=== PATIENT | male | born 1965 | race Caucasian/White ===

== ENCOUNTER 2016-07-03 06:53 | Day surgery (SDC) | payer OTHER ==
[2016-06-28 09:31] VITALS: BMI 29.4
[~2016-07-03 06:53] MED LIST: LACTATED RINGERS 1,000 ML IV SCH; LIDOCAINE 1% 20 ML VIAL (10MG/ML) FOR IV START INTRADERMA PRN
[2016-07-03 07:09] VITALS: RESP 16; TEMP 97.6
[2016-07-03] MEDS ORDERED: fentaNYL (PF) 50 MCG/ML 2 ML AMP ONE (07:33)
[2016-07-03] MEDS ORDERED: MIDAZOLAM 2 MG/2 ML VIAL ONE (07:33)
[2016-07-03] MEDS ORDERED: PROPOFOL 10 MG/ML 20 ML VIAL IV ONE (07:33)
[2016-07-03] MEDS ORDERED: LIDOCAINE 1% INJ 10MG/ML (20 ML MDV) ONE (07:33)
[2016-07-03 08:24] VITALS: BP 123/79; PULSE 73
[2016-07-03 09:08] LABS: Aty Lym Flag Slight; CH 36.1; CHCM 35.8; HCT 41.5 % (39.0-53.0); HDW 2.72; HGB 14.2 gm/dL (13.0-17.5); MCH 34.7 pg (25.0-35.0); MCHC 34.3 g/dL (31.0-37.0); MCV 101.2 fL (80.0-100.0); Macrocytosis Slight; Mean Platelet Volume 7.7; RDW 13.3 % (11.5-15.5); WBC 3.4 k/uL (3.8-10.6); WBC (Perox) 3.32
[2016-07-03 10:20] LABS: Add Differential Manual Differential
[2016-07-03 10:23] LABS: Nucleated Red Blood Cells 0 /100 WBC (0-0); Total Cells Counted 100
[2016-07-03 10:25] LABS: Manual Review Performed
--- NOTE | 2016-07-03 16:21 | PCN ---
DATE OF PROCEDURE: 07/03/2016. PREOPERATIVE DIAGNOSIS: Acute leukemia. POSTOPERATIVE DIAGNOSIS: Acute leukemia. PROCEDURE: Bone marrow aspirate and biopsy. Site: Right iliac crest. ANESTHESIA: Local with IV systemic sedation. DETAILS: Utilizing sterile technique, the skin overlying the right iliac crest was prepared with Betadine and alcohol. After adequate sterile draping size 11, 4 inches Jamshidi needle was utilized to access the periosteum with ease. A total of the 14 mL of aspirate was obtained as well as 2 cm bone core biopsied. The patient tolerated the procedure very well. There were no immediate procedure-related complications. Total blood less than 1 mL. Results pending.
== END 2016-07-03 08:33 | disposition home or self-care (01) ==
LOC: OR 06:53
PROVIDERS: ATTEND Internal Medicine Hematology & Oncology
DX: C92.Z0 Other myeloid leukemia not having achieved remission (principal); D75.89 Other specified diseases of blood and blood-forming organs; E78.5 Hyperlipidemia, unspecified; Z79.899 Other long term (current) drug therapy
CPT/HCPCS: 85025; 38221; G0364; J2250; J2001; J3010; J2704

== ENCOUNTER 2016-10-25 11:40 | Day surgery (SDC) | payer OTHER ==
[2016-10-23 12:01] VITALS: BMI 29.2
[2016-10-25 11:52] VITALS: TEMP 98.4
[2016-10-25] MEDS ORDERED: LACTATED RINGERS 1,000 ML IV ONE (11:52)
[2016-10-25] MEDS ORDERED: PROPOFOL 10 MG/ML 20 ML VIAL IV ONE (12:23)
[2016-10-25] MEDS ORDERED: LIDOCAINE 2% INJ 20 MG/ML SQ ONE ×2 (12:23→12:25)
[2016-10-25 13:11] VITALS: BP 124/76; PULSE 81; RESP 16
[2016-10-25 14:15] LABS: Basophils % (A) 0 %; CH 36.3; CHCM 35.8; Eosinophils # (A) 0.1 k/uL (0-0.7); Eosinophils % (A) 5 %; HCT 38.2 % (39.0-53.0); HDW 2.67; HGB 13.6 gm/dL (13.0-17.5); Luc # (Auto) 0.04; Luc % (Auto) 3; Lymphocytes # (A) 0.6 k/uL (1.0-4.8); Lymphocytes % (A) 47 %; MCH 36.2 pg (25.0-35.0); MCHC 35.6 g/dL (31.0-37.0); MCV 101.5 fL (80.0-100.0); Macrocytosis Slight; Mean Platelet Volume 7.6; Monocytes # (A) 0.1 k/uL (0-1.0); Monocytes % (A) 5 %; Neutrophils # (A) 0.5 k/uL (1.3-7.7); Neutrophils % (A) 40 %; RBC 3.76 m/uL (4.30-5.90); RDW 14.4 % (11.5-15.5); WBC (Perox) 1.22
[2016-10-25 14:28] LABS: WBC 1.2 k/uL (3.8-10.6)
--- NOTE | 2016-10-25 18:52 | PCN ---
DATE OF PROCEDURE: 10/25/16 PREOPERATIVE DIAGNOSIS: AML. POSTOPERATIVE DIAGNOSIS: AML PROCEDURE: Bone marrow aspirate and biopsy. SITE: Right iliac crest. ANESTHESIA: Local with IV systemic sedation. DETAILS: Under sterile technique, the skin overlying the right iliac crest was prepared with Betadine and alcohol. After adequate sterile draping, local anesthesia systemic sedation, a size 11 4 inch Jamshidi needle was utilized and accessed the periosteum with ease. A total of 15 mL of aspirate and 4 cm bone core biopsies were obtained. The patient tolerated the procedure well. There were no immediate procedure complications. Total blood loss: Less than 1 mL. Results pending. MTDD
== END 2016-10-25 13:37 | disposition home or self-care (01) ==
LOC: OR 11:40
PROVIDERS: ATTEND Internal Medicine Hematology & Oncology
DX: C92.Z1 Other myeloid leukemia, in remission (principal); I10 Essential (primary) hypertension; Z79.899 Other long term (current) drug therapy; Z88.0 Allergy status to penicillin
CPT/HCPCS: 85025; 38221; J2001; J2704; G0364

== ENCOUNTER 2016-11-12 06:42 | Inpatient (IN) | payer OTHER ==
[~2016-11-12 06:42] MED LIST changes: +FLUDARABINE PHOSPHATE IV SCH; -LACTATED RINGERS 1,000 ML IV SCH; -LIDOCAINE 1% 20 ML VIAL (10MG/ML) FOR IV START INTRADERMA PRN; +SODIUM CHLORIDE 0.9% IV SCH
[2016-11-12] MEDS ORDERED: SALT AND SODA MOUTHWASH 1,000 ML PO PRN (08:00)
[2016-11-12 08:19] LABS: CH 36.7; CHCM 35.6; HDW 2.79; HGB 12.4 gm/dL (13.0-17.5); MCH 36.6 pg (25.0-35.0); MCHC 35.4 g/dL (31.0-37.0); MCV 103.5 fL (80.0-100.0); Macrocytosis Moderate; RBC 3.38 m/uL (4.30-5.90); RDW 15.8 % (11.5-15.5)
[2016-11-12 08:31] LABS: ALT 79 U/L (21-72); AST 41 U/L (17-59); Alkaline Phosphatase 68 U/L (38-126); Anion Gap 9 mmol/L; Blood Urea Nitrogen 19 mg/dL (9-20); Calcium 9.6 mg/dL (8.4-10.2); Carbon Dioxide 25 mmol/L (22-30); Chloride 105 mmol/L (98-107); Glucose 106 mg/dL (74-99); Non-African American GFR(MDRD) >60 (>60 ml/min/1.73 sqM); Potassium 4.8 mmol/L (3.5-5.1); Sodium 139 mmol/L (137-145); Total Bilirubin 0.6 mg/dL (0.2-1.3); Total Protein 7.1 g/dL (6.3-8.2); Uric Acid 4.9 mg/dL (3.5-8.5)
[2016-11-12] MEDS ORDERED: LIDOCAINE 2% INJ 20 MG/ML SQ ONE (08:36)
[2016-11-12 08:41] LABS: Add Differential Manual Differential
[2016-11-12 08:47] LABS: Manual Review Performed; Nucleated Red Blood Cells 0 /100 WBC (0-0); Total Cells Counted 100
[2016-11-12 09:23] VITALS: BMI 28.8
--- NOTE | 2016-11-12 09:41 | IR ---
EXAMINATION TYPE: IR cvc insert >=5 years DATE OF EXAM: 11/12/2016 COMPARISON: NONE CLINICAL HISTORY: AML Needs long-term intravenous access for chemotherapy. PROCEDURE: After informed consent, the skin overlying the right brachial vein was localized with ultrasound and noted to be compressible and patent. An ultrasound image was obtained and submitted on the patient's chart. The overlying skin was prepped and draped and Lidocaine was used for local anesthesia. A sk in cuong was made with a scalpel. Access was gained to the vein under ultrasound guidance with a 21 g auge needle and a 0.018 inch wire was advanced. Access site was dilated with Peel-Away sheath and ca theter tailored to the appropriate length and advanced such that the distal tip is at the cavoatrial junction. Spot image was obtained verifying placement. Catheter was fixed to the skin with suture a nd a sterile dressing was placed following hemostasis. Catheter was aspirated and flushed with salin e. Patient was discharged in stable condition without complication. Maximal barrier technique is uti lized. Ultrasound image is documented on the chart. Ultrasound used with sterile technique. Fluoro time and fluoroscopic images submitted to document procedure: 0.8 minutes fluoroscopy time, si ngle intraoperative C-arm image documents the procedure IMPRESSION: STATUS POST ULTRASOUND AND FLUOROSCOPIC GUIDED PICC LINE PLACEMENT, READY FOR USE. THIS PROCEDURE WAS PERFORMED BY THE UNDERSIGNED.
[2016-11-12] MEDS: ONDANSETRON 16 MG in SODIUM CHLORIDE 0.9% 50 ML IVPB SCH (10:16)
[2016-11-12] MEDS: DEXAMETHASONE SOD PHOSPHATE 10 MG/ML 1 ML VIAL IV SCH (10:16)
[2016-11-12] MEDS: SALT AND SODA MOUTHWASH 1,000 ML PO SCH ×3 (10:16→16:46)
[2016-11-12] MEDS: prednisoLONE ACETATE 1% OPHTH DROPS 1 ML BTL BOTH EYES SCH ×4 (10:16→21:10)
[2016-11-12] MEDS: ALLOPURINOL 300 MG TAB PO SCH (10:16)
[2016-11-12] MEDS: FAMOTIDINE 20 MG/2 ML VIAL IV SCH (10:16)
[2016-11-12] MEDS: SODIUM CHLORIDE 0.9% 1,000 ML IV SCH ×3 (10:17→22:39)
[2016-11-12] MEDS: SODIUM CHLORIDE 0.9% IV SCH ×2 (10:58→15:09)
[2016-11-12] MEDS: FLUDARABINE PHOSPHATE IV SCH (10:58)
[2016-11-12] MEDS: TOBRAMYCIN 0.3% OPHTH DROPS 5 ML BTL BOTH EYES SCH ×3 (12:56→21:10)
[2016-11-12] MEDS: IDARUBICIN HCL IV SCH (15:09)
[2016-11-12] MEDS: CYTARABINE IV SCH (15:09)
--- NOTE | 2016-11-12 23:31 | P.HPIM ---
History of Present Illness H&P Date: 11/12/16 Mr Shah is a 51 yr old WM, well known to our service. He was diagnosed with AML in 06/28. He underwent successful induction with the 7+3 regimen. As his cytogenetics were favorable, he had consolidation with HiDAC, completing 4/ 4 cycles on 03/05/16. He tolerated treatment reasonably, though he did have admissions for neutropenic fever. He was on observation till early 10/29, when he presented with fatigue, and was found to have low WBC. He had a repeat bone marrow on 10/25/16, revealing relapsed AML, with now new cytogeentic abnormalities ( del 7q, and Inv 16). He is being admitted fro re induction, with the LEO-FLAG regimen. He denies any complaints, other than fatigue. Review of Systems Constitutional: Reports fatigue Eyes: denies blurred vision, denies pain Ears: deny: decreased hearing, ear discharge, earache, tinnitus Ears, nose, mouth and throat: Denies headache, Denies sore throat Cardiovascular: Reports decreased exercise tolerance Respiratory: Denies cough Gastrointestinal: Denies abdominal pain, Denies diarrhea, Denies nausea, Denies vomiting Genitourinary: Reports as per HPI Musculoskeletal: Reports as per HPI Integumentary: Denies pruritus, Denies rash Neurological: Denies numbness, Denies weakness Psychiatric: Denies anxiety, Denies depression Endocrine: Denies fatigue, Denies weight change Hematologic/Lymphatic: Reports as per HPI Past Medical History Past Medical History: Cancer, Hypertension Additional Past Medical History / Comment(s): 09/2015 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 History of Any Multi-Drug Resistant Organisms: None Reported Past Surgical History: Tonsillectomy Additional Past Surgical History / Comment(s): bone marrow bx 3, PICC line insertion R arm & removed Past Anesthesia/Blood Transfusion Reactions: No Reported Reaction Additional Past Anesthesia/Blood Transfusion Reaction / Comment(s): Pt has received blood / platelets without reaction. Past Psychological History: No Psychological Hx Reported Additional Psychological History / Comment(s): Pt resides with his spouse. He is very independent. Smoking Status: Never smoker Past Alcohol Use History: Occasional Past Drug Use History: None Reported - Past Family History Mother Family Medical History: Cancer Additional Family Medical History / Comment(s): Mother of lymphoma at the age of 49 yrs. Father Family Medical History: No Reported History Additional Family Medical History / Comment(s): Father is 74 yrs old and healthy. Medications and Allergies Home Medications Medication Instructions Recorded Confirmed Type Losartan [Cozaar] 50 mg PO QAM 02/29/16 11/12/16 History Tobramycin 0.3% Ophth Soln [Tobrex 2 drop BOTH EYES Q4H 11/12/16 11/12/16 History 0.3% Ophth Soln] Allergies Allergy/AdvReac Type Severity Reaction Status Date / Time Penicillins Allergy Severe Rash/Hives Verified 11/12/16 10:20 Physical Exam Vitals: Vital Signs Temp Pulse Resp BP BP Pulse Ox 11/12/16 20:00 98.3 F 95 18 134/81 95 11/12/16 16:13 98.2 F 77 16 154/80 97 11/12/16 11:21 98.0 F 16 133/82 98 11/12/16 08:03 98.1 F 80 16 157/97 99 Intake and Output 11/12/16 11/12/16 11/13/16 14:59 22:59 06:59 Intake Total 675 400 Balance 675 400 Intake: Intake, IV Titration 675 Amount Fludarabine Phosphate 66 100 mg In Sodium Chloride 0.9 % 100 ml @ 200 mls/hr IV Q24H [facility] Rx#:[id number] Ondansetron 16 mg In 50 Sodium Chloride 0.9% 50 ml @ 100 mls/hr IVPB Q24H [facility] Rx#:[id number] Sodium Chloride 0.9% 1, 525 000 ml @ 150 mls/hr IV . Q6H40M [facility] Rx#:[id number] Oral 400 Other: Weight 96.615 kg Patient Weight 11/13/16 06:59 Weight 96.615 kg - Constitutional General appearance: no acute distress - EENT Eyes: EOMI, PERRLA ENT: hearing grossly normal, normal oropharynx - Neck Neck: no lymphadenopathy - Respiratory Respiratory: bilateral: CTA - Cardiovascular Rhythm: regular Heart sounds: normal: S1, S2 - Gastrointestinal General gastrointestinal: normal bowel sounds, soft - Integumentary Integumentary: normal - Neurologic Neurologic: CNII-XII intact - Musculoskeletal Musculoskeletal: strength equal bilaterally - Psychiatric Psychiatric: A&O x's 3, appropriate affect Results CBC & Chem 7: 11/12/16 08:03 11/12/16 08:03 Labs: Abnormal Lab Results - Last 24 Hours (Table) 11/12/16 11/12/16 Range/Units 08:03 08:03 WBC 1.0 L* (3.8-10.6) k/uL RBC 3.38 L (4.30-5.90) m/uL Hgb 12.4 L (13.0-17.5) gm/dL Hct 35.0 L (39.0-53.0) % MCV 103.5 H (80.0-100.0) fL MCH 36.6 H (25.0-35.0) pg RDW 15.8 H (11.5-15.5) % Plt Count 95 L (150-450) k/uL Neutrophils # (Manual) 0.4 L (1.3-7.7) k/uL Lymphocytes # (Manual) 0.5 L (1.0-4.8) k/uL Glucose 106 H (74-99) mg/dL ALT 79 H (21-72) U/L Thrombosis Risk Factor Assmnt - DVT/VTE Prophylaxis DVT/VTE Prophylaxis: Mechanical Prophylaxis ordered - Choose All That Apply Each Factor Represents 1 point: Age 41-60 years Other Risk Factors: Yes Each Risk Factor Represents 2 Points: Malignancy Thrombosis Risk Factor Assessment Total Risk Factor Score: 3 Thrombosis Risk Factor Assessment Level: Moderate Risk Assessment and Plan (1) Leukemia Narrative/Plan: The pt is presenting with AMl, in 1st relapse, after achieving remission initially , followed with consoloidation chemo. He is being admitted or high dose infusional chemotherapy, with LEO- FLAG to try to achieve second remission. The regimen has been discussed in detail. He will receive treatment with pre meds per protocol. He will followed closely with labs and clinical exams Status: Acute (2) Bicytopenia Narrative/Plan: Due to underlying AML. Monitor counts and transfuse PRBC or plt as needed. WBC will improve only after remission is achieved, and counts recover post chemo. Status: Acute Plan: Mechanical DVT prophylaxis due ti risk of marked drop in plt once chemo startes
[2016-11-13] MEDS: TOBRAMYCIN 0.3% OPHTH DROPS 5 ML BTL BOTH EYES SCH ×7 (00:33→23:52)
[2016-11-13] MEDS: SODIUM CHLORIDE 0.9% 1,000 ML IV SCH ×4 (04:45→20:57)
[2016-11-13 06:45] LABS: CH 36.9; CHCM 35.3; HCT 25.2 % (39.0-53.0); HDW 2.76; MCH 37.4 pg (25.0-35.0); MCHC 35.6 g/dL (31.0-37.0); MCV 104.8 fL (80.0-100.0); Macrocytosis Moderate; Mean Platelet Volume 7.9; WBC (Perox) 0.89
[2016-11-13 06:50] LABS: WBC 0.9 k/uL (3.8-10.6)
[2016-11-13 07:16] LABS: ALT 58 U/L (21-72); AST 19 U/L (17-59); Alkaline Phosphatase 47 U/L (38-126); Anion Gap 6 mmol/L; Blood Urea Nitrogen 13 mg/dL (9-20); Carbon Dioxide 19 mmol/L (22-30); Chloride 116 mmol/L (98-107); Glucose 84 mg/dL (74-99); Non-African American GFR(MDRD) >60 (>60 ml/min/1.73 sqM); Potassium 3.2 mmol/L (3.5-5.1); Sodium 141 mmol/L (137-145); Total Bilirubin 0.3 mg/dL (0.2-1.3); Total Protein 4.4 g/dL (6.3-8.2); Uric Acid 3.3 mg/dL (3.5-8.5)
[2016-11-13 07:30] LABS: Calcium 6.3 mg/dL (8.4-10.2)
[2016-11-13 07:39] LABS: Add Differential Manual Differential
[2016-11-13] MEDS: ALLOPURINOL 300 MG TAB PO SCH (07:58)
[2016-11-13] MEDS: LOSARTAN 50 MG TAB PO SCH (07:58)
[2016-11-13] MEDS: SALT AND SODA MOUTHWASH 1,000 ML PO SCH ×3 (07:58→17:31)
[2016-11-13] MEDS: prednisoLONE ACETATE 1% OPHTH DROPS 1 ML BTL BOTH EYES SCH ×4 (07:59→20:55)
[2016-11-13] MEDS ORDERED: POTASSIUM CHLORIDE 20 MEQ in WATER FOR INJECTION 1 100ML.BAG IVPB ONE (08:31)
[2016-11-13] MEDS ORDERED: Potassium Replacement Protocol 1 EACH MISC MISCELLANE PRN (08:31)
[2016-11-13] MEDS: DEXAMETHASONE SOD PHOSPHATE 10 MG/ML 1 ML VIAL IV SCH (09:28)
[2016-11-13] MEDS: FAMOTIDINE 20 MG/2 ML VIAL IV SCH (09:30)
[2016-11-13] MEDS: ONDANSETRON 16 MG in SODIUM CHLORIDE 0.9% 50 ML IVPB SCH (09:32)
--- NOTE | 2016-11-13 10:05 | P.PN ---
Subjective Principal diagnosis: AML, admit for high dose CIVI chemotherapy Pt seen today in follow up, he states feeling pretty good, denies fever, oral irritation, nausea, cough, SOB, abd discomfort, indigestion, dysuria, diarrhea, constipation, pain, rash, swelling or bleeding. Objective - Vital Signs Vital signs: Vital Signs Temp 98.1 F 11/13/16 08:00 Pulse 72 11/13/16 08:00 Resp 18 11/13/16 08:04 BP 139/81 11/13/16 08:00 Pulse Ox 97 11/13/16 08:00 Intake & Output 11/12/16 11/13/16 11/13/16 18:59 06:59 18:59 Intake Total 675 1600 Balance 675 1600 Weight 96.615 kg Intake: Intake, IV Titration 675 1200 Amount Fludarabine Phosphate 66 100 mg In Sodium Chloride 0.9 % 100 ml @ 200 mls/hr IV Q24H [facility] Rx#:[id number] Ondansetron 16 mg In 50 Sodium Chloride 0.9% 50 ml @ 100 mls/hr IVPB Q24H [facility] Rx#:[id number] Sodium Chloride 0.9% 1, 525 1200 000 ml @ 150 mls/hr IV . Q6H40M [facility] Rx#:[id number] Oral 400 Other: Voiding Method Toilet Toilet # Voids 2 2 - Constitutional General appearance: Present: average body habitus, cooperative, no acute distress - EENT Eyes: Present: anicteric sclerae, EOMI, PERRLA, normal appearance ENT: Present: normal oropharynx - Respiratory Respiratory: bilateral: CTA - Cardiovascular Rhythm: regular Heart sounds: normal: S1, S2 Abnormal Heart Sounds: Absent: systolic murmur, diastolic murmur, rub, S3 Gallop , S4 Gallop, click, other - Peripheral edema leg Peripheral Edema: bilateral: None - Gastrointestinal General gastrointestinal: Present: normal bowel sounds, soft - Integumentary Integumentary: Present: normal turgor - Neurologic Neurologic: Present: CNII-XII intact - Musculoskeletal Musculoskeletal: Present: strength equal bilaterally - Psychiatric Psychiatric: Present: A&O x's 3, appropriate affect, intact judgment & insight - Labs CBC & Chem 7: 11/13/16 06:16 11/13/16 06:16 Labs: Abnormal Lab Results - Last 24 Hours (Table) 11/13/16 11/13/16 Range/Units 06:16 06:16 WBC 0.9 L* (3.8-10.6) k/uL RBC 2.40 L (4.30-5.90) m/uL Hgb 9.0 L D (13.0-17.5) gm/dL Hct 25.2 L (39.0-53.0) % MCV 104.8 H (80.0-100.0) fL MCH 37.4 H (25.0-35.0) pg RDW 16.0 H (11.5-15.5) % Plt Count 69 L (150-450) k/uL Potassium 3.2 L (3.5-5.1) mmol/L Chloride 116 H (98-107) mmol/L Carbon Dioxide 19 L (22-30) mmol/L Creatinine 0.65 L (0.66-1.25) mg/dL Uric Acid 3.3 L (3.5-8.5) mg/dL Calcium 6.3 L* (8.4-10.2) mg/dL Total Protein 4.4 L (6.3-8.2) g/dL Albumin 2.5 L (3.5-5.0) g/dL Assessment and Plan (1) Leukemia, acute myeloid Narrative/Plan: Cont chemotherapy without adjustment. Supportive meds ordered. Status: Acute (2) Pancytopenia Narrative/Plan: Secondary to leukemia. No transfusions today. No growth factors to be administered until confirmed remission. SCDs will be used for DVT prophylaxis.Labs monitored daily. Status: Acute
[2016-11-13] MEDS: FLUDARABINE PHOSPHATE IV SCH (11:00)
[2016-11-13] MEDS: SODIUM CHLORIDE 0.9% IV SCH ×2 (11:00→16:21)
[2016-11-13] MEDS: IDARUBICIN HCL IV SCH (16:18)
[2016-11-13] MEDS: CYTARABINE IV SCH (16:21)
[2016-11-13] MEDS: ALPRAZolam 0.5 MG TAB PO PRN (20:55)
[2016-11-14] MEDS: TOBRAMYCIN 0.3% OPHTH DROPS 5 ML BTL BOTH EYES SCH ×6 (06:09→23:56)
[2016-11-14 06:20] LABS: CH 37.2; CHCM 35.4; HCT 25.7 % (39.0-53.0); HDW 2.72; HGB 8.8 gm/dL (13.0-17.5); MCH 35.9 pg (25.0-35.0); MCV 105.5 fL (80.0-100.0); Macrocytosis Moderate; Mean Platelet Volume 9.1; RBC 2.44 m/uL (4.30-5.90); RDW 15.8 % (11.5-15.5); WBC (Perox) 0.74
[2016-11-14 06:26] LABS: WBC 0.8 k/uL (3.8-10.6)
[2016-11-14 06:33] LABS: ALT 56 U/L (21-72); AST 23 U/L (17-59); Alkaline Phosphatase 46 U/L (38-126); Anion Gap 5 mmol/L; Blood Urea Nitrogen 11 mg/dL (9-20); Calcium 7.1 mg/dL (8.4-10.2); Carbon Dioxide 22 mmol/L (22-30); Chloride 115 mmol/L (98-107); Glucose 79 mg/dL (74-99); Non-African American GFR(MDRD) >60 (>60 ml/min/1.73 sqM); Potassium 3.5 mmol/L (3.5-5.1); Sodium 142 mmol/L (137-145); Total Bilirubin 0.8 mg/dL (0.2-1.3); Total Protein 4.8 g/dL (6.3-8.2); Uric Acid 3.2 mg/dL (3.5-8.5)
[2016-11-14 07:06] LABS: Add Differential Manual Differential
[2016-11-14 07:16] LABS: Manual Review Performed
[2016-11-14] MEDS: SALT AND SODA MOUTHWASH 1,000 ML PO SCH ×3 (08:53→16:19)
[2016-11-14] MEDS: ONDANSETRON 4 MG/2 ML VIAL IVP PRN (08:53)
[2016-11-14] MEDS: prednisoLONE ACETATE 1% OPHTH DROPS 1 ML BTL BOTH EYES SCH ×4 (08:53→20:30)
[2016-11-14] MEDS: ALLOPURINOL 300 MG TAB PO SCH (08:54)
[2016-11-14] MEDS: LOSARTAN 50 MG TAB PO SCH (08:54)
[2016-11-14] MEDS: ONDANSETRON 16 MG in SODIUM CHLORIDE 0.9% 50 ML IVPB SCH (11:21)
[2016-11-14] MEDS: DEXAMETHASONE SOD PHOSPHATE 10 MG/ML 1 ML VIAL IV SCH (12:07)
[2016-11-14] MEDS: FAMOTIDINE 20 MG/2 ML VIAL IV SCH (12:07)
[2016-11-14] MEDS: SODIUM CHLORIDE 0.9% IV SCH ×2 (12:15→15:53)
[2016-11-14] MEDS: FLUDARABINE PHOSPHATE IV SCH (12:15)
[2016-11-14] MEDS: SODIUM CHLORIDE 0.9% 1,000 ML IV SCH ×3 (15:15→20:31)
[2016-11-14] MEDS: IDARUBICIN HCL IV SCH (15:53)
[2016-11-14] MEDS: CYTARABINE IV SCH (15:53)
--- NOTE | 2016-11-14 18:38 | P.PN ---
Subjective Principal diagnosis: AML, admit for high dose CIVI chemotherapy Pt seen today in follow up. He has c/o "queezy" stomach and feeling tired. Denies fever, oral irritation, cough, SOB, abd discomfort, indigestion, dysuria , diarrhea, constipation, pain, rash, swelling or bleeding. He is ambulating in the room. He slept well last night. Objective - Vital Signs Vital signs: Vital Signs Temp 98.1 F 11/14/16 16:16 Pulse 66 11/14/16 16:16 Resp 20 11/14/16 16:16 BP 130/83 11/14/16 16:16 Pulse Ox 97 11/14/16 16:16 Intake & Output 11/13/16 11/14/16 11/14/16 18:59 06:59 18:59 Intake Total 360 1790 Balance 360 1790 Weight 100 kg Intake: Oral 360 1790 Other: Voiding Method Toilet Toilet # Voids 4 3 3 - Constitutional General appearance: Present: average body habitus, cooperative, no acute distress - EENT Eyes: Present: anicteric sclerae, PERRLA, normal appearance ENT: Present: normal oropharynx - Respiratory Respiratory: bilateral: CTA - Cardiovascular Details: RUE PICC site free from redness, swelling or pain Rhythm: regular Heart sounds: normal: S1, S2 - Peripheral edema leg Peripheral Edema: bilateral: None - Gastrointestinal General gastrointestinal: Present: normal bowel sounds, soft. Absent: absent bowel sounds, decreased bowel sounds, distended, hepatomegaly, hyperactive bowel sounds, organomegaly, rigid, scaphoid, splenomegaly, tenderness, umbilical hernia, ventral hernia - Integumentary Integumentary: Present: normal - Neurologic Neurologic: Present: CNII-XII intact - Musculoskeletal Musculoskeletal: Present: strength equal bilaterally - Psychiatric Psychiatric: Present: A&O x's 3, appropriate affect, intact judgment & insight - Labs CBC & Chem 7: 11/14/16 06:10 11/14/16 06:10 Labs: Abnormal Lab Results - Last 24 Hours (Table) 11/14/16 11/14/16 Range/Units 06:10 06:10 WBC 0.8 L* (3.8-10.6) k/uL RBC 2.44 L (4.30-5.90) m/uL Hgb 8.8 L (13.0-17.5) gm/dL Hct 25.7 L (39.0-53.0) % MCV 105.5 H (80.0-100.0) fL MCH 35.9 H (25.0-35.0) pg RDW 15.8 H (11.5-15.5) % Plt Count 57 L (150-450) k/uL Chloride 115 H (98-107) mmol/L Creatinine 0.59 L (0.66-1.25) mg/dL Uric Acid 3.2 L (3.5-8.5) mg/dL Calcium 7.1 L (8.4-10.2) mg/dL Total Protein 4.8 L (6.3-8.2) g/dL Albumin 2.8 L (3.5-5.0) g/dL Assessment and Plan (1) Leukemia, acute myeloid Narrative/Plan: Cont chemotherapy without adjustment. Supportive meds ordered. Status: Acute (2) Pancytopenia Narrative/Plan: Secondary to leukemia and chemotherapy. No transfusions planned for today. Pt will require irradiated blood products. No growth factors to be administered until confirmed remission. SCDs will be used for DVT prophylaxis. Labs continue to be monitored daily. Status: Acute
[2016-11-14 19:20] VITALS: RESP 16
[2016-11-14] MEDS: ALPRAZolam 0.5 MG TAB PO PRN (20:31)
[2016-11-15] MEDS: TOBRAMYCIN 0.3% OPHTH DROPS 5 ML BTL BOTH EYES SCH ×6 (04:44→23:34)
[2016-11-15] MEDS: SALT AND SODA MOUTHWASH 1,000 ML PO SCH ×3 (07:54→16:43)
[2016-11-15] MEDS: prednisoLONE ACETATE 1% OPHTH DROPS 1 ML BTL BOTH EYES SCH ×4 (07:55→20:54)
[2016-11-15] MEDS: ALLOPURINOL 300 MG TAB PO SCH (07:58)
[2016-11-15] MEDS: LOSARTAN 50 MG TAB PO SCH (07:58)
[2016-11-15] MEDS: ONDANSETRON 4 MG/2 ML VIAL IVP PRN (07:59)
[2016-11-15] MEDS: FAMOTIDINE 20 MG/2 ML VIAL IV SCH (10:47)
[2016-11-15] MEDS: DEXAMETHASONE SOD PHOSPHATE 10 MG/ML 1 ML VIAL IV SCH (10:47)
[2016-11-15] MEDS: ONDANSETRON 16 MG in SODIUM CHLORIDE 0.9% 50 ML IVPB SCH (10:47)
[2016-11-15] MEDS: SODIUM CHLORIDE 0.9% 1,000 ML IV SCH ×3 (10:47→23:17)
[2016-11-15 10:50] LABS: CH 37.1; CHCM 35.8; HCT 25.2 % (39.0-53.0); HDW 2.78; HGB 8.6 gm/dL (13.0-17.5); MCH 35.6 pg (25.0-35.0); MCHC 34.2 g/dL (31.0-37.0); Macrocytosis Moderate; Mean Platelet Volume 9.1; RBC 2.43 m/uL (4.30-5.90); RDW 15.2 % (11.5-15.5); WBC (Perox) 0.62
[2016-11-15 10:59] LABS: WBC 0.6 k/uL (3.8-10.6)
[2016-11-15 11:08] LABS: ALT 52 U/L (21-72); AST 22 U/L (17-59); Alkaline Phosphatase 45 U/L (38-126); Anion Gap 4 mmol/L; Blood Urea Nitrogen 14 mg/dL (9-20); Calcium 7.6 mg/dL (8.4-10.2); Carbon Dioxide 22 mmol/L (22-30); Chloride 114 mmol/L (98-107); Glucose 73 mg/dL (74-99); Non-African American GFR(MDRD) >60 (>60 ml/min/1.73 sqM); Sodium 140 mmol/L (137-145); Total Bilirubin 0.8 mg/dL (0.2-1.3); Total Protein 4.7 g/dL (6.3-8.2); Uric Acid 2.1 mg/dL (3.5-8.5)
[2016-11-15] MEDS: POTASSIUM CHLORIDE ER 20 MEQ TAB.ER PO SCH ×3 (11:45→14:35)
[2016-11-15 11:54] LABS: Add Differential Manual Differential
[2016-11-15 11:57] LABS: Manual Review Performed
[2016-11-15] MEDS: FLUDARABINE PHOSPHATE IV SCH (12:01)
[2016-11-15] MEDS: SODIUM CHLORIDE 0.9% IV SCH ×2 (12:01→16:41)
[2016-11-15] MEDS: CYTARABINE IV SCH (16:41)
--- NOTE | 2016-11-15 17:07 | P.PN ---
Subjective Principal diagnosis: AML, admit for high dose CIVI chemotherapy Pt seen today in follow up. He continues to have an upset stomach but antiemetics do help, he continues to have his taste buds and is eating and drinking pretty good. Denies fever, no documented fevers, no oral irritation, cough, SOB, indigestion, dysuria, diarrhea, constipation, pain, swelling or bleeding. Objective - Vital Signs Vital signs: Vital Signs Temp 98.3 F 11/15/16 16:00 Pulse 69 11/15/16 16:00 Resp 16 11/15/16 16:00 BP 134/84 11/15/16 16:00 Pulse Ox 96 11/15/16 16:00 Intake & Output 11/14/16 11/15/16 11/15/16 18:59 06:59 18:59 Intake Total 2600 Balance 2600 Intake: IV 2400 Sodium Chloride 0.9% 1, 2400 000 ml @ 150 mls/hr IV . Q6H40M [facility] Rx#:[id number] Oral 200 Other: Voiding Method Toilet # Voids 3 - Constitutional General appearance: Present: average body habitus, cooperative, no acute distress - EENT Eyes: Present: anicteric sclerae, EOMI, PERRLA, normal appearance ENT: Present: normal oropharynx - Respiratory Respiratory: bilateral: CTA - Cardiovascular Rhythm: regular Heart sounds: normal: S1, S2 - Peripheral edema leg Peripheral Edema: bilateral: None - Gastrointestinal General gastrointestinal: Present: normal bowel sounds, soft - Integumentary Integumentary: Present: normal - Neurologic Neurologic: Present: CNII-XII intact - Musculoskeletal Musculoskeletal: Present: strength equal bilaterally - Psychiatric Psychiatric: Present: A&O x's 3, appropriate affect, intact judgment & insight - Labs CBC & Chem 7: 11/15/16 10:35 11/15/16 15:25 Labs: Abnormal Lab Results - Last 24 Hours (Table) 11/15/16 11/15/16 Range/Units 10:35 10:35 WBC 0.6 L* (3.8-10.6) k/uL RBC 2.43 L (4.30-5.90) m/uL Hgb 8.6 L (13.0-17.5) gm/dL Hct 25.2 L (39.0-53.0) % MCV 104.0 H (80.0-100.0) fL MCH 35.6 H (25.0-35.0) pg Plt Count 55 L (150-450) k/uL Potassium 3.0 L* (3.5-5.1) mmol/L Chloride 114 H (98-107) mmol/L Creatinine 0.60 L (0.66-1.25) mg/dL Glucose 73 L (74-99) mg/dL Uric Acid 2.1 L (3.5-8.5) mg/dL Calcium 7.6 L (8.4-10.2) mg/dL Total Protein 4.7 L (6.3-8.2) g/dL Albumin 2.8 L (3.5-5.0) g/dL Assessment and Plan (1) Leukemia, acute myeloid Narrative/Plan: Cont chemotherapy without adjustment. No changes to meds or plan of care at this time Status: Acute (2) Pancytopenia Narrative/Plan: Stable, no transfusions or growth factors Status: Acute Plan: SCDs for DVT prophylaxis GI prophylaxis Labs daily
[2016-11-15] MEDS: ALPRAZolam 0.5 MG TAB PO PRN (20:54)
[2016-11-16] MEDS: TOBRAMYCIN 0.3% OPHTH DROPS 5 ML BTL BOTH EYES SCH ×5 (03:39→21:15)
[2016-11-16] MEDS: SODIUM CHLORIDE 0.9% 1,000 ML IV SCH ×4 (06:07→23:25)
[2016-11-16 06:20] LABS: CH 37.3; CHCM 36.6; HDW 2.84; HGB 9.7 gm/dL (13.0-17.5); MCH 36.7 pg (25.0-35.0); MCHC 35.9 g/dL (31.0-37.0); MCV 102.3 fL (80.0-100.0); Macrocytosis Slight; Mean Platelet Volume 7.7; RBC 2.64 m/uL (4.30-5.90); RDW 14.9 % (11.5-15.5); WBC (Perox) 0.51
[2016-11-16 06:21] LABS: WBC 0.5 k/uL (3.8-10.6)
[2016-11-16 06:30] LABS: ALT 68 U/L (21-72); AST 25 U/L (17-59); Alkaline Phosphatase 57 U/L (38-126); Anion Gap 8 mmol/L; Blood Urea Nitrogen 14 mg/dL (9-20); Calcium 9.9 mg/dL (8.4-10.2); Carbon Dioxide 24 mmol/L (22-30); Chloride 106 mmol/L (98-107); Glucose 94 mg/dL (74-99); Non-African American GFR(MDRD) >60 (>60 ml/min/1.73 sqM); Potassium 4.4 mmol/L (3.5-5.1); Sodium 138 mmol/L (137-145); Total Bilirubin 0.9 mg/dL (0.2-1.3); Uric Acid 2.8 mg/dL (3.5-8.5)
[2016-11-16 06:36] LABS: Add Differential Manual Differential; Manual Review Performed
[2016-11-16] MEDS: ALLOPURINOL 300 MG TAB PO SCH (07:57)
[2016-11-16] MEDS: SALT AND SODA MOUTHWASH 1,000 ML PO SCH ×3 (07:57→17:22)
[2016-11-16] MEDS: LOSARTAN 50 MG TAB PO SCH (07:57)
[2016-11-16] MEDS: prednisoLONE ACETATE 1% OPHTH DROPS 1 ML BTL BOTH EYES SCH ×4 (07:58→21:15)
[2016-11-16] MEDS: ONDANSETRON 16 MG in SODIUM CHLORIDE 0.9% 50 ML IVPB SCH (11:50)
[2016-11-16] MEDS: DEXAMETHASONE SOD PHOSPHATE 10 MG/ML 1 ML VIAL IV SCH (11:50)
[2016-11-16] MEDS: FAMOTIDINE 20 MG/2 ML VIAL IV SCH (11:50)
[2016-11-16] MEDS: FLUDARABINE PHOSPHATE IV SCH (12:48)
[2016-11-16] MEDS: SODIUM CHLORIDE 0.9% IV SCH ×2 (12:48→17:18)
--- NOTE | 2016-11-16 14:33 | P.PN ---
Subjective Principal diagnosis: AML, admit for high dose CIVI chemotherapy Pt seen today in follow up, he continues to do rather well, no fever, eye irritation, oral irritation, appetite fair, no dysphagia, odynophagia, mild nausea, no vomiting, SOB, cough, mild indigestion, no abd pain or bloating, diarrhea, constipation, dysuria, bleeding or swelling, he is ambulating in the room. Objective - Vital Signs Vital signs: Vital Signs Temp 98.1 F 11/16/16 13:05 Pulse 66 11/16/16 13:05 Resp 16 11/16/16 08:00 BP 147/82 11/16/16 13:05 Pulse Ox 98 11/16/16 13:05 Intake & Output 11/15/16 11/16/16 11/16/16 18:59 06:59 18:59 Intake Total 2800 Balance 2800 Intake: IV 2400 Sodium Chloride 0.9% 1, 2400 000 ml @ 150 mls/hr IV . Q6H40M [facility] Rx#:[id number] Oral 400 Other: Voiding Method Toilet Toilet # Voids 2 - Constitutional General appearance: Present: average body habitus, cooperative, no acute distress - EENT Eyes: Present: anicteric sclerae, EOMI ENT: Present: normal oropharynx - Respiratory Respiratory: bilateral: CTA - Cardiovascular Rhythm: regular Heart sounds: normal: S1, S2 Abnormal Heart Sounds: Absent: systolic murmur, diastolic murmur, rub, S3 Gallop , S4 Gallop, click, other - Peripheral edema leg Peripheral Edema: bilateral: None - Gastrointestinal General gastrointestinal: Present: normal bowel sounds, soft. Absent: absent bowel sounds, decreased bowel sounds, distended, hepatomegaly, hyperactive bowel sounds, organomegaly, rigid, scaphoid, splenomegaly, tenderness, umbilical hernia, ventral hernia - Integumentary Integumentary: Present: normal - Neurologic Neurologic: Present: CNII-XII intact - Musculoskeletal Musculoskeletal: Present: strength equal bilaterally - Psychiatric Psychiatric: Present: A&O x's 3, appropriate affect, intact judgment & insight - Labs CBC & Chem 7: 11/16/16 06:00 11/16/16 06:00 Labs: Abnormal Lab Results - Last 24 Hours (Table) 11/16/16 11/16/16 Range/Units 06:00 06:00 WBC 0.5 L* (3.8-10.6) k/uL RBC 2.64 L (4.30-5.90) m/uL Hgb 9.7 L (13.0-17.5) gm/dL Hct 27.0 L (39.0-53.0) % MCV 102.3 H (80.0-100.0) fL MCH 36.7 H (25.0-35.0) pg Plt Count 64 L (150-450) k/uL Uric Acid 2.8 L (3.5-8.5) mg/dL Total Protein 6.0 L (6.3-8.2) g/dL Assessment and Plan (1) Leukemia, acute myeloid Narrative/Plan: Cont chemotherapy with out adjustment to completion Status: Acute (2) Pancytopenia Narrative/Plan: Stable, no transfusions for anemia or thrombocytopenia. Plan is to initiate GCSF in the outpatient setting, pt is educated on the same. Status: Acute Plan: Cont SCDs and ambulation for DVT prophylaxis Erx for necessary prescriptions Discharge in AM after evaluation and labs
[2016-11-16] MEDS: CYTARABINE IV SCH (17:18)
[2016-11-16] MEDS: ALPRAZolam 0.5 MG TAB PO PRN (21:18)
[2016-11-17] MEDS: SODIUM CHLORIDE 0.9% 1,000 ML IV SCH ×2 (02:06→10:40)
[2016-11-17] MEDS: TOBRAMYCIN 0.3% OPHTH DROPS 5 ML BTL BOTH EYES SCH ×3 (02:07→08:17)
[2016-11-17 06:43] LABS: Basophils % (A) 0 %; CH 37.6; CHCM 37.3; Eosinophils % (A) 3 %; HCT 27.3 % (39.0-53.0); HDW 2.91; HGB 9.9 gm/dL (13.0-17.5); Hyperchromasia Slight; Luc # (Auto) 0; Luc % (Auto) 0; Lymphocytes # (A) 0.1 k/uL (1.0-4.8); Lymphocytes % (A) 14 %; MCH 36.5 pg (25.0-35.0); MCHC 36.2 g/dL (31.0-37.0); MCV 100.9 fL (80.0-100.0); Macrocytosis Slight; Mean Platelet Volume 7.1; Monocytes % (A) 12 %; Neutrophils # (A) 0.2 k/uL (1.3-7.7); Neutrophils % (A) 71 %; RBC 2.71 m/uL (4.30-5.90); RDW 14.5 % (11.5-15.5); WBC (Perox) 0.31
[2016-11-17 06:49] LABS: WBC 0.3 k/uL (3.8-10.6)
[2016-11-17 06:51] LABS: ALT 72 U/L (21-72); AST 29 U/L (17-59); Alkaline Phosphatase 58 U/L (38-126); Anion Gap 8 mmol/L; Blood Urea Nitrogen 16 mg/dL (9-20); Calcium 9.9 mg/dL (8.4-10.2); Carbon Dioxide 27 mmol/L (22-30); Chloride 103 mmol/L (98-107); Glucose 89 mg/dL (74-99); Non-African American GFR(MDRD) >60 (>60 ml/min/1.73 sqM); Potassium 4.4 mmol/L (3.5-5.1); Sodium 138 mmol/L (137-145); Total Bilirubin 1.1 mg/dL (0.2-1.3); Total Protein 6.2 g/dL (6.3-8.2); Uric Acid 2.8 mg/dL (3.5-8.5)
[2016-11-17 08:00] VITALS: BP 158/92; PULSE 58; TEMP 97.7
[2016-11-17] MEDS: ONDANSETRON 4 MG/2 ML VIAL IVP PRN (08:16)
[2016-11-17] MEDS: SALT AND SODA MOUTHWASH 1,000 ML PO SCH (08:17)
[2016-11-17] MEDS: ALLOPURINOL 300 MG TAB PO SCH (08:17)
[2016-11-17] MEDS: LOSARTAN 50 MG TAB PO SCH (08:17)
[2016-11-17] MEDS: prednisoLONE ACETATE 1% OPHTH DROPS 1 ML BTL BOTH EYES SCH (08:17)
--- NOTE | 2016-11-17 09:56 | P.DS ---
Providers Date of admission: 11/12/16 06:42 Expected date of discharge: 11/17/16 Attending physician: Richard Garsia Primary care physician: Mena Maloney - Discharge Diagnosis(es) (1) Leukemia Current Visit: Yes Status: Acute (2) Bicytopenia Current Visit: Yes Status: Acute Hospital Course: The patient was admitted to the hospital in first relapse of his acute myeloid leukemia. He was treated with high dose infusional chemotherapy consisting of fludarabine and cytarabine. He was closely monitored during his hospitalization, with labs as well as clinical exams. The patient tolerated treatment reasonably well without any significant competitions. Drops in blood counts were noted, as expected due to the chemotherapy. He did have baseline leukopenia and some cytopenia due to the leukemia. However he did not require supplementation. After completion of chemotherapy, it was therefore decided to discharge him home. Procedures: PICC line placement High dose infusional chemotherapy Patient Condition at Discharge: Fair Plan - Discharge Summary New Discharge Prescriptions: New Acyclovir [Zovirax] 200 mg PO BID #14 cap Fluconazole [Diflucan] 100 mg PO DAILY #14 tab Levofloxacin [Levaquin] 500 mg PO DAILY #14 tab No Action Losartan [Cozaar] 50 mg PO QAM Tobramycin 0.3% Ophth Soln [Tobrex 0.3% Ophth Soln] 2 drop BOTH EYES Q4H Discharge Medication List Losartan [Cozaar] 50 mg PO QAM 02/29/16 [History] Tobramycin 0.3% Ophth Soln [Tobrex 0.3% Ophth Soln] 2 drop BOTH EYES Q4H [History] Acyclovir [Zovirax] 200 mg PO BID #14 cap 11/17/16 [Rx] Fluconazole [Diflucan] 100 mg PO DAILY #14 tab 11/17/16 [Rx] Levofloxacin [Levaquin] 500 mg PO DAILY #14 tab 11/17/16 [Rx] Follow up Appointment(s)/Referral(s): Richard Garsia MD [STAFF PHYSICIAN] - 11/19/16 8:00 am (CBC ) Activity/Diet/Wound Care/Special Instructions: Activity as tolerated Diet as tolerated Take all medications as prescribed Start neupogen 24 hours after completion of chemotherapy Discharge Disposition: HOME SELF-CARE
== END 2016-11-17 11:04 | disposition home or self-care (01) | DRG 847 ==
LOC: 5ONC 06:42
PROVIDERS: ADMIT Internal Medicine Hematology & Oncology; ATTEND Internal Medicine Hematology & Oncology
PROC: 02HV33Z Insertion of Infusion Device into Superior Vena Cava, Percutaneous Approach (ICD-10-PCS; principal; 2016-11-12 07:30)
PROC: 3E04305 Introduction of Other Antineoplastic into Central Vein, Percutaneous Approach (ICD-10-PCS; 2016-11-12 07:30)
DX: Z51.11 Encounter for antineoplastic chemotherapy (principal); C92.Z2 Other myeloid leukemia, in relapse; D61.818 Other pancytopenia; I10 Essential (primary) hypertension; K30 Functional dyspepsia; T45.1X5A Adverse effect of antineoplastic and immunosuppressive drugs, initial encounter; R53.83 Other fatigue; Z79.899 Other long term (current) drug therapy; Z80.7 Family history of other malignant neoplasms of lymphoid, hematopoietic and related tissues; Z88.0 Allergy status to penicillin; Z92.21 Personal history of antineoplastic chemotherapy
CPT/HCPCS: 36569; 76937; 77001; 80053; 84132; 84550; 85025

== ENCOUNTER → 2016-11-21 | Outpatient (CLI) | payer OTHER ==
[2016-11-21 15:37] LABS: ALT 54 U/L (21-72); AST 22 U/L (17-59); Alkaline Phosphatase 80 U/L (38-126); Bilirubin, Delta 0.4 mg/dL (0.0-0.2); Blood Urea Nitrogen 26 mg/dL (9-20); Non-African American GFR(MDRD) >60 (>60 ml/min/1.73 sqM); Total Bilirubin 1.7 mg/dL (0.2-1.3); Total Protein 6.9 g/dL (6.3-8.2)
[2016-11-21 15:57] LABS: Hepatitis B Surface Ag Index 0.05
[2016-11-21 16:15] LABS: Hepatitis C Virus IgG Ab Negative (Negative); Hepatitis C Virus IgG Index 0.01
[2016-11-21 18:55] LABS: Treponemal Ab Non-Reactive (Non-Reactive)
--- NOTE | 2016-11-22 10:26 | ECHOF ---
Referral Reason:C95.00 acute leukemia Z01.818 pre transplant MEASUREMENTS -------- HEIGHT: 182.9 cm WEIGHT: 93.4 kg BP: IVSd: 1.3 cm (0.6 - 1.1) LVIDd: 4.3 cm (3.9 - 5.3) LVPWd: 1.5 cm (0.6 - 1.1) IVSs: 1.6 cm LVIDs: 2.2 cm LVPWs: 2.1 cm Ao Diam: 3.3 cm (2.0 - 3.7) AV Cusp: 2.6 cm (1.5 - 2.6) LA Diam: 3.0 cm (2.7 - 3.8) MV EXCURSION: 15.618 mm (> 18.000) MV EF SLOPE: 63 mm/s (70 - 150) EPSS: 0.9 cm MV E Raz: 0.49 m/s MV DecT: 192 ms MV A Raz: 0.97 m/s MV E/A Ratio: 0.51 RAP: 5.00 mmHg RVSP: 11.86 mmHg FINDINGS -------- Resting tachycardia (HR>100bpm). This was a technically good study. Left ventricular wall thickness is normal. Overall left ventricular systolic function is mild-moderately impaired with, an EF between 40 - 45 %. The right ventricle is normal in size and function. The left atrium is normal in size. The right atrium is normal in size. The aortic valve is trileaflet, and appears structurally normal. No aortic stenosis or regurgitation. The mitral valve leaflets are mildly thickened. There is trace mitral regurgitation. Trace tricuspid regurgitation present. The right ventricular systolic pressure, as measured by Doppler, is 11.86mmHg. Pulmonic valve appears structurally normal. The aortic root size is normal. Echo free space may represent effusion or a pericardial fat pad. CONCLUSIONS -------- 1. Resting tachycardia (HR>100bpm). 2. There is trace mitral regurgitation. 3. Trace tricuspid regurgitation present. 4. The right ventricular systolic pressure, as measured by Doppler, is 11.86mmHg. 5. Pulmonic valve appears structurally normal. 6. The aortic root size is normal. 7. Echo free space may represent effusion or a pericardial fat pad. 8. This was a technically good study. 9. Left ventricular wall thickness is normal. 10. Overall left ventricular systolic function is mild-moderately impaired with, an EF between 40 - 45 %. 11. The right ventricle is normal in size and function. 12. The left atrium is normal in size. 13. The right atrium is normal in size. 14. The aortic valve is trileaflet, and appears structurally normal. No aortic stenosis or regurgitation. 15. The mitral valve leaflets are mildly thickened. S[employer] RECOVERY OPERATOR: Anabella Marcus RDCS
== END | disposition home or self-care (01) ==
LOC: RADECHMAIN 12:56
PROVIDERS: ATTEND Internal Medicine Hematology & Oncology
DX: Z01.810 Encounter for preprocedural cardiovascular examination (principal); I05.9 Rheumatic mitral valve disease, unspecified; C95.00 Acute leukemia of unspecified cell type not having achieved remission; R00.0 Tachycardia, unspecified
CPT/HCPCS: 80076; 82565; 84520; 86644; 86645; 86704; 86780; 86790; 86803; 87340; 87390; 93306

== ENCOUNTER 2016-11-22 15:45 | Inpatient (IN) | payer OTHER ==
--- NOTE | 2016-11-22 16:23 | ED ---
General Adult HPI - General Chief complaint: Fever Stated complaint: fever/cancer pt-sent by Dr. Garsia Time Seen by Provider: 11/22/16 16:00 Source: patient, RN notes reviewed Mode of arrival: wheelchair Limitations: no limitations - History of Present Illness Initial comments: This is a 51-year-old male presents emergency Department complaining of having a fever today. Patient is a cancer patient he has AML. Patient got his last treatment last night at 9:30. Patient states today his fever one above 100.482 , 3:30. Patient states at that point he decided come the emergency department. Patient states she did not love take Motrin because his platelets in between 10 and 12,000. Patient denies any sore throat or ear pain. Patient denies any neck stiffness per patient denies headache patient denies numbness weakness. Patient denies any cough or difficulty breathing or shortness of breath per patient denies any chest pain or palpitations. Patient denies abdominal pain patient denies nausea vomiting or diarrhea. Patient denies any back pain. Patient denies any areas of erythema or areas that are typical of cellulitis. - Related Data Home Medications Medication Instructions Recorded Confirmed Losartan [Cozaar] 50 mg PO QAM 02/29/16 11/22/16 Acetaminophen [Tylenol] 650 mg PO Q4H PRN 11/22/16 11/22/16 Filgrastim Sndz [Neupogen] 480 mcg IJ HS 11/22/16 11/22/16 diphenhydrAMINE HCL [Benadryl] 25 mg PO DAILY PRN 11/22/16 11/22/16 Previous Rx's Medication Instructions Recorded Acyclovir [Zovirax] 200 mg PO BID #14 cap 11/17/16 Levofloxacin [Levaquin] 500 mg PO DAILY #14 tab 11/17/16 Allergies Allergy/AdvReac Type Severity Reaction Status Date / Time Penicillins Allergy Severe Rash/Hives Verified 11/22/16 16:31 fluconazole Allergy Rash/Hives Verified 11/22/16 16:31 Review of Systems ROS Statement: Those systems with pertinent positive or pertinent negative responses have been documented in the HPI. ROS Other: All systems not noted in ROS Statement are negative. 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 History of Any Multi-Drug Resistant Organisms: None Reported Past Surgical History: Tonsillectomy Additional Past Surgical History / Comment(s): bone marrow bx 3, PICC line insertion R arm & removed Past Anesthesia/Blood Transfusion Reactions: No Reported Reaction Additional Past Anesthesia/Blood Transfusion Reaction / Comment(s): Pt has received blood / platelets without reaction. Past Psychological History: No Psychological Hx Reported Smoking Status: Never smoker Past Alcohol Use History: Occasional Past Drug Use History: None Reported - Past Family History Mother Family Medical History: Cancer Additional Family Medical History / Comment(s): Mother of lymphoma at the age of 49 yrs. Father Family Medical History: No Reported History Additional Family Medical History / Comment(s): Father is 74 yrs old and healthy. General Exam - General Exam Comments Initial Comments: GENERAL: Patient is well-developed and well-nourished. Patient is nontoxic and well- hydrated and is in mild distress. ENT: Neck is soft and supple. No significant lymphadenopathy is noted. Oropharynx is clear. Moist mucous membranes. Neck has full range of motion without eliciting any pain. EYES: The sclera were anicteric and conjunctiva were pink and moist. Extraocular movements were intact and pupils were equal round and reactive to light. Eyelids were unremarkable. PULMONARY: Unlabored respirations. Good breath sounds bilaterally. No audible rales rhonchi or wheezing was noted. CARDIOVASCULAR: There is a regular rate and rhythm without any murmurs gallops or rubs. ABDOMEN: Soft and nontender with normal bowel sounds. No palpable organomegaly was noted. There is no palpable pulsatile mass. SKIN: Skin is clear with no lesions or rashes and otherwise unremarkable. NEUROLOGIC: Patient is alert and oriented x3. Cranial nerves II through XII are grossly intact. Motor and sensory are also intact. Normal speech, volume and content. Symmetrical smile. MUSCULOSKELETAL: Normal extremities with adequate strength and full range of motion. No lower extremity swelling or edema. No calf tenderness. LYMPHATICS: No significant lymphadenopathy is noted PSYCHIATRIC: Normal psychiatric evaluation. Limitations: no limitations Course Vital Signs 11/22/16 11/22/16 15:55 17:28 Temperature 102.0 F H 101.4 F H Pulse Rate 116 H 108 H Respiratory 18 20 Rate Blood Pressure 136/80 126/67 O2 Sat by Pulse 97 97 Oximetry Medical Decision Making - Medical Decision Making EKG shows a sinus tachycardia 103 bpm [place] interval is on a 48 QRS is 90 QT interval 336 QTC is 440 per patient's EKG shows no ST segment elevation or depression or T wave normalities are noted. Because the patient was neutropenic and febrile I started the patient on antibiotics immediately. I spoke with Dr. Garsia he wanted the patient on cefepime and vancomycin I started those as well and I continue those on the floor. Patient's plate was were also low so I ordered platelets. I spoke with Dr. Hinojosa doctors so agreed to admit the patient admitted the patient I consult consult to Dr. Garsia - Lab Data Result diagrams: 11/22/16 16:39 11/22/16 16:39 Lab Results 11/22/16 11/22/16 11/22/16 Range/Units 16:39 16:39 16:39 WBC 0.1 L* (3.8-10.6) k/uL RBC 2.06 L (4.30-5.90) m/uL Hgb 7.6 L D (13.0-17.5) gm/dL Hct 19.2 L* (39.0-53.0) % MCV 93.2 D (80.0-100.0) fL MCH 36.7 H (25.0-35.0) pg MCHC 39.3 H (31.0-37.0) g/dL RDW 13.3 (11.5-15.5) % Plt Count 5 L* D (150-450) k/uL Differential Comment Hyperchromasia Marked PT (9.0-12.0) sec INR (<1.2) APTT (22.0-30.0) sec Sodium 131 L (137-145) mmol/L Potassium 3.7 (3.5-5.1) mmol/L Chloride 100 (98-107) mmol/L Carbon Dioxide 21 L (22-30) mmol/L Anion Gap 10 mmol/L BUN 18 (9-20) mg/dL Creatinine 0.80 (0.66-1.25) mg/dL Est GFR (MDRD) Af Amer >60 (>60 ml/min/1.73 sqM) Est GFR (MDRD) Non-Af >60 (>60 ml/min/1.73 sqM) Glucose 111 H (74-99) mg/dL Plasma Lactic Acid Leno (0.7-2.0) mmol/L Calcium 8.4 (8.4-10.2) mg/dL Total Bilirubin 0.9 (0.2-1.3) mg/dL AST 16 L (17-59) U/L ALT 45 (21-72) U/L Alkaline Phosphatase 67 (38-126) U/L Total Creatine Kinase 162 (55-170) U/L CK-MB (CK-2) 1.4 (0.0-2.4) ng/mL CK-MB (CK-2) Rel Index 0.9 Troponin I <0.012 (0.000-0.034) ng/mL Total Protein 5.8 L (6.3-8.2) g/dL Albumin 3.3 L (3.5-5.0) g/dL Urine Color Urine Appearance (Clear) Urine pH (5.0-8.0) Ur Specific [place] (1.001-1.035) Urine Protein (Negative) Urine Glucose (UA) (Negative) Urine Ketones (Negative) Urine Blood (Negative) Urine Nitrite (Negative) Urine Bilirubin (Negative) Urine Urobilinogen (<2.0) mg/dL Ur Leukocyte Esterase (Negative) Urine RBC (0-5) /hpf Urine Mucus (None) /hpf 11/22/16 11/22/16 11/22/16 Range/Units 16:39 16:39 17:18 WBC (3.8-10.6) k/uL RBC (4.30-5.90) m/uL Hgb (13.0-17.5) gm/dL Hct (39.0-53.0) % MCV (80.0-100.0) fL MCH (25.0-35.0) pg MCHC (31.0-37.0) g/dL RDW (11.5-15.5) % Plt Count (150-450) k/uL Differential Comment Hyperchromasia PT 11.3 (9.0-12.0) sec INR 1.1 (<1.2) APTT 25.8 (22.0-30.0) sec Sodium (137-145) mmol/L Potassium (3.5-5.1) mmol/L Chloride (98-107) mmol/L Carbon Dioxide (22-30) mmol/L Anion Gap mmol/L BUN (9-20) mg/dL Creatinine (0.66-1.25) mg/dL Est GFR (MDRD) Af Amer (>60 ml/min/1.73 sqM) Est GFR (MDRD) Non-Af (>60 ml/min/1.73 sqM) Glucose (74-99) mg/dL Plasma Lactic Acid Leno 0.8 (0.7-2.0) mmol/L Calcium (8.4-10.2) mg/dL Total Bilirubin (0.2-1.3) mg/dL AST (17-59) U/L ALT (21-72) U/L Alkaline Phosphatase (38-126) U/L Total Creatine Kinase (55-170) U/L CK-MB (CK-2) (0.0-2.4) ng/mL CK-MB (CK-2) Rel Index Troponin I (0.000-0.034) ng/mL Total Protein (6.3-8.2) g/dL Albumin (3.5-5.0) g/dL Urine Color Yellow Urine Appearance Clear (Clear) Urine pH 6.0 (5.0-8.0) Ur Specific [place] 1.017 (1.001-1.035) Urine Protein Trace H (Negative) Urine Glucose (UA) Negative (Negative) Urine Ketones Negative (Negative) Urine Blood Small H (Negative) Urine Nitrite Negative (Negative) Urine Bilirubin Negative (Negative) Urine Urobilinogen <2.0 (<2.0) mg/dL Ur Leukocyte Esterase Negative (Negative) Urine RBC 1 (0-5) /hpf Urine Mucus Rare H (None) /hpf Critical Care Time Critical Care Time: Yes Total Critical Care Time: 35 Disposition Clinical Impression: Neutropenia, febrile, Anemia, Thrombocytopenia Disposition: ADMITTED IP TO THIS HOSP Referrals: Mena Maloney DO [Primary Care Provider] - 1-2 days Time of Disposition: 18:15
--- NOTE | 2016-11-22 16:44 | XR ---
EXAMINATION TYPE: XR chest 2V DATE OF EXAM: 11/22/2016 COMPARISON: Chest x-ray March 16, 2016. HISTORY: History of AML on chemotherapy with fever of 102 degrees TECHNIQUE: Frontal and lateral views of the chest are obtained. FINDINGS: There is right-sided PICC line with tip in SVC. There is no focal air space opacity, pleur al effusion, or pneumothorax seen. The cardiac silhouette size is within normal limits. Some multile danae spurring of the spine is present. IMPRESSION: No suspicious acute infiltrate is present.
[2016-11-22] MEDS: SODIUM CHLORIDE 0.9% 500 ML IV SCH ×3 (16:48→18:00)
[2016-11-22 16:56] LABS: CHCM 40.8; HDW 3.02; Hyperchromasia Marked; MCH 36.7 pg (25.0-35.0); Mean Platelet Volume 6.9; RBC 2.06 m/uL (4.30-5.90); RDW 13.3 % (11.5-15.5); WBC (Perox) 0.09
[2016-11-22 16:57] LABS: Blood Urea Nitrogen 18 mg/dL (9-20); Carbon Dioxide 21 mmol/L (22-30); Chloride 100 mmol/L (98-107); Non-African American GFR(MDRD) >60 (>60 ml/min/1.73 sqM); Total Protein 5.8 g/dL (6.3-8.2)
[2016-11-22 16:59] LABS: INR 1.1 (<1.2); Partial Thromboplastin Time 25.8 sec (22.0-30.0); Prothrombin Time 11.3 sec (9.0-12.0)
[2016-11-22 17:02] LABS: HCT 19.2 % (39.0-53.0); MCHC 39.3 g/dL (31.0-37.0); WBC 0.1 k/uL (3.8-10.6)
[2016-11-22 17:03] LABS: HGB 7.6 gm/dL (13.0-17.5); MCV 93.2 fL (80.0-100.0)
[2016-11-22 17:06] LABS: Creatine Kinase 162 U/L (55-170)
[2016-11-22 17:11] LABS: Anion Gap 10 mmol/L; Calcium 8.4 mg/dL (8.4-10.2); Glucose 111 mg/dL (74-99); Potassium 3.7 mmol/L (3.5-5.1); Sodium 131 mmol/L (137-145)
[2016-11-22 17:12] LABS: ALT 45 U/L (21-72); AST 16 U/L (17-59); Alkaline Phosphatase 67 U/L (38-126); Total Bilirubin 0.9 mg/dL (0.2-1.3)
[2016-11-22 17:20] LABS: Creatine Kinase MB 1.4 ng/mL (0.0-2.4); Troponin I <0.012 ng/mL (0.000-0.034)
[2016-11-22 17:32] LABS: Add Differential Manual Differential
[2016-11-22 17:48] LABS: Appearance,Urine Clear (Clear); Bilirubin,Urine Negative (Negative); Glucose,Urine (UA) Negative (Negative); Ketones,Urine Negative (Negative); Leukocyte Esterase,Urine Negative (Negative); Mucus,Urine Rare /hpf; Nitrite,Urine Negative (Negative); Particle Count 2791; Protein,Urine Trace (Negative); RBC,Urine 1 /hpf (0-5); Specific Gravity,Urine 1.017 (1.001-1.035); UA Billing (MACRO vs. MICRO) MICRO; Urobilinogen,Urine <2.0 mg/dL (<2.0)
[2016-11-22] MEDS ORDERED: CEFEPIME 2 GM in SODIUM CHLORIDE 0.9% 50 ML IVPB STA (17:59)
[2016-11-22] MEDS ORDERED: IV VANCOMYCIN PER PHARMACY 1 EACH MISC MISCELLANE PRN (17:59)
[2016-11-22] MEDS ORDERED: VANCOMYCIN 1,500 MG in SODIUM CHLORIDE 0.9% 250 ML IVPB STA (18:11)
[2016-11-22] MEDS ORDERED: SODIUM CHLORIDE 0.9% 1,000 ML IV ONE (18:15)
[2016-11-22] MEDS: FILGRASTIM-SNDZ 480 MCG/0.8 ML SYRINGE SQ SCH (22:25)
[2016-11-22] MEDS: ACETAMINOPHEN IV (For NPO) 1,000 MG in EMPTY BAG 1 BAG IVPB SCH (22:31)
[2016-11-22] MEDS: SALT AND SODA MOUTHWASH 1,000 ML PO SCH (22:32)
[2016-11-23] MEDS: CEFEPIME 2 GM in SODIUM CHLORIDE 0.9% 50 ML IVPB SCH ×3 (00:13→17:33)
[2016-11-23] MEDS ORDERED: VANCOMYCIN 1,500 MG in SODIUM CHLORIDE 0.9% 250 ML IVPB SCH (02:00)
[2016-11-23] MEDS: ACETAMINOPHEN IV (For NPO) 1,000 MG in EMPTY BAG 1 BAG IVPB SCH ×3 (03:57→17:34)
[2016-11-23] MEDS ORDERED: diphenhydrAMINE 50 MG/ML 1 ML VIAL ONE (05:22)
[2016-11-23] MEDS: DEXAMETHASONE 4 MG TAB PO SCH ×3 (06:06→18:30)
[2016-11-23] MEDS: SALT AND SODA MOUTHWASH 1,000 ML PO SCH ×3 (06:12→18:30)
[2016-11-23 06:19] LABS: CHCM 38.8; HDW 3.01; Hyperchromasia Moderate; MCH 37.6 pg (25.0-35.0); MCV 98.1 fL (80.0-100.0); RBC 1.72 m/uL (4.30-5.90); RDW 13.1 % (11.5-15.5)
[2016-11-23 06:22] LABS: HCT 16.8 % (39.0-53.0); HGB 6.4 gm/dL (13.0-17.5); MCHC 38.3 g/dL (31.0-37.0)
[2016-11-23 07:13] LABS: Anion Gap 7 mmol/L; Blood Urea Nitrogen 15 mg/dL (9-20); Calcium 7.8 mg/dL (8.4-10.2); Carbon Dioxide 23 mmol/L (22-30); Chloride 105 mmol/L (98-107); Glucose 109 mg/dL (74-99); Non-African American GFR(MDRD) >60 (>60 ml/min/1.73 sqM); Potassium 3.4 mmol/L (3.5-5.1); Sodium 135 mmol/L (137-145)
[2016-11-23] MEDS ORDERED: ONDANSETRON 4 MG/2 ML VIAL IVP PRN (08:21)
[2016-11-23] MEDS: diphenhydrAMINE 25 MG CAP PO SCH ×3 (08:36→20:09)
[2016-11-23] MEDS: HYDROCORTISONE 1% CREAM 454 GM JAR TOPICAL SCH ×4 (08:37→20:10)
--- NOTE | 2016-11-23 11:54 | P.HPIM ---
History of Present Illness Patient is a 51-year-old gentleman with history of amylase and recently received chemotherapy completed on Saturday came in with the complaints of fever. Patient denied any diarrhea denied any cough runny nose patient denied any dysuria. Urinalysis essentially within normal limits chest x-ray did not show any pneumonia patient was started on broad-spectrum antibiotics. Patient was started on vancomycin and cefepime and patient apparently had an ALLERGIC reaction to IV vancomycin which was discontinued. Patient denied any sore throat year pain, diarrhea. Next Patient is supposed to get bone marrow transplant and will be evaluated in [facility] later this month. Review of Systems REVIEW OF SYSTEMS: CONSTITUTIONAL: no malaise, no fatigue. HEENT: No recent visual problems or hearing problems. Denied any sore throat. CARDIOVASCULAR: No chest pain, orthopnea, PND, no palpitations, no syncope. PULMONARY: No shortness of breath, no cough, no hemoptysis. GASTROINTESTINAL: No diarrhea, no nausea, no vomiting, no abdominal pain. Normoactive bowel sounds. NEUROLOGICAL: No headaches, no weakness, no numbness. HEMATOLOGICAL: Denies any bleeding or petechiae. GENITOURINARY: Denies any burning micturition, frequency, or urgency. MUSCULOSKELETAL/RHEUMATOLOGICAL: Denies any joint pain, swelling, or any muscle pain. ENDOCRINE: Denies any polyuria or polydipsia. The rest of the 14-point review of systems is negative. 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 History of Any Multi-Drug Resistant Organisms: None Reported Past Surgical History: Tonsillectomy Additional Past Surgical History / Comment(s): bone marrow bx 3, PICC line insertion R arm & removed Past Anesthesia/Blood Transfusion Reactions: No Reported Reaction Additional Past Anesthesia/Blood Transfusion Reaction / Comment(s): Pt has received blood / platelets without reaction. Past Psychological History: No Psychological Hx Reported Additional Psychological History / Comment(s): Pt resides with his spouse. He is very independent. Smoking Status: Never smoker Past Alcohol Use History: Occasional Past Drug Use History: None Reported - Past Family History Mother Family Medical History: Cancer Additional Family Medical History / Comment(s): Mother of lymphoma at the age of 49 yrs. Father Family Medical History: No Reported History Additional Family Medical History / Comment(s): Father is 74 yrs old and healthy. Medications and Allergies Home Medications Medication Instructions Recorded Confirmed Type Losartan [Cozaar] 50 mg PO QAM 02/29/16 11/22/16 History Acetaminophen [Tylenol] 650 mg PO Q4H PRN 11/22/16 11/22/16 History Filgrastim Sndz [Neupogen] 480 mcg IJ HS 11/22/16 11/22/16 History diphenhydrAMINE HCL [Benadryl] 25 mg PO DAILY PRN 11/22/16 11/22/16 History Allergies Allergy/AdvReac Type Severity Reaction Status Date / Time Penicillins Allergy Severe Rash/Hives Verified 11/22/16 16:31 fluconazole Allergy Rash/Hives Verified 11/22/16 16:31 vancomycin Allergy Rash/Hives Verified 11/23/16 05:46 Physical Exam Vitals: Vital Signs Temp Pulse Pulse Resp BP BP Pulse Ox 11/23/16 07:00 98.7 F 81 16 114/70 96 11/23/16 03:42 99.0 F 81 16 125/65 99 11/23/16 02:37 98.9 F 83 16 120/71 100 11/23/16 02:07 98.8 F 81 16 125/63 98 11/23/16 02:05 98.4 F 79 16 109/70 99 11/23/16 01:57 98.2 F 81 16 121/65 98 11/23/16 00:20 100 F H 11/23/16 00:00 99 16 11/22/16 20:30 101.9 F H 99 16 122/72 97 11/22/16 20:04 101.8 F H 11/22/16 19:42 104 H 18 116/65 99 11/22/16 18:30 101.4 F H 108 H 20 126/67 98 11/22/16 17:28 101.4 F H 108 H 20 126/67 97 11/22/16 15:55 102.0 F H 116 H 18 136/80 97 Intake and Output 11/22/16 11/23/16 11/23/16 22:59 06:59 14:59 Intake Total 601 Balance 601 Intake: Intake, IV Titration 400 Amount ACETAMINOPHEN IV (For NPO 400 ) 1,000 mg In Empty Bag 1 bag @ 400 mls/hr IVPB Q6H [facility] Rx#:[id number] Blood Product 201 Platelet Irr Pheresis 3 201 Acda Unit [id number] Other: Voiding Method Toilet Toilet # Voids 3 Weight 93.44 kg PHYSICAL EXAMINATION: GENERAL: The patient is alert and oriented x3, not in any acute distress. Well developed, well nourished. HEENT: Pupils are round and equally reacting to light. EOMI. No scleral icterus. No conjunctival pallor. Normocephalic, atraumatic. No pharyngeal erythema. No thyromegaly. CARDIOVASCULAR: S1 and S2 present. No murmurs, rubs, or gallops. PULMONARY: Chest is clear to auscultation, no wheezing or crackles. ABDOMEN: Soft, nontender, nondistended, normoactive bowel sounds. No palpable organomegaly. MUSCULOSKELETAL: No joint swelling or deformity. EXTREMITIES: No cyanosis, clubbing, or pedal edema. NEUROLOGICAL: Gross neurological examination did not reveal any focal deficits. SKIN: No rashes. Results CBC & Chem 7: 11/23/16 06:00 11/23/16 06:00 Labs: Abnormal Lab Results - Last 24 Hours (Table) 11/22/16 11/22/16 11/22/16 Range/Units 16:34 16:39 16:39 WBC 0.1 L* (3.8-10.6) k/uL RBC 2.06 L (4.30-5.90) m/uL Hgb 7.6 L D (13.0-17.5) gm/dL Hct 19.2 L* (39.0-53.0) % MCH 36.7 H (25.0-35.0) pg MCHC 39.3 H (31.0-37.0) g/dL Plt Count 5 L* D (150-450) k/uL Sodium 131 L (137-145) mmol/L Potassium (3.5-5.1) mmol/L Carbon Dioxide 21 L (22-30) mmol/L Glucose 111 H (74-99) mg/dL Calcium (8.4-10.2) mg/dL AST 16 L (17-59) U/L Total Protein 5.8 L (6.3-8.2) g/dL Albumin 3.3 L (3.5-5.0) g/dL Urine Protein (Negative) Urine Blood (Negative) Urine Mucus (None) /hpf Crossmatch See Detail 11/22/16 11/23/16 11/23/16 Range/Units 17:18 06:00 06:00 WBC (3.8-10.6) k/uL RBC 1.72 L (4.30-5.90) m/uL Hgb 6.4 L* (13.0-17.5) gm/dL Hct 16.8 L* (39.0-53.0) % MCH 37.6 H (25.0-35.0) pg MCHC 38.3 H (31.0-37.0) g/dL Plt Count 23 L* D (150-450) k/uL Sodium 135 L (137-145) mmol/L Potassium 3.4 L (3.5-5.1) mmol/L Carbon Dioxide (22-30) mmol/L Glucose 109 H (74-99) mg/dL Calcium 7.8 L (8.4-10.2) mg/dL AST (17-59) U/L Total Protein (6.3-8.2) g/dL Albumin (3.5-5.0) g/dL Urine Protein Trace H (Negative) Urine Blood Small H (Negative) Urine Mucus Rare H (None) /hpf Crossmatch Microbiology - Last 24 Hours (Table) 11/22/16 17:18 Urine Culture - Preliminary Urine,Voided Thrombosis Risk Factor Assmnt - Choose All That Apply Any of the Below Risk Factors Present?: Yes Each Factor Represents 1 point: Age 41-60 years Other Risk Factors: No Thrombosis Risk Factor Assessment Total Risk Factor Score: 1 Thrombosis Risk Factor Assessment Level: Low Risk Assessment and Plan Plan: Febrile neutropenia ; patient was started on cefepime which will be continued. We'll continue to look for the source of infection so so far it is not obvious. Vancomycin was discontinued secondary to ALLERGIC reaction. There is no evidence of staphylococcal infection at this point of time. #2 pancytopenia: Secondary to chemotherapy patient is receiving platelets and irradiated PRBC today. #3 ALLERGIC reaction to vancomycin which was treated. 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 And patient is on acyclovir which will be continue. #5 hypertension hold off on losartan because of concerns of sepsis and hypotension.
[2016-11-23] MEDS: ONDANSETRON ODT 4 MG TAB PO PRN (12:19)
--- NOTE | 2016-11-23 14:48 | P.CONS ---
History of Present Illness - Reason for Consult Consult date: 11/23/16 neutropenic fever, AML s/p chemotherapy Requesting physician: Prasanth Stephens - Chief Complaint fever - History of Present Illness Mr. Shah is a very pleasant 51-year-old male patient of Dr. Garsia' kiki with unfortunate relapse of acute myeloid leukemia with in 6 months of initial induction treatment. Pt is post 2nd induction for first relapse of AML with LEO-FLAG regimen, he completed that last week. Patient was administering Neupogen injections to himself daily in the outpatient setting, coming to the office for his lab draws several times a week as directed. He had been doing well but unfortunately developed fever, T-max 102 Fahrenheit, he was directed immediately to the hospital. When seen today the patient is sitting up in bed, he denies any oral irritation, sore throat, ear pain, cough, shortness of breath , mild nausea, no vomiting, has poor appetite, no epigastric discomfort, he is noticing a lot a very loud bowel sounds, he had diarrhea 1 a couple of days ago , no recent diarrhea, no bowel movement in about 2 days, he denies any pain with urination, no hematuria, hematochezia or melena, no swelling in the legs. Patient does have a rash on the bilateral flanks as well as into the groin area , the rash also goes across his low back just superior to the glutes, he has a "pimple" on his left upper gluteal area. Patient has been using cortisone cream on the rash for the itching, denies any pustules, drainage or open areas. Patient denies any other acute physical complaints at this time Malignancy history: Patient was diagnosed with acute myeloid leukemia ( favorable cytogenetics) in June 2015, he presented with progressive fatigue as well as spontaneous bruising. He had induction chemotherapy with 7+3 regimen then consolidation chemotherapy with HiDAC, which he completed 4 cycles in February 2016. 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 Patient was admitted November 12 for second induction. Patient is going to be evaluated for stem cell transplantation. Review of Systems All systems: negative Constitutional: Reports as per HPI Past Medical History Past Medical History: Cancer, Hypertension Additional Past Medical History / Comment(s): 09/2015 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 History of Any Multi-Drug Resistant Organisms: None Reported Past Surgical History: Tonsillectomy Additional Past Surgical History / Comment(s): bone marrow bx 3, PICC line insertion R arm & removed Past Anesthesia/Blood Transfusion Reactions: No Reported Reaction Additional Past Anesthesia/Blood Transfusion Reaction / Comm: Pt has received blood / platelets without reaction. Past Psychological History: No Psychological Hx Reported Additional Psychological History / Comment(s): Pt resides with his spouse. He is very independent. Smoking Status: Never smoker Past Alcohol Use History: Occasional Past Drug Use History: None Reported - Past Family History Mother Family Medical History: Cancer Additional Family Medical History / Comment(s): Mother of lymphoma at the age of 49 yrs. Father Family Medical History: No Reported History Additional Family Medical History / Comment(s): Father is 74 yrs old and healthy. Medications and Allergies Home Medications Medication Instructions Recorded Confirmed Type Losartan [Cozaar] 50 mg PO QAM 02/29/16 11/22/16 History Acetaminophen [Tylenol] 650 mg PO Q4H PRN 11/22/16 11/22/16 History Filgrastim Sndz [Neupogen] 480 mcg IJ HS 11/22/16 11/22/16 History diphenhydrAMINE HCL [Benadryl] 25 mg PO DAILY PRN 11/22/16 11/22/16 History Allergies Allergy/AdvReac Type Severity Reaction Status Date / Time Penicillins Allergy Severe Rash/Hives Verified 11/22/16 16:31 fluconazole Allergy Rash/Hives Verified 11/22/16 16:31 vancomycin Allergy Rash/Hives Verified 11/23/16 05:46 Physical Exam Vitals: Vital Signs Temp Pulse Pulse Resp BP BP Pulse Ox 11/23/16 07:00 98.7 F 81 16 114/70 96 11/23/16 03:42 99.0 F 81 16 125/65 99 11/23/16 02:37 98.9 F 83 16 120/71 100 11/23/16 02:07 98.8 F 81 16 125/63 98 11/23/16 02:05 98.4 F 79 16 109/70 99 11/23/16 01:57 98.2 F 81 16 121/65 98 11/23/16 00:20 100 F H 11/23/16 00:00 99 16 11/22/16 20:30 101.9 F H 99 16 122/72 97 11/22/16 20:04 101.8 F H 11/22/16 19:42 104 H 18 116/65 99 11/22/16 18:30 101.4 F H 108 H 20 126/67 98 11/22/16 17:28 101.4 F H 108 H 20 126/67 97 11/22/16 15:55 102.0 F H 116 H 18 136/80 97 Intake and Output 11/22/16 11/23/16 11/23/16 22:59 06:59 14:59 Intake Total 601 Balance 601 Intake: Intake, IV Titration 400 Amount ACETAMINOPHEN IV (For NPO 400 ) 1,000 mg In Empty Bag 1 bag @ 400 mls/hr IVPB Q6H [facility] Rx#:[id number] Blood Product 201 Platelet Irr Pheresis 3 201 Acda Unit [id number] Other: Voiding Method Toilet Toilet # Voids 3 Weight 93.44 kg - Constitutional General appearance: average body habitus, cooperative, no acute distress - EENT pale mucus membranes, few petechiae on tongue Eyes: anicteric sclerae, EOMI, PERRLA ENT: no hard of hearing, hearing grossly normal, no NA/AT, normal oropharynx, no other, no pharyngeal erythema, no thrush, no tonsillar exudates, no tonsillar swelling - Neck Neck: no lymphadenopathy - Respiratory Respiratory: bilateral: CTA - Cardiovascular Rhythm: regular Heart sounds: normal: S1, S2 Abnormal Heart Sounds: no systolic murmur, no diastolic murmur, no rub, no S3 Gallop, no S4 Gallop, no click, no other leg Peripheral Edema: bilateral: None - Gastrointestinal General gastrointestinal: no absent bowel sounds, no decreased bowel sounds, no distended, no hepatomegaly, hyperactive bowel sounds, no normal bowel sounds, no organomegaly, no rigid, no scaphoid, soft, no splenomegaly, no tenderness, no umbilical hernia, no ventral hernia - Integumentary bilateral flank and groin areas as well as across low back red, confluent, macular rash, few papules, no pustules, right glute has bandage over an area that was viewed by nursing to be a small "pimple", the area is not unrealistically tender to touch, Integumentary: normal turgor, pale - Neurologic Neurologic: CNII-XII intact - Musculoskeletal Musculoskeletal: strength equal bilaterally - Psychiatric Psychiatric: A&O x's 3, appropriate affect, intact judgment & insight Results CBC & Chem 7: 11/23/16 06:00 11/23/16 06:00 Labs: Abnormal Lab Results - Last 24 Hours (Table) 11/22/16 11/22/16 11/22/16 Range/Units 16:34 16:39 16:39 WBC 0.1 L* (3.8-10.6) k/uL RBC 2.06 L (4.30-5.90) m/uL Hgb 7.6 L D (13.0-17.5) gm/dL Hct 19.2 L* (39.0-53.0) % MCH 36.7 H (25.0-35.0) pg MCHC 39.3 H (31.0-37.0) g/dL Plt Count 5 L* D (150-450) k/uL Sodium 131 L (137-145) mmol/L Potassium (3.5-5.1) mmol/L Carbon Dioxide 21 L (22-30) mmol/L Glucose 111 H (74-99) mg/dL Calcium (8.4-10.2) mg/dL AST 16 L (17-59) U/L Total Protein 5.8 L (6.3-8.2) g/dL Albumin 3.3 L (3.5-5.0) g/dL Urine Protein (Negative) Urine Blood (Negative) Urine Mucus (None) /hpf Crossmatch See Detail 11/22/16 11/23/16 11/23/16 Range/Units 17:18 06:00 06:00 WBC (3.8-10.6) k/uL RBC 1.72 L (4.30-5.90) m/uL Hgb 6.4 L* (13.0-17.5) gm/dL Hct 16.8 L* (39.0-53.0) % MCH 37.6 H (25.0-35.0) pg MCHC 38.3 H (31.0-37.0) g/dL Plt Count 23 L* D (150-450) k/uL Sodium 135 L (137-145) mmol/L Potassium 3.4 L (3.5-5.1) mmol/L Carbon Dioxide (22-30) mmol/L Glucose 109 H (74-99) mg/dL Calcium 7.8 L (8.4-10.2) mg/dL AST (17-59) U/L Total Protein (6.3-8.2) g/dL Albumin (3.5-5.0) g/dL Urine Protein Trace H (Negative) Urine Blood Small H (Negative) Urine Mucus Rare H (None) /hpf Crossmatch Microbiology - Last 24 Hours (Table) 11/22/16 17:18 Urine Culture - Preliminary Urine,Voided Chest x-ray: report reviewed Assessment and Plan (1) Neutropenic sepsis Narrative/Plan: Pancultures have been ordered, patient continues on G-CSF, empiric antibiotics ordered. Status: Acute (2) Neutropenia, febrile Narrative/Plan: Patient will continue on zarxio for neutropenia, vital signs monitored closely Status: Acute (3) Pancytopenia due to antineoplastic chemotherapy Narrative/Plan: Pt will be transfused very conservatively, he is a stem cell transplant candidate, irradiated blood products only. Hemoglobin greater than 7 is adequate less patient is symptomatic, platelets greater than 10,000 without bleeding is adequate, patient will continue on growth factor support for white blood cells. Status: Acute (4) Leukemia, acute myeloid Narrative/Plan: Pt is s/p induction chemotherapy for 1st relapse of AML. He is going to be evaluated for BMT in the near future. Status: Chronic Plan: Infectious disease consultation regarding rash we'll await their evaluation and recommendations
[2016-11-23] MEDS: MICAFUNGIN 100 MG in SODIUM CHLORIDE 0.9% 100 ML IVPB SCH (20:09)
[2016-11-23] MEDS: ACYCLOVIR 200 MG CAP PO SCH (20:10)
[2016-11-23] MEDS: FILGRASTIM-SNDZ 480 MCG/0.8 ML SYRINGE SQ SCH (20:23)
[2016-11-23] MEDS: ALPRAZolam 0.5 MG TAB PO PRN (20:25)
--- NOTE | 2016-11-23 22:47 | P.CONS ---
History of Present Illness - Reason for Consult Consult date: 11/23/16 - Chief Complaint fever - History of Present Illness Pleasant 51-year-old male who has a known history of acute myelogenous leukemia. Diagnosed last year. He was noticed to have favorable cytogenetics and was treated with induction chemotherapy. He is done well. However 6 months after completion of his induction chemotherapy has had a relapse. He is in now with the midst of his reinduction chemotherapy. He has now been evaluated at [facility] for autologous stem cell transplantation. The patient is developed a significant fever of greater than 102. Associated with chills and rigors. Constantly presented to hospitals been admitted for his febrile neutropenia. He has been utilizing G-CSF therapy at home. Despite this he has significant ongoing neutropenia and is developed a significant fever. He does not have significant localizing symptoms such as mucositis, pulmonary symptoms or urinary symptoms. Is also not have any significant gastrointestinal symptoms. However is having difficulties with a significant rash. This occurred in the past. Potentially in the past was related to his amoxicillin and fluconazole therapy that he was receiving. When he stopped in the past his rash resolved. However the rash also resolved with timing of some improvement of his neutropenia. He received a dose of vancomycin and the rash became somewhat more flared. Topical triamcinolone his allowed some improvement. An antibiotic therapy and fluids have resulted in improvement of his high-grade fever. Feeling somewhat better today. Appetite is modest. He is denying nausea or emesis or other new acute symptoms today. The patient is noted. No area of rash onto the right axillary area. Review of Systems HEENT:Denies headache or acute visual change. Denies sinus or mouth discomforts. Denies neck stiffness or pain. Denies significant oral cavity pain. Denies difficulty on swallowing. Lungs: Denies significant shortness of breath, cough, sputum production, or hemoptysis. Cardiovascular: Denies significant shortness of breath, chest pain, chest wall pain, orthopnea, dyspnea on exertion, syncope Gastrointestinal:Denies nausea, vomiting, diarrhea, constipation, hematemesis, melena, hematochezia. No no significant change of bowel habit noticed. Musculoskeletal: denies significant myalgias or arthralgias. No new joint swelling. Denies new back pain. Skin: As per the HPI Neuro: Denies headache or visual change. Denies any new onset weakness or difficulty with ambulation. Denies falls or seizures. Psychiatric:Denies anxiety or depression. Endocrine: Denies significant fatigue, denies significant weight loss or weight gain. 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 History of Any Multi-Drug Resistant Organisms: None Reported Past Surgical History: Tonsillectomy Additional Past Surgical History / Comment(s): bone marrow bx 3, PICC line insertion R arm & removed Past Anesthesia/Blood Transfusion Reactions: No Reported Reaction Additional Past Anesthesia/Blood Transfusion Reaction / Comm: Pt has received blood / platelets without reaction. Past Psychological History: No Psychological Hx Reported Additional Psychological History / Comment(s): Pt resides with his spouse. He is independent. Works in manufacturing. No experience. No international travel. 2 pet cats he does not take care of the boxes. No tobacco use. No significant alcohol use or recreational drug use Smoking Status: Never smoker Past Alcohol Use History: Occasional Past Drug Use History: None Reported - Past Family History Mother Family Medical History: Cancer Additional Family Medical History / Comment(s): Mother of lymphoma at the age of 49 yrs. Father Family Medical History: No Reported History Additional Family Medical History / Comment(s): Father is 74 yrs old and healthy. Medications and Allergies Home Medications and Allergies Comment(s): Current Medications Acyclovir (Zovirax) 200 mg PO BID [facility] Stop: 12/07/16 09:01 Last Admin: 11/23/16 20:10 Dose: 200 mg Alprazolam (Xanax) 0.5 mg PO TID PRN PRN Reason: Anxiety Last Admin: 11/23/16 20:25 Dose: 0.5 mg Dexamethasone (Hexadrol) 8 mg PO Q6H [facility] Stop: 11/24/16 00:01 Last Admin: 11/23/16 18:30 Dose: 8 mg Diphenhydramine HCl (Benadryl) 25 mg PO TID [facility] Last Admin: 11/23/16 20:09 Dose: 25 mg Filgrastim (Zarxio) 480 mcg SQ HS [facility] Last Admin: 11/23/16 20:23 Dose: 480 mcg Hydrocortisone (Hydrocortisone 1% Cream 454gm Jar) 1 applic TOPICAL QID [facility] Last Admin: 11/23/16 20:10 Dose: 1 applic Cefepime HCl 2 gm/ Sodium (Chloride) 50 mls @ 100 mls/hr IVPB Q8HR [facility] Last Admin: 11/23/16 17:33 Dose: 100 mls/hr Micafungin Sodium 100 mg/ (Sodium Chloride) 100 mls @ 100 mls/hr IVPB DAILY@ 1800 [facility] Last Admin: 11/23/16 20:09 Dose: 100 mls/hr Ondansetron HCl (Zofran Odt) 4 mg PO Q8HR PRN PRN Reason: Nausea And Vomiting Last Admin: 11/23/16 12:19 Dose: 4 mg Sodium Bicarbonate () 5 ml PO Q6HR [facility] Last Admin: 11/23/16 18:30 Dose: 5 ml Home Medications Medication Instructions Recorded Confirmed Type Losartan [Cozaar] 50 mg PO QAM 02/29/16 11/22/16 History Acetaminophen [Tylenol] 650 mg PO Q4H PRN 11/22/16 11/22/16 History Filgrastim Sndz [Neupogen] 480 mcg IJ HS 11/22/16 11/22/16 History diphenhydrAMINE HCL [Benadryl] 25 mg PO DAILY PRN 11/22/16 11/22/16 History Allergies Allergy/AdvReac Type Severity Reaction Status Date / Time Penicillins Allergy Severe Rash/Hives Verified 11/22/16 16:31 fluconazole Allergy Rash/Hives Verified 11/22/16 16:31 vancomycin Allergy Rash/Hives Verified 11/23/16 05:46 Physical Exam Vitals: Vital Signs Temp Pulse Pulse Resp BP BP Pulse Ox 11/23/16 17:20 97.9 F 83 18 134/76 96 11/23/16 15:26 98.9 F 80 18 134/73 98 11/23/16 14:56 98.2 F 83 18 114/74 100 11/23/16 14:46 98.5 F 83 16 137/81 100 11/23/16 07:00 98.7 F 81 16 114/70 96 11/23/16 03:42 99.0 F 81 16 125/65 99 11/23/16 02:37 98.9 F 83 16 120/71 100 11/23/16 02:07 98.8 F 81 16 125/63 98 11/23/16 02:05 98.4 F 79 16 109/70 99 11/23/16 01:57 98.2 F 81 16 121/65 98 11/23/16 00:20 100 F H 11/23/16 00:00 99 16 Intake and Output 11/23/16 11/23/16 11/23/16 06:59 14:59 22:59 Intake Total 601 0 310 Balance 601 0 310 Intake: Intake, IV Titration 400 Amount ACETAMINOPHEN IV (For NPO 400 ) 1,000 mg In Empty Bag 1 bag @ 400 mls/hr IVPB Q6H [facility] Rx#:[id number] Blood Product 201 0 310 Platelet Irr Pheresis 3 201 Acda Unit [id number] Rc Irr As1 Unit 0 310 [id number] Other: Voiding Method Toilet Toilet Toilet # Voids 3 2 51-year-old male of a muscular build who is in no acute distress. HEENT: Anicteric conjunctiva are pink and moist nasal mucosa grossly intact without significant lesions, there is no thrush. No evidence of mucositis Neck: The neck is supple without significant lymphadenopathy or thyromegaly. Lungs: Good bilateral air entry without significant crackles or wheezing. There is no significant bronchial sounds. There is no egophony or dullness. Heart: Regular rate and rhythm with an audible S1-S2, no S3 no S4. There is no significant murmur click or rub, PMI was nondisplaced. Abdomen: Positive bowel sounds soft and nontender without palpable masses or organomegaly. There was no guarding or rebound. Extremities: The upper extremities have excellent pulses they are symmetric, no significant petechiae or telangiectasia. No splinter hemorrhages were noted. The lower extremities are free from significant edema. The peripheral pulses were 2+ and symmetric. Neuro: Awake alert oriented to person place and time. There are no acute new gross focal sensory motor deficits. Skin: Evidence of a rash into the lower abdomen and groin area. It is from the left flank anteriorly to the right flank. Minimal rash over the posterior aspect of the lower back. There is minimal rash onto the upper thighs. Minimal rash on the arms. Face chest and back are spared. One small area of rash onto the right axillary area. The rash is not open or draining. It is minimally palpable. It is pruritic but not tender. Patient also had a small pustule on the left buttocks. At this time it is nearly healed there is no tenderness fluctuance or drainage at this site. Results CBC & Chem 7: 11/23/16 06:00 11/23/16 06:00 Labs: Abnormal Lab Results - Last 24 Hours (Table) 11/22/16 11/23/16 11/23/16 Range/Units 16:34 06:00 06:00 RBC 1.72 L (4.30-5.90) m/uL Hgb 6.4 L* (13.0-17.5) gm/dL Hct 16.8 L* (39.0-53.0) % MCH 37.6 H (25.0-35.0) pg MCHC 38.3 H (31.0-37.0) g/dL Plt Count 23 L* D (150-450) k/uL Sodium 135 L (137-145) mmol/L Potassium 3.4 L (3.5-5.1) mmol/L Glucose 109 H (74-99) mg/dL Calcium 7.8 L (8.4-10.2) mg/dL Crossmatch See Detail Microbiology - Last 24 Hours (Table) 11/22/16 16:39 Blood Culture - Preliminary Blood No Growth after 24 hours 11/22/16 17:18 Urine Culture - Preliminary Urine,Voided Laboratory Results WBC k/uL (3.8-10.6) 11/23/16 06:00 RBC 1.72 m/uL (4.30-5.90) L 11/23/16 06:00 Hgb 6.4 gm/dL (13.0-17.5) L* 11/23/16 06:00 Hct 16.8 % (39.0-53.0) L* 11/23/16 06:00 MCV 98.1 fL (80.0-100.0) 11/23/16 06:00 MCH 37.6 pg (25.0-35.0) H 11/23/16 06:00 MCHC 38.3 g/dL (31.0-37.0) H 11/23/16 06:00 RDW 13.1 % (11.5-15.5) 11/23/16 06:00 Plt Count 23 k/uL (150-450) L* D 11/23/16 06:00 Differential Comment 11/22/16 16:39 Hyperchromasia Moderate 11/23/16 06:00 PT 11.3 sec (9.0-12.0) 11/22/16 16:39 INR 1.1 (<1.2) 11/22/16 16:39 APTT 25.8 sec (22.0-30.0) 11/22/16 16:39 Sodium 135 mmol/L (137-145) L 11/23/16 06:00 Potassium 3.4 mmol/L (3.5-5.1) L 11/23/16 06:00 Chloride 105 mmol/L (98-107) 11/23/16 06:00 Carbon Dioxide 23 mmol/L (22-30) 11/23/16 06:00 Anion Gap 7 mmol/L 11/23/16 06:00 BUN 15 mg/dL (9-20) 11/23/16 06:00 Creatinine 0.77 mg/dL (0.66-1.25) 11/23/16 06:00 Est GFR (MDRD) Af Amer >60 (>60 ml/min/1.73 sqM) 11/23/16 06:00 Est GFR (MDRD) Non-Af >60 (>60 ml/min/1.73 sqM) 11/23/16 06:00 Glucose 109 mg/dL (74-99) H 11/23/16 06:00 Plasma Lactic Acid Leno 0.8 mmol/L (0.7-2.0) 11/22/16 16:39 Calcium 7.8 mg/dL (8.4-10.2) L 11/23/16 06:00 Total Bilirubin 0.9 mg/dL (0.2-1.3) 11/22/16 16:39 AST 16 U/L (17-59) L 11/22/16 16:39 ALT 45 U/L (21-72) 11/22/16 16:39 Alkaline Phosphatase 67 U/L (38-126) 11/22/16 16:39 Total Creatine Kinase 162 U/L (55-170) 11/22/16 16:39 CK-MB (CK-2) 1.4 ng/mL (0.0-2.4) 11/22/16 16:39 CK-MB (CK-2) Rel Index 0.9 11/22/16 16:39 Troponin I <0.012 ng/mL (0.000-0.034) 11/22/16 16:39 Total Protein 5.8 g/dL (6.3-8.2) L 11/22/16 16:39 Albumin 3.3 g/dL (3.5-5.0) L 11/22/16 16:39 Urine Color Yellow 11/22/16 17:18 Urine Appearance Clear (Clear) 11/22/16 17:18 Urine pH 6.0 (5.0-8.0) 11/22/16 17:18 Ur Specific [place] 1.017 (1.001-1.035) 11/22/16 17:18 Urine Protein Trace (Negative) H 11/22/16 17:18 Urine Glucose (UA) Negative (Negative) 11/22/16 17:18 Urine Ketones Negative (Negative) 11/22/16 17:18 Urine Blood Small (Negative) H 11/22/16 17:18 Urine Nitrite Negative (Negative) 11/22/16 17:18 Urine Bilirubin Negative (Negative) 11/22/16 17:18 Urine Urobilinogen <2.0 mg/dL (<2.0) 11/22/16 17:18 Ur Leukocyte Esterase Negative (Negative) 11/22/16 17:18 Urine RBC 1 /hpf (0-5) 11/22/16 17:18 Urine Mucus Rare /hpf (None) H 11/22/16 17:18 Blood Type O Positive 11/22/16 16:34 Blood Type Recheck No 11/22/16 16:34 Antibody Screen NEGATIVE 11/22/16 16:34 Crossmatch See Detail 11/22/16 16:34 Transfuse Platelets 11/23/16 11/22/16 16:34 Spec Expiration Date 11/25/2016 - 1818 11/22/16 16:34 Microbiology 11/22/16 16:39 Blood Blood Culture - Preliminary No Growth after 24 hours 11/22/16 17:18 Urine,Voided Urine Culture - Preliminary Chest x-ray: image reviewed (Negative for pneumonia) Assessment and Plan (1) Neutropenia, febrile Narrative/Plan: Pleasant 51-year-old male who has a history of acute myelogenous leukemia that has relapsed. He is receiving his LEO flag protocol. He is now having absolute neutropenia and has developed significant fever. Other than the rash she has not having significant other symptoms. He does not have mucositis, no evidence of pneumonia, urinary infection or gastroenteritis. The patient did developed a rash after amoxicillin and fluconazole. Which relates has occurred in the past. These are now held. Topical steroid cream is being utilized. With significant improvement. For antibiotic therapy cefepime continues. Vancomycin discontinued without evidence of infected port, or significant mucositis. For antifungal therapy will utilize micafungin 100 mg IV piggyback daily for now. This will continue a cultures are processing he remains febrile. It is not noted that he has significant herpetic viral infections. Status: Acute (2) Leukemia, acute myeloid Status: Chronic (3) Pancytopenia Status: Acute (4) Rash and nonspecific skin eruption Status: Acute
[2016-11-24] MEDS: CEFEPIME 2 GM in SODIUM CHLORIDE 0.9% 50 ML IVPB SCH ×4 (00:01→23:29)
[2016-11-24] MEDS: SALT AND SODA MOUTHWASH 1,000 ML PO SCH ×5 (00:02→20:41)
[2016-11-24] MEDS: DEXAMETHASONE 4 MG TAB PO SCH (00:02)
[2016-11-24 06:35] LABS: CH 37.1; CHCM 38.7; HDW 3.13; Hyperchromasia Moderate; Immature Gran Flag Marked; MCHC 36.6 g/dL (31.0-37.0); MCV 95.8 fL (80.0-100.0); Mean Platelet Volume 6.9; RDW 14.3 % (11.5-15.5); WBC (Perox) 0.05
[2016-11-24 06:39] LABS: HCT 18.2 % (39.0-53.0); HGB 6.7 gm/dL (13.0-17.5); WBC 0.1 k/uL (3.8-10.6)
[2016-11-24 06:54] LABS: ALT 34 U/L (21-72); AST 14 U/L (17-59); Alkaline Phosphatase 54 U/L (38-126); Anion Gap 9 mmol/L; Blood Urea Nitrogen 16 mg/dL (9-20); Carbon Dioxide 22 mmol/L (22-30); Chloride 110 mmol/L (98-107); Glucose 141 mg/dL (74-99); Non-African American GFR(MDRD) >60 (>60 ml/min/1.73 sqM); Potassium 3.7 mmol/L (3.5-5.1); Sodium 141 mmol/L (137-145); Total Bilirubin 0.8 mg/dL (0.2-1.3)
[2016-11-24 06:59] LABS: Add Differential Manual Differential
[2016-11-24 07:00] LABS: Manual Review Performed
[2016-11-24] MEDS: HYDROCORTISONE 1% CREAM 454 GM JAR TOPICAL SCH ×4 (08:16→20:38)
[2016-11-24] MEDS: ACYCLOVIR 200 MG CAP PO SCH ×2 (08:16→20:38)
[2016-11-24] MEDS: diphenhydrAMINE 25 MG CAP PO SCH ×3 (08:24→20:38)
--- NOTE | 2016-11-24 11:00 | P.PN ---
Subjective Patient was admitted for febrile neutropenia. Patient denied any fever today. Patient's rash from ALLERGIC reaction is improving. Patient was started on micafungin by infectious disease. Patient denied any fever, cough, dysuria, nausea, vomiting, abdominal pain, new focal weakness. Objective - Vital Signs Vital signs: Vital Signs Temp 97 F L 11/24/16 06:22 Pulse 77 11/24/16 06:22 Resp 16 11/24/16 06:22 BP 135/85 11/24/16 06:22 Pulse Ox 100 11/24/16 06:22 Intake & Output 11/23/16 11/24/16 11/24/16 18:59 06:59 18:59 Intake Total 310 100 Balance 310 100 Intake: IV 100 Micafungin 100 mg In 100 Sodium Chloride 0.9% 100 ml @ 100 mls/hr IVPB DAILY@1800 [facility] [place] Rx#: [id number] Blood Product 310 Rc Irr As1 Unit 310 [id number] Other: Voiding Method Toilet Toilet # Voids 2 2 - Exam PHYSICAL EXAMINATION: GENERAL: The patient is alert and oriented x3, not in any acute distress. Well developed, well nourished. HEENT: Pupils are round and equally reacting to light. EOMI. No scleral icterus. No conjunctival pallor. Normocephalic, atraumatic. No pharyngeal erythema. No thyromegaly. CARDIOVASCULAR: S1 and S2 present. No murmurs, rubs, or gallops. PULMONARY: Chest is clear to auscultation, no wheezing or crackles. ABDOMEN: Soft, nontender, nondistended, normoactive bowel sounds. No palpable organomegaly. MUSCULOSKELETAL: No joint swelling or deformity. EXTREMITIES: No cyanosis, clubbing, or pedal edema. NEUROLOGICAL: Gross neurological examination did not reveal any focal deficits. SKIN: No rashes. - Labs CBC & Chem 7: 11/24/16 06:16 11/24/16 06:16 Labs: Abnormal Lab Results - Last 24 Hours (Table) 11/22/16 11/24/16 11/24/16 Range/Units 16:34 06:16 06:16 WBC 0.1 L* (3.8-10.6) k/uL RBC 1.90 L (4.30-5.90) m/uL Hgb 6.7 L* (13.0-17.5) gm/dL Hct 18.2 L* (39.0-53.0) % Plt Count 19 L* (150-450) k/uL Chloride 110 H (98-107) mmol/L Creatinine 0.64 L (0.66-1.25) mg/dL Glucose 141 H (74-99) mg/dL Calcium 8.0 L (8.4-10.2) mg/dL AST 14 L (17-59) U/L Total Protein 5.0 L (6.3-8.2) g/dL Albumin 2.7 L (3.5-5.0) g/dL Crossmatch See Detail Microbiology - Last 24 Hours (Table) 11/22/16 17:18 Urine Culture - Final Urine,Voided 11/22/16 16:39 Blood Culture - Preliminary Blood No Growth after 24 hours Assessment and Plan Plan: Febrile neutropenia ; patient was started on cefepime and micafungin as per infectious disease which will be continued. Patient is feeling well bit better today and patient neutropenia improved little bit. #2 pancytopenia: Secondary to chemotherapy patient is receiving platelets and irradiated PRBC today. Patient can use to have low hemoglobin irradiated PRBC transfusion as per oncology and hematology. #3 ALLERGIC reaction to vancomycin which was treated. 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 And patient is on acyclovir which will be continue. #5 hypertension hold off on losartan because of concerns of sepsis and hypotension.
--- NOTE | 2016-11-24 15:56 | P.PN ---
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 He was noticed to have favorable cytogenetics and was treated with induction chemotherapy. He is done well. However 6 months after completion of his induction chemotherapy has had a relapse. He is in now with the midst of his reinduction chemotherapy. He has now been evaluated at [facility] for autologous stem cell transplantation. The patient is developed a significant fever of greater than 102. Associated with chills and rigors. Constantly presented to hospitals been admitted for his febrile neutropenia. He has been utilizing G-CSF therapy at home. Despite this he has significant ongoing neutropenia and is developed a significant fever. He does not have significant localizing symptoms such as mucositis, pulmonary symptoms or urinary symptoms. Is also not have any significant gastrointestinal symptoms. However is having difficulties with a significant rash. This occurred in the past. Potentially in the past was related to his amoxicillin and fluconazole therapy that he was receiving. When he stopped in the past his rash resolved. However the rash also resolved with timing of some improvement of his neutropenia. He received a dose of vancomycin and the rash became somewhat more flared. Topical triamcinolone his allowed some improvement. An antibiotic therapy and fluids have resulted in improvement of his high-grade fever. Feeling somewhat better today. Appetite is modest. He is denying nausea or emesis or other new acute symptoms today. The patient is noted. No area of rash onto the right axillary area. Patient is feeling better today. Somewhat disappointed that his counts have not started to recover as of yet. Does feel better. Rash is improved. Objective - Vital Signs Vital signs: Vital Signs Temp 97.9 F 11/24/16 14:11 Pulse 74 11/24/16 14:11 Resp 16 11/24/16 14:11 BP 125/89 11/24/16 14:11 Pulse Ox 99 11/24/16 14:11 Intake & Output 11/23/16 11/24/16 11/24/16 18:59 06:59 18:59 Intake Total 310 100 0 Balance 310 100 0 Intake: IV 100 Micafungin 100 mg In 100 Sodium Chloride 0.9% 100 ml @ 100 mls/hr IVPB DAILY@1800 [facility] Rx#: [id number] Blood Product 310 0 Rc Irr As1 Unit 310 [id number] Rc Irr As1 Unit 0 [id number] Other: Voiding Method Toilet Toilet # Voids 2 2 1 - Exam 51-year-old male of a muscular build who is in no acute distress. HEENT: Anicteric conjunctiva are pink and moist nasal mucosa grossly intact without significant lesions, there is no thrush. No evidence of mucositis Neck: The neck is supple without significant lymphadenopathy or thyromegaly. Lungs: Good bilateral air entry without significant crackles or wheezing. There is no significant bronchial sounds. There is no egophony or dullness. Heart: Regular rate and rhythm with an audible S1-S2, no S3 no S4. There is no significant murmur click or rub, PMI was nondisplaced. Abdomen: Positive bowel sounds soft and nontender without palpable masses or organomegaly. There was no guarding or rebound. Extremities: The upper extremities have excellent pulses they are symmetric, no significant petechiae or telangiectasia. No splinter hemorrhages were noted. The lower extremities are free from significant edema. The peripheral pulses were 2+ and symmetric. Neuro: Awake alert oriented to person place and time. There are no acute new gross focal sensory motor deficits. Skin: Evidence of a rash into the lower abdomen and groin area. It is from the left flank anteriorly to the right flank. Minimal rash over the posterior aspect of the lower back. There is minimal rash onto the upper thighs. Minimal rash on the arms. Face chest and back are spared. One small area of rash onto the right axillary area. The rash is not open or draining. It is minimally palpable. It is pruritic but not tender. Patient also had a small pustule on the left buttocks. At this time it is healed there is no tenderness fluctuance or drainage at this site. The rash is markedly improved today. - Labs CBC & Chem 7: 11/24/16 06:16 11/24/16 06:16 Labs: Abnormal Lab Results - Last 24 Hours (Table) 11/22/16 11/24/16 11/24/16 Range/Units 16:34 06:16 06:16 WBC 0.1 L* (3.8-10.6) k/uL RBC 1.90 L (4.30-5.90) m/uL Hgb 6.7 L* (13.0-17.5) gm/dL Hct 18.2 L* (39.0-53.0) % Plt Count 19 L* (150-450) k/uL Chloride 110 H (98-107) mmol/L Creatinine 0.64 L (0.66-1.25) mg/dL Glucose 141 H (74-99) mg/dL Calcium 8.0 L (8.4-10.2) mg/dL AST 14 L (17-59) U/L Total Protein 5.0 L (6.3-8.2) g/dL Albumin 2.7 L (3.5-5.0) g/dL Crossmatch See Detail Microbiology - Last 24 Hours (Table) 11/22/16 17:18 Urine Culture - Final Urine,Voided 11/22/16 16:39 Blood Culture - Preliminary Blood No Growth after 24 hours Laboratory Results WBC 0.1 k/uL (3.8-10.6) L* 11/24/16 06:16 RBC 1.90 m/uL (4.30-5.90) L 11/24/16 06:16 Hgb 6.7 gm/dL (13.0-17.5) L* 11/24/16 06:16 Hct 18.2 % (39.0-53.0) L* 11/24/16 06:16 MCV 95.8 fL (80.0-100.0) 11/24/16 06:16 MCH 35.0 pg (25.0-35.0) 11/24/16 06:16 MCHC 36.6 g/dL (31.0-37.0) 11/24/16 06:16 RDW 14.3 % (11.5-15.5) 11/24/16 06:16 Plt Count 19 k/uL (150-450) L* 11/24/16 06:16 Differential Comment 11/24/16 06:16 Manual Slide Review Performed 11/24/16 06:16 Hyperchromasia Moderate 11/24/16 06:16 PT 11.3 sec (9.0-12.0) 11/22/16 16:39 INR 1.1 (<1.2) 11/22/16 16:39 APTT 25.8 sec (22.0-30.0) 11/22/16 16:39 Sodium 141 mmol/L (137-145) 11/24/16 06:16 Potassium 3.7 mmol/L (3.5-5.1) 11/24/16 06:16 Chloride 110 mmol/L (98-107) H 11/24/16 06:16 Carbon Dioxide 22 mmol/L (22-30) 11/24/16 06:16 Anion Gap 9 mmol/L 11/24/16 06:16 BUN 16 mg/dL (9-20) 11/24/16 06:16 Creatinine 0.64 mg/dL (0.66-1.25) L 11/24/16 06:16 Est GFR (MDRD) Af Amer >60 (>60 ml/min/1.73 sqM) 11/24/16 06:16 Est GFR (MDRD) Non-Af >60 (>60 ml/min/1.73 sqM) 11/24/16 06:16 Glucose 141 mg/dL (74-99) H 11/24/16 06:16 Plasma Lactic Acid Leno 0.8 mmol/L (0.7-2.0) 11/22/16 16:39 Calcium 8.0 mg/dL (8.4-10.2) L 11/24/16 06:16 Total Bilirubin 0.8 mg/dL (0.2-1.3) 11/24/16 06:16 AST 14 U/L (17-59) L 11/24/16 06:16 ALT 34 U/L (21-72) 11/24/16 06:16 Alkaline Phosphatase 54 U/L (38-126) 11/24/16 06:16 Total Creatine Kinase 162 U/L (55-170) 11/22/16 16:39 CK-MB (CK-2) 1.4 ng/mL (0.0-2.4) 11/22/16 16:39 CK-MB (CK-2) Rel Index 0.9 11/22/16 16:39 Troponin I <0.012 ng/mL (0.000-0.034) 11/22/16 16:39 Total Protein 5.0 g/dL (6.3-8.2) L 11/24/16 06:16 Albumin 2.7 g/dL (3.5-5.0) L 11/24/16 06:16 Urine Color Yellow 11/22/16 17:18 Urine Appearance Clear (Clear) 11/22/16 17:18 Urine pH 6.0 (5.0-8.0) 11/22/16 17:18 Ur Specific Dubois 1.017 (1.001-1.035) 11/22/16 17:18 Urine Protein Trace (Negative) H 11/22/16 17:18 Urine Glucose (UA) Negative (Negative) 11/22/16 17:18 Urine Ketones Negative (Negative) 11/22/16 17:18 Urine Blood Small (Negative) H 11/22/16 17:18 Urine Nitrite Negative (Negative) 11/22/16 17:18 Urine Bilirubin Negative (Negative) 11/22/16 17:18 Urine Urobilinogen <2.0 mg/dL (<2.0) 11/22/16 17:18 Ur Leukocyte Esterase Negative (Negative) 11/22/16 17:18 Urine RBC 1 /hpf (0-5) 11/22/16 17:18 Urine Mucus Rare /hpf (None) H 11/22/16 17:18 Blood Type O Positive 11/22/16 16:34 Blood Type Recheck No 11/22/16 16:34 Antibody Screen NEGATIVE 11/22/16 16:34 Crossmatch See Detail 11/22/16 16:34 Transfuse Platelets 11/23/16 11/22/16 16:34 Spec Expiration Date 11/25/2016 - 3390 11/22/16 16:34 Microbiology 11/22/16 17:18 Urine,Voided Urine Culture - Final 11/22/16 16:39 Blood Blood Culture - Preliminary No Growth after 24 hours Assessment and Plan (1) Neutropenia, febrile Narrative/Plan: Pleasant 51-year-old male who has a history of acute myelogenous leukemia that has relapsed. He is receiving his LEO flag protocol. He is now having absolute neutropenia and has developed significant fever. Other than the rash she has not having significant other symptoms. He does not have mucositis, no evidence of pneumonia, urinary infection or gastroenteritis. The patient did developed a rash after amoxicillin and fluconazole. Which relates has occurred in the past. These are now held. Topical steroid cream is being utilized. With significant improvement. For antibiotic therapy cefepime continues. Vancomycin discontinued without evidence of infected port, or significant mucositis. For antifungal therapy will utilize micafungin 100 mg IV piggyback daily for now. This is given his profound and long-lasting immunosuppression and neutropenia This will continue as cultures are processing and remains profoundly neutropenic.. It is not noted that he has NO significant herpetic viral infections. And has not been on antiviral therapy. Status: Acute (2) Leukemia, acute myeloid Status: Chronic (3) Pancytopenia Status: Acute (4) Rash and nonspecific skin eruption Status: Acute
[2016-11-24] MEDS: MICAFUNGIN 100 MG in SODIUM CHLORIDE 0.9% 100 ML IVPB SCH (17:42)
[2016-11-24] MEDS: FILGRASTIM-SNDZ 480 MCG/0.8 ML SYRINGE SQ SCH (20:38)
[2016-11-24] MEDS: ALPRAZolam 0.5 MG TAB PO PRN (20:38)
[2016-11-25] MEDS: SALT AND SODA MOUTHWASH 1,000 ML PO SCH ×3 (04:58→17:01)
[2016-11-25 06:21] LABS: CH 36.2; CHCM 37.9; HDW 3.05; Hyperchromasia Slight; MCH 34.3 pg (25.0-35.0); MCHC 35.8 g/dL (31.0-37.0); MCV 95.6 fL (80.0-100.0); Mean Platelet Volume 8.4; RDW 14.8 % (11.5-15.5)
[2016-11-25 06:30] LABS: HGB 6.5 gm/dL (13.0-17.5); WBC 0.1 k/uL (3.8-10.6)
[2016-11-25 06:31] LABS: HCT 18.2 % (39.0-53.0)
[2016-11-25 06:40] LABS: Anion Gap 7 mmol/L; Blood Urea Nitrogen 21 mg/dL (9-20); Calcium 8.3 mg/dL (8.4-10.2); Carbon Dioxide 21 mmol/L (22-30); Chloride 113 mmol/L (98-107); Glucose 103 mg/dL (74-99); Non-African American GFR(MDRD) >60 (>60 ml/min/1.73 sqM); Potassium 3.7 mmol/L (3.5-5.1); Sodium 141 mmol/L (137-145)
[2016-11-25] MEDS: HYDROCORTISONE 1% CREAM 454 GM JAR TOPICAL SCH ×4 (08:43→21:59)
[2016-11-25] MEDS: diphenhydrAMINE 25 MG CAP PO SCH ×3 (08:43→21:59)
[2016-11-25] MEDS: ACYCLOVIR 200 MG CAP PO SCH ×2 (08:43→20:15)
[2016-11-25] MEDS: CEFEPIME 2 GM in SODIUM CHLORIDE 0.9% 50 ML IVPB SCH ×2 (08:43→17:00)
--- NOTE | 2016-11-25 10:24 | P.PN ---
Subjective Patient was admitted for febrile neutropenia. Patient denied any fever today. Patient's rash from ALLERGIC reaction is improving. Patient was started on micafungin by infectious disease. 11/25/16 Patient is afebrile for more than 36 hours. But his hemoglobin remains low because of which a hematology wanted to transfuse 2 more units of blood. Patient received total of 2 units of PRBC in spite of which is remarkable hemoglobin remains at 6.5 and his WBC count is 100. Patient is on broad- spectrum antibiotics including acyclovir, cefepime and micafungin Patient denied any fever, cough, dysuria, nausea, vomiting, abdominal pain, new focal weakness. Objective - Vital Signs Vital signs: Vital Signs Temp 97.7 F 11/25/16 07:00 Pulse 69 11/25/16 07:00 Resp 16 11/25/16 07:00 BP 106/60 11/25/16 07:00 Pulse Ox 99 11/25/16 07:00 Intake & Output 11/24/16 11/25/16 11/25/16 18:59 06:59 18:59 Intake Total 310 Balance 310 Intake: Blood Product 310 Rc Irr As1 Unit 310 [id number] Other: Voiding Method Toilet # Voids 1 1 - Exam PHYSICAL EXAMINATION: GENERAL: The patient is alert and oriented x3, not in any acute distress. Well developed, well nourished. HEENT: Pupils are round and equally reacting to light. EOMI. No scleral icterus. No conjunctival pallor. Normocephalic, atraumatic. No pharyngeal erythema. No thyromegaly. CARDIOVASCULAR: S1 and S2 present. No murmurs, rubs, or gallops. PULMONARY: Chest is clear to auscultation, no wheezing or crackles. ABDOMEN: Soft, nontender, nondistended, normoactive bowel sounds. No palpable organomegaly. MUSCULOSKELETAL: No joint swelling or deformity. EXTREMITIES: No cyanosis, clubbing, or pedal edema. NEUROLOGICAL: Gross neurological examination did not reveal any focal deficits. SKIN: No rashes. - Labs CBC & Chem 7: 11/25/16 06:00 11/25/16 06:00 Labs: Abnormal Lab Results - Last 24 Hours (Table) 11/22/16 11/25/16 11/25/16 Range/Units 16:34 06:00 06:00 WBC 0.1 L* (3.8-10.6) k/uL RBC 1.90 L (4.30-5.90) m/uL Hgb 6.5 L* (13.0-17.5) gm/dL Hct 18.2 L* (39.0-53.0) % Plt Count 11 L* (150-450) k/uL Chloride 113 H (98-107) mmol/L Carbon Dioxide 21 L (22-30) mmol/L BUN 21 H (9-20) mg/dL Glucose 103 H (74-99) mg/dL Calcium 8.3 L (8.4-10.2) mg/dL Crossmatch See Detail Microbiology - Last 24 Hours (Table) 11/22/16 16:39 Blood Culture - Preliminary Blood No Growth after 48 hours Assessment and Plan Plan: Febrile neutropenia ; patient was started on cefepime and micafungin as per infectious disease which will be continued. is afebrile but his hemoglobin remains low because of which hematology is recommending one more day of hospitalization. #2 pancytopenia: Secondary to chemotherapy patient is receiving platelets and irradiated PRBC 2 units today. Patient can use to have low hemoglobin irradiated PRBC transfusion as per oncology and hematology. Received total of 2 units in last couple days #3 ALLERGIC reaction to vancomycin which was treated. 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 And patient is on acyclovir which will be continue. #5 hypertension hold off on losartan because of concerns of sepsis and hypotension.
[2016-11-25] MEDS: ONDANSETRON ODT 4 MG TAB PO PRN ×2 (12:45→20:15)
[2016-11-25] MEDS ORDERED: ACETAMINOPHEN TAB 325 MG TAB PO PRN (15:59)
[2016-11-25] MEDS ORDERED: ACETAMINOPHEN IV (For NPO) 1,000 MG in EMPTY BAG 1 BAG IVPB ONE ×2 (16:27→22:33)
[2016-11-25] MEDS: MICAFUNGIN 100 MG in SODIUM CHLORIDE 0.9% 100 ML IVPB SCH (17:01)
--- NOTE | 2016-11-25 18:18 | PN ---
DATE OF SERVICE: 11/24/2016 CHIEF COMPLAINT: Tired. Mike seen today as a follow up. He feels better. He feels a little tired but no more fever or chills over the last 24 hours. No nausea or vomiting and no diarrhea. His rashes appear to be subsiding and no melena, hematochezia or hematuria. His current medication includes: 1. Acyclovir 200 mg b.i.d. 2. Xanax 0.5 mg t.i.d. as needed. 3. Cefepime 2 gm IV every eight hours. 4. Benadryl 25 mg p.o. t.i.d. as needed. 5. Zarxio 480 mcg subcu daily. 6. Hydrocortisone cream as needed. 7. Micafungin 100 mg IV piggyback daily. 8. Zofran 4 mg every eight hours as needed. PHYSICAL EXAMINATION: Alert and oriented x3. Does not appear to be in distress at this time. Well-developed, well-nourished. VITAL SIGNS: Temperature 97.9, afebrile; pulse is 68, regular; respirations 16 , blood pressure 125/83. HEENT: Normocephalic, atraumatic. No icterus. NECK: Supple. CHEST: Equal expansion bilaterally.. LUNGS: Clear to auscultation. HEART: Regular rate and rhythm. ABDOMEN: Soft. No organomegaly or masses or tenderness. Bowel sounds present. EXTREMITIES: Reveal no edema. SKIN: He has mild fading rash in his lower back. LABORATORY DATA: WBC 0.1, hemoglobin 6.8, hematocrit 18.2, platelets 19. Sodium 141, potassium 3.7, chloride 110, CO2 is 22, BUN 19, creatinine 0.64. IMPRESSION: 1. Neutropenic fever. The patient is clinically stable. His blood cultures so far negative and urine culture is negative as well. 2. Severe chemotherapy induced myelosuppression. 3. Relapsed acute myelogenous leukemia status post reinduction with FLAG-LEO regimen. RECOMMENDATION: 1. Continue granulocyte count stimulating factor. 2. Continue broad spectrum antibiotics and antifungal as ordered by infectious disease. 3. Supportive transfusion as needed. 4. Continue supportive care. 5. Once his pancytopenia recovers, the plan is to repeat bone marrow biopsy and if disease is in remission, then to proceed with allogenic stem cell transplant. [facility]
[2016-11-25] MEDS: FILGRASTIM-SNDZ 480 MCG/0.8 ML SYRINGE SQ SCH (20:15)
--- NOTE | 2016-11-25 22:29 | P.PN ---
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 He was noticed to have favorable cytogenetics and was treated with induction chemotherapy. He is done well. However 6 months after completion of his induction chemotherapy has had a relapse. He is in now with the midst of his reinduction chemotherapy. He has now been evaluated at [facility] for autologous stem cell transplantation. The patient is developed a significant fever of greater than 102. Associated with chills and rigors. Constantly presented to hospitals been admitted for his febrile neutropenia. He has been utilizing G-CSF therapy at home. Despite this he has significant ongoing neutropenia and is developed a significant fever. He does not have significant localizing symptoms such as mucositis, pulmonary symptoms or urinary symptoms. Is also not have any significant gastrointestinal symptoms. However is having difficulties with a significant rash. This occurred in the past. Potentially in the past was related to his amoxicillin and fluconazole therapy that he was receiving. When he stopped in the past his rash resolved. However the rash also resolved with timing of some improvement of his neutropenia. He received a dose of vancomycin and the rash became somewhat more flared. Topical triamcinolone his allowed some improvement. An antibiotic therapy and fluids have resulted in improvement of his high-grade fever. Feeling somewhat better today. Appetite is modest. He is denying nausea or emesis or other new acute symptoms today. The patient is noted. No area of rash onto the right axillary area. Patient is feeling better today. Somewhat disappointed that his counts have not started to recover as of yet. Not feeling as well today because he is now developed a bit of a fever again.. Rash is improved. Objective - Vital Signs Vital signs: Vital Signs Temp 100.6 F H 11/25/16 21:55 Pulse 82 11/25/16 21:55 Resp 20 11/25/16 21:55 BP 137/93 11/25/16 21:55 Pulse Ox 97 11/25/16 21:55 Intake & Output 11/25/16 11/25/16 11/26/16 06:59 18:59 06:59 Intake Total 193 Balance 193 Intake: Blood Product 193 Platelet Irr Pheresis 193 Acda1 Unit [id number] Rc Irr As1 Unit 0 [id number] Other: Voiding Method Toilet # Voids 1 2 - Exam 51-year-old male of a muscular build who is in no acute distress. HEENT: Anicteric conjunctiva are pink and moist nasal mucosa grossly intact without significant lesions, there is no thrush. No evidence of mucositis Neck: The neck is supple without significant lymphadenopathy or thyromegaly. Lungs: Good bilateral air entry without significant crackles or wheezing. There is no significant bronchial sounds. There is no egophony or dullness. Heart: Regular rate and rhythm with an audible S1-S2, no S3 no S4. There is no significant murmur click or rub, PMI was nondisplaced. Abdomen: Positive bowel sounds soft and nontender without palpable masses or organomegaly. There was no guarding or rebound. Extremities: The upper extremities have excellent pulses they are symmetric, no significant petechiae or telangiectasia. No splinter hemorrhages were noted. The lower extremities are free from significant edema. The peripheral pulses were 2+ and symmetric. Neuro: Awake alert oriented to person place and time. There are no acute new gross focal sensory motor deficits. Skin: Evidence of a rash into the lower abdomen and groin area. It is from the left flank anteriorly to the right flank. Minimal rash over the posterior aspect of the lower back. There is minimal rash onto the upper thighs. Minimal rash on the arms. Face chest and back are spared. One small area of rash onto the right axillary area. The rash is not open or draining. It is minimally palpable. It is pruritic but not tender. Patient also had a small pustule on the left buttocks. At this time it is healed there is no tenderness fluctuance or drainage at this site. The rash is improved today. - Labs CBC & Chem 7: 11/25/16 06:00 11/25/16 06:00 Labs: Abnormal Lab Results - Last 24 Hours (Table) 11/22/16 11/25/16 11/25/16 Range/Units 16:34 06:00 06:00 WBC 0.1 L* (3.8-10.6) k/uL RBC 1.90 L (4.30-5.90) m/uL Hgb 6.5 L* (13.0-17.5) gm/dL Hct 18.2 L* (39.0-53.0) % Plt Count 11 L* (150-450) k/uL Chloride 113 H (98-107) mmol/L Carbon Dioxide 21 L (22-30) mmol/L BUN 21 H (9-20) mg/dL Glucose 103 H (74-99) mg/dL Calcium 8.3 L (8.4-10.2) mg/dL Crossmatch See Detail Microbiology - Last 24 Hours (Table) 11/22/16 16:39 Blood Culture - Preliminary Blood No Growth after 72 hours Laboratory Results WBC 0.1 k/uL (3.8-10.6) L* 11/25/16 06:00 RBC 1.90 m/uL (4.30-5.90) L 11/25/16 06:00 Hgb 6.5 gm/dL (13.0-17.5) L* 11/25/16 06:00 Hct 18.2 % (39.0-53.0) L* 11/25/16 06:00 MCV 95.6 fL (80.0-100.0) 11/25/16 06:00 MCH 34.3 pg (25.0-35.0) 11/25/16 06:00 MCHC 35.8 g/dL (31.0-37.0) 11/25/16 06:00 RDW 14.8 % (11.5-15.5) 11/25/16 06:00 Plt Count 11 k/uL (150-450) L* 11/25/16 06:00 Differential Comment 11/24/16 06:16 Manual Slide Review Performed 11/24/16 06:16 Hyperchromasia Slight 11/25/16 06:00 PT 11.3 sec (9.0-12.0) 11/22/16 16:39 INR 1.1 (<1.2) 11/22/16 16:39 APTT 25.8 sec (22.0-30.0) 11/22/16 16:39 Sodium 141 mmol/L (137-145) 11/25/16 06:00 Potassium 3.7 mmol/L (3.5-5.1) 11/25/16 06:00 Chloride 113 mmol/L (98-107) H 11/25/16 06:00 Carbon Dioxide 21 mmol/L (22-30) L 11/25/16 06:00 Anion Gap 7 mmol/L 11/25/16 06:00 BUN 21 mg/dL (9-20) H 11/25/16 06:00 Creatinine 0.70 mg/dL (0.66-1.25) 11/25/16 06:00 Est GFR (MDRD) Af Amer >60 (>60 ml/min/1.73 sqM) 11/25/16 06:00 Est GFR (MDRD) Non-Af >60 (>60 ml/min/1.73 sqM) 11/25/16 06:00 Glucose 103 mg/dL (74-99) H 11/25/16 06:00 Plasma Lactic Acid [place] 0.8 mmol/L (0.7-2.0) 11/22/16 16:39 Calcium 8.3 mg/dL (8.4-10.2) L 11/25/16 06:00 Total Bilirubin 0.8 mg/dL (0.2-1.3) 11/24/16 06:16 AST 14 U/L (17-59) L 11/24/16 06:16 ALT 34 U/L (21-72) 11/24/16 06:16 Alkaline Phosphatase 54 U/L (38-126) 11/24/16 06:16 Total Creatine Kinase 162 U/L (55-170) 11/22/16 16:39 CK-MB (CK-2) 1.4 ng/mL (0.0-2.4) 11/22/16 16:39 CK-MB (CK-2) Rel Index 0.9 11/22/16 16:39 Troponin I <0.012 ng/mL (0.000-0.034) 11/22/16 16:39 Total Protein 5.0 g/dL (6.3-8.2) L 11/24/16 06:16 Albumin 2.7 g/dL (3.5-5.0) L 11/24/16 06:16 Urine Color Yellow 11/22/16 17:18 Urine Appearance Clear (Clear) 11/22/16 17:18 Urine pH 6.0 (5.0-8.0) 11/22/16 17:18 Ur Specific [place] 1.017 (1.001-1.035) 11/22/16 17:18 Urine Protein Trace (Negative) H 11/22/16 17:18 Urine Glucose (UA) Negative (Negative) 11/22/16 17:18 Urine Ketones Negative (Negative) 11/22/16 17:18 Urine Blood Small (Negative) H 11/22/16 17:18 Urine Nitrite Negative (Negative) 11/22/16 17:18 Urine Bilirubin Negative (Negative) 11/22/16 17:18 Urine Urobilinogen <2.0 mg/dL (<2.0) 11/22/16 17:18 Ur Leukocyte Esterase Negative (Negative) 11/22/16 17:18 Urine RBC 1 /hpf (0-5) 11/22/16 17:18 Urine Mucus Rare /hpf (None) H 11/22/16 17:18 Blood Type O Positive 11/22/16 16:34 Blood Type Recheck No 11/22/16 16:34 Antibody Screen NEGATIVE 11/22/16 16:34 Crossmatch See Detail 11/22/16 16:34 Transfuse Platelets 11/25/16 11/25/16 10:27 Spec Expiration Date 11/25/2016 1977 11/22/16 16:34 Microbiology 11/22/16 16:39 Blood Blood Culture - Preliminary No Growth after 72 hours 11/22/16 17:18 Urine,Voided Urine Culture - Final Assessment and Plan (1) Neutropenia, febrile Narrative/Plan: Pleasant 51-year-old male who has a history of acute myelogenous leukemia that has relapsed. He is receiving his LEO flag protocol. He is now having absolute neutropenia and has developed significant fever. Other than the rash she has not having significant other symptoms. He does not have mucositis, no evidence of pneumonia, urinary infection or gastroenteritis. The patient did developed a rash after amoxicillin and fluconazole. Which relates has occurred in the past. These are now held. Topical steroid cream is being utilized. With significant improvement. For antibiotic therapy cefepime continues. Vancomycin discontinued without evidence of infected port, or significant mucositis. For antifungal therapy will utilize micafungin 100 mg IV piggyback daily for now. This is given his profound and long-lasting immunosuppression and neutropenia This will continue as cultures are processing and remains profoundly neutropenic.. It is not noted that he has NO significant herpetic viral infections. And has not been on antiviral therapy. Has had some fever today. Continue antibiotic therapy pending recovery of his marrow. Status: Acute (2) Leukemia, acute myeloid Status: Chronic (3) Pancytopenia Status: Acute (4) Rash and nonspecific skin eruption Status: Acute
[2016-11-26] MEDS: CEFEPIME 2 GM in SODIUM CHLORIDE 0.9% 50 ML IVPB SCH ×3 (00:20→16:09)
[2016-11-26] MEDS: SALT AND SODA MOUTHWASH 1,000 ML PO SCH ×4 (01:42→19:20)
[2016-11-26 06:49] LABS: CH 35.9; CHCM 37.4; HCT 23.3 % (39.0-53.0); HDW 3.03; Hyperchromasia Slight; MCH 34.4 pg (25.0-35.0); MCHC 35.8 g/dL (31.0-37.0); MCV 96.1 fL (80.0-100.0); Mean Platelet Volume 8.5; RBC 2.42 m/uL (4.30-5.90); RDW 14.4 % (11.5-15.5)
[2016-11-26 06:54] LABS: WBC 0.1 k/uL (3.8-10.6)
[2016-11-26 06:56] LABS: HGB 8.3 gm/dL (13.0-17.5)
[2016-11-26 06:58] LABS: Anion Gap 7 mmol/L; Blood Urea Nitrogen 15 mg/dL (9-20); Calcium 7.7 mg/dL (8.4-10.2); Carbon Dioxide 20 mmol/L (22-30); Chloride 110 mmol/L (98-107); Glucose 97 mg/dL (74-99); Non-African American GFR(MDRD) >60 (>60 ml/min/1.73 sqM); Potassium 3.5 mmol/L (3.5-5.1); Sodium 137 mmol/L (137-145)
[2016-11-26] MEDS: ONDANSETRON ODT 4 MG TAB PO PRN ×2 (08:02→20:48)
[2016-11-26] MEDS: diphenhydrAMINE 25 MG CAP PO SCH ×3 (08:02→21:53)
[2016-11-26] MEDS: ACYCLOVIR 200 MG CAP PO SCH ×2 (08:03→20:48)
[2016-11-26] MEDS: HYDROCORTISONE 1% CREAM 454 GM JAR TOPICAL SCH ×4 (08:04→21:52)
--- NOTE | 2016-11-26 12:35 | P.PN ---
Subjective Principal diagnosis: febrile neutropenia Pt seen today in follow up, he is having nausea and all solids are "going right through", mild abd discomfort, fever yesterday, he is feeling frustrated. No oral irritation, cough, SOB, bleeding or pain to report. Objective - Vital Signs Vital signs: Vital Signs Temp 99.4 F 11/26/16 07:00 Pulse 79 11/26/16 07:00 Resp 18 11/26/16 07:00 BP 122/74 11/26/16 07:00 Pulse Ox 98 11/26/16 07:00 Intake & Output 11/25/16 11/26/16 11/26/16 18:59 06:59 18:59 Intake Total 1313 Balance 1313 Intake: Oral 500 Blood Product 813 Platelet Irr Pheresis 193 Acda1 Unit [id number] Rc Irr As1 Unit 310 [id number] Rc Irr As1 Unit 310 [id number] Other: Voiding Method Toilet # Voids 2 2 - Constitutional General appearance: Present: average body habitus, cooperative, no acute distress - EENT EENT Comment(s): pale mucus membranes Eyes: Present: anicteric sclerae, EOMI, normal appearance - Respiratory Respiratory: bilateral: CTA - Cardiovascular Rhythm: regular Heart sounds: normal: S1, S2 - Peripheral edema leg Peripheral Edema: bilateral: None - Gastrointestinal General gastrointestinal: Present: soft, tenderness (mild, lower quadrants) - Integumentary Integumentary: Present: normal turgor, pale - Neurologic Neurologic: Present: CNII-XII intact - Musculoskeletal Musculoskeletal: Present: strength equal bilaterally - Psychiatric Psychiatric: Present: A&O x's 3, appropriate affect, intact judgment & insight - Labs CBC & Chem 7: 11/26/16 06:25 11/26/16 06:25 Labs: Abnormal Lab Results - Last 24 Hours (Table) 11/22/16 11/26/16 11/26/16 Range/Units 16:34 00:31 06:25 WBC 0.1 L* (3.8-10.6) k/uL RBC 2.42 L (4.30-5.90) m/uL Hgb 8.3 L D (13.0-17.5) gm/dL Hct 23.3 L (39.0-53.0) % Plt Count 28 L* D (150-450) k/uL Chloride (98-107) mmol/L Carbon Dioxide (22-30) mmol/L Calcium (8.4-10.2) mg/dL Crossmatch See Detail See Detail 11/26/16 Range/Units 06:25 WBC (3.8-10.6) k/uL RBC (4.30-5.90) m/uL Hgb (13.0-17.5) gm/dL Hct (39.0-53.0) % Plt Count (150-450) k/uL Chloride 110 H (98-107) mmol/L Carbon Dioxide 20 L (22-30) mmol/L Calcium 7.7 L (8.4-10.2) mg/dL Crossmatch Microbiology - Last 24 Hours (Table) 11/22/16 16:39 Blood Culture - Preliminary Blood No Growth after 72 hours Assessment and Plan (1) Neutropenic sepsis Narrative/Plan: Pt to continue on GCSF, today is day 10. ID following and antifungal, antiviral and antibiotic ordered, cultures negative so far. Status: Acute (2) Neutropenia, febrile Status: Acute (3) Pancytopenia due to antineoplastic chemotherapy Narrative/Plan: Cont CBC monitoring, conservative transfusions, irradiated blood products Status: Acute (4) Leukemia, acute myeloid Narrative/Plan: Pt is sched for treatment follow up bone marrow in about 1 1/2 weeks to check for AML remission. Plan is for SCT in the future. Currently no changes to this plan at this time. Status: Chronic
[2016-11-26] MEDS: MICAFUNGIN 100 MG in SODIUM CHLORIDE 0.9% 100 ML IVPB SCH (19:20)
[2016-11-26] MEDS: FILGRASTIM-SNDZ 480 MCG/0.8 ML SYRINGE SQ SCH (20:48)
--- NOTE | 2016-11-26 20:58 | P.PN ---
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 He was noticed to have favorable cytogenetics and was treated with induction chemotherapy. He is done well. However 6 months after completion of his induction chemotherapy has had a relapse. He is in now with the midst of his reinduction chemotherapy. He has now been evaluated at [facility] for autologous stem cell transplantation. The patient is developed a significant fever of greater than 102. Associated with chills and rigors. Constantly presented to hospitals been admitted for his febrile neutropenia. He has been utilizing G-CSF therapy at home. Despite this he has significant ongoing neutropenia and is developed a significant fever. He does not have significant localizing symptoms such as mucositis, pulmonary symptoms or urinary symptoms. Is also not have any significant gastrointestinal symptoms. However is having difficulties with a significant rash. This occurred in the past. Potentially in the past was related to his amoxicillin and fluconazole therapy that he was receiving. When he stopped in the past his rash resolved. However the rash also resolved with timing of some improvement of his neutropenia. He received a dose of vancomycin and the rash became somewhat more flared. Topical triamcinolone his allowed some improvement. An antibiotic therapy and fluids have resulted in improvement of his high-grade fever. Feeling somewhat better today. Appetite is modest. He is denying nausea or emesis or other new acute symptoms today. The patient is noted. No area of rash onto the right axillary area. Patient is feeling better today. Somewhat disappointed that his counts have not started to recover as of yet. Yesterday wasn't feeling quite as well because he had a fever. This is now improving. Rash is improving. The patient Remains somewhat concerned that his white count has not recovered as of yet. Objective - Vital Signs Vital signs: Vital Signs Temp 99.2 F 11/26/16 15:00 Pulse 79 11/26/16 15:00 Resp 18 11/26/16 15:00 BP 127/72 11/26/16 15:00 Pulse Ox 100 11/26/16 15:00 Intake & Output 11/26/16 11/26/16 11/27/16 06:59 18:59 06:59 Intake Total 1313 50 Balance 1313 50 Intake: Intake, IV Titration 50 Amount Cefepime 2 gm In Sodium 50 Chloride 0.9% 50 ml @ 100 mls/hr IVPB Q8[facility] Rx# :[id number] Oral 500 Blood Product 813 Platelet Irr Pheresis 193 Acda1 Unit [id number] Rc Irr As1 Unit 310 [id number] Rc Irr As1 Unit 310 [id number] Other: Voiding Method Toilet # Voids 2 - Exam 51-year-old male of a muscular build who is in no acute distress. HEENT: Anicteric conjunctiva are pink and moist nasal mucosa grossly intact without significant lesions, there is no thrush. No evidence of mucositis Neck: The neck is supple without significant lymphadenopathy or thyromegaly. Lungs: Good bilateral air entry without significant crackles or wheezing. There is no significant bronchial sounds. There is no egophony or dullness. Heart: Regular rate and rhythm with an audible S1-S2, no S3 no S4. There is no significant murmur click or rub, PMI was nondisplaced. Abdomen: Positive bowel sounds soft and nontender without palpable masses or organomegaly. There was no guarding or rebound. Extremities: The upper extremities have excellent pulses they are symmetric, no significant petechiae or telangiectasia. No splinter hemorrhages were noted. The lower extremities are free from significant edema. The peripheral pulses were 2+ and symmetric. Neuro: Awake alert oriented to person place and time. There are no acute new gross focal sensory motor deficits. Skin: Evidence of a rash into the lower abdomen and groin area. It is from the left flank anteriorly to the right flank. Minimal rash over the posterior aspect of the lower back. There is minimal rash onto the upper thighs. Minimal rash on the arms. Face chest and back are spared. One small area of rash onto the right axillary area. The rash is not open or draining. It is minimally palpable. It is pruritic but not tender. Patient also had a small pustule on the left buttocks. At this time it is healed there is no tenderness fluctuance or drainage at this site. The rash is further improved today. - Labs CBC & Chem 7: 11/26/16 06:25 11/26/16 06:25 Labs: Abnormal Lab Results - Last 24 Hours (Table) 11/22/16 11/26/16 11/26/16 Range/Units 16:34 00:31 06:25 WBC 0.1 L* (3.8-10.6) k/uL RBC 2.42 L (4.30-5.90) m/uL Hgb 8.3 L D (13.0-17.5) gm/dL Hct 23.3 L (39.0-53.0) % Plt Count 28 L* D (150-450) k/uL Chloride (98-107) mmol/L Carbon Dioxide (22-30) mmol/L Calcium (8.4-10.2) mg/dL Crossmatch See Detail See Detail 11/26/16 Range/Units 06:25 WBC (3.8-10.6) k/uL RBC (4.30-5.90) m/uL Hgb (13.0-17.5) gm/dL Hct (39.0-53.0) % Plt Count (150-450) k/uL Chloride 110 H (98-107) mmol/L Carbon Dioxide 20 L (22-30) mmol/L Calcium 7.7 L (8.4-10.2) mg/dL Crossmatch Microbiology - Last 24 Hours (Table) 11/22/16 16:39 Blood Culture - Preliminary Blood No Growth after 96 hours Laboratory Results WBC 0.1 k/uL (3.8-10.6) L* 11/26/16 06:25 RBC 2.42 m/uL (4.30-5.90) L 11/26/16 06:25 Hgb 8.3 gm/dL (13.0-17.5) L D 11/26/16 06:25 Hct 23.3 % (39.0-53.0) L 11/26/16 06:25 MCV 96.1 fL (80.0-100.0) 11/26/16 06:25 MCH 34.4 pg (25.0-35.0) 11/26/16 06:25 MCHC 35.8 g/dL (31.0-37.0) 11/26/16 06:25 RDW 14.4 % (11.5-15.5) 11/26/16 06:25 Plt Count 28 k/uL (150-450) L* D 11/26/16 06:25 Differential Comment 11/24/16 06:16 Manual Slide Review Performed 11/24/16 06:16 Hyperchromasia Slight 11/26/16 06:25 PT 11.3 sec (9.0-12.0) 11/22/16 16:39 INR 1.1 (<1.2) 11/22/16 16:39 APTT 25.8 sec (22.0-30.0) 11/22/16 16:39 Sodium 137 mmol/L (137-145) 11/26/16 06:25 Potassium 3.5 mmol/L (3.5-5.1) 11/26/16 06:25 Chloride 110 mmol/L (98-107) H 11/26/16 06:25 Carbon Dioxide 20 mmol/L (22-30) L 11/26/16 06:25 Anion Gap 7 mmol/L 11/26/16 06:25 BUN 15 mg/dL (9-20) 11/26/16 06:25 Creatinine 0.67 mg/dL (0.66-1.25) 11/26/16 06:25 Est GFR (MDRD) Af Amer >60 (>60 ml/min/1.73 sqM) 11/26/16 06:25 Est GFR (MDRD) Non-Af >60 (>60 ml/min/1.73 sqM) 11/26/16 06:25 Glucose 97 mg/dL (74-99) 11/26/16 06:25 Plasma Lactic Acid [place] 0.8 mmol/L (0.7-2.0) 11/22/16 16:39 Calcium 7.7 mg/dL (8.4-10.2) L 11/26/16 06:25 Total Bilirubin 0.8 mg/dL (0.2-1.3) 11/24/16 06:16 AST 14 U/L (17-59) L 11/24/16 06:16 ALT 34 U/L (21-72) 11/24/16 06:16 Alkaline Phosphatase 54 U/L (38-126) 11/24/16 06:16 Total Creatine Kinase 162 U/L (55-170) 11/22/16 16:39 CK-MB (CK-2) 1.4 ng/mL (0.0-2.4) 11/22/16 16:39 CK-MB (CK-2) Rel Index 0.9 11/22/16 16:39 Troponin I <0.012 ng/mL (0.000-0.034) 11/22/16 16:39 Total Protein 5.0 g/dL (6.3-8.2) L 11/24/16 06:16 Albumin 2.7 g/dL (3.5-5.0) L 11/24/16 06:16 Urine Color Yellow 11/22/16 17:18 Urine Appearance Clear (Clear) 11/22/16 17:18 Urine pH 6.0 (5.0-8.0) 11/22/16 17:18 Ur Specific [place] 1.017 (1.001-1.035) 11/22/16 17:18 Urine Protein Trace (Negative) H 11/22/16 17:18 Urine Glucose (UA) Negative (Negative) 11/22/16 17:18 Urine Ketones Negative (Negative) 11/22/16 17:18 Urine Blood Small (Negative) H 11/22/16 17:18 Urine Nitrite Negative (Negative) 11/22/16 17:18 Urine Bilirubin Negative (Negative) 11/22/16 17:18 Urine Urobilinogen <2.0 mg/dL (<2.0) 11/22/16 17:18 Ur Leukocyte Esterase Negative (Negative) 11/22/16 17:18 Urine RBC 1 /hpf (0-5) 11/22/16 17:18 Urine Mucus Rare /hpf (None) H 11/22/16 17:18 Blood Type O Positive 11/26/16 00:31 Blood Type Recheck No 11/26/16 00:31 Antibody Screen NEGATIVE 11/26/16 00:31 Crossmatch See Detail 11/26/16 00:31 Transfuse Platelets 11/25/16 11/25/16 10:27 Spec Expiration Date 11/29/2016 - 1 11/26/16 00:31 Microbiology 11/22/16 16:39 Blood Blood Culture - Preliminary No Growth after 96 hours 11/22/16 17:18 Urine,Voided Urine Culture - Final Assessment and Plan (1) Neutropenia, febrile Narrative/Plan: Pleasant 51-year-old male who has a history of acute myelogenous leukemia that has relapsed. He is receiving his LEO flag protocol. He is now having absolute neutropenia and has developed significant fever. Other than the rash she has not having significant other symptoms. He does not have mucositis, no evidence of pneumonia, urinary infection or gastroenteritis. The patient did developed a rash after amoxicillin and fluconazole. Which relates has occurred in the past. These are now held. Topical steroid cream is being utilized. With significant improvement. For antibiotic therapy cefepime continues. Vancomycin discontinued without evidence of infected port, or significant mucositis. For antifungal therapy will utilize micafungin 100 mg IV piggyback daily for now. This is given his profound and long-lasting immunosuppression and neutropenia This will continue as cultures are processing and remains profoundly neutropenic.. It is not noted that he has NO significant herpetic viral infections. And has not been on antiviral therapy. Has had a fever yesterday better today.. Continue antibiotic therapy pending recovery of his marrow. Is somewhat anxious about his illness. Is worried about the stress displaces and his since she has to go to work and then drive to the hospital to see him. He is worried that his marrow is not recovering Status: Acute (2) Leukemia, acute myeloid Status: Chronic (3) Pancytopenia Status: Acute (4) Rash and nonspecific skin eruption Status: Acute
--- NOTE | 2016-11-26 23:58 | P.PN ---
Subjective Principal diagnosis: Febrile neutropenia Patient was admitted for febrile neutropenia. Patient denied any fever today. Patient's rash from ALLERGIC reaction is improving. Patient was started on micafungin by infectious disease. 11/25/16 Patient is afebrile for more than 36 hours. But his hemoglobin remains low because of which a hematology wanted to transfuse 2 more units of blood. Patient received total of 2 units of PRBC in spite of which is remarkable hemoglobin remains at 6.5 and his WBC count is 100. Patient is on broad- spectrum antibiotics including acyclovir, cefepime and micafungin. On 11/26/2016. Patient has been afebrile today. Hemoglobin level improved to 8.3. WBC count still at 0.1. Agent underwent platelet transfusion and PRBC on 11/25 Today patient currently complains of fever or chills. No chest pain or shortness breath. No acute overnight issues. Objective - Vital Signs Vital signs: Vital Signs Temp 99.2 F 11/26/16 15:00 Pulse 79 11/26/16 15:00 Resp 18 11/26/16 15:00 BP 127/72 11/26/16 15:00 Pulse Ox 100 11/26/16 15:00 Intake & Output 11/26/16 11/26/16 11/27/16 06:59 18:59 06:59 Intake Total 1313 50 Balance 1313 50 Intake: Intake, IV Titration 50 Amount Cefepime 2 gm In Sodium 50 Chloride 0.9% 50 ml @ 100 mls/hr IVPB Q8HR [facility] Rx# :[id number] Oral 500 Blood Product 813 Platelet Irr Pheresis 193 Acda1 Unit [id number] Rc Irr As1 Unit 310 [id number] Rc Irr As1 Unit 310 [id number] Other: Voiding Method Toilet # Voids 2 - Exam PHYSICAL EXAMINATION: Patient is lying in the bed comfortably, no acute distress , awake alert and oriented.. HEENT: Normocephalic. Neck is supple. Pupils reactive. Nostrils clear. Oral cavity is moist. Ears reveal no drainage. Neck reveals no JVD, carotid bruits, or thyromegaly. CHEST EXAMINATION: Trachea is central. Symmetrical expansion. Lung mckeon clear to auscultation and percussion. CARDIAC: Normal S1, S2 with no gallops. No murmurs ABDOMEN: Soft. Bowel sounds normal. No organomegaly. No abdominal bruits. Extremities reveal no edema. Neurologically awake, alert, oriented x3 with well-coordinated movements. - Labs CBC & Chem 7: 11/26/16 06:25 11/26/16 06:25 Labs: Abnormal Lab Results - Last 24 Hours (Table) 11/22/16 11/26/16 11/26/16 Range/Units 16:34 00:31 06:25 WBC 0.1 L* (3.8-10.6) k/uL RBC 2.42 L (4.30-5.90) m/uL Hgb 8.3 L D (13.0-17.5) gm/dL Hct 23.3 L (39.0-53.0) % Plt Count 28 L* D (150-450) k/uL Chloride (98-107) mmol/L Carbon Dioxide (22-30) mmol/L Calcium (8.4-10.2) mg/dL Crossmatch See Detail See Detail 11/26/16 Range/Units 06:25 WBC (3.8-10.6) k/uL RBC (4.30-5.90) m/uL Hgb (13.0-17.5) gm/dL Hct (39.0-53.0) % Plt Count (150-450) k/uL Chloride 110 H (98-107) mmol/L Carbon Dioxide 20 L (22-30) mmol/L Calcium 7.7 L (8.4-10.2) mg/dL Crossmatch Microbiology - Last 24 Hours (Table) 11/22/16 16:39 Blood Culture - Preliminary Blood No Growth after 96 hours Assessment and Plan Plan: #1 Febrile neutropenia ; patient was started on cefepime and micafungin as per infectious disease which will be continued. #2 pancytopenia: Secondary to chemotherapy patient is receiving platelets and irradiated PRBC 2 units 0n 11/25. Patient can use to have low hemoglobin irradiated PRBC transfusion as per oncology and hematology. Received total of 2 units in last couple days #3 ALLERGIC reaction to vancomycin which was discontinued. 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 And patient is on acyclovir which will be continue. #5 hypertension hold off on losartan because of concerns of sepsis and hypotension. Patient will be continued on current management and follow up CBC with differential tomorrow. Continue antibiotics as per ID. We'll follow closely. Time with Patient: Greater than 30
[2016-11-27] MEDS: CEFEPIME 2 GM in SODIUM CHLORIDE 0.9% 50 ML IVPB SCH ×4 (01:02→23:26)
[2016-11-27] MEDS: SALT AND SODA MOUTHWASH 1,000 ML PO SCH ×5 (01:04→23:26)
[2016-11-27 06:52] LABS: CH 35.1; CHCM 37.4; HCT 27.1 % (39.0-53.0); Hyperchromasia Slight; MCH 33.9 pg (25.0-35.0); MCHC 36.1 g/dL (31.0-37.0); MCV 93.9 fL (80.0-100.0); Mean Platelet Volume 6.5; RBC 2.89 m/uL (4.30-5.90); RDW 13.9 % (11.5-15.5); WBC (Perox) 0.08
[2016-11-27 06:59] LABS: WBC 0.1 k/uL (3.8-10.6)
[2016-11-27 07:05] LABS: HGB 9.8 gm/dL (13.0-17.5)
[2016-11-27 07:18] LABS: ALT 35 U/L (21-72); AST 9 U/L (17-59); Alkaline Phosphatase 63 U/L (38-126); Anion Gap 9 mmol/L; Blood Urea Nitrogen 14 mg/dL (9-20); Carbon Dioxide 18 mmol/L (22-30); Chloride 109 mmol/L (98-107); Glucose 114 mg/dL (74-99); Non-African American GFR(MDRD) >60 (>60 ml/min/1.73 sqM); Potassium 3.5 mmol/L (3.5-5.1); Sodium 136 mmol/L (137-145); Total Bilirubin 1.1 mg/dL (0.2-1.3); Total Protein 5.6 g/dL (6.3-8.2)
[2016-11-27] MEDS: ACYCLOVIR 200 MG CAP PO SCH ×2 (09:19→20:09)
[2016-11-27] MEDS: HYDROCORTISONE 1% CREAM 454 GM JAR TOPICAL SCH ×4 (09:25→21:29)
[2016-11-27] MEDS: diphenhydrAMINE 25 MG CAP PO SCH ×3 (09:26→21:29)
[2016-11-27 10:35] LABS: Add Differential Manual Differential
[2016-11-27 10:36] LABS: Manual Review Performed
[2016-11-27] MEDS: ONDANSETRON ODT 4 MG TAB PO PRN (13:23)
--- NOTE | 2016-11-27 16:11 | P.PN ---
Subjective Principal diagnosis: febrile neutropenia Pt seen today in follow up, his rash "flared" this AM, still puritic, no burning , no pustules, he is tolerating clear liquid diet, no abd pain or cramping, still having some diarrhea, denies bleeding. He is frustrated that he cannot do more to make things move faster, he is tired of being in the hospital. Objective - Vital Signs Vital signs: Vital Signs Temp 98.4 F 11/27/16 15:00 Pulse 89 11/27/16 15:00 Resp 18 11/27/16 15:00 BP 114/63 11/27/16 15:00 Pulse Ox 98 11/27/16 15:00 Intake & Output 11/26/16 11/27/16 11/27/16 18:59 06:59 18:59 Intake Total 50 1420 Balance 50 1420 Intake: Intake, IV Titration 50 50 Amount Cefepime 2 gm In Sodium 50 50 Chloride 0.9% 50 ml @ 100 mls/hr IVPB Q8HR [facility] Rx# :[id number] Oral 1370 Other: Voiding Method Toilet Toilet # Voids 4 2 # Bowel Movements 4 - Constitutional General appearance: Present: average body habitus, cooperative, no acute distress - EENT EENT Comment(s): pale mucus membranes, no ulcers or thrush Eyes: Present: anicteric sclerae - Respiratory Respiratory: bilateral: CTA - Cardiovascular Rhythm: regular Heart sounds: normal: S1, S2 - Peripheral edema leg Peripheral Edema: bilateral: None - Gastrointestinal General gastrointestinal: Present: normal bowel sounds, soft. Absent: absent bowel sounds, decreased bowel sounds, distended, hepatomegaly, hyperactive bowel sounds, organomegaly, rigid, scaphoid, splenomegaly, tenderness, umbilical hernia, ventral hernia - Integumentary Integumentary: Present: pale - Neurologic Neurologic: Present: CNII-XII intact - Musculoskeletal Musculoskeletal: Present: strength equal bilaterally - Psychiatric Psychiatric: Present: A&O x's 3, appropriate affect, intact judgment & insight - Labs CBC & Chem 7: 11/27/16 06:40 11/27/16 06:40 Labs: Abnormal Lab Results - Last 24 Hours (Table) 11/27/16 11/27/16 Range/Units 06:40 06:40 WBC 0.1 L* (3.8-10.6) k/uL RBC 2.89 L (4.30-5.90) m/uL Hgb 9.8 L D (13.0-17.5) gm/dL Hct 27.1 L (39.0-53.0) % Plt Count 27 L* (150-450) k/uL Sodium 136 L (137-145) mmol/L Chloride 109 H (98-107) mmol/L Carbon Dioxide 18 L (22-30) mmol/L Glucose 114 H (74-99) mg/dL Calcium 8.0 L (8.4-10.2) mg/dL AST 9 L (17-59) U/L Total Protein 5.6 L (6.3-8.2) g/dL Albumin 3.0 L (3.5-5.0) g/dL Microbiology - Last 24 Hours (Table) 11/22/16 16:39 Blood Culture - Preliminary Blood No Growth after 96 hours Assessment and Plan (1) Neutropenic sepsis Narrative/Plan: No WBC recover yet, ID following, no fevers >24 hours, blood and urine cultures negative. Cont GCSF, abd per ID and VS monitoring Status: Acute (2) Neutropenia, febrile Status: Acute (3) Pancytopenia due to antineoplastic chemotherapy Narrative/Plan: No PRBC or platelet transfusions needed today, cont GCSF. CBC daily Status: Acute (4) Leukemia, acute myeloid Narrative/Plan: Pt due for bone marrow next week, he was due to transplant team tomorrow, this will be rescheduled Status: Chronic
[2016-11-27] MEDS: MICAFUNGIN 100 MG in SODIUM CHLORIDE 0.9% 100 ML IVPB SCH (17:50)
[2016-11-27] MEDS: FILGRASTIM-SNDZ 480 MCG/0.8 ML SYRINGE SQ SCH (20:09)
[2016-11-27] MEDS ORDERED: ACETAMINOPHEN IV (For NPO) 1,000 MG in EMPTY BAG 1 BAG IVPB STA (21:28)
--- NOTE | 2016-11-28 00:04 | P.PN ---
Subjective Principal diagnosis: Febrile neutropenia Patient was admitted for febrile neutropenia. Patient denied any fever today. Patient's rash from ALLERGIC reaction is improving. Patient was started on micafungin by infectious disease. 11/25/16 Patient is afebrile for more than 36 hours. But his hemoglobin remains low because of which a hematology wanted to transfuse 2 more units of blood. Patient received total of 2 units of PRBC in spite of which is remarkable hemoglobin remains at 6.5 and his WBC count is 100. Patient is on broad- spectrum antibiotics including acyclovir, cefepime and micafungin. On 11/26/2016. Patient has been afebrile today. Hemoglobin level improved to 8.3. WBC count still at 0.1. Agent underwent platelet transfusion and PRBC on 11/25 Today patient currently complains of fever or chills. No chest pain or shortness breath. No acute overnight issues. 11/27/2016 Patient is afebrile. Hemoglobin improved to 9.8. Patient is still neutropenic. Platelet count is stable. Patient seems depressed. Otherwise no acute events noted. Objective - Vital Signs Vital signs: Vital Signs Temp 100.6 F H 11/27/16 21:05 Pulse 95 11/27/16 21:05 Resp 16 11/27/16 21:05 BP 111/70 11/27/16 21:05 Pulse Ox 98 11/27/16 21:05 Intake & Output 11/27/16 11/27/16 11/28/16 06:59 18:59 06:59 Intake Total 1420 200 Balance 1420 200 Intake: Intake, IV Titration 50 Amount Cefepime 2 gm In Sodium 50 Chloride 0.9% 50 ml @ 100 mls/hr IVPB Q8HR [facility] Rx# :[id number] Oral 1370 200 Other: Voiding Method Toilet Toilet # Voids 4 2 # Bowel Movements 4 - Exam PHYSICAL EXAMINATION: Patient is lying in the bed comfortably, no acute distress , awake alert and oriented.. HEENT: Normocephalic. Neck is supple. Pupils reactive. Nostrils clear. Oral cavity is moist. Ears reveal no drainage. Neck reveals no JVD, carotid bruits, or thyromegaly. CHEST EXAMINATION: Trachea is central. Symmetrical expansion. Lung mckeon clear to auscultation and percussion. CARDIAC: Normal S1, S2 with no gallops. No murmurs ABDOMEN: Soft. Bowel sounds normal. No organomegaly. No abdominal bruits. Extremities reveal no edema. Neurologically awake, alert, oriented x3 with well-coordinated movements. - Labs CBC & Chem 7: 11/27/16 06:40 11/27/16 06:40 Labs: Abnormal Lab Results - Last 24 Hours (Table) 11/27/16 11/27/16 Range/Units 06:40 06:40 WBC 0.1 L* (3.8-10.6) k/uL RBC 2.89 L (4.30-5.90) m/uL Hgb 9.8 L D (13.0-17.5) gm/dL Hct 27.1 L (39.0-53.0) % Plt Count 27 L* (150-450) k/uL Sodium 136 L (137-145) mmol/L Chloride 109 H (98-107) mmol/L Carbon Dioxide 18 L (22-30) mmol/L Glucose 114 H (74-99) mg/dL Calcium 8.0 L (8.4-10.2) mg/dL AST 9 L (17-59) U/L Total Protein 5.6 L (6.3-8.2) g/dL Albumin 3.0 L (3.5-5.0) g/dL Microbiology - Last 24 Hours (Table) 11/22/16 16:39 Blood Culture - Preliminary Blood No Growth after 120 hours Assessment and Plan Plan: #1 Febrile neutropenia ; patient was started on cefepime and micafungin as per infectious disease which will be continued. #2 pancytopenia: Secondary to chemotherapy patient is receiving platelets and irradiated PRBC 2 units 0n 11/25. Patient can use to have low hemoglobin irradiated PRBC transfusion as per oncology and hematology. Received total of 2 units in last couple days #3 ALLERGIC reaction to vancomycin which was discontinued. 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 And patient is on acyclovir which will be continue. #5 hypertension hold off on losartan because of concerns of sepsis and hypotension. Patient will be continued on current management and follow up CBC with differential tomorrow. Continue antibiotics as per ID. We'll follow closely.
[2016-11-28] MEDS: SALT AND SODA MOUTHWASH 1,000 ML PO SCH ×3 (05:46→17:50)
[2016-11-28 06:01] LABS: CH 35.7; CHCM 37.6; HCT 26.2 % (39.0-53.0); HDW 3.23; HGB 9.4 gm/dL (13.0-17.5); Hyperchromasia Slight; MCHC 35.8 g/dL (31.0-37.0); Mean Platelet Volume 7.3; RBC 2.76 m/uL (4.30-5.90); RDW 13.9 % (11.5-15.5)
[2016-11-28 06:03] LABS: WBC 0.1 k/uL (3.8-10.6)
[2016-11-28] MEDS: ONDANSETRON ODT 4 MG TAB PO PRN ×2 (06:53→20:55)
[2016-11-28] MEDS: CEFEPIME 2 GM in SODIUM CHLORIDE 0.9% 50 ML IVPB SCH ×2 (07:27→15:24)
[2016-11-28] MEDS: ACYCLOVIR 200 MG CAP PO SCH ×2 (07:27→20:55)
[2016-11-28] MEDS: diphenhydrAMINE 25 MG CAP PO SCH ×3 (07:27→20:58)
[2016-11-28] MEDS: HYDROCORTISONE 1% CREAM 454 GM JAR TOPICAL SCH ×4 (07:31→22:05)
[2016-11-28 09:51] VITALS: BMI 27.9
--- NOTE | 2016-11-28 18:10 | P.PN ---
Subjective Principal diagnosis: febrile neutropenia, secondary to chemotherapy for AML Pt seen in follow up, he continues to do ok, he had T max 100.4 F overnight, no oral irritation, he is tired of the clear liquid diet, his did bring him a protein shake and a yogurt and he had 1 BM that was not a liquid, mild abd discomfort, his rash is more consolidated but now in his mid back. He want to be able to do something to make things better but is frustrated. Objective - Vital Signs Vital signs: Vital Signs Temp 99.1 F 11/28/16 15:00 Pulse 93 11/28/16 15:00 Resp 16 11/28/16 16:25 BP 115/76 11/28/16 15:00 Pulse Ox 99 11/28/16 15:00 Intake & Output 11/27/16 11/28/16 11/28/16 18:59 06:59 18:59 Intake Total 740 50 Balance 740 50 Weight 93.44 kg Intake: Intake, IV Titration 100 50 Amount ACETAMINOPHEN IV (For NPO 100 ) 1,000 mg In Empty Bag 1 bag @ 400 mls/hr IVPB [facility] Rx#:[id number] Cefepime 2 gm In Sodium 50 Chloride 0.9% 50 ml @ 100 mls/hr IVPB Q8HR [facility] Rx# :[id number] Oral 640 Other: Voiding Method Toilet Toilet Toilet # Voids 2 2 # Bowel Movements 1 - Constitutional General appearance: Present: average body habitus, cooperative, no acute distress - EENT EENT Comment(s): pale mucus membranes Eyes: Present: anicteric sclerae - Respiratory Details: scattered crackles in bases - Cardiovascular Heart sounds: normal: S1, S2 Abnormal Heart Sounds: Absent: systolic murmur, diastolic murmur, rub, S3 Gallop , S4 Gallop, click, other - Peripheral edema leg Peripheral Edema: bilateral: None - Gastrointestinal Gastrointestinal Comment(s): mild lower quadrant tenderness General gastrointestinal: Present: soft - Integumentary Integumentary Comment(s): rash bilateral groin, low back and middle, more concentrated, not as diffuse as yesterday, red, puffy, warm - Musculoskeletal Musculoskeletal: Present: strength equal bilaterally - Psychiatric Psychiatric Comment(s): pt sitting in the dark, he verbalized frustration Psychiatric: Present: A&O x's 3, intact judgment & insight - Labs CBC & Chem 7: 11/28/16 05:50 11/27/16 06:40 Labs: Abnormal Lab Results - Last 24 Hours (Table) 11/28/16 Range/Units 05:50 WBC 0.1 L* (3.8-10.6) k/uL RBC 2.76 L (4.30-5.90) m/uL Hgb 9.4 L (13.0-17.5) gm/dL Hct 26.2 L (39.0-53.0) % Plt Count 20 L* (150-450) k/uL Microbiology - Last 24 Hours (Table) 11/22/16 16:39 Blood Culture - Preliminary Blood No Growth after 120 hours Assessment and Plan (1) Neutropenic sepsis Narrative/Plan: Pt had Tmax 100.4F, continues on abx, antifungal, antiviral, ID following, all cultures are negative, still awaiting stool specimen. Cont to monitor VS Status: Acute (2) Neutropenia, febrile Status: Acute (3) Pancytopenia due to antineoplastic chemotherapy Narrative/Plan: Hgb and plt seem to have stabilized, no blood products today. WBC/ANC unchanged , cont GCSF for now. Status: Acute (4) Leukemia, acute myeloid Narrative/Plan: Pt due for bone marrow next week, will continue with this plan. BMT meeting rescheduled. Status: Chronic
[2016-11-28] MEDS ORDERED: methylPREDNISolone SOD SUCCI 40 MG/ML 1 ML VIAL IV STA (19:04)
[2016-11-28] MEDS: MICAFUNGIN 100 MG in SODIUM CHLORIDE 0.9% 100 ML IVPB SCH (19:09)
[2016-11-28] MEDS: SODIUM CHLORIDE 0.9% 1,000 ML IV SCH (19:50)
[2016-11-28] MEDS: FILGRASTIM-SNDZ 480 MCG/0.8 ML SYRINGE SQ SCH (20:54)
[2016-11-29] MEDS: SALT AND SODA MOUTHWASH 1,000 ML PO SCH ×4 (00:18→17:43)
[2016-11-29] MEDS: MEROPENEM 1 GM in SODIUM CHLORIDE 0.9% 100 ML IVPB SCH ×3 (00:18→16:17)
--- NOTE | 2016-11-29 01:23 | P.PN ---
Subjective Principal diagnosis: Febrile neutropenia Patient was admitted for febrile neutropenia. Patient denied any fever today. Patient's rash from ALLERGIC reaction is improving. Patient was started on micafungin by infectious disease. 11/25/16 Patient is afebrile for more than 36 hours. But his hemoglobin remains low because of which a hematology wanted to transfuse 2 more units of blood. Patient received total of 2 units of PRBC in spite of which is remarkable hemoglobin remains at 6.5 and his WBC count is 100. Patient is on broad- spectrum antibiotics including acyclovir, cefepime and micafungin. On 11/26/2016. Patient has been afebrile today. Hemoglobin level improved to 8.3. WBC count still at 0.1. Agent underwent platelet transfusion and PRBC on 11/25 Today patient currently complains of fever or chills. No chest pain or shortness breath. No acute overnight issues. 11/27/2016 Patient is afebrile. Hemoglobin improved to 9.8. Patient is still neutropenic. Platelet count is stable. Patient seems depressed. Otherwise no acute events noted. 11/28/2016 Patient was febrile with T-max 100.4. Patient can use to be neutropenic with count of 0.1 and hemoglobin is stable at 9.4 and platelet count 20. Patient is awaiting for stool sample versus rule out C. diff infection. Patient is not very much tolerating oral liquids diet. Objective - Vital Signs Vital signs: Vital Signs Temp 99.1 F 11/28/16 15:00 Pulse 93 11/28/16 15:00 Resp 16 11/28/16 16:25 BP 115/76 11/28/16 15:00 Pulse Ox 99 11/28/16 15:00 Intake & Output 11/28/16 11/28/16 11/29/16 06:59 18:59 06:59 Intake Total 740 50 Balance 740 50 Weight 93.44 kg Intake: Intake, IV Titration 100 50 Amount ACETAMINOPHEN IV (For NPO 100 ) 1,000 mg In Empty Bag 1 bag @ 400 mls/hr IVPB [facility] Rx#:[id number] Cefepime 2 gm In Sodium 50 Chloride 0.9% 50 ml @ 100 mls/hr IVPB Q8HR [facility] Rx# :[id number] Oral 640 Other: Voiding Method Toilet Toilet # Voids 2 # Bowel Movements 1 - Exam PHYSICAL EXAMINATION: Patient is lying in the bed comfortably, no acute distress , awake alert and oriented.. HEENT: Normocephalic. Neck is supple. Pupils reactive. Nostrils clear. Oral cavity is moist. Ears reveal no drainage. Neck reveals no JVD, carotid bruits, or thyromegaly. CHEST EXAMINATION: Trachea is central. Symmetrical expansion. Lung mckeon clear to auscultation and percussion. CARDIAC: Normal S1, S2 with no gallops. No murmurs ABDOMEN: Soft. Bowel sounds normal. No organomegaly. No abdominal bruits. Extremities reveal no edema. Neurologically awake, alert, oriented x3 with well-coordinated movements. - Labs CBC & Chem 7: 11/28/16 05:50 11/27/16 06:40 Labs: Abnormal Lab Results - Last 24 Hours (Table) 11/28/16 Range/Units 05:50 WBC 0.1 L* (3.8-10.6) k/uL RBC 2.76 L (4.30-5.90) m/uL Hgb 9.4 L (13.0-17.5) gm/dL Hct 26.2 L (39.0-53.0) % Plt Count 20 L* (150-450) k/uL Microbiology - Last 24 Hours (Table) 11/22/16 16:39 Blood Culture - Final Blood No Growth after 144 hours Assessment and Plan Plan: #1 Febrile neutropenia ; patient was started on cefepime and micafungin as per infectious disease which will be continued. #2 pancytopenia: Secondary to chemotherapy patient is receiving platelets and irradiated PRBC 2 units 0n 11/25. Patient can use to have low hemoglobin irradiated PRBC transfusion as per oncology and hematology. Received total of 2 units in last couple days #3 ALLERGIC reaction to vancomycin which was discontinued. 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 And patient is on acyclovir which will be continue. #5 hypertension hold off on losartan because of concerns of sepsis and hypotension. Plan: Patient will be continued on current management and follow up CBC with differential tomorrow. Continue antibiotics on this as per ID. patient was febrile at 100.4. We'll repeat blood cultures if he can use to be febrile. Prognosis is guarded. We'll follow closely.
[2016-11-29 04:46] LABS: CH 35.5; CHCM 37.7; HDW 3.34; HGB 9.4 gm/dL (13.0-17.5); Hyperchromasia Slight; Immature Gran Flag Slight; MCH 34.1 pg (25.0-35.0); MCHC 36.1 g/dL (31.0-37.0); MCV 94.3 fL (80.0-100.0); RBC 2.76 m/uL (4.30-5.90); RDW 13.6 % (11.5-15.5)
[2016-11-29 04:50] LABS: WBC 0.1 k/uL (3.8-10.6)
[2016-11-29 05:14] LABS: Anion Gap 13 mmol/L; Blood Urea Nitrogen 19 mg/dL (9-20); Calcium 7.9 mg/dL (8.4-10.2); Carbon Dioxide 17 mmol/L (22-30); Chloride 109 mmol/L (98-107); Glucose 165 mg/dL (74-99); Non-African American GFR(MDRD) >60 (>60 ml/min/1.73 sqM); Potassium 3.8 mmol/L (3.5-5.1); Sodium 139 mmol/L (137-145)
[2016-11-29 05:47] LABS: Add Differential Manual Differential
[2016-11-29 05:48] LABS: Manual Review Performed
[2016-11-29] MEDS: diphenhydrAMINE 25 MG CAP PO SCH ×3 (09:01→21:40)
[2016-11-29] MEDS: HYDROCORTISONE 1% CREAM 454 GM JAR TOPICAL SCH ×4 (09:03→21:44)
[2016-11-29] MEDS: SODIUM CHLORIDE 0.9% 1,000 ML IV SCH (09:03)
[2016-11-29] MEDS: ACYCLOVIR 200 MG CAP PO SCH ×2 (09:05→21:40)
[2016-11-29] MEDS: ONDANSETRON ODT 4 MG TAB PO PRN (16:21)
[2016-11-29] MEDS: MICAFUNGIN 100 MG in SODIUM CHLORIDE 0.9% 100 ML IVPB SCH (17:25)
[2016-11-29] MEDS ORDERED: methylPREDNISolone SOD SUCCI 40 MG/ML 1 ML VIAL IV STA (19:56)
[2016-11-29] MEDS: PANTOPRAZOLE 40 MG/10 ML VIAL IVP SCH (21:40)
[2016-11-29] MEDS: FILGRASTIM-SNDZ 480 MCG/0.8 ML SYRINGE SQ SCH (22:25)
--- NOTE | 2016-11-29 22:52 | P.PN ---
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 He was noticed to have favorable cytogenetics and was treated with induction chemotherapy. He is done well. However 6 months after completion of his induction chemotherapy has had a relapse. He is in now with the midst of his reinduction chemotherapy. He has now been evaluated at [facility] for autologous stem cell transplantation. The patient is developed a significant fever of greater than 102. Associated with chills and rigors. Constantly presented to hospitals been admitted for his febrile neutropenia. He has been utilizing G-CSF therapy at home. Despite this he has significant ongoing neutropenia and is developed a significant fever. He does not have significant localizing symptoms such as mucositis, pulmonary symptoms or urinary symptoms. Is also not have any significant gastrointestinal symptoms. However is having difficulties with a significant rash. This occurred in the past. Potentially in the past was related to his amoxicillin and fluconazole therapy that he was receiving. When he stopped in the past his rash resolved. However the rash also resolved with timing of some improvement of his neutropenia. He received a dose of vancomycin and the rash became somewhat more flared. Topical triamcinolone his allowed some improvement. An antibiotic therapy and fluids have resulted in improvement of his high-grade fever. Feeling somewhat better today. Appetite is modest. He is denying nausea or emesis or other new acute symptoms today. The patient is noted. No area of rash onto the right axillary area. Patient is feeling better today. Somewhat disappointed that his counts have not started to recover as of yet. Yesterday wasn't feeling quite as well because he had a fever. This is now improving. The patient Remains somewhat concerned that his white count has not recovered as of yet. Had a difficult day yesterday. Developed a bit more irritation. His rash markedly worsen. Especially in the lower aspect of the abdomen onto his thighs. Quite pruritic. In even spread onto his back. Antibiotic therapy changed from Zosyn to Merrem. Echinocandin put on hold. Feeling considerably better today after these changes and a dose of steroid. He is much improved in mood today. Although still awaiting the recovery of his white blood cell count. He is encouraged that his hemoglobin is stable. Objective - Vital Signs Vital signs: Vital Signs Temp 98.1 F 11/29/16 14:31 Pulse 79 11/29/16 14:31 Resp 18 11/29/16 14:31 BP 129/73 11/29/16 14:31 Pulse Ox 94 L 11/29/16 14:31 Intake & Output 11/29/16 11/29/16 11/30/16 06:59 18:59 06:59 Intake Total 225 Balance 225 Intake: Intake, IV Titration 225 Amount Sodium Chloride 0.9% 1, 225 000 ml @ 75 mls/hr IV . [id number] [facility] Rx#:[id number] Other: Voiding Method Toilet # Voids 2 2 - Exam 51-year-old male of a muscular build who is in no acute distress. HEENT: Anicteric conjunctiva are pink and moist nasal mucosa grossly intact without significant lesions, there is no thrush. No evidence of mucositis Neck: The neck is supple without significant lymphadenopathy or thyromegaly. Lungs: Good bilateral air entry without significant crackles or wheezing. There is no significant bronchial sounds. There is no egophony or dullness. Heart: Regular rate and rhythm with an audible S1-S2, no S3 no S4. There is no significant murmur click or rub, PMI was nondisplaced. Abdomen: Positive bowel sounds soft and nontender without palpable masses or organomegaly. There was no guarding or rebound. Extremities: The upper extremities have excellent pulses they are symmetric, no significant petechiae or telangiectasia. No splinter hemorrhages were noted. The lower extremities are free from significant edema. The peripheral pulses were 2+ and symmetric. Neuro: Awake alert oriented to person place and time. There are no acute new gross focal sensory motor deficits. Skin: Evidence of a rash into the lower abdomen and groin area. It is from the left flank anteriorly to the right flank. Minimal rash over the posterior aspect of the lower back. There is minimal rash onto the upper thighs. Minimal rash on the arms. Face is spared. But is significant on the back upper legs and anterior groin area. The rash is not open or draining. It is minimally palpable. It is pruritic but not tender. - Labs CBC & Chem 7: 11/29/16 04:40 11/29/16 04:40 Labs: Abnormal Lab Results - Last 24 Hours (Table) 11/29/16 11/29/16 Range/Units 04:40 04:40 WBC 0.1 L* (3.8-10.6) k/uL RBC 2.76 L (4.30-5.90) m/uL Hgb 9.4 L (13.0-17.5) gm/dL Hct 26.0 L (39.0-53.0) % Plt Count 14 L* (150-450) k/uL Chloride 109 H (98-107) mmol/L Carbon Dioxide 17 L (22-30) mmol/L Glucose 165 H (74-99) mg/dL Calcium 7.9 L (8.4-10.2) mg/dL Laboratory Results WBC 0.1 k/uL (3.8-10.6) L* 11/29/16 04:40 RBC 2.76 m/uL (4.30-5.90) L 11/29/16 04:40 Hgb 9.4 gm/dL (13.0-17.5) L 11/29/16 04:40 Hct 26.0 % (39.0-53.0) L 11/29/16 04:40 MCV 94.3 fL (80.0-100.0) 11/29/16 04:40 MCH 34.1 pg (25.0-35.0) 11/29/16 04:40 MCHC 36.1 g/dL (31.0-37.0) 11/29/16 04:40 RDW 13.6 % (11.5-15.5) 11/29/16 04:40 Plt Count 14 k/uL (150-450) L* 11/29/16 04:40 Differential Comment 11/29/16 04:40 Manual Slide Review Performed 11/29/16 04:40 Hyperchromasia Slight 11/29/16 04:40 PT 11.3 sec (9.0-12.0) 11/22/16 16:39 INR 1.1 (<1.2) 11/22/16 16:39 APTT 25.8 sec (22.0-30.0) 11/22/16 16:39 Sodium 139 mmol/L (137-145) 11/29/16 04:40 Potassium 3.8 mmol/L (3.5-5.1) 11/29/16 04:40 Chloride 109 mmol/L (98-107) H 11/29/16 04:40 Carbon Dioxide 17 mmol/L (22-30) L 11/29/16 04:40 Anion Gap 13 mmol/L 11/29/16 04:40 BUN 19 mg/dL (9-20) 11/29/16 04:40 Creatinine 0.80 mg/dL (0.66-1.25) 11/29/16 04:40 Est GFR (MDRD) Af Amer >60 (>60 ml/min/1.73 sqM) 11/29/16 04:40 Est GFR (MDRD) Non-Af >60 (>60 ml/min/1.73 sqM) 11/29/16 04:40 Glucose 165 mg/dL (74-99) H 11/29/16 04:40 Plasma Lactic Acid [place] 0.8 mmol/L (0.7-2.0) 11/22/16 16:39 Calcium 7.9 mg/dL (8.4-10.2) L 11/29/16 04:40 Total Bilirubin 1.1 mg/dL (0.2-1.3) 11/27/16 06:40 AST 9 U/L (17-59) L 11/27/16 06:40 ALT 35 U/L (21-72) 11/27/16 06:40 Alkaline Phosphatase 63 U/L (38-126) 11/27/16 06:40 Total Creatine Kinase 162 U/L (55-170) 11/22/16 16:39 CK-MB (CK-2) 1.4 ng/mL (0.0-2.4) 11/22/16 16:39 CK-MB (CK-2) Rel Index 0.9 11/22/16 16:39 Troponin I <0.012 ng/mL (0.000-0.034) 11/22/16 16:39 Total Protein 5.6 g/dL (6.3-8.2) L 11/27/16 06:40 Albumin 3.0 g/dL (3.5-5.0) L 11/27/16 06:40 Urine Color Yellow 11/22/16 17:18 Urine Appearance Clear (Clear) 11/22/16 17:18 Urine pH 6.0 (5.0-8.0) 11/22/16 17:18 Ur Specific [place] 1.017 (1.001-1.035) 11/22/16 17:18 Urine Protein Trace (Negative) H 11/22/16 17:18 Urine Glucose (UA) Negative (Negative) 11/22/16 17:18 Urine Ketones Negative (Negative) 11/22/16 17:18 Urine Blood Small (Negative) H 11/22/16 17:18 Urine Nitrite Negative (Negative) 11/22/16 17:18 Urine Bilirubin Negative (Negative) 11/22/16 17:18 Urine Urobilinogen <2.0 mg/dL (<2.0) 11/22/16 17:18 Ur Leukocyte Esterase Negative (Negative) 11/22/16 17:18 Urine RBC 1 /hpf (0-5) 11/22/16 17:18 Urine Mucus Rare /hpf (None) H 11/22/16 17:18 C. difficile (EIA) Intrp Negative (Negative) 11/28/16 21:15 Blood Type O Positive 11/26/16 00:31 Blood Type Recheck No 11/26/16 00:31 Antibody Screen NEGATIVE 11/26/16 00:31 Crossmatch See Detail 11/26/16 00:31 Transfuse Platelets 11/25/16 11/25/16 10:27 Spec Expiration Date 11/29/2016 - 7353 11/26/16 00:31 Microbiology 11/22/16 16:39 Blood Blood Culture - Final No Growth after 144 hours 11/22/16 17:18 Urine,Voided Urine Culture - Final Assessment and Plan (1) Neutropenia, febrile Narrative/Plan: Pleasant 51-year-old male who has a history of acute myelogenous leukemia that has relapsed. He is receiving his LEO flag protocol. He is now having absolute neutropenia and has developed significant fever. Other than the rash she has not having significant other symptoms. He does not have mucositis, no evidence of pneumonia, urinary infection or gastroenteritis. The patient did developed a rash after amoxicillin and fluconazole. Which relates has occurred in the past. These are now held. Topical steroid cream is being utilized. With significant improvement. Vancomycin discontinued without evidence of infected port, or significant mucositis. At[place]and and is put on hold with concerns to contributing to his rash although is much more likely the cefepime. This was changed to meropenem. This will continue as cultures are processing and remains profoundly neutropenic.. The rash is improved. We'll give another dose of Solu-Medrol. For his diarrhea given. Also will give some cholestyramine which sometimes can bulk up the stool a bit too. C. diff toxin was negative. Status: Acute (2) Leukemia, acute myeloid Status: Chronic (3) Pancytopenia Status: Acute (4) Rash and nonspecific skin eruption Status: Acute
--- NOTE | 2016-11-30 01:21 | P.PN ---
Subjective The patient has been mostly afebrile with a T-max of 100.6 in the last 24 hours. He continues to have diarrhea, about 4-6 episodes per day. His skin rash persists, most prominent on the lower back and bilateral flanks. No chills , nausea and vomiting. He denies any abdominal pain. No history of any blood in the stool, or bleeding from the nose or mouth. Objective - Vital Signs Vital signs: Vital Signs Temp 98.1 F 11/29/16 14:31 Pulse 79 11/29/16 14:31 Resp 18 11/29/16 14:31 BP 129/73 11/29/16 14:31 Pulse Ox 94 L 11/29/16 14:31 Intake & Output 11/29/16 11/29/16 11/30/16 06:59 18:59 06:59 Intake Total 225 Balance 225 Intake: Intake, IV Titration 225 Amount Sodium Chloride 0.9% 1, 225 000 ml @ 75 mls/hr IV . [id number] [facility] Rx#:[id number] Other: Voiding Method Toilet # Voids 2 2 - Constitutional General appearance: Present: no acute distress - EENT Eyes: Present: EOMI, PERRLA ENT: Present: hearing grossly normal, normal oropharynx - Respiratory Respiratory: bilateral: CTA - Cardiovascular Rhythm: regular Heart sounds: normal: S1, S2 - Gastrointestinal General gastrointestinal: Present: normal bowel sounds, soft - Integumentary Integumentary: Present: normal - Neurologic Neurologic: Present: CNII-XII intact - Musculoskeletal Musculoskeletal: Present: generalized weakness, strength equal bilaterally - Psychiatric Psychiatric: Present: A&O x's 3, appropriate affect - Labs CBC & Chem 7: 11/29/16 04:40 11/29/16 04:40 Labs: Abnormal Lab Results - Last 24 Hours (Table) 11/29/16 11/29/16 Range/Units 04:40 04:40 WBC 0.1 L* (3.8-10.6) k/uL RBC 2.76 L (4.30-5.90) m/uL Hgb 9.4 L (13.0-17.5) gm/dL Hct 26.0 L (39.0-53.0) % Plt Count 14 L* (150-450) k/uL Chloride 109 H (98-107) mmol/L Carbon Dioxide 17 L (22-30) mmol/L Glucose 165 H (74-99) mg/dL Calcium 7.9 L (8.4-10.2) mg/dL Assessment and Plan (1) Neutropenic sepsis Narrative/Plan: Hemodynamics are stable, and the patient does not have signs of sepsis syndrome. She will pattern is much improved. Cultures remained negative. ID is following, and antibiotics have been adjusted due to his skin rash. He is currently on meropenem and vancomycin. The patient also continues on filgrastim. The patient states that he feels "lousy", and is getting somewhat frustrated that he is not feeling better. He was reassured, that in general white count recovery takes about 3 weeks. He still has about 3-4 days to go to get to that point. Given his history of multiple prior chemotherapies, it would not be surprising a white count recovery is somewhat delayed even beyond 21 days. However, with antibiotics he is doing much better with resolution of sepsis syndrome, and marked improvement in fever pattern. He was advised, that he is likely to start feeling much better subjectively, once WBC recovers. Status: Acute (2) Pancytopenia due to antineoplastic chemotherapy Narrative/Plan: Hemoglobin and platelets are slowly drifting down. However counts still in a safe range today and does not require transfusion. Continue to monitor. Status: Acute (3) Rash and nonspecific skin eruption Narrative/Plan: [place] to be most likely due to medication. Antibiotics have been adjusted, as noted above. He is continuing to use topical steroids with improvement. Status: Acute (4) Diarrhea due to drug Narrative/Plan: The patient's frequency of diarrhea is fairly stable. Stool studies have been sent and are negative so far. This is felt to be related to medication, as well as neutropenia. On exam, however, the patient has no evidence of typhlitis/colitis. Continue antidiarrheals, as well as liquid diet. Status: Acute
[2016-11-30] MEDS: SODIUM CHLORIDE 0.9% 1,000 ML IV SCH ×2 (03:31→22:38)
[2016-11-30] MEDS: SALT AND SODA MOUTHWASH 1,000 ML PO SCH ×5 (06:13→23:32)
[2016-11-30 06:25] LABS: CH 35.4; CHCM 37.7; HCT 20.2 % (39.0-53.0); Hyperchromasia Slight; MCHC 36.1 g/dL (31.0-37.0); Mean Platelet Volume 8.1; RBC 2.15 m/uL (4.30-5.90); RDW 13.5 % (11.5-15.5)
[2016-11-30 06:41] LABS: HGB 7.3 gm/dL (13.0-17.5); WBC 0.1 k/uL (3.8-10.6)
[2016-11-30 07:27] LABS: ALT 24 U/L (21-72); AST 8 U/L (17-59); Alkaline Phosphatase 52 U/L (38-126); Anion Gap 10 mmol/L; Blood Urea Nitrogen 19 mg/dL (9-20); Calcium 7.6 mg/dL (8.4-10.2); Carbon Dioxide 20 mmol/L (22-30); Chloride 111 mmol/L (98-107); Glucose 138 mg/dL (74-99); Non-African American GFR(MDRD) >60 (>60 ml/min/1.73 sqM); Potassium 3.9 mmol/L (3.5-5.1); Sodium 141 mmol/L (137-145); Total Bilirubin 0.6 mg/dL (0.2-1.3); Total Protein 4.8 g/dL (6.3-8.2)
[2016-11-30] MEDS: HYDROCORTISONE 1% CREAM 454 GM JAR TOPICAL SCH ×4 (09:13→21:09)
[2016-11-30] MEDS: PANTOPRAZOLE 40 MG/10 ML VIAL IVP SCH (09:15)
[2016-11-30] MEDS: ACYCLOVIR 200 MG CAP PO SCH ×2 (09:15→21:08)
[2016-11-30] MEDS: MEROPENEM 1 GM in SODIUM CHLORIDE 0.9% 100 ML IVPB SCH ×5 (09:15→23:32)
[2016-11-30] MEDS: diphenhydrAMINE 25 MG CAP PO SCH ×3 (09:20→21:07)
[2016-11-30] MEDS: ONDANSETRON ODT 4 MG TAB PO PRN (13:39)
[2016-11-30] MEDS: LOPERAMIDE 2 MG CAP PO PRN ×2 (15:27→21:51)
--- NOTE | 2016-11-30 17:35 | P.PN ---
Subjective The patient continues to have diarrhea, with bowel movements aggravated the by eating . He denied any fever, chills, nausea or vomiting, or significant abdominal pain. Rash is overall stable. No mouth sores noted. Objective - Vital Signs Vital signs: Vital Signs Temp 98 F 11/30/16 16:50 Pulse 77 11/30/16 16:50 Resp 18 11/30/16 16:50 BP 114/70 11/30/16 16:50 Pulse Ox 97 11/30/16 16:50 Intake & Output 11/29/16 11/30/16 11/30/16 18:59 06:59 18:59 Intake Total 1075 800 Balance 1075 800 Intake: IV 750 Micafungin 100 mg In 750 Sodium Chloride 0.9% 100 ml @ 100 mls/hr IVPB DAILY@1800 [facility] Rx#: [id number] Intake, IV Titration 325 800 Amount Meropenem 1 gm In Sodium 100 200 Chloride 0.9% 100 ml @ 200 mls/hr IVPB Q8HR [facility] Rx#:[id number] Sodium Chloride 0.9% 1, 225 600 000 ml @ 75 mls/hr IV . [id number] [facility] Rx#:[id number] Blood Product 0 Rc Irr As1 Unit 0 [id number] Other: Voiding Method Toilet Toilet Toilet # Voids 2 2 - Constitutional General appearance: Present: no acute distress - EENT Eyes: Present: EOMI, PERRLA ENT: Present: hearing grossly normal, normal oropharynx - Respiratory Respiratory: bilateral: CTA - Cardiovascular Rhythm: regular Heart sounds: normal: S1, S2 - Gastrointestinal General gastrointestinal: Present: normal bowel sounds, soft - Integumentary Integumentary: Present: rash - Neurologic Neurologic: Present: CNII-XII intact - Musculoskeletal Musculoskeletal: Present: strength equal bilaterally - Psychiatric Psychiatric: Present: A&O x's 3, appropriate affect - Labs CBC & Chem 7: 11/30/16 06:15 11/30/16 06:15 Labs: Abnormal Lab Results - Last 24 Hours (Table) 11/30/16 11/30/16 11/30/16 Range/Units 06:15 06:15 12:23 WBC 0.1 L* (3.8-10.6) k/uL RBC 2.15 L (4.30-5.90) m/uL Hgb 7.3 L D (13.0-17.5) gm/dL Hct 20.2 L (39.0-53.0) % Plt Count 9 L* (150-450) k/uL Chloride 111 H (98-107) mmol/L Carbon Dioxide 20 L (22-30) mmol/L Glucose 138 H (74-99) mg/dL Calcium 7.6 L (8.4-10.2) mg/dL AST 8 L (17-59) U/L Total Protein 4.8 L (6.3-8.2) g/dL Albumin 2.5 L (3.5-5.0) g/dL Crossmatch See Detail Assessment and Plan (1) Neutropenic sepsis Narrative/Plan: The patient has been afebrile over the last 48 hours plus. He is hemodynamically stable with no evidence of sepsis syndrome. Cultures remain negative. Due to his rash, which is felt to be medication related, antibiotics are being adjusted by ID. He is currently on meropenem and vancomycin. Status: Acute (2) Pancytopenia due to antineoplastic chemotherapy Narrative/Plan: The hemoglobin and platelets are slowly declined. Hemoglobin of 7.3 and platelets of 9 noted today. Supportive transfusions were ordered. Status: Acute (3) Rash and nonspecific skin eruption Narrative/Plan: This is controlled, and stable with topical steroids, and the adjustment in antibiotics Status: Acute (4) Diarrhea due to drug Narrative/Plan: C. diff testing was negative. Severe diarrhea appears to be moderate, and the patient appears well compensated. There is no evidence of any typhlitis on clinical exam. Continue liquid diet . I will increase the dose of Questran. Status: Acute
[2016-11-30] MEDS ORDERED: CHOLESTYRAMINE (WITH SUGAR) 4 GM PACKET PO SCH (18:12)
[2016-11-30] MEDS: CHOLESTYRAMINE (WITH SUGAR) 4 GM PACKET PO SCH (21:12)
[2016-11-30] MEDS: FILGRASTIM-SNDZ 480 MCG/0.8 ML SYRINGE SQ SCH (22:14)
--- NOTE | 2016-11-30 23:08 | P.PN ---
Subjective Principal diagnosis: Febrile neutropenia Patient was admitted for febrile neutropenia. Patient denied any fever today. Patient's rash from ALLERGIC reaction is improving. Patient was started on micafungin by infectious disease. 11/25/16 Patient is afebrile for more than 36 hours. But his hemoglobin remains low because of which a hematology wanted to transfuse 2 more units of blood. Patient received total of 2 units of PRBC in spite of which is remarkable hemoglobin remains at 6.5 and his WBC count is 100. Patient is on broad- spectrum antibiotics including acyclovir, cefepime and micafungin. On 11/26/2016. Patient has been afebrile today. Hemoglobin level improved to 8.3. WBC count still at 0.1. Agent underwent platelet transfusion and PRBC on 11/25 Today patient currently complains of fever or chills. No chest pain or shortness breath. No acute overnight issues. 11/27/2016 Patient is afebrile. Hemoglobin improved to 9.8. Patient is still neutropenic. Platelet count is stable. Patient seems depressed. Otherwise no acute events noted. 11/28/2016 Patient was febrile with T-max 100.4. Patient can use to be neutropenic with count of 0.1 and hemoglobin is stable at 9.4 and platelet count 20. Patient is awaiting for stool sample versus rule out C. diff infection. Patient is not very much tolerating oral liquids diet. 11/29/2016 Patient is afebrile today. Antibiotics have been changed to meropenem. Diarrhea improved no fever no chills. Patient is tolerating liquid diets. Hemoglobin 9.4 and platelet count dropped to 14 today. C. diff toxin negative. Objective - Vital Signs Vital signs: Vital Signs Temp 98.1 F 11/29/16 14:31 Pulse 79 11/29/16 14:31 Resp 18 11/29/16 14:31 BP 129/73 11/29/16 14:31 Pulse Ox 94 L 11/29/16 14:31 Intake & Output 11/29/16 11/29/16 11/30/16 06:59 18:59 06:59 Intake Total 225 Balance 225 Intake: Intake, IV Titration 225 Amount Sodium Chloride 0.9% 1, 225 000 ml @ 75 mls/hr IV . [id number] [facility] Rx#:[id number] Other: Voiding Method Toilet # Voids 2 2 - Exam PHYSICAL EXAMINATION: Patient is lying in the bed comfortably, no acute distress , awake alert and oriented.. HEENT: Normocephalic. Neck is supple. Pupils reactive. Nostrils clear. Oral cavity is moist. Ears reveal no drainage. Neck reveals no JVD, carotid bruits, or thyromegaly. CHEST EXAMINATION: Trachea is central. Symmetrical expansion. Lung mckeon clear to auscultation and percussion. CARDIAC: Normal S1, S2 with no gallops. No murmurs ABDOMEN: Soft. Bowel sounds normal. No organomegaly. No abdominal bruits. Extremities reveal no edema. Neurologically awake, alert, oriented x3 with well-coordinated movements. - Labs CBC & Chem 7: 11/30/16 06:15 11/30/16 06:15 Labs: Abnormal Lab Results - Last 24 Hours (Table) 11/29/16 11/29/16 Range/Units 04:40 04:40 WBC 0.1 L* (3.8-10.6) k/uL RBC 2.76 L (4.30-5.90) m/uL Hgb 9.4 L (13.0-17.5) gm/dL Hct 26.0 L (39.0-53.0) % Plt Count 14 L* (150-450) k/uL Chloride 109 H (98-107) mmol/L Carbon Dioxide 17 L (22-30) mmol/L Glucose 165 H (74-99) mg/dL Calcium 7.9 L (8.4-10.2) mg/dL Microbiology - Last 24 Hours (Table) 11/22/16 16:39 Blood Culture - Final Blood No Growth after 144 hours Assessment and Plan Plan: #1 Febrile neutropenia ; patient is still neutropenic. patient was started on cefepime and micafungin as per infectious disease. Changed to meropenem #2 pancytopenia: Secondary to chemotherapy patient is receiving platelets and irradiated PRBC 2 units 0n 11/25. Hemoglobin 9.4 today platelets 14 #3 ALLERGIC reaction to vancomycin which was discontinued. 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 And patient is on acyclovir which will be continue. #5 hypertension hold off on losartan because of concerns of sepsis and hypotension. #6 rash around the waist stable #7 diarrhea improved. C. diff toxin negative patient was started on Questron and Lomotil. Plan: Patient will be continued on current management and follow up CBC with differential tomorrow. Continue antibiotics on this as per ID. We'll repeat blood cultures if he becomes febrile. Prognosis is guarded. We'll follow closely.
--- NOTE | 2016-11-30 23:11 | P.PN ---
Subjective Principal diagnosis: Febrile neutropenia Patient was admitted for febrile neutropenia. Patient denied any fever today. Patient's rash from ALLERGIC reaction is improving. Patient was started on micafungin by infectious disease. 11/25/16 Patient is afebrile for more than 36 hours. But his hemoglobin remains low because of which a hematology wanted to transfuse 2 more units of blood. Patient received total of 2 units of PRBC in spite of which is remarkable hemoglobin remains at 6.5 and his WBC count is 100. Patient is on broad- spectrum antibiotics including acyclovir, cefepime and micafungin. On 11/26/2016. Patient has been afebrile today. Hemoglobin level improved to 8.3. WBC count still at 0.1. Agent underwent platelet transfusion and PRBC on 11/25 Today patient currently complains of fever or chills. No chest pain or shortness breath. No acute overnight issues. 11/27/2016 Patient is afebrile. Hemoglobin improved to 9.8. Patient is still neutropenic. Platelet count is stable. Patient seems depressed. Otherwise no acute events noted. 11/28/2016 Patient was febrile with T-max 100.4. Patient can use to be neutropenic with count of 0.1 and hemoglobin is stable at 9.4 and platelet count 20. Patient is awaiting for stool sample versus rule out C. diff infection. Patient is not very much tolerating oral liquids diet. 11/29/2016 Patient is afebrile today. Antibiotics have been changed to meropenem. Diarrhea improved no fever no chills. Patient is tolerating liquid diets. Hemoglobin 9.4 and platelet count dropped to 14 today. C. diff toxin negative. 11/30/2016 Patient is still having diarrhea today. Hemoglobin dropped and platelet count dropped as well today. Patient says that he is not feeling very well. Patient has been afebrile. Still nauseated. Otherwise no overnight issues. Objective - Vital Signs Vital signs: Vital Signs Temp 98.7 F 11/30/16 20:38 Pulse 81 11/30/16 20:38 Resp 16 11/30/16 20:38 BP 116/65 11/30/16 20:38 Pulse Ox 98 11/30/16 20:38 Intake & Output 11/30/16 11/30/16 12/01/16 06:59 18:59 06:59 Intake Total 1075 800 310 Balance 1075 800 310 Intake: IV 750 Micafungin 100 mg In 750 Sodium Chloride 0.9% 100 ml @ 100 mls/hr IVPB DAILY@1800 [facility] Rx#: [id number] Intake, IV Titration 325 800 Amount Meropenem 1 gm In Sodium 100 200 Chloride 0.9% 100 ml @ 200 mls/hr IVPB Q8HR [facility] Rx#:[id number] Sodium Chloride 0.9% 1, 225 600 000 ml @ 75 mls/hr IV . [id number] [facility] Rx#:[id number] Blood Product 0 310 Platelet Irr Pheresis 0 Acda1 Unit [id number] Rc Irr As1 Unit 0 310 [id number] Other: Voiding Method Toilet Toilet # Voids 2 - Exam PHYSICAL EXAMINATION: Patient is lying in the bed comfortably, no acute distress , awake alert and oriented.. HEENT: Normocephalic. Neck is supple. Pupils reactive. Nostrils clear. Oral cavity is moist. Ears reveal no drainage. Neck reveals no JVD, carotid bruits, or thyromegaly. CHEST EXAMINATION: Trachea is central. Symmetrical expansion. Lung mckeon clear to auscultation and percussion. CARDIAC: Normal S1, S2 with no gallops. No murmurs ABDOMEN: Soft. Bowel sounds normal. No organomegaly. No abdominal bruits. Extremities reveal no edema. Neurologically awake, alert, oriented x3 with well-coordinated movements. - Labs CBC & Chem 7: 11/30/16 06:15 11/30/16 06:15 Labs: Abnormal Lab Results - Last 24 Hours (Table) 11/30/16 11/30/16 11/30/16 Range/Units 06:15 06:15 12:23 WBC 0.1 L* (3.8-10.6) k/uL RBC 2.15 L (4.30-5.90) m/uL Hgb 7.3 L D (13.0-17.5) gm/dL Hct 20.2 L (39.0-53.0) % Plt Count 9 L* (150-450) k/uL Chloride 111 H (98-107) mmol/L Carbon Dioxide 20 L (22-30) mmol/L Glucose 138 H (74-99) mg/dL Calcium 7.6 L (8.4-10.2) mg/dL AST 8 L (17-59) U/L Total Protein 4.8 L (6.3-8.2) g/dL Albumin 2.5 L (3.5-5.0) g/dL Crossmatch See Detail Assessment and Plan Plan: #1 Febrile neutropenia ; patient is still neutropenic. patient was started on cefepime and micafungin as per infectious disease. Changed to meropenem #2 pancytopenia: Secondary to chemotherapy patient is receiving platelets and irradiated PRBC 2 units 0n 11/25. Hemoglobin 9.4-7.3 . platelets 14--7 #3 ALLERGIC reaction to vancomycin which was discontinued. 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 And patient is on acyclovir which will be continue. #5 hypertension hold off on losartan because of concerns of sepsis and hypotension. #6 rash around the waist stable #7 Patient still having diarrhea. C. diff toxin negative. patient was started on Questron and Lomotil when necessary . Plan: Patient will be continued on current management and follow up CBC with differential tomorrow. Continue antibiotics on this as per ID. We'll repeat blood cultures if he becomes febrile. Prognosis is guarded. We'll follow closely.
[2016-12-01] MEDS: SALT AND SODA MOUTHWASH 1,000 ML PO SCH ×3 (06:16→16:43)
[2016-12-01 07:00] LABS: CH 33.5; CHCM 37.3; HDW 3.42; HGB 7.2 gm/dL (13.0-17.5); Hyperchromasia Slight; MCH 33.5 pg (25.0-35.0); MCHC 37.4 g/dL (31.0-37.0); MCV 89.6 fL (80.0-100.0); Mean Platelet Volume 7.2; Poikilocytosis Slight; RBC 2.16 m/uL (4.30-5.90); RDW 14.6 % (11.5-15.5)
[2016-12-01 07:06] LABS: WBC 0.3 k/uL (3.8-10.6)
[2016-12-01 07:07] LABS: Anion Gap 6 mmol/L; Blood Urea Nitrogen 16 mg/dL (9-20); Calcium 6.9 mg/dL (8.4-10.2); Carbon Dioxide 21 mmol/L (22-30); Chloride 113 mmol/L (98-107); Glucose 83 mg/dL (74-99); Non-African American GFR(MDRD) >60 (>60 ml/min/1.73 sqM); Potassium 3.1 mmol/L (3.5-5.1); Sodium 140 mmol/L (137-145)
[2016-12-01 07:11] LABS: HCT 19.4 % (39.0-53.0)
[2016-12-01] MEDS: CHOLESTYRAMINE (WITH SUGAR) 4 GM PACKET PO SCH ×4 (07:39→20:25)
[2016-12-01] MEDS: diphenhydrAMINE 25 MG CAP PO SCH ×4 (07:47→21:52)
[2016-12-01] MEDS: MEROPENEM 1 GM in SODIUM CHLORIDE 0.9% 100 ML IVPB SCH ×2 (07:47→16:42)
[2016-12-01] MEDS: ONDANSETRON ODT 4 MG TAB PO PRN (07:47)
[2016-12-01] MEDS: LOPERAMIDE 2 MG CAP PO PRN ×2 (07:47→21:52)
[2016-12-01] MEDS: ACYCLOVIR 200 MG CAP PO SCH ×2 (07:48→20:22)
[2016-12-01] MEDS: PANTOPRAZOLE 40 MG/10 ML VIAL IVP SCH (07:49)
[2016-12-01] MEDS: HYDROCORTISONE 1% CREAM 454 GM JAR TOPICAL SCH ×4 (07:49→21:52)
[2016-12-01] MEDS: SODIUM CHLORIDE 0.9% 1,000 ML IV SCH ×2 (12:13→16:42)
[2016-12-01] MEDS: NEUPOGEN SQ SCH (20:22)
[2016-12-01] MEDS: ONDANSETRON 4 MG/2 ML VIAL IVP PRN (20:27)
[2016-12-02] MEDS: MEROPENEM 1 GM in SODIUM CHLORIDE 0.9% 100 ML IVPB SCH ×3 (00:47→16:45)
[2016-12-02] MEDS: SALT AND SODA MOUTHWASH 1,000 ML PO SCH ×4 (00:48→16:50)
--- NOTE | 2016-12-02 01:16 | P.PN ---
Subjective Principal diagnosis: Febrile neutropenia Patient was admitted for febrile neutropenia. Patient denied any fever today. Patient's rash from ALLERGIC reaction is improving. Patient was started on micafungin by infectious disease. 11/25/16 Patient is afebrile for more than 36 hours. But his hemoglobin remains low because of which a hematology wanted to transfuse 2 more units of blood. Patient received total of 2 units of PRBC in spite of which is remarkable hemoglobin remains at 6.5 and his WBC count is 100. Patient is on broad- spectrum antibiotics including acyclovir, cefepime and micafungin. On 11/26/2016. Patient has been afebrile today. Hemoglobin level improved to 8.3. WBC count still at 0.1. Agent underwent platelet transfusion and PRBC on 11/25 Today patient currently complains of fever or chills. No chest pain or shortness breath. No acute overnight issues. 11/27/2016 Patient is afebrile. Hemoglobin improved to 9.8. Patient is still neutropenic. Platelet count is stable. Patient seems depressed. Otherwise no acute events noted. 11/28/2016 Patient was febrile with T-max 100.4. Patient can use to be neutropenic with count of 0.1 and hemoglobin is stable at 9.4 and platelet count 20. Patient is awaiting for stool sample versus rule out C. diff infection. Patient is not very much tolerating oral liquids diet. 11/29/2016 Patient is afebrile today. Antibiotics have been changed to meropenem. Diarrhea improved no fever no chills. Patient is tolerating liquid diets. Hemoglobin 9.4 and platelet count dropped to 14 today. C. diff toxin negative. 11/30/2016 Patient is still having diarrhea today. Hemoglobin dropped and platelet count dropped as well today. Patient says that he is not feeling very well. Patient has been afebrile. Still nauseated. Otherwise no overnight issues. 12/01/2016 Patient is still having diarrhea but improved. Leukocytosis improved today and also lately it count. Hemoglobin 7.2 this has been stable. Patient is still feeling weak. Otherwise no fever no chills. No source of vomiting.. Objective - Vital Signs Vital signs: Vital Signs Temp 98.3 F 12/01/16 15:00 Pulse 77 12/01/16 15:00 Resp 16 12/01/16 15:00 BP 123/76 08/19/17 15:00 Pulse Ox 96 12/01/16 15:00 Intake & Output 12/01/16 12/01/16 12/02/16 06:59 18:59 06:59 Intake Total 1806 700 Balance 1806 700 Weight 93.44 kg Intake: Intake, IV Titration 600 700 Amount Meropenem 1 gm In Sodium 100 Chloride 0.9% 100 ml @ 200 mls/hr IVPB Q8HR [facility] Rx#:[id number] Sodium Chloride 0.9% 1, 600 600 000 ml @ 75 mls/hr IV . [id number] [facility] Rx#:[id number] Blood Product 1206 Platelet Irr Pheresis 293 Acda1 Unit [id number] Rc Irr As1 Unit 310 [id number] Other: Voiding Method Toilet Toilet # Voids 1 # Bowel Movements 1 - Exam PHYSICAL EXAMINATION: Patient is lying in the bed comfortably, no acute distress , awake alert and oriented.. HEENT: Normocephalic. Neck is supple. Pupils reactive. Nostrils clear. Oral cavity is moist. Ears reveal no drainage. Neck reveals no JVD, carotid bruits, or thyromegaly. CHEST EXAMINATION: Trachea is central. Symmetrical expansion. Lung mckeon clear to auscultation and percussion. CARDIAC: Normal S1, S2 with no gallops. No murmurs ABDOMEN: Soft. Bowel sounds normal. No organomegaly. No abdominal bruits. Extremities reveal no edema. Neurologically awake, alert, oriented x3 with well-coordinated movements. - Labs CBC & Chem 7: 12/01/16 06:21 12/01/16 06:21 Labs: Abnormal Lab Results - Last 24 Hours (Table) 12/01/16 12/01/16 Range/Units 06:21 06:21 WBC 0.3 L* (3.8-10.6) k/uL RBC 2.16 L (4.30-5.90) m/uL Hgb 7.2 L (13.0-17.5) gm/dL Hct 19.4 L* (39.0-53.0) % MCHC 37.4 H (31.0-37.0) g/dL Plt Count 28 L* D (150-450) k/uL Potassium 3.1 L (3.5-5.1) mmol/L Chloride 113 H (98-107) mmol/L Carbon Dioxide 21 L (22-30) mmol/L Calcium 6.9 L (8.4-10.2) mg/dL Assessment and Plan Plan: #1 Febrile neutropenia ; improving neutropenia today. patient was started on cefepime and micafungin as per infectious disease. Changed to meropenem #2 pancytopenia: Secondary to chemotherapy patient is receiving platelets and irradiated PRBC 2 units 0n 11/25. Hemoglobin 9.4-7.3--7.2 . platelets 14--7--28 #3 ALLERGIC reaction to vancomycin which was discontinued. 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 And patient is on acyclovir which will be continue. #5 hypertension hold off on losartan because of concerns of sepsis and hypotension. #6 rash around the waist stable #7 Patient still having diarrhea. C. diff toxin negative. patient was started on Questron and Lomotil when necessary . Plan: Patient will be continued on current management and follow up CBC with differential tomorrow. Continue antibiotics on this as per ID. We'll repeat blood cultures if he becomes febrile. Prognosis is guarded. We'll follow closely.
[2016-12-02] MEDS: SODIUM CHLORIDE 0.9% 1,000 ML IV SCH ×2 (05:30→20:12)
[2016-12-02 06:24] LABS: CH 34.5; CHCM 37.6; HCT 21.2 % (39.0-53.0); HDW 3.38; HGB 7.8 gm/dL (13.0-17.5); Hyperchromasia Slight; MCH 33.6 pg (25.0-35.0); MCHC 36.7 g/dL (31.0-37.0); MCV 91.5 fL (80.0-100.0); Mean Platelet Volume 7.7; RBC 2.31 m/uL (4.30-5.90); RDW 14.6 % (11.5-15.5)
[2016-12-02 06:25] LABS: WBC 0.7 k/uL (3.8-10.6)
[2016-12-02 06:30] LABS: Anion Gap 7 mmol/L; Blood Urea Nitrogen 12 mg/dL (9-20); Calcium 7.6 mg/dL (8.4-10.2); Carbon Dioxide 24 mmol/L (22-30); Chloride 107 mmol/L (98-107); Glucose 97 mg/dL (74-99); Non-African American GFR(MDRD) >60 (>60 ml/min/1.73 sqM); Potassium 3.1 mmol/L (3.5-5.1); Sodium 138 mmol/L (137-145)
[2016-12-02] MEDS: PANTOPRAZOLE 40 MG/10 ML VIAL IVP SCH (08:04)
[2016-12-02] MEDS: ACYCLOVIR 200 MG CAP PO SCH ×2 (08:04→20:10)
[2016-12-02] MEDS: HYDROCORTISONE 1% CREAM 454 GM JAR TOPICAL SCH ×4 (08:05→20:09)
[2016-12-02] MEDS: diphenhydrAMINE 25 MG CAP PO SCH ×3 (08:06→20:14)
[2016-12-02] MEDS: CHOLESTYRAMINE (WITH SUGAR) 4 GM PACKET PO SCH ×4 (08:15→20:09)
--- NOTE | 2016-12-02 12:17 | P.PN ---
Subjective The patient has persistent fatigue, which is stable. He continues to have loose bowel movements, which are also unchanged from before. No unusual bleeding or bruising noted. He has not had recurrence of fevers. Objective - Vital Signs Vital signs: Vital Signs Temp 98.4 F 12/02/16 07:00 Pulse 70 12/02/16 07:00 Resp 20 12/02/16 07:00 BP 117/70 12/02/16 07:00 Pulse Ox 97 12/02/16 07:00 Intake & Output 12/01/16 12/02/16 12/02/16 18:59 06:59 18:59 Intake Total 700 750 Balance 700 750 Intake: Intake, IV Titration 700 750 Amount Meropenem 1 gm In Sodium 100 Chloride 0.9% 100 ml @ 200 mls/hr IVPB Q8HR [facility] Rx#:[id number] Sodium Chloride 0.9% 1, 600 750 000 ml @ 75 mls/hr IV . [id number] [facility] Rx#:[id number] Other: Voiding Method Toilet Toilet Toilet # Voids 2 - Constitutional General appearance: Present: no acute distress - EENT Eyes: Present: EOMI, PERRLA ENT: Present: hearing grossly normal, normal oropharynx - Respiratory Respiratory: bilateral: CTA - Cardiovascular Rhythm: regular Heart sounds: normal: S1, S2 - Gastrointestinal General gastrointestinal: Present: normal bowel sounds, soft - Integumentary Integumentary: Present: normal - Neurologic Neurologic: Present: CNII-XII intact - Musculoskeletal Musculoskeletal: Present: strength equal bilaterally - Psychiatric Psychiatric: Present: A&O x's 3, appropriate affect - Labs CBC & Chem 7: 12/02/16 06:15 12/02/16 05:45 Labs: Abnormal Lab Results - Last 24 Hours (Table) 12/02/16 12/02/16 Range/Units 05:45 06:15 WBC 0.7 L* (3.8-10.6) k/uL RBC 2.31 L (4.30-5.90) m/uL Hgb 7.8 L (13.0-17.5) gm/dL Hct 21.2 L (39.0-53.0) % Plt Count 25 L* (150-450) k/uL Potassium 3.1 L (3.5-5.1) mmol/L Calcium 7.6 L (8.4-10.2) mg/dL Assessment and Plan (1) Neutropenic sepsis Narrative/Plan: He has had no recurrence of sepsis syndrome. He continues on broad-spectrum IV antibiotics with cultures negative. Fevers have not recurred now for greater than 48 hours. Today, an increase in WBC was noted from 100-300, which hopefully represents the beginning of recovery. Continue antibiotics. Continue to monitor WBC, on filgrastim. Status: Acute (2) Pancytopenia due to antineoplastic chemotherapy Narrative/Plan: Hemoglobin remains stable of 7 today. Platelets have responded to transfusion that was given yesterday, and are also in a safe range. Continue to monitor with transfusion support as needed Status: Acute (3) Rash and nonspecific skin eruption Status: Acute (4) Diarrhea due to drug Narrative/Plan: The patient, again, has no evidence of typhlitis or colitis on clinical exam. He is tolerating liquids, with no change in the pattern of diarrhea. Antidiarrheal medicines were adjusted. C. diff was negative. Continue current diet. Improvement in diarrhea as expected, once WBC recovers, and antibiotics can be taken off Status: Acute
--- NOTE | 2016-12-02 13:56 | P.PN ---
Subjective Principal diagnosis: Febrile neutropenia. Chemotherapy-induced pancytopenia The patient's diarrhea appears to be slightly better. He still has significant, stable fatigue. Skin rash appears to be more itchy today. No fever, chills, nausea or vomiting. Appetite is overall reduced, but stable Objective - Vital Signs Vital signs: Vital Signs Temp 98.4 F 12/02/16 07:00 Pulse 70 12/02/16 07:00 Resp 20 12/02/16 07:00 BP 117/70 12/02/16 07:00 Pulse Ox 97 12/02/16 07:00 Intake & Output 12/01/16 12/02/16 12/02/16 18:59 06:59 18:59 Intake Total 700 750 Balance 700 750 Intake: Intake, IV Titration 700 750 Amount Meropenem 1 gm In Sodium 100 Chloride 0.9% 100 ml @ 200 mls/hr IVPB Q8HR [facility] Rx#:[id number] Sodium Chloride 0.9% 1, 600 750 000 ml @ 75 mls/hr IV . [id number] [facility] Rx#:[id number] Other: Voiding Method Toilet Toilet Toilet # Voids 2 - Constitutional General appearance: Present: no acute distress - EENT Eyes: Present: EOMI, PERRLA ENT: Present: hearing grossly normal, normal oropharynx - Respiratory Respiratory: bilateral: CTA - Cardiovascular Rhythm: regular Heart sounds: normal: S1, S2 - Gastrointestinal General gastrointestinal: Present: normal bowel sounds, soft - Integumentary Integumentary: Present: normal - Neurologic Neurologic: Present: CNII-XII intact - Musculoskeletal Musculoskeletal: Present: strength equal bilaterally - Psychiatric Psychiatric: Present: A&O x's 3, appropriate affect - Labs CBC & Chem 7: 12/02/16 06:15 12/02/16 05:45 Labs: Abnormal Lab Results - Last 24 Hours (Table) 12/02/16 12/02/16 Range/Units 05:45 06:15 WBC 0.7 L* (3.8-10.6) k/uL RBC 2.31 L (4.30-5.90) m/uL Hgb 7.8 L (13.0-17.5) gm/dL Hct 21.2 L (39.0-53.0) % Plt Count 25 L* (150-450) k/uL Potassium 3.1 L (3.5-5.1) mmol/L Calcium 7.6 L (8.4-10.2) mg/dL Assessment and Plan (1) Neutropenic sepsis Narrative/Plan: Hemodynamics remain stable, with no evidence of recurrence of sepsis syndrome. The patient continues on filgrastim. WBC count is now starting to show evidence of early recovery and is up to 700 today. Continue antibiotics Status: Acute (2) Pancytopenia due to antineoplastic chemotherapy Narrative/Plan: Hemoglobin is stable of 7, and platelets are above 20,000. No need for transfusion today. Continue to monitor with transfusion as needed Status: Acute (3) Rash and nonspecific skin eruption Narrative/Plan: The skin rash is more itchy today, which could be due to improving immunogenicity from white cell recovery. Does of steroids will be given today Status: Acute (4) Diarrhea due to drug Status: Acute
[2016-12-02] MEDS ORDERED: methylPREDNISolone SOD SUCCI 40 MG/ML 1 ML VIAL IV STA (13:57)
[2016-12-02] MEDS: POTASSIUM CHLORIDE ER 20 MEQ TAB.ER PO SCH ×2 (14:35→16:44)
[2016-12-02] MEDS ORDERED: ALTEPLASE 2 MG VIAL (CATHFLO) IV STA (17:45)
[2016-12-02] MEDS: NEUPOGEN SQ SCH (20:11)
[2016-12-03] MEDS: MEROPENEM 1 GM in SODIUM CHLORIDE 0.9% 100 ML IVPB SCH ×3 (00:15→16:16)
[2016-12-03] MEDS: SALT AND SODA MOUTHWASH 1,000 ML PO SCH ×5 (00:15→23:47)
--- NOTE | 2016-12-03 01:33 | P.PN ---
Subjective Principal diagnosis: Febrile neutropenia Patient was admitted for febrile neutropenia. Patient denied any fever today. Patient's rash from ALLERGIC reaction is improving. Patient was started on micafungin by infectious disease. 11/25/16 Patient is afebrile for more than 36 hours. But his hemoglobin remains low because of which a hematology wanted to transfuse 2 more units of blood. Patient received total of 2 units of PRBC in spite of which is remarkable hemoglobin remains at 6.5 and his WBC count is 100. Patient is on broad- spectrum antibiotics including acyclovir, cefepime and micafungin. On 11/26/2016. Patient has been afebrile today. Hemoglobin level improved to 8.3. WBC count still at 0.1. Agent underwent platelet transfusion and PRBC on 11/25 Today patient currently complains of fever or chills. No chest pain or shortness breath. No acute overnight issues. 11/27/2016 Patient is afebrile. Hemoglobin improved to 9.8. Patient is still neutropenic. Platelet count is stable. Patient seems depressed. Otherwise no acute events noted. 11/28/2016 Patient was febrile with T-max 100.4. Patient can use to be neutropenic with count of 0.1 and hemoglobin is stable at 9.4 and platelet count 20. Patient is awaiting for stool sample versus rule out C. diff infection. Patient is not very much tolerating oral liquids diet. 11/29/2016 Patient is afebrile today. Antibiotics have been changed to meropenem. Diarrhea improved no fever no chills. Patient is tolerating liquid diets. Hemoglobin 9.4 and platelet count dropped to 14 today. C. diff toxin negative. 11/30/2016 Patient is still having diarrhea today. Hemoglobin dropped and platelet count dropped as well today. Patient says that he is not feeling very well. Patient has been afebrile. Still nauseated. Otherwise no overnight issues. 12/01/2016 Patient is still having diarrhea but improved. Leukocytosis improved today and also lately it count. Hemoglobin 7.2 this has been stable. Patient is still feeling weak. Otherwise no fever no chills. No source of vomiting.. 12/02/2016 Patient's diarrhea improved. Leukocytosis improved to 0.7 as well as platelet count 28. Hemoglobin is stable at 7.4 patient denied any fever or chills. Otherwise no acute overnight issues. Patient is tolerating liquid diet and is clinically improving. Objective - Vital Signs Vital signs: Vital Signs Temp 98.3 F 12/02/16 15:00 Pulse 78 12/02/16 15:00 Resp 18 12/02/16 16:00 BP 122/83 12/02/16 15:00 Pulse Ox 100 12/02/16 15:00 Intake & Output 12/02/16 12/02/16 12/03/16 06:59 18:59 06:59 Intake Total 750 Balance 750 Intake: Intake, IV Titration 750 Amount Sodium Chloride 0.9% 1, 750 000 ml @ 75 mls/hr IV . [id number] [facility] Rx#:[id number] Other: Voiding Method Toilet Toilet # Voids 2 2 - Exam PHYSICAL EXAMINATION: Patient is lying in the bed comfortably, no acute distress , awake alert and oriented.. HEENT: Normocephalic. Neck is supple. Pupils reactive. Nostrils clear. Oral cavity is moist. Ears reveal no drainage. Neck reveals no JVD, carotid bruits, or thyromegaly. CHEST EXAMINATION: Trachea is central. Symmetrical expansion. Lung mckeon clear to auscultation and percussion. CARDIAC: Normal S1, S2 with no gallops. No murmurs ABDOMEN: Soft. Bowel sounds normal. No organomegaly. No abdominal bruits. Extremities reveal no edema. Neurologically awake, alert, oriented x3 with well-coordinated movements. - Labs CBC & Chem 7: 12/02/16 06:15 12/02/16 05:45 Labs: Abnormal Lab Results - Last 24 Hours (Table) 12/02/16 12/02/16 Range/Units 05:45 06:15 WBC 0.7 L* (3.8-10.6) k/uL RBC 2.31 L (4.30-5.90) m/uL Hgb 7.8 L (13.0-17.5) gm/dL Hct 21.2 L (39.0-53.0) % Plt Count 25 L* (150-450) k/uL Potassium 3.1 L (3.5-5.1) mmol/L Calcium 7.6 L (8.4-10.2) mg/dL Assessment and Plan Plan: #1 Febrile neutropenia ; improving neutropenia today. patient was started on cefepime and micafungin as per infectious disease. Changed to meropenem #2 pancytopenia: Secondary to chemotherapy patient is receiving platelets and irradiated PRBC 2 units 0n 11/25. Hemoglobin 9.4-7.3--7.2 . platelets 14--7--28 #3 ALLERGIC reaction to vancomycin which was discontinued. 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 And patient is on acyclovir which will be continue. #5 hypertension hold off on losartan because of concerns of sepsis and hypotension. #6 rash around the waist stable #7 Patient still having diarrhea. C. diff toxin negative. patient was started on Questron and Lomotil when necessary . Plan: Patient will be continued on current management and follow up CBC with differential tomorrow. Continue antibiotics on this as per ID. We'll repeat blood cultures if he becomes febrile. Prognosis is guarded. We'll follow closely.
[2016-12-03 06:15] LABS: CH 34.1; CHCM 37.5; HCT 21.3 % (39.0-53.0); HDW 3.46; HGB 7.6 gm/dL (13.0-17.5); Hyperchromasia Slight; MCH 32.6 pg (25.0-35.0); MCHC 35.8 g/dL (31.0-37.0); MCV 90.9 fL (80.0-100.0); Mean Platelet Volume 7.8; Poikilocytosis Slight; RBC 2.34 m/uL (4.30-5.90); RDW 14.5 % (11.5-15.5); WBC 2.9 k/uL (3.8-10.6)
[2016-12-03] MEDS: SODIUM CHLORIDE 0.9% 1,000 ML IV SCH ×2 (08:40→09:27)
[2016-12-03] MEDS: PANTOPRAZOLE 40 MG/10 ML VIAL IVP SCH (09:22)
[2016-12-03] MEDS: HYDROCORTISONE 1% CREAM 454 GM JAR TOPICAL SCH ×4 (09:22→21:26)
[2016-12-03] MEDS: CHOLESTYRAMINE (WITH SUGAR) 4 GM PACKET PO SCH ×4 (09:22→21:25)
[2016-12-03] MEDS: ACYCLOVIR 200 MG CAP PO SCH ×2 (09:22→21:25)
[2016-12-03] MEDS: diphenhydrAMINE 25 MG CAP PO SCH ×3 (09:24→21:31)
--- NOTE | 2016-12-03 16:44 | P.PN ---
Subjective Principal diagnosis: febrile neutropenia, secondary to chemotherapy for AML Pt seen in follow up, No fever for >24 hours, he denies oral irritation, nausea , vomiting, he is having "fewer" bowel movements, denies bleeding or pain. The rash on on his abd/groin is getting worse. Objective - Vital Signs Vital signs: Vital Signs Temp 98.3 F 12/03/16 15:00 Pulse 70 12/03/16 16:00 Resp 18 12/03/16 16:00 BP 123/65 12/03/16 15:00 Pulse Ox 98 12/03/16 15:00 Intake & Output 12/02/16 12/03/16 12/03/16 18:59 06:59 18:59 Intake Total 1929 Balance 1929 Weight 93.44 kg Intake: Intake, IV Titration 750 Amount Sodium Chloride 0.9% 1, 750 000 ml @ 75 mls/hr IV . [id number] [facility] Rx#:[id number] Oral 1180 Other: Voiding Method Toilet Toilet Toilet # Voids 2 2 2 - Constitutional General appearance: Present: average body habitus, cooperative, no acute distress - EENT EENT Comment(s): pale mucus membranes, no thrush or ulcerations - Respiratory Respiratory: bilateral: CTA - Cardiovascular Rhythm: regular Heart sounds: normal: S1, S2 Abnormal Heart Sounds: Absent: systolic murmur, diastolic murmur, rub, S3 Gallop , S4 Gallop, click, other - Peripheral edema leg Peripheral Edema: bilateral: None - Gastrointestinal General gastrointestinal: Present: normal bowel sounds, soft. Absent: absent bowel sounds, decreased bowel sounds, distended, hepatomegaly, hyperactive bowel sounds, organomegaly, rigid, scaphoid, splenomegaly, tenderness, umbilical hernia, ventral hernia - Integumentary Integumentary: Present: pale - Neurologic Neurologic: Present: CNII-XII intact - Musculoskeletal Musculoskeletal: Present: strength equal bilaterally - Psychiatric Psychiatric: Present: A&O x's 3, appropriate affect, intact judgment & insight - Labs CBC & Chem 7: 12/03/16 05:30 12/02/16 05:45 Labs: Abnormal Lab Results - Last 24 Hours (Table) 12/03/16 Range/Units 05:30 WBC 2.9 L (3.8-10.6) k/uL RBC 2.34 L (4.30-5.90) m/uL Hgb 7.6 L (13.0-17.5) gm/dL Hct 21.3 L (39.0-53.0) % Plt Count 21 L* (150-450) k/uL Assessment and Plan (1) Neutropenic sepsis Narrative/Plan: Leukopenia improving, still no ANC count reported, labs in AM. No fevers >24 hours all cultures negative. Pt has been seen and evaluated by ID , await recommendations for abx for discharge. Status: Acute (2) Neutropenia, febrile Narrative/Plan: No fevers > 24 hours, cont to monitor VS, cont current abx Status: Acute (3) Pancytopenia due to antineoplastic chemotherapy Narrative/Plan: Stable Hgb and platelets, WBC finally recuperating Status: Acute (4) Leukemia, acute myeloid Narrative/Plan: Pt is due for bone marrow biopsy on to evaluate for remission of his AML. After those results are returned pt will movce forward with BMT testing and meeting. Status: Chronic Plan: Anticipate DC in the next 24-48 hours as long as CBC continues to be stable/ improve.
--- NOTE | 2016-12-03 21:12 | P.PN ---
<Shelia Morgan - Last Filed: 12/03/16 20:56> Progress Note - Text DATE OF SERVICE: 12/03/2016 PRESENTING COMPLAINT: Fever INTERVAL HISTORY: 51-year-old male with a history of AML with acute fever secondary to chemotherapy. Source is not currently obvious. Patient is due for a bone marrow transplant and evaluation [facility] later this month. 12/03/2016: Patient seen in follow-up, no acute events overnight. Patient is annoyed wants to go home Walk around given his current condition. Explained importance of him being here and this seemed to appease. Patient tolerates diet however is unhappy with choices, last BM 12/03/2016. Ambulatory within the room. REVIEW OF SYSTEMS: Done for constitutional ,cardiovascular, GI, pulmonary with relevant findings as above. CURRENT MEDICATIONS Acyclovir, Xanax, Questran, Benadryl, levofloxacin, Imodium, Protonix. PHYSICAL EXAM VITAL SIGNS: Temperature 98.3, pulse 70, respiratory rate 18, blood pressure 123/65, oxygen saturation 98% on room air. GENERAL APPEARANCE: Lying in bed, somewhat anxious. EYES: Pupils equal. Conjunctiva normal. NECK: JVD not raised. Mass not palpable. RESPIRATORY: Respiratory effort normal. Lungs clear to auscultation. CARDIOVASCULAR: First and second sounds normal. No edema. ABDOMEN: Soft. Liver and spleen not palpable. No tenderness. No mass palpable. PSYCHIATRY: Alert and oriented x3. Mood and affect somewhat anxious. INVESTIGATIONS: White blood cell count 2.9, hemoglobin 7.6. ASSESSMENT: -Acute febrile neutropenia secondary to chemotherapy for AML, improving -Pancytopenia due to antineoplastic chemotherapy, improving -Acute myeloid leukemia -Essential hypertension PLAN: Continue to follow labs, await ID recommendations for antibiotics, we'll plan on discharge in the next 24-48 hours as long as CBC continues to be stable or improved. INCIDENT COORDINATOR statement: Patient was seen and examined by nurse practitioner Shelia Morgan and all elements of the case discussed with attending Dr. Burroughs <Dennis Burroughs - Last Filed: 12/05/16 23:37> Progress Note - Text Attending note. Date of service-12/03/2016 This patient was seen and examined by me . Discussed the patient with my nurse practitioner Ms. Morgan. Feeling better. Fever is coming down. The bathroom. Had a bowel movement. Rash is improving On examination: Lungs-clear, cardiovascular-first seconds are normal, dermatological-mild rash greatly improved Investigations: White count 2.9 platelet 21 Assessment and plan: -Acute relapse of acute myeloid leukemia -Neutropenic sepsis with no obvious source of infection improving -Generalized drug rash, improving -Essential hypertension -Pancytopenia due to antineoplastic chemotherapy -Acute noninfectious diarrhea probably drug-induced Plan patient improving continue antibiotics per Dr. Paez care was discussed with the patient feeling better.
[2016-12-03] MEDS: NEUPOGEN SQ SCH (21:25)
--- NOTE | 2016-12-03 22:47 | P.PN ---
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 He was noticed to have favorable cytogenetics and was treated with induction chemotherapy. He is done well. However 6 months after completion of his induction chemotherapy has had a relapse. He is in now with the midst of his reinduction chemotherapy. He has now been evaluated at [facility] for autologous stem cell transplantation. The patient is developed a significant fever of greater than 102. Associated with chills and rigors. Constantly presented to hospitals been admitted for his febrile neutropenia. He has been utilizing G-CSF therapy at home. Despite this he has significant ongoing neutropenia and is developed a significant fever. He does not have significant localizing symptoms such as mucositis, pulmonary symptoms or urinary symptoms. Is also not have any significant gastrointestinal symptoms. However is having difficulties with a significant rash. This occurred in the past. Potentially in the past was related to his amoxicillin and fluconazole therapy that he was receiving. When he stopped in the past his rash resolved. However the rash also resolved with timing of some improvement of his neutropenia. He received a dose of vancomycin and the rash became somewhat more flared. Topical triamcinolone his allowed some improvement. An antibiotic therapy and fluids have resulted in improvement of his high-grade fever. Feeling somewhat better today. Appetite is modest. He is denying nausea or emesis or other new acute symptoms today. The patient is noted. No area of rash onto the right axillary area. Patient is feeling better today. Somewhat disappointed that his counts have not started to recover as of yet. Yesterday wasn't feeling quite as well because he had a fever. This is now improving. The patient Remains somewhat concerned that his white count has not recovered as of yet. Patient is much better mood today. White blood cell count has recovered to 2.9 today his rash is also much improved as his immune system is starting to recover. Appetite is well. Eating food from home with no difficulties. Looks forward to being discharged home soon. Objective - Vital Signs Vital signs: Vital Signs Temp 98.3 F 12/03/16 15:00 Pulse 70 12/03/16 16:00 Resp 18 12/03/16 16:00 BP 123/65 12/03/16 15:00 Pulse Ox 98 12/03/16 15:00 Intake & Output 12/03/16 12/03/16 12/04/16 06:59 18:59 06:59 Intake Total 1929 Balance 1930 Weight 93.44 kg Intake: Intake, IV Titration 750 Amount Sodium Chloride 0.9% 1, 750 000 ml @ 75 mls/hr IV . [id number] [facility] Rx#:[id number] Oral 1180 Other: Voiding Method Toilet Toilet # Voids 2 2 - Exam 51-year-old male of a muscular build who is in no acute distress. HEENT: Anicteric conjunctiva are pink and moist nasal mucosa grossly intact without significant lesions, there is no thrush. No evidence of mucositis Neck: The neck is supple without significant lymphadenopathy or thyromegaly. Lungs: Good bilateral air entry without significant crackles or wheezing. There is no significant bronchial sounds. There is no egophony or dullness. Heart: Regular rate and rhythm with an audible S1-S2, no S3 no S4. There is no significant murmur click or rub, PMI was nondisplaced. Abdomen: Positive bowel sounds soft and nontender without palpable masses or organomegaly. There was no guarding or rebound. Extremities: The upper extremities have excellent pulses they are symmetric, no significant petechiae or telangiectasia. No splinter hemorrhages were noted. The lower extremities are free from significant edema. The peripheral pulses were 2+ and symmetric. Neuro: Awake alert oriented to person place and time. There are no acute new gross focal sensory motor deficits. Skin: Extensive rash is now nearly resolved. Some trace of residual rash still visualized liver lower back. Otherwise seems to be mostly resolved. No open lesions are seen. - Labs CBC & Chem 7: 12/03/16 05:30 12/02/16 05:45 Labs: Abnormal Lab Results - Last 24 Hours (Table) 12/03/16 Range/Units 05:30 WBC 2.9 L (3.8-10.6) k/uL RBC 2.34 L (4.30-5.90) m/uL Hgb 7.6 L (13.0-17.5) gm/dL Hct 21.3 L (39.0-53.0) % Plt Count 21 L* (150-450) k/uL Laboratory Results WBC 2.9 k/uL (3.8-10.6) L 12/03/16 05:30 RBC 2.34 m/uL (4.30-5.90) L 12/03/16 05:30 Hgb 7.6 gm/dL (13.0-17.5) L 12/03/16 05:30 Hct 21.3 % (39.0-53.0) L 12/03/16 05:30 MCV 90.9 fL (80.0-100.0) 12/03/16 05:30 MCH 32.6 pg (25.0-35.0) 12/03/16 05:30 MCHC 35.8 g/dL (31.0-37.0) 12/03/16 05:30 RDW 14.5 % (11.5-15.5) 12/03/16 05:30 Plt Count 21 k/uL (150-450) L* 12/03/16 05:30 Differential Comment 11/29/16 04:40 Manual Slide Review Performed 11/29/16 04:40 Hyperchromasia Slight 12/03/16 05:30 Poikilocytosis Slight 12/03/16 05:30 PT 11.3 sec (9.0-12.0) 11/22/16 16:39 INR 1.1 (<1.2) 11/22/16 16:39 APTT 25.8 sec (22.0-30.0) 11/22/16 16:39 Sodium 138 mmol/L (137-145) 12/02/16 05:45 Potassium 3.1 mmol/L (3.5-5.1) L 12/02/16 05:45 Chloride 107 mmol/L (98-107) 12/02/16 05:45 Carbon Dioxide 24 mmol/L (22-30) 12/02/16 05:45 Anion Gap 7 mmol/L 12/02/16 05:45 BUN 12 mg/dL (9-20) 12/02/16 05:45 Creatinine 0.70 mg/dL (0.66-1.25) 12/02/16 05:45 Est GFR (MDRD) Af Amer >60 (>60 ml/min/1.73 sqM) 12/02/16 05:45 Est GFR (MDRD) Non-Af >60 (>60 ml/min/1.73 sqM) 12/02/16 05:45 Glucose 97 mg/dL (74-99) 12/02/16 05:45 Plasma Lactic Acid Leno 0.8 mmol/L (0.7-2.0) 11/22/16 16:39 Calcium 7.6 mg/dL (8.4-10.2) L 12/02/16 05:45 Total Bilirubin 0.6 mg/dL (0.2-1.3) 11/30/16 06:15 AST 8 U/L (17-59) L 11/30/16 06:15 ALT 24 U/L (21-72) 11/30/16 06:15 Alkaline Phosphatase 52 U/L (38-126) 11/30/16 06:15 Total Creatine Kinase 162 U/L (55-170) 11/22/16 16:39 CK-MB (CK-2) 1.4 ng/mL (0.0-2.4) 11/22/16 16:39 CK-MB (CK-2) Rel Index 0.9 11/22/16 16:39 Troponin I <0.012 ng/mL (0.000-0.034) 11/22/16 16:39 Total Protein 4.8 g/dL (6.3-8.2) L 11/30/16 06:15 Albumin 2.5 g/dL (3.5-5.0) L 11/30/16 06:15 Urine Color Yellow 11/22/16 17:18 Urine Appearance Clear (Clear) 11/22/16 17:18 Urine pH 6.0 (5.0-8.0) 11/22/16 17:18 Ur Specific [place] 1.017 (1.001-1.035) 11/22/16 17:18 Urine Protein Trace (Negative) H 11/22/16 17:18 Urine Glucose (UA) Negative (Negative) 11/22/16 17:18 Urine Ketones Negative (Negative) 11/22/16 17:18 Urine Blood Small (Negative) H 11/22/16 17:18 Urine Nitrite Negative (Negative) 11/22/16 17:18 Urine Bilirubin Negative (Negative) 11/22/16 17:18 Urine Urobilinogen <2.0 mg/dL (<2.0) 11/22/16 17:18 Ur Leukocyte Esterase Negative (Negative) 11/22/16 17:18 Urine RBC 1 /hpf (0-5) 11/22/16 17:18 Urine Mucus Rare /hpf (None) H 11/22/16 17:18 C. difficile (EIA) Intrp Negative (Negative) 11/28/16 21:15 Blood Type O Positive 11/30/16 12:23 Blood Type Recheck No 11/30/16 12:23 Antibody Screen NEGATIVE 11/30/16 12:23 Crossmatch See Detail 11/30/16 12:23 Transfuse Platelets 11/30/16 11/30/16 12:23 Spec Expiration Date 12/03/2016 - 232211/30/16 12:23 Microbiology 11/22/16 16:39 Blood Blood Culture - Final No Growth after 144 hours 11/22/16 17:18 Urine,Voided Urine Culture - Final Assessment and Plan (1) Neutropenia, febrile Narrative/Plan: Pleasant 51-year-old male who has a history of acute myelogenous leukemia that has relapsed. He is receiving his LEO flag protocol. He is now having absolute neutropenia and has developed significant fever. Other than the rash she has not having significant other symptoms. He does not have mucositis, no evidence of pneumonia, urinary infection or gastroenteritis. The patient did developed a rash after amoxicillin and fluconazole. Which relates has occurred in the past. These are now held. Topical steroid cream is being utilized. With significant improvement. Vancomycin discontinued without evidence of infected port, or significant mucositis. Micafungin and is put on hold with concerns to contributing to his rash although is much more likely the cefepime. This was changed to meropenem. White blood cell count is now recovering. 2.9 today. Given the lack of fever and marked improvement. We will transition to oral antibiotic therapy for a 7 day completion now that his neutropenia has resolved. If with blood cell count remains recovered in the morning likely will be discharged home at that time. Status: Acute (2) Leukemia, acute myeloid Status: Chronic (3) Pancytopenia Status: Acute (4) Rash and nonspecific skin eruption Status: Acute
[2016-12-04] MEDS: ONDANSETRON 4 MG/2 ML VIAL IVP PRN (05:08)
[2016-12-04] MEDS: SALT AND SODA MOUTHWASH 1,000 ML PO SCH (05:11)
[2016-12-04] MEDS ORDERED: LEVOFLOXACIN 500 MG TAB PO SCH (08:00)
[2016-12-04 08:36] LABS: CH 34.4; CHCM 37.5; HCT 21.7 % (39.0-53.0); HDW 3.45; HGB 7.8 gm/dL (13.0-17.5); Hyperchromasia Slight; Immature Gran Flag Moderate; MCHC 35.9 g/dL (31.0-37.0); MCV 91.8 fL (80.0-100.0); Mean Platelet Volume 8.8; Poikilocytosis Slight; RBC 2.36 m/uL (4.30-5.90); RDW 14.5 % (11.5-15.5); WBC (Perox) 7.25
[2016-12-04 08:43] VITALS: BP 123/73; PULSE 91; RESP 20; TEMP 99.1
[2016-12-04 08:46] LABS: Anion Gap 5 mmol/L; Blood Urea Nitrogen 13 mg/dL (9-20); Calcium 7.9 mg/dL (8.4-10.2); Carbon Dioxide 27 mmol/L (22-30); Chloride 106 mmol/L (98-107); Glucose 86 mg/dL (74-99); Non-African American GFR(MDRD) >60 (>60 ml/min/1.73 sqM); Potassium 3.5 mmol/L (3.5-5.1); Sodium 138 mmol/L (137-145)
[2016-12-04] MEDS: CHOLESTYRAMINE (WITH SUGAR) 4 GM PACKET PO SCH (09:20)
[2016-12-04] MEDS: ACYCLOVIR 200 MG CAP PO SCH (09:22)
[2016-12-04] MEDS: PANTOPRAZOLE 40 MG/10 ML VIAL IVP SCH (09:22)
[2016-12-04] MEDS: HYDROCORTISONE 1% CREAM 454 GM JAR TOPICAL SCH (09:23)
[2016-12-04] MEDS: diphenhydrAMINE 25 MG CAP PO SCH (09:23)
[2016-12-04 09:57] LABS: Add Differential Manual Differential
[2016-12-04 10:06] LABS: Band Neutrophils % 17 %; Metamyelocytes % 2 %; Myelocytes % 3 %; Nucleated Red Blood Cells 0 /100 WBC (0-0); Promyelocytes % 1 %; Total Cells Counted 200
[2016-12-04 10:07] LABS: Dohle Bodies Present; Toxic Granulation Present
--- NOTE | 2016-12-04 15:47 | P.PN ---
Subjective Principal diagnosis: febrile neutropenia, secondary to chemotherapy for AML Pt seen today in follow up, he states no nausea today, his stomach does not feel as upset, the rash started easing up last night and he had a normal BM today. Objective - Vital Signs Vital signs: Vital Signs Temp 99.1 F 12/04/16 07:00 Pulse 91 12/04/16 08:00 Resp 20 12/04/16 08:00 BP 123/73 12/04/16 07:00 Pulse Ox 97 12/04/16 07:00 Intake & Output 12/03/16 12/04/16 12/04/16 18:59 06:59 18:59 Intake Total 1180 Balance 1180 Weight 93.44 kg Intake: Oral 1180 Other: Voiding Method Toilet Toilet Toilet # Voids 2 2 - Constitutional General appearance: Present: average body habitus, cooperative, no acute distress - EENT Eyes: Present: anicteric sclerae ENT: Present: normal oropharynx - Respiratory Respiratory: bilateral: CTA - Cardiovascular Heart sounds: normal: S1, S2 Abnormal Heart Sounds: Absent: systolic murmur, diastolic murmur, rub, S3 Gallop , S4 Gallop, click, other - Peripheral edema leg Peripheral Edema: bilateral: None - Gastrointestinal General gastrointestinal: Present: normal bowel sounds, soft. Absent: absent bowel sounds, decreased bowel sounds, distended, hepatomegaly, hyperactive bowel sounds, organomegaly, rigid, scaphoid, splenomegaly, tenderness, umbilical hernia, ventral hernia - Integumentary Integumentary: Present: pale - Neurologic Neurologic: Present: CNII-XII intact - Musculoskeletal Musculoskeletal: Present: strength equal bilaterally - Psychiatric Psychiatric Comment(s): pt has been sitting in the dark, refused to ambulate for the staff and kept the shades drawn. He verbalized frustration with long admission. Psychiatric: Present: A&O x's 3, intact judgment & insight - Labs CBC & Chem 7: 12/04/16 08:25 12/04/16 08:25 Labs: Abnormal Lab Results - Last 24 Hours (Table) 12/04/16 12/04/16 Range/Units 08:25 08:25 RBC 2.36 L (4.30-5.90) m/uL Hgb 7.8 L (13.0-17.5) gm/dL Hct 21.7 L (39.0-53.0) % Plt Count 29 L* (150-450) k/uL Lymphocytes # (Manual) 0.14 L (1.0-4.8) k/uL Metamyelocytes # (Man) 0.14 H (0) k/uL Myelocytes # (Manual) 0.21 H (0) k/uL Promyelocytes # (Man) 0.07 H (0) k/uL Calcium 7.9 L (8.4-10.2) mg/dL Assessment and Plan (1) Neutropenic sepsis Status: Resolved (2) Neutropenia, febrile Status: Resolved (3) Pancytopenia due to antineoplastic chemotherapy Narrative/Plan: Stable Hgb and Platelets, WBC up to 7 with ANC 6,000. Status: Acute (4) Leukemia, acute myeloid Narrative/Plan: Pt is due for bone marrow , this will stay on schedule. He has preliminary testing to do for BMT team and he needs new appt for evaluation at [facility], office staff will manage that. Status: Chronic Plan: Pt is ok from Hem/Onc standpoint for DC. Pt does not need to continue GCSF at home, pt verbalized understanding. Abx felt not likely to be needed but look for IM/ID recommendations.
--- NOTE | 2016-12-05 23:41 | P.DS ---
Providers Date of admission: 11/22/16 18:19 Expected date of discharge: 12/04/16 Attending physician: Dennis Burroughs Consults: 11/22/16 18:15 Consult Physician Urgent Consulting Provider: Richard Garsia Consult Reason/Comments: Febrile neutropenia, anemia, thrombocytopenia Do you want consulting provider notified?: Already Contacted 11/23/16 15:03 Consult Physician Routine Consulting Provider: Víctor Paez Consult Reason/Comments: neutropenia, rash Do you want consulting provider notified?: Yes Primary care physician: Mena Maloney Hospital Course: Final diagnoses -Acute relapse of acute myeloid leukemia -Neutropenic sepsis with no obvious source of infection present on admission -Generalized drug rash, improving -Essential hypertension -Pancytopenia due to antineoplastic chemotherapy -Acute noninfectious diarrhea probably drug-induced Hospital course: This is a patient getting chemo for the relapse of AML. Presented with neutropenic sepsis. Infectious workup was negative. Empirically treated and about extension responded well. Patient did have a what was felt to be a drug rash improved could be vancomycin. Hemoglobin was 7.8 crit is 29 and white count 7 time discharge. Patient up and about feeling much better. Care was discussed with the patient and at the bedside questions were answered. Antibiotics per Dr. Paez Discharge planning more than 35 minutes On examination: Lungs-clear, cardiovascular first seconds are normal, psych AO 3, dermatological rash greatly resolved Consultation: Dr. Ruth from oncology Dr. Paez for infectious disease Plan - Discharge Summary New Discharge Prescriptions: New Loperamide [Imodium] 2 mg PO QID PRN cap PRN Reason: Diarrhea Continue Acyclovir [Zovirax] 200 mg PO BID #14 cap Acetaminophen [Tylenol] 650 mg PO Q4H PRN PRN Reason: Pain diphenhydrAMINE HCL [Benadryl] 25 mg PO DAILY PRN PRN Reason: Rash Levofloxacin [Levaquin] 500 mg PO DAILY #7 tab Discontinued Losartan [Cozaar] 50 mg PO QAM Filgrastim Sndz [Neupogen] 480 mcg IJ HS Discharge Medication List Acyclovir [Zovirax] 200 mg PO BID #14 cap 11/17/16 [Rx] Acetaminophen [Tylenol] 650 mg PO Q4H PRN 11/22/16 [History] diphenhydrAMINE HCL [Benadryl] 25 mg PO DAILY PRN 11/22/16 [History] Levofloxacin [Levaquin] 500 mg PO DAILY #7 tab 12/04/16 [Rx] Loperamide [Imodium] 2 mg PO QID PRN cap 12/04/16 [Rx] Follow up Appointment(s)/Referral(s): Mena Maloney DO [Primary Care Provider] - 12/11/16 9:00 am Kwaku Crouch MD [STAFF PHYSICIAN] - 12/06/16 7:00 am Ambulatory/Diagnostic Orders: Basic Metabolic Panel [LAB.AMB] Time Frame: 3 Days, Location: Determined By Patient Complete Blood Count w/diff [LAB.AMB] Time Frame: 3 Days, Location: Determined By Patient Patient Instructions/Handouts: Neutropenia (DC), Anemia (DC) Discharge Disposition: HOME SELF-CARE
== END 2016-12-04 10:55 | disposition home or self-care (01) | DRG 871 ==
LOC: EC 15:45 → 5ONC 18:19
PROVIDERS: ADMIT Hospitalist; ATTEND Hospitalist
PROC: 30243R1 Transfusion of Nonautologous Platelets into Central Vein, Percutaneous Approach (ICD-10-PCS; principal; 2016-11-23)
PROC: 30243N1 Transfusion of Nonautologous Red Blood Cells into Central Vein, Percutaneous Approach (ICD-10-PCS; 2016-11-23)
DX: A41.89 Other specified sepsis (principal); D61.810 Antineoplastic chemotherapy induced pancytopenia; K52.1 Toxic gastroenteritis and colitis; C92.Z0 Other myeloid leukemia not having achieved remission; I10 Essential (primary) hypertension; T36.8X5A Adverse effect of other systemic antibiotics, initial encounter; T45.1X5A Adverse effect of antineoplastic and immunosuppressive drugs, initial encounter; R50.81 Fever presenting with conditions classified elsewhere; L08.9 Local infection of the skin and subcutaneous tissue, unspecified; L27.0 Generalized skin eruption due to drugs and medicaments taken internally; R00.0 Tachycardia, unspecified; R53.1 Weakness; L29.9 Pruritus, unspecified; R11.0 Nausea; Z80.7 Family history of other malignant neoplasms of lymphoid, hematopoietic and related tissues; Z79.899 Other long term (current) drug therapy; Z88.1 Allergy status to other antibiotic agents; Z88.0 Allergy status to penicillin; Z88.8 Allergy status to other drugs, medicaments and biological substances; Z92.21 Personal history of antineoplastic chemotherapy; Z92.25 Personal history of immunosuppression therapy; Z71.3 Dietary counseling and surveillance
CPT/HCPCS: 36415; 71020; 80048; 80053; 81001; 82550; 82553; 83605; 84484; 85025; 85027; 85610; 85730; 86850; 86900; 86901; 86920; 87040; 87086; 87324; 93005; 96361; 96365; 96367; 99285

== ENCOUNTER 2016-12-06 06:27 | Day surgery (SDC) | payer OTHER ==
[2016-12-05 08:30] VITALS: BMI 26.2
[~2016-12-06 06:27] MED LIST changes: -FLUDARABINE PHOSPHATE IV SCH; +LACTATED RINGERS 1,000 ML IV SCH; +LIDOCAINE 1% 20 ML VIAL (10MG/ML) FOR IV START INTRADERMA PRN; -SODIUM CHLORIDE 0.9% IV SCH
[2016-12-06 06:52] VITALS: TEMP 98.9
[2016-12-06] MEDS ORDERED: fentaNYL (PF) 50 MCG/ML 2 ML AMP ONE (07:08)
[2016-12-06] MEDS ORDERED: PROPOFOL 10 MG/ML 20 ML VIAL IV ONE (07:08)
[2016-12-06 07:52] VITALS: BP 104/65; PULSE 64; RESP 16
[2016-12-06 08:11] LABS: CH 32.9; CHCM 37.4; HCT 21.2 % (39.0-53.0); HDW 3.68; HGB 7.9 gm/dL (13.0-17.5); Hyperchromasia Slight; Immature Gran Flag Marked; MCH 32.6 pg (25.0-35.0); MCHC 37.1 g/dL (31.0-37.0); Mean Platelet Volume 8.4; Poikilocytosis Slight; RBC 2.41 m/uL (4.30-5.90); RDW 14.6 % (11.5-15.5); WBC 3.9 k/uL (3.8-10.6); WBC (Perox) 4.09
[2016-12-06 10:13] LABS: Add Differential Manual Differential
[2016-12-06 10:19] LABS: Band Neutrophils % 13 %; Metamyelocytes % 4 %; Myelocytes % 6 %; Nucleated Red Blood Cells 0 /100 WBC (0-0); Promyelocytes % 1 %; Total Cells Counted 200
[2016-12-06 10:21] LABS: Polychromasia Present
[2016-12-06 15:59] LABS: Bone Marrow Cell Count Performed
--- NOTE | 2016-12-06 22:54 | PCN ---
DATE OF PROCEDURE: 12/06/2016 PREOPERATIVE DIAGNOSIS: Acute myelocytic leukemia. POSTOPERATIVE DIAGNOSIS: Acute myelocytic leukemia. ANESTHESIA: Local with IV systemic sedation. PROCEDURE: Bone marrow aspirate and biopsy. SITE: Right iliac crest. DETAIL: Using ( ) sterile technique, the skin overlying the right iliac crest was prepared with alcohol after adequate sterile draping. Local anesthesia and systemic sedation were started. An ( ) Jamshidi needle was utilized to access the periosteum with ease. A total of 16 mL of aspirate as well as 5 cm bone core biopsies were obtained. The patient tolerated the procedure very well. There was no immediate procedure-related complication. Total blood loss less than 1 mL. Results pending. MTDD
== END 2016-12-06 08:05 | disposition home or self-care (01) ==
LOC: OR 06:27
PROVIDERS: ATTEND Internal Medicine Hematology & Oncology
DX: C92.Z0 Other myeloid leukemia not having achieved remission (principal); R21 Rash and other nonspecific skin eruption; D61.810 Antineoplastic chemotherapy induced pancytopenia; I10 Essential (primary) hypertension; Z79.899 Other long term (current) drug therapy; Z79.2 Long term (current) use of antibiotics; Z88.1 Allergy status to other antibiotic agents; Z88.0 Allergy status to penicillin; Z88.8 Allergy status to other drugs, medicaments and biological substances
CPT/HCPCS: 85025; 38221; J3010; J2704; G0364

== ENCOUNTER → 2016-12-20 | Outpatient (CLI) | payer OTHER | LOC: CPPFTMAIN 13:02 | PROVIDERS: ATTEND Internal Medicine Hematology & Oncology | DX: Z01.818 Encounter for other preprocedural examination (principal); C92.Z0 Other myeloid leukemia not having achieved remission | CPT/HCPCS: 94060; 94726; 94729 ==

== ENCOUNTER 2016-12-30 19:21 | Inpatient (IN) | payer OTHER ==
[2016-12-30 21:02] LABS: Anisocytosis Slight; Basophils # (A) 0.1 k/uL (0-0.2); Basophils % (A) 1 %; CH 35.5; CHCM 34.4; Eosinophils # (A) 0.4 k/uL (0-0.7); Eosinophils % (A) 2 %; HCT 36.8 % (39.0-53.0); HDW 3.06; Luc # (Auto) 0.36; Luc % (Auto) 2; Lymphocytes # (A) 1.8 k/uL (1.0-4.8); Lymphocytes % (A) 9 %; MCH 36.2 pg (25.0-35.0); MCHC 34.9 g/dL (31.0-37.0); Macrocytosis Marked; Mean Platelet Volume 7.8; Monocytes # (A) 1.6 k/uL (0-1.0); Monocytes % (A) 9 %; Neutrophils # (A) 14.7 k/uL (1.3-7.7); Neutrophils % (A) 78 %; RBC 3.54 m/uL (4.30-5.90); RDW 19.4 % (11.5-15.5); WBC 18.9 k/uL (3.8-10.6); WBC (Perox) 19.11
--- NOTE | 2016-12-30 21:05 | US ---
EXAMINATION TYPE: US venous doppler duplex UE RT DATE OF EXAM: 12/30/2016 COMPARISON: NONE CLINICAL HISTORY: Pain. pt has PICC line in rt arm for leukemia treatment, last used 4 days ago. New onset of pain and swelling at PICC line entry point and just superior SIDE PERFORMED: right Some exam limitations due to bandaging and tape at PICC line site which could not be removed for exam . Right Arm: PICC line is seen within the rt subclavian and axillary vein with color flow around it. A t the level of the mid arm brachial vein there is no flow seen and the vessel is not compressible. T his location is tender for the patient. IMPRESSION: Grayscale, color doppler, spectral doppler imaging performed of the deep veins of the upper extremiti es. There is no flow around the PICC line. This is felt to be due to the PICC line filling the entir e lumen of the vein. No definite evidence of venous thrombosis is identified.
--- NOTE | 2016-12-30 21:06 | ED ---
General Adult HPI - General Chief complaint: Skin/Abscess/Foreign Body Stated complaint: poss picc line infection Time Seen by Provider: 12/30/16 20:02 Source: patient, family, RN notes reviewed Mode of arrival: ambulatory Limitations: no limitations - History of Present Illness Initial comments: This a 51-year-old male presents emergency Department with chief complaint of possible infection around his PICC line. Patient states she's noticed increased swelling and some discomfort and drainage from the site. Patient states he did have swelling yesterday but it went away. Patient states that he has not had the dressing changed in 6 days. Patient states she sees Dr. Garsia for his leukemia. Patient states he has and I'll and is currently on chemo. Patient states that he has been scheduled for bone marrow transplant. Patient denies fever, chills or any cold like symptoms. He states it he feels as his normal self and states that recently has become to have been better than usual. Patient states that the drainage appears to be puslike. - Related Data Home Medications Medication Instructions Recorded Confirmed Acetaminophen Tab [Tylenol Tab] 325 mg PO Q4H PRN 12/30/16 12/30/16 Losartan [Cozaar] 50 mg PO DAILY 12/30/16 12/30/16 diphenhydrAMINE HCL [Benadryl] 25 mg PO QID PRN 12/30/16 12/30/16 Allergies Allergy/AdvReac Type Severity Reaction Status Date / Time Penicillins Allergy Severe Rash/Hives Verified 12/30/16 20:18 fluconazole Allergy Rash/Hives Verified 12/30/16 20:18 Review of Systems ROS Statement: Those systems with pertinent positive or pertinent negative responses have been documented in the HPI. ROS Other: All systems not noted in ROS Statement are negative. 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 History of Any Multi-Drug Resistant Organisms: None Reported Past Surgical History: Tonsillectomy Additional Past Surgical History / Comment(s): bone marrow bx 3, PICC line insertion R arm & removed Past Anesthesia/Blood Transfusion Reactions: No Reported Reaction Additional Past Anesthesia/Blood Transfusion Reaction / Comment(s): Pt has received blood / platelets without reaction. Past Psychological History: No Psychological Hx Reported Smoking Status: Never smoker Past Alcohol Use History: Rare Past Drug Use History: None Reported - Past Family History Mother Family Medical History: Cancer Additional Family Medical History / Comment(s): Mother of lymphoma at the age of 49 yrs. Father Family Medical History: No Reported History Additional Family Medical History / Comment(s): Father is 74 yrs old and healthy. General Exam Limitations: no limitations General appearance: alert, in no apparent distress Head exam: Present: atraumatic, normocephalic, normal inspection Respiratory exam: Present: normal lung sounds bilaterally. Absent: respiratory distress, wheezes, rales, rhonchi, stridor Cardiovascular Exam: Present: regular rate, normal rhythm, normal heart sounds. Absent: systolic murmur, diastolic murmur, rubs, gallop, clicks Extremities exam: Present: other (Right upper arm bicep region there is a PICC line noted with purulent drainage and culture was obtained there is some surrounding swelling with no erythema area is minimally tender there is no tenderness or swelling noted to the right axilla region) Skin exam: Present: warm, dry, intact, normal color. Absent: rash Course Vital Signs 12/30/16 12/30/16 12/30/16 19:53 20:04 21:40 Temperature 99.5 F 98.8 F 98.6 F Pulse Rate 108 H 111 H 98 Respiratory 18 16 18 Rate Blood Pressure 143/96 156/109 141/86 O2 Sat by Pulse 97 95 95 Oximetry Medical Decision Making - Lab Data Result diagrams: 12/30/16 20:46 12/30/16 20:46 Lab Results 12/30/16 12/30/16 12/30/16 Range/Units 20:46 20:46 20:46 WBC 18.9 H (3.8-10.6) k/uL RBC 3.54 L (4.30-5.90) m/uL Hgb 12.8 L D (13.0-17.5) gm/dL Hct 36.8 L (39.0-53.0) % MCV 103.9 H D (80.0-100.0) fL MCH 36.2 H (25.0-35.0) pg MCHC 34.9 (31.0-37.0) g/dL RDW 19.4 H (11.5-15.5) % Plt Count 153 D (150-450) k/uL Neutrophils % 78 % Lymphocytes % 9 % Monocytes % 9 % Eosinophils % 2 % Basophils % 1 % Neutrophils # 14.7 H (1.3-7.7) k/uL Lymphocytes # 1.8 (1.0-4.8) k/uL Monocytes # 1.6 H (0-1.0) k/uL Eosinophils # 0.4 (0-0.7) k/uL Basophils # 0.1 (0-0.2) k/uL Manual Slide Review Performed Polychromasia Present Anisocytosis Slight Macrocytosis Marked Sodium 135 L (137-145) mmol/L Potassium 4.3 (3.5-5.1) mmol/L Chloride 102 (98-107) mmol/L Carbon Dioxide 23 (22-30) mmol/L Anion Gap 10 mmol/L BUN 23 H (9-20) mg/dL Creatinine 0.80 (0.66-1.25) mg/dL Est GFR (MDRD) Af Amer >60 (>60 ml/min/1.73 sqM) Est GFR (MDRD) Non-Af >60 (>60 ml/min/1.73 sqM) Glucose 102 H (74-99) mg/dL Plasma Lactic Acid Leno 1.0 (0.7-2.0) mmol/L Calcium 9.6 (8.4-10.2) mg/dL Total Bilirubin 0.6 (0.2-1.3) mg/dL AST 63 H (17-59) U/L ALT 171 H (21-72) U/L Alkaline Phosphatase 78 (38-126) U/L Total Protein 7.2 (6.3-8.2) g/dL Albumin 4.5 (3.5-5.0) g/dL Disposition Clinical Impression: PICC line infection, Leukocytosis Disposition: ADMITTED IP TO THIS HOSP Condition: Fair Referrals: Mena Maloney DO [Primary Care Provider] - 1-2 days
[2016-12-30 21:08] LABS: ALT 171 U/L (21-72); AST 63 U/L (17-59); Alkaline Phosphatase 78 U/L (38-126); Anion Gap 10 mmol/L; Blood Urea Nitrogen 23 mg/dL (9-20); Calcium 9.6 mg/dL (8.4-10.2); Carbon Dioxide 23 mmol/L (22-30); Chloride 102 mmol/L (98-107); Glucose 102 mg/dL (74-99); Non-African American GFR(MDRD) >60 (>60 ml/min/1.73 sqM); Potassium 4.3 mmol/L (3.5-5.1); Sodium 135 mmol/L (137-145); Total Bilirubin 0.6 mg/dL (0.2-1.3); Total Protein 7.2 g/dL (6.3-8.2)
[2016-12-30 21:11] LABS: HGB 12.8 gm/dL (13.0-17.5); MCV 103.9 fL (80.0-100.0)
[2016-12-30 21:44] LABS: Manual Review Performed; Polychromasia Present
[2016-12-30] MEDS ORDERED: CEFEPIME 2 GM in SODIUM CHLORIDE 0.9% 50 ML IVPB STA (22:16)
[2016-12-30] MEDS ORDERED: IV VANCOMYCIN PER PHARMACY 1 EACH MISC MISCELLANE PRN (22:18)
[2016-12-30] MEDS ORDERED: ACETAMINOPHEN TAB 325 MG TAB PO PRN (22:23)
[2016-12-31] MEDS ORDERED: VANCOMYCIN 1,500 MG in SODIUM CHLORIDE 0.9% 250 ML IVPB ONE ×2
[2016-12-31] MEDS: VANCOMYCIN 1,500 MG in SODIUM CHLORIDE 0.9% 250 ML IVPB SCH ×4 (00:13→23:52)
[2016-12-31 03:15] VITALS: BMI 27.5
[2016-12-31 07:38] VITALS: RESP 16
[2016-12-31] MEDS: LOSARTAN 50 MG TAB PO SCH (09:37)
[2016-12-31] MEDS: ENOXAPARIN 40 MG/0.4 ML SYRINGE SQ SCH (09:37)
--- NOTE | 2016-12-31 18:00 | P.HPIM ---
History of Present Illness H&P Date: 12/31/16 Chief Complaint: Redness of the PICC line site History of presenting complaint: This is a pleasant 51-year-old patient of Dr. Arriaga from oncology and Dr.'s Maloney the PCP. 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 He had initially presented with progressive fatigue as well as spontaneous bruising. She was earlier treated in February 2016. 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 Patient was in the hospital about 3 weeks ago with neutropenic sepsis nor episodes of infection and also will vancomycin induces rash. The rash should improve by discharge. Patient also had chemotherapy induced pancytopenia and noninfectious diarrhea. Patient didn't was discharged on 7 days of Levaquin. Patient does have a right upper extremity PICC line dual- lumen. Patient now presents with swelling and redness around the site and some local pain. Denies nausea vomiting or obvious fever. Swelling had gone down a bit came back again and went down a bit. He noticed this about 48 hours ago. Appetite is maintained. He also noticed a cream color discharge from the PICC line site GEN.: A bit tired EYES: None HEENT: None NECK: None RESPIRATORY: None CARDIOVASCULAR: None GASTROINTESTINAL: None GENITOURINARY: None MUSCULOSKELETAL: None LYMPHATICS: None HEMATOLOGICAL: None PSYCHIATRY: None NEUROLOGICAL: None Dermatological: As above Past medical history: Acute myeloid leukemia with relapse, hypertension, Past surgical history: Bone marrow biopsy 3, PICC line Social history: . No smoking. Alcohol rarely Family history: Mother of lymphoma at age of 49 Home medications: Reviewed in the electronic records ALLERGIES: Penicillin and fluconazole VITAL SIGNS: 99.5, 108, 18, 143/96, 97% room air GENERAL: [Average built, sitting up at the edge of the bed, comfortable]. EYES: [Pupils equal. Conjunctiva pale]l. HEENT: [External appearance of nose and ears normal, oral cavity grossly normal] . NECK: [JVD not raised; masses not palpable]. HEART: [First and second heart sounds are normal; no edema]. LUNGS:[ Respiratory rate normal; clear to auscultation]. ABDOMEN: [Soft, nontender, liver spleen not palpable, no masses palpable]. LYMPHATICS: [No lymph nodes palpable in the axilla and neck]. PSYCH: [Alert and oriented x3; mood and affect nisha]l. NEUROLOGICAL: [Cranial nerves grossly intact; no facial asymmetry, power and sensation grossly intact] Dermatological: PICC line in right upper extremity with some redness tenderness around the same Investigations: White count 18.9, hemoglobin 12.8, platelets 153, increased neutrophils, potassium 4.3, BUN 23, creatinine 0.80 Assessment: -Acute PICC line insertion site cellulitis, rule out localized abscess in an immunosuppressed patient from getting chemotherapy -Acute myeloid leukemia with relapse -Essential hypertension Plan: Patient was started on IV vancomycin and IV fluids. Home medications are resumed. Lovenox for DVT prophylaxis. Dr. breen from oncology and Dr. Paez from infectious disease was consulted. Care was discussed with the patient earlier today and discussed. PICC line site swab was sent for Gram stain and culture . 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 History of Any Multi-Drug Resistant Organisms: None Reported Past Surgical History: Tonsillectomy Additional Past Surgical History / Comment(s): bone marrow bx 3, PICC line insertion R arm & removed Past Anesthesia/Blood Transfusion Reactions: No Reported Reaction Additional Past Anesthesia/Blood Transfusion Reaction / Comment(s): Pt has received blood / platelets without reaction. Past Psychological History: No Psychological Hx Reported Additional Psychological History / Comment(s): Pt resides with his spouse. He is very independent. Smoking Status: Never smoker Past Alcohol Use History: Rare Past Drug Use History: None Reported - Past Family History Mother Family Medical History: Cancer Additional Family Medical History / Comment(s): Mother of lymphoma at the age of 49 yrs. Father Family Medical History: No Reported History Additional Family Medical History / Comment(s): Father is 74 yrs old and healthy. Medications and Allergies Home Medications Medication Instructions Recorded Confirmed Type Acetaminophen Tab [Tylenol Tab] 325 mg PO Q4H PRN 12/30/16 12/30/16 History Losartan [Cozaar] 50 mg PO DAILY 12/30/16 12/30/16 History diphenhydrAMINE HCL [Benadryl] 25 mg PO QID PRN 12/30/16 12/30/16 History Allergies Allergy/AdvReac Type Severity Reaction Status Date / Time Penicillins Allergy Severe Rash/Hives Verified 12/30/16 20:18 fluconazole Allergy Rash/Hives Verified 12/30/16 20:18 Results CBC & Chem 7: 12/30/16 20:46 12/30/16 20:46
--- NOTE | 2016-12-31 18:08 | P.CONS ---
History of Present Illness - Reason for Consult Consult date: 12/31/16 AML Requesting physician: [facility] - Chief Complaint PICC line drainage/infection - History of Present Illness Mr. Shah is a very pleasant pt well know to our service with recent recurrence of AML. Initial diagnosis was October 12, 2015, cytogenetics showed inv (16). He had induction with 7+3 regimen which put him in remission, he had 4 cycles of consolidation, completed 02/29/16, next bone marrow 07/03/16 was negative for disease. He was having routine labs in October which showed pancytopenia, bone marrow 10/25/16 recurrent AML with 14% blasts, inv(16) positive, FLT3 and IDH negative. He had reinduction with FLAG-LEO regimen on , bone marrow on 12/06 with confirmed 5-6% blast population, he is currently awaiting allogenic match for transplant. Pt noticed inflammation, swelling and pain at PICC insertion site x 1 day, by the evening Saturday there was pus like drainage so he came to hospital to be evaluated. Pt denies fevers, chills, he is eating and drinking well, put back on weight, he is active, riding his bike, denies any changes in bowel or bladder habits, he feels very well and denies any c/o on a 10 point ROS. Review of Systems All systems: negative (PICC insertion site draining pus like fluid, swelling and tenderness) Past Medical History Past Medical History: Cancer, Hypertension Additional Past Medical History / Comment(s): 09/2015 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 History of Any Multi-Drug Resistant Organisms: None Reported Past Surgical History: Tonsillectomy Additional Past Surgical History / Comment(s): bone marrow bx 3, PICC line insertion R arm & removed Past Anesthesia/Blood Transfusion Reactions: No Reported Reaction Additional Past Anesthesia/Blood Transfusion Reaction / Comm: Pt has received blood / platelets without reaction. Past Psychological History: No Psychological Hx Reported Additional Psychological History / Comment(s): Pt resides with his spouse. He is very independent. Smoking Status: Never smoker Past Alcohol Use History: Rare Past Drug Use History: None Reported - Past Family History Mother Family Medical History: Cancer Additional Family Medical History / Comment(s): Mother of lymphoma at the age of 49 yrs. Father Family Medical History: No Reported History Additional Family Medical History / Comment(s): Father is 74 yrs old and healthy. Medications and Allergies Home Medications Medication Instructions Recorded Confirmed Type Acetaminophen Tab [Tylenol Tab] 325 mg PO Q4H PRN 12/30/16 12/30/16 History Losartan [Cozaar] 50 mg PO DAILY 12/30/16 12/30/16 History diphenhydrAMINE HCL [Benadryl] 25 mg PO QID PRN 12/30/16 12/30/16 History Allergies Allergy/AdvReac Type Severity Reaction Status Date / Time Penicillins Allergy Severe Rash/Hives Verified 12/30/16 20:18 fluconazole Allergy Rash/Hives Verified 12/30/16 20:18 Physical Exam Vitals: Vital Signs Temp Pulse Pulse Resp BP BP Pulse Ox 12/31/16 15:02 80 16 12/31/16 15:00 98.3 F 85 16 146/87 97 12/31/16 08:00 80 16 12/31/16 07:00 98.1 F 80 16 140/85 96 12/31/16 04:34 98.0 F 12/31/16 00:00 18 12/30/16 23:05 86 18 127/85 97 12/30/16 22:38 98.6 F 100 18 132/82 94 L 12/30/16 21:40 98.6 F 98 18 141/86 95 12/30/16 20:04 98.8 F 111 H 16 156/109 95 12/30/16 19:53 99.5 F 108 H 18 143/96 97 Intake and Output 12/31/16 12/31/16 12/31/16 06:59 14:59 22:59 Intake Total 590 125 Balance 590 125 Intake: Intake, IV Titration 125 Amount Vancomycin 1,500 mg In 125 Sodium Chloride 0.9% 250 ml @ 125 mls/hr IVPB Q8HR [facility] Rx#:[id number] Oral 590 Other: Voiding Method Toilet Toilet Toilet # Voids 1 Weight 92.079 kg - Constitutional General appearance: average body habitus, cooperative, no acute distress - EENT Eyes: anicteric sclerae, EOMI, PERRLA, normal appearance ENT: hearing grossly normal, normal oropharynx - Neck Neck: no lymphadenopathy - Respiratory Respiratory: bilateral: CTA - Cardiovascular Rhythm: regular Heart sounds: normal: S1, S2 Abnormal Heart Sounds: no systolic murmur, no diastolic murmur, no rub, no S3 Gallop, no S4 Gallop, no click, no other leg Peripheral Edema: bilateral: None - Gastrointestinal General gastrointestinal: no absent bowel sounds, no decreased bowel sounds, no distended, no hepatomegaly, no hyperactive bowel sounds, normal bowel sounds, no organomegaly, no rigid, no scaphoid, soft, no splenomegaly, no tenderness, no umbilical hernia, no ventral hernia - Integumentary Integumentary: normal - Neurologic Neurologic: CNII-XII intact - Musculoskeletal Musculoskeletal: strength equal bilaterally - Psychiatric Psychiatric: A&O x's 3, appropriate affect, intact judgment & insight Results CBC & Chem 7: 12/30/16 20:46 12/30/16 20:46 Labs: Abnormal Lab Results - Last 24 Hours (Table) 12/30/16 12/30/16 Range/Units 20:46 20:46 WBC 18.9 H (3.8-10.6) k/uL RBC 3.54 L (4.30-5.90) m/uL Hgb 12.8 L D (13.0-17.5) gm/dL Hct 36.8 L (39.0-53.0) % MCV 103.9 H D (80.0-100.0) fL MCH 36.2 H (25.0-35.0) pg RDW 19.4 H (11.5-15.5) % Neutrophils # 14.7 H (1.3-7.7) k/uL Monocytes # 1.6 H (0-1.0) k/uL Sodium 135 L (137-145) mmol/L BUN 23 H (9-20) mg/dL Glucose 102 H (74-99) mg/dL AST 63 H (17-59) U/L ALT 171 H (21-72) U/L Microbiology - Last 24 Hours (Table) 12/30/16 20:15 Gram Stain - Preliminary Arm - Right Wound Culture - Preliminary Venous US: report reviewed Assessment and Plan (1) PICC line infection Narrative/Plan: Symptoms suggest infection, pt is afebrile, blood cultures ordered, pt is on empiric antibiotics. Have consulted Dr. Paez to evaluate. Status: Acute (2) Leukocytosis Narrative/Plan: Neutrophilia, likely due to pt receiving neupogen-he takes daily for 10 days after chemo. No suspicion for disease progression, also pt bone marrow biopsy last month did confirm remission. Status: Acute (3) Leukemia, acute myeloid Narrative/Plan: Pt is currently awaiting Allogenic stem cell transplant. He will be receive chemo until transplant is ready. He is due for another round of chemo in the next 1-2 weeks Status: Chronic Plan: Discussed case with Dr. Paez. PICC line not felt to be grossly infected, more likely related to physical factors-pt working out with [employer]-causing irritation around the catheter/insertion site. RUE PICC line will be discontinued with catheter tip sent for culture. IR consulted to place new PICC in E. Will defer to ID for any recommendations for abx post procedure if necessary.
--- NOTE | 2016-12-31 21:56 | P.CONS ---
History of Present Illness - Reason for Consult Consult date: 12/31/16 - Chief Complaint Swelling in right arm PICC line - History of Present Illness Pleasant 51-year-old male who has a known history of acute myelogenous leukemia. Diagnosed last year. He was noticed to have favorable cytogenetics and was treated with induction chemotherapy. He had done well. However, 6 months after completion of his induction chemotherapy has had a relapse. He is in now with the midst of his reinduction chemotherapy. He has now been evaluated at [facility] for autologous stem cell transplantation. He was hospitalized in November for 12 days after his chemotherapy. He developed significant febrile neutropenia. He eventually recovered and was sent home. On December 20 he had a snack cycle of chemotherapy. He has done well without development of fever or significant rashes like he had during his last stay. He has been supported with Neupogen. He now presents with some swelling and discomfort to his right arm PICC site. The patient relates that he fortunately is feeling considerably better than during his hospital stay. He's been able to improve his nutrition and regain some of his weight. He has been working out with his weight system at home. Relates he worked out for 3 days in a row. Had a days rest and then he notices significant swelling to the right arm that the PICC line. It was quite swollen at first it settled a bit and then he noticed some swelling that had become a bit more extensive. He contacted oncology and was brought in the hospital. With concerns of potential infection at that site the infectious diseases evaluation was requested. Review of Systems HEENT:Denies headache or acute visual change. Denies sinus or mouth discomforts. Denies neck stiffness or pain. Denies significant oral cavity pain. Denies difficulty on swallowing. Lungs: Denies significant shortness of breath, cough, sputum production, or hemoptysis. Cardiovascular: Denies significant shortness of breath, chest pain, chest wall pain, orthopnea, dyspnea on exertion, syncope Gastrointestinal:Denies nausea, vomiting, diarrhea, constipation, hematemesis, melena, hematochezia. No no significant change of bowel habit noticed. Musculoskeletal: denies significant myalgias or arthralgias. No new joint swelling. Denies new back pain. Skin: No further rashes are noted Neuro: Denies headache or visual change. Denies any new onset weakness or difficulty with ambulation. Denies falls or seizures. Psychiatric:Denies anxiety or depression. Endocrine: Denies significant fatigue, has recovered from his weight loss Past Medical History Past Medical History: Cancer, Hypertension Additional Past Medical History / Comment(s): 09/2015 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 History of Any Multi-Drug Resistant Organisms: None Reported Past Surgical History: Tonsillectomy Additional Past Surgical History / Comment(s): bone marrow bx 3, PICC line insertion R arm Past Anesthesia/Blood Transfusion Reactions: No Reported Reaction Additional Past Anesthesia/Blood Transfusion Reaction / Comm: Pt has received blood / platelets without reaction. Past Psychological History: No Psychological Hx Reported Additional Psychological History / Comment(s): Pt resides with his spouse. He is independent. Works in manufacturing. No experience. No international travel. 2 pet cats he does not take care of the boxes. No tobacco use. No significant alcohol use or recreational drug use Smoking Status: Never smoker Past Alcohol Use History: Rare Past Drug Use History: None Reported - Past Family History Mother Family Medical History: Cancer Additional Family Medical History / Comment(s): Mother of lymphoma at the age of 49 yrs. Father Family Medical History: No Reported History Additional Family Medical History / Comment(s): Father is 74 yrs old and healthy. Medications and Allergies Home Medications and Allergies Comment(s): Current Medications Acetaminophen (Tylenol Tab) 650 mg PO Q6HR PRN PRN Reason: Mild Pain or Fever > 100.5 Last Admin: 12/30/16 23:22 Dose: 650 mg Enoxaparin Sodium (Lovenox) 40 mg SQ DAILY [facility] Last Admin: 12/31/16 09:37 Dose: 40 mg Vancomycin HCl 1,500 mg/ (Sodium Chloride) 250 mls @ 125 mls/hr IVPB Q8HR [facility] Last Admin: 12/31/16 16:08 Dose: 125 mls/hr Losartan Potassium (Cozaar) 50 mg PO DAILY [facility] Last Admin: 12/31/16 09:37 Dose: 50 mg Miscellaneous Information (Vancomycin Trough Due) 0 each MISCELLANE DIRECTED ONE Stop: 01/01/17 07:01 Home Medications Medication Instructions Recorded Confirmed Type Acetaminophen Tab [Tylenol Tab] 325 mg PO Q4H PRN 12/30/16 12/30/16 History Losartan [Cozaar] 50 mg PO DAILY 12/30/16 12/30/16 History diphenhydrAMINE HCL [Benadryl] 25 mg PO QID PRN 12/30/16 12/30/16 History Allergies Allergy/AdvReac Type Severity Reaction Status Date / Time Penicillins Allergy Severe Rash/Hives Verified 12/30/16 20:18 fluconazole Allergy Rash/Hives Verified 12/30/16 20:18 Physical Exam Vitals: Vital Signs Temp Pulse Pulse Resp BP BP Pulse Ox 12/31/16 15:02 80 16 12/31/16 15:00 98.3 F 85 16 146/87 97 12/31/16 08:00 80 16 12/31/16 07:00 98.1 F 80 16 140/85 96 12/31/16 04:34 98.0 F 12/31/16 00:00 18 12/30/16 23:05 86 18 127/85 97 12/30/16 22:38 98.6 F 100 18 132/82 94 L Intake and Output 12/31/16 12/31/16 12/31/16 06:59 14:59 22:59 Intake Total 590 125 Balance 590 125 Intake: Intake, IV Titration 125 Amount Vancomycin 1,500 mg In 125 Sodium Chloride 0.9% 250 ml @ 125 mls/hr IVPB Q8HR [facility] Rx#:[id number] Oral 590 Other: Voiding Method Toilet Toilet Toilet # Voids 1 Weight 92.079 kg Pleasant 51-year-old male the muscular build appears to be in no acute distress HEENT: Anicteric conjunctiva are pink and moist nasal mucosa grossly intact without significant lesions, there is no thrush. Neck: The neck is supple without significant lymphadenopathy or thyromegaly. Lungs: Good bilateral air entry without significant crackles or wheezing. There is no significant bronchial sounds. There is no egophony or dullness. Heart: Regular rate and rhythm with an audible S1-S2, no S3 no S4. There is no significant murmur click or rub, PMI was nondisplaced. Abdomen: Positive bowel sounds soft and nontender without palpable masses or organomegaly. There was no guarding or rebound. Extremities: The left arm and the lower extremities without significant lesions. No edema is noted. Right upper extremity is evidence of the PICC line. PICC line site is evidence of some swelling that is evident into the upper arm area. It is minimally tender. There is no erythema. There is no tracking or ascending erythema. No lymphadenopathy is noted. Nursing staff is not related to any difficulties with flushing the PICC. Neuro: Awake alert oriented to person place and time. There are no acute new gross focal sensory motor deficits. Skin no evidence of any rashes or residual lesions from the recent chemotherapy Results CBC & Chem 7: 12/30/16 20:46 12/30/16 20:46 Labs: Abnormal Lab Results - Last 24 Hours (Table) 12/30/16 Range/Units 20:46 WBC 18.9 H (3.8-10.6) k/uL RBC 3.54 L (4.30-5.90) m/uL Hgb 12.8 L D (13.0-17.5) gm/dL Hct 36.8 L (39.0-53.0) % MCV 103.9 H D (80.0-100.0) fL MCH 36.2 H (25.0-35.0) pg RDW 19.4 H (11.5-15.5) % Neutrophils # 14.7 H (1.3-7.7) k/uL Monocytes # 1.6 H (0-1.0) k/uL Microbiology - Last 24 Hours (Table) 12/30/16 20:15 Gram Stain - Preliminary Arm - Right Wound Culture - Preliminary Laboratory Results WBC 18.9 k/uL (3.8-10.6) H 12/30/16 20:46 RBC 3.54 m/uL (4.30-5.90) L 12/30/16 20:46 Hgb 12.8 gm/dL (13.0-17.5) L D 12/30/16 20:46 Hct 36.8 % (39.0-53.0) L 12/30/16 20:46 MCV 103.9 fL (80.0-100.0) H D 12/30/16 20:46 MCH 36.2 pg (25.0-35.0) H 12/30/16 20:46 MCHC 34.9 g/dL (31.0-37.0) 12/30/16 20:46 RDW 19.4 % (11.5-15.5) H 12/30/16 20:46 Plt Count 153 k/uL (150-450) D 12/30/16 20:46 Neutrophils % 78 % 12/30/16 20:46 Lymphocytes % 9 % 12/30/16 20:46 Monocytes % 9 % 12/30/16 20:46 Eosinophils % 2 % 12/30/16 20:46 Basophils % 1 % 12/30/16 20:46 Neutrophils # 14.7 k/uL (1.3-7.7) H 12/30/16 20:46 Lymphocytes # 1.8 k/uL (1.0-4.8) 12/30/16 20:46 Monocytes # 1.6 k/uL (0-1.0) H 12/30/16 20:46 Eosinophils # 0.4 k/uL (0-0.7) 12/30/16 20:46 Basophils # 0.1 k/uL (0-0.2) 12/30/16 20:46 Manual Slide Review Performed 12/30/16 20:46 Polychromasia Present 12/30/16 20:46 Anisocytosis Slight 12/30/16 20:46 Macrocytosis Marked 12/30/16 20:46 Sodium 135 mmol/L (137-145) L 12/30/16 20:46 Potassium 4.3 mmol/L (3.5-5.1) 12/30/16 20:46 Chloride 102 mmol/L (98-107) 12/30/16 20:46 Carbon Dioxide 23 mmol/L (22-30) 12/30/16 20:46 Anion Gap 10 mmol/L 12/30/16 20:46 BUN 23 mg/dL (9-20) H 12/30/16 20:46 Creatinine 0.80 mg/dL (0.66-1.25) 12/30/16 20:46 Est GFR (MDRD) Af Amer >60 (>60 ml/min/1.73 sqM) 12/30/16 20:46 Est GFR (MDRD) Non-Af >60 (>60 ml/min/1.73 sqM) 12/30/16 20:46 Glucose 102 mg/dL (74-99) H 12/30/16 20:46 Plasma Lactic Acid Leno 1.0 mmol/L (0.7-2.0) 12/30/16 20:46 Calcium 9.6 mg/dL (8.4-10.2) 12/30/16 20:46 Total Bilirubin 0.6 mg/dL (0.2-1.3) 12/30/16 20:46 AST 63 U/L (17-59) H 12/30/16 20:46 ALT 171 U/L (21-72) H 12/30/16 20:46 Alkaline Phosphatase 78 U/L (38-126) 12/30/16 20:46 Total Protein 7.2 g/dL (6.3-8.2) 12/30/16 20:46 Albumin 4.5 g/dL (3.5-5.0) 12/30/16 20:46 Microbiology 12/30/16 20:15 Arm - Right Gram Stain - Preliminary 12/30/16 20:15 Arm - Right Wound Culture - Preliminary Assessment and Plan (1) Leukemia Status: Acute (2) Bleeding from PICC line Status: Acute (3) Leukocytosis Narrative/Plan: Pleasant 51-year-old male who has a known history of leukemia who was the middle of his reinduction chemotherapy. He has done well. His recent bout of febrile neutropenia and skin eruptions is completely resolved. He isn't in any further significant fevers or rashes at this time. He however did develop some difficulty with his right arm PICC line. He developed some significant swelling it was not very tender. Local ultrasound failed to show significant clot or fluid collection. Exam reveals evidence of some localized tenderness and swelling but no significant fluid infiltration. No axillary tenderness with no lymphadenopathy. The patient was quite active with his PICC line. Has been in place for some time. It is times prudent to have the PICC line removed. He does not appear to be infected. As long as there are no further changes a new PICC line may be placed tomorrow and he may be discharged home after that. He is due for his next cycle of chemotherapy I believe next week and we'll have to make arrangements with the oncologist regarding this. 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 Status: Acute
[2017-01-01] MEDS ORDERED: VANCOMYCIN TROUGH DUE 1 EACH MISC MISCELLANE ONE (07:00)
[2017-01-01 07:41] VITALS: BP 132/81; PULSE 70; TEMP 98.1
[2017-01-01 08:45] LABS: Anion Gap 10 mmol/L; Blood Urea Nitrogen 12 mg/dL (9-20); Carbon Dioxide 26 mmol/L (22-30); Chloride 101 mmol/L (98-107); Glucose 112 mg/dL (74-99); Non-African American GFR(MDRD) >60 (>60 ml/min/1.73 sqM); Potassium 4.6 mmol/L (3.5-5.1); Sodium 137 mmol/L (137-145)
[2017-01-01] MEDS: ENOXAPARIN 40 MG/0.4 ML SYRINGE SQ SCH ×2 (08:45→09:08)
[2017-01-01] MEDS: LOSARTAN 50 MG TAB PO SCH (08:45)
[2017-01-01] MEDS: VANCOMYCIN 1,500 MG in SODIUM CHLORIDE 0.9% 250 ML IVPB SCH (08:45)
--- NOTE | 2017-01-01 12:02 | IR ---
PICC LINE PLACEMENT: HISTORY: Infection requiring long-term antibiotic therapy PROCEDURE: Ultrasound and fluoroscopic guidance of PICC line placement. COMPLICATIONS: None ANESTHESIA: 1. 1% Lidocaine locally. FINDINGS/TECHNIQUE: The procedure was explained to the patient. The risks, complications, benefits and alternatives were discussed and any questions were answered. Informed consent was obtained. The patient was placed supine on the fluoroscopic table and prepped and draped in the usual sterile fas ion. Utilizing a 21 gauge needle and sonographic and fluoroscopic guidance, access in the vein was achieved and there is placement of a 0.018 guidewire. The vein is patent. A 4-F sheath was placed o erika the guidewire. The guidewire and dilator were removed and a 4-F. PICC line was placed through th e sheath with the tip at the level of the SVC. The sheath was removed, the catheter was flushed and sutured into position. The patient was stable throughout the procedure and remained stable upon disc harge from the Department of Radiology. The vein puncture was patent under ultrasound. A parrish scale image was obtained to document patency of the vein punctured. All elements of the maximal barrier technique were utilized. FLUOROSCOPY TIME: 0.2 minute. One image submitted. IMPRESSION: Successful PICC line placement under ultrasound and fluoroscopic guidance.
--- NOTE | 2017-01-01 16:50 | P.PN ---
Subjective Principal diagnosis: LUE PICC drainage Pt seen today in follow up. He denies fevers, appetite is good, no nausea, SOB , cough, abd pain, cramping, diarrhea, he is ambulating independently. His LUE PICC insertion site is less swollen but still tight and tender, mild redness not warm. Objective - Vital Signs Vital signs: Vital Signs Temp 98.1 F 01/01/17 09:14 Pulse 70 01/01/17 09:14 Resp 16 01/01/17 09:14 BP 132/81 01/01/17 09:14 Pulse Ox 96 01/01/17 09:14 Intake & Output 12/31/16 01/01/17 01/01/17 18:59 06:59 18:59 Intake Total 125 1050 Balance 125 1050 Intake: Intake, IV Titration 125 250 Amount Vancomycin 1,500 mg In 125 250 Sodium Chloride 0.9% 250 ml @ 125 mls/hr IVPB Q8HR [facility] Rx#:[id number] Oral 800 Other: Voiding Method Toilet Toilet Toilet # Voids 3 - Constitutional General appearance: Present: average body habitus, cooperative, no acute distress - Respiratory Respiratory: bilateral: CTA - Cardiovascular Heart sounds: normal: S1, S2 - Peripheral edema leg Peripheral Edema: bilateral: None - Gastrointestinal General gastrointestinal: Present: normal bowel sounds - Integumentary Integumentary: Present: normal - Neurologic Neurologic: Present: CNII-XII intact - Musculoskeletal Musculoskeletal: Present: strength equal bilaterally - Psychiatric Psychiatric: Present: A&O x's 3, appropriate affect, intact judgment & insight - Labs CBC & Chem 7: 12/30/16 20:46 01/01/17 07:50 Labs: Abnormal Lab Results - Last 24 Hours (Table) 01/01/17 Range/Units 07:50 Glucose 112 H (74-99) mg/dL Microbiology - Last 24 Hours (Table) 01/01/17 11:30 Catheter Tip Culture - Preliminary Picc Line 12/30/16 20:46 Blood Culture - Preliminary Blood No Growth after 24 hours Assessment and Plan (1) PICC line infection Narrative/Plan: Case discussed with Dr. Paez felt to be mechanical irritation of the line vs infection. Recommendation was for replacement as pt is going to continue to be on treatment up until his transplant is ready. RUE PICC ordered to be removed with culture of tip, IR consulted for LUE PICC placement. Status: Acute (2) Leukocytosis Narrative/Plan: As expected from neupogen, all neutrophils, recent bone marrow showed reduction of blasts to 4%. Not felt to be related to disease Status: Acute (3) Leukemia, acute myeloid Narrative/Plan: Pt will be admitted next week for chemotherapy, he will receive treatment until HLA donor match found and harvested for transplant. Status: Chronic Plan: Discussed case with Dr. Paez, no oral abx recommended for discharge. Discussed case with IM, pt ok with Hem/Onc for pt to be discharged after PICC placed
--- NOTE | 2017-01-01 18:49 | P.DS ---
<Shelia Morgan - Last Filed: 01/01/17 18:39> Providers Date of admission: 12/30/16 22:24 Expected date of discharge: 01/01/17 Attending physician: Dennis Burroughs Consults: 12/30/16 22:44 Consult Physician Stat Consulting Provider: Richard Garsia Consult Reason/Comments: AML Do you want consulting provider notified?: Yes 12/31/16 09:07 Consult Physician Routine Consulting Provider: Víctor Paez Consult Reason/Comments: PICC or skin infection? Treatment plan Do you want consulting provider notified?: Yes Primary care physician: Mena Maloney [facility] Course: FINAL DIAGNOSES: -Acute PICC line insertion site cellulitis, rule out localized abscess in an immunosuppressed patient from getting chemotherapy -Acute myeloid leukemia with relapse -Essential hypertension HOSPTIAL COURSE: 51-year-old male with a diagnosis of acute myeloid leukemia currently in the induction treatment phase. Patient has a right upper extremity PICC line double -lumen and presented to the emergency department with swelling and redness around the site and some local pain. No fever vomiting nausea. Swelling and gone down a bit came back again and went down a bit. This was over the previous 48 hours. Also noticed a creamy colored discharge from the PICC line insertion site. Patient was admitted for the same. Oncology and infectious disease was consulted. Infectious disease felt this to be more of a local irritation rather than a line infection however recommended replacement of the line since patient will require IV access until his transplant is ready. No oral antibiotics were recommended for discharge. Oncology expected a reduction of his neutrophils and reduction of blasts to 4% it is felt that this is not related to disease. Patient will return to the hospital next week receive his treatment per oncology. Patient's ambulatory in the room and hallway, tolerating his diet, last BM prior to admission. Infectious disease, oncology have cleared the patient for discharge after placement of the new PICC line. Patient's overall condition is stable and is appropriate for discharge. PHYSICAL EXAM: CARDIOVASCULAR: First and second sounds noted no edema RESPIRATORY: Respiratory effort normal lung sounds clear to auscultation bilaterally. INTEGUMENT: Right medial bicep warm tender to palpation, dressing intact PICC line removed. Patient was seen and examined by nurse practitioner Shelia Morgan in all elements of the case discussed with attending Dr. Burroughs DISPOSITION: Discharge home to the care of his . Patient Condition at Discharge: Stable Plan - Discharge Summary New Discharge Prescriptions: Continue diphenhydrAMINE HCL [Benadryl] 25 mg PO QID PRN PRN Reason: Allergy Symptoms Losartan [Cozaar] 50 mg PO DAILY Acetaminophen Tab [Tylenol] 325 mg PO Q4H PRN PRN Reason: Fever And/ Or Pain Discharge Medication List Acetaminophen Tab [Tylenol] 325 mg PO Q4H PRN 12/30/16 [History] Losartan [Cozaar] 50 mg PO DAILY 12/30/16 [History] diphenhydrAMINE HCL [Benadryl] 25 mg PO QID PRN 12/30/16 [History] Follow up Appointment(s)/Referral(s): Mena Maloney DO [Primary Care Provider] - 01/08/17 3:00 pm Patient Instructions/Handouts: Peripherally Inserted Central Catheters and Midline Catheters (DC) Activity/Diet/Wound Care/Special Instructions: Diet as tolerated Activity as tolerated Discharge Disposition: HOME SELF-CARE <Dennis Burroughs - Last Filed: 01/01/17 21:13> Hospital Course: Attending note. Date of service-01/01/2017 This patient was seen and examined by me . Discussed the patient with my nurse practitioner Ms. Morgan. PICC line was removed from the right up-to-date and left arm was placed. On examination: No tenderness of the PICC line site. Investigations: Cultures negative to lump. Lungs have is clear, cardiovascular first seconds are normal Assessment and plan: Inflammation of the PICC line site. Nausea to resolve. Discussed and Dr. Paez. He doesn't feel the Need for antibiotic. Patient be discharged without any further antibiotics. He is afebrile feeling rather good
== END 2017-01-01 12:35 | disposition home or self-care (01) | DRG 315 ==
LOC: EC 19:21 → 5ONC 22:24
PROVIDERS: ADMIT Hospitalist; ATTEND Hospitalist
PROC: 02HV33Z Insertion of Infusion Device into Superior Vena Cava, Percutaneous Approach (ICD-10-PCS; principal; 2017-01-01 11:20)
PROC: 05PYX3Z Removal of Infusion Device from Upper Vein, External Approach (ICD-10-PCS; 2017-01-01 11:20)
DX: T82.7XXA Infection and inflammatory reaction due to other cardiac and vascular devices, implants and grafts, initial encounter (principal); L03.113 Cellulitis of right upper limb; C92.02 Acute myeloblastic leukemia, in relapse; T82.838A Hemorrhage due to vascular prosthetic devices, implants and grafts, initial encounter; I10 Essential (primary) hypertension; Y83.8 Other surgical procedures as the cause of abnormal reaction of the patient, or of later complication, without mention of misadventure at the time of the procedure; Y84.8 Other medical procedures as the cause of abnormal reaction of the patient, or of later complication, without mention of misadventure at the time of the procedure; Z79.2 Long term (current) use of antibiotics; Z79.899 Other long term (current) drug therapy; Z80.7 Family history of other malignant neoplasms of lymphoid, hematopoietic and related tissues; Z88.3 Allergy status to other anti-infective agents; Z88.0 Allergy status to penicillin
CPT/HCPCS: 36415; 36569; 76937; 77001; 80048; 80053; 80202; 83605; 85025; 87040; 87070; 87205; 99284

== ENCOUNTER 2017-01-07 08:06 | Inpatient (IN) | payer OTHER ==
[~2017-01-07 08:06] MED LIST changes: -LACTATED RINGERS 1,000 ML IV SCH; -LIDOCAINE 1% 20 ML VIAL (10MG/ML) FOR IV START INTRADERMA PRN; +ONDANSETRON 4 MG/2 ML VIAL IVP PRN; +SALT AND SODA MOUTHWASH 1,000 ML PO PRN
[2017-01-07] MEDS ORDERED: ALPRAZolam 0.5 MG TAB PO PRN (09:05)
[2017-01-07] MEDS ORDERED: LOPERAMIDE 2 MG CAP PO PRN (09:16)
[2017-01-07] MEDS ORDERED: MAGNESIUM HYDROXIDE 2,400 MG/10 ML CUP PO PRN (09:16)
[2017-01-07] MEDS ORDERED: DOCUSATE 100 MG CAP PO PRN (09:16)
[2017-01-07 09:51] LABS: Anisocytosis Slight; Basophils # (A) 0.1 k/uL (0-0.2); Basophils % (A) 1 %; CH 36.5; CHCM 34.3; Eosinophils # (A) 0.7 k/uL (0-0.7); Eosinophils % (A) 9 %; HCT 36.9 % (39.0-53.0); HDW 2.85; HGB 12.1 gm/dL (13.0-17.5); Luc # (Auto) 0.15; Luc % (Auto) 2; Lymphocytes % (A) 14 %; MCH 35.1 pg (25.0-35.0); MCHC 32.8 g/dL (31.0-37.0); MCV 106.9 fL (80.0-100.0); Macrocytosis Marked; Mean Platelet Volume 7.8; Monocytes # (A) 0.8 k/uL (0-1.0); Monocytes % (A) 11 %; Neutrophils # (A) 4.4 k/uL (1.3-7.7); Neutrophils % (A) 63 %; RBC 3.45 m/uL (4.30-5.90); RDW 18.1 % (11.5-15.5); WBC (Perox) 7.36
[2017-01-07 09:58] LABS: ALT 121 U/L (21-72); AST 57 U/L (17-59); Alkaline Phosphatase 73 U/L (38-126); Anion Gap 11 mmol/L; Blood Urea Nitrogen 16 mg/dL (9-20); Calcium 9.9 mg/dL (8.4-10.2); Carbon Dioxide 23 mmol/L (22-30); Chloride 104 mmol/L (98-107); Glucose 104 mg/dL (74-99); Non-African American GFR(MDRD) >60 (>60 ml/min/1.73 sqM); Potassium 4.5 mmol/L (3.5-5.1); Sodium 138 mmol/L (137-145); Total Bilirubin 0.5 mg/dL (0.2-1.3); Total Protein 6.8 g/dL (6.3-8.2)
[2017-01-07] MEDS: SODIUM CHLORIDE 0.9% 1,000 ML IV SCH ×3 (10:49→23:38)
[2017-01-07] MEDS: prednisoLONE ACETATE 1% OPHTH DROPS 5 ML BTL BOTH EYES SCH ×4 (10:59→21:57)
[2017-01-07 11:36] LABS: Manual Review Performed; RBC Morphology Normal
[2017-01-07] MEDS: CYTARABINE IV SCH ×2 (11:39→21:52)
[2017-01-07] MEDS: SODIUM CHLORIDE 0.9% IV SCH ×2 (11:39→21:52)
[2017-01-07] MEDS: SALT AND SODA MOUTHWASH 1,000 ML PO SCH ×2 (13:25→16:39)
[2017-01-07] MEDS ORDERED: ONDANSETRON 16 MG in SODIUM CHLORIDE 0.9% 50 ML IVPB SCH (15:00)
[2017-01-07] MEDS ORDERED: DEXAMETHASONE SOD PHOSPHATE 10 MG/ML 1 ML VIAL IV SCH (15:00)
[2017-01-07] MEDS ORDERED: FAMOTIDINE 20 MG/2 ML VIAL IV SCH (15:00)
--- NOTE | 2017-01-07 16:36 | P.HPIM ---
History of Present Illness H&P Date: 01/07/17 Chief Complaint: AML, admit for CIVI chemotherapy Mr. Shah is a very pleasant pt well know to our service, he unfortunately had recurrence of AML in October. Initial diagnosis was 10/12/15, cytogenetics showed inv(16), pt had initial induction with 7+3 regimen which put him in remission, then 4 cycles of consolidation completed 02/29/16. Treatment follow up bone marrow 07/03/16 was negative for disease. On routine lab draw in October pancytopenia was noted, bone marrow was done on 10/25/16 which unfortunately confirmed recurrent AML, specimen was 14% blasts, inv(16) positive , FLT3 and IDH negative. He had re-induction with FLAG-LEO regimen on 11/12/16, bone marrow on 12/06 confirmed 5-6% blast population, he is being admitted for 2nd consolidation while he awaits allogenic match for transplant. Pt admitted today with c/o of blisters under the dressing for his PICC, he admits to being active and sweating a lot, no s/s of infection, no pain or swelling, PICC was flushed with no issues. Pt deneis fever, oral irritation, appetite is good, no nausea, SOB, cough, palpitations, abd pain, indigestion, changes in bowel or bladder habits, swelling, pain or rash. Review of Systems 14 point ROS as stated in HPI, otherwise negative Past Medical History Past Medical History: Cancer, Hypertension Additional Past Medical History / Comment(s): 09/2015 Diagnosed with acute myeloid leukemia-has completed 5 rounds of chemotherapy in 2015 and was in remission, then relaps with chemo 10/2016 and here for another chemo session, picc line cellulitis, neutropenic sepsis unknown source, pancytopenia. History of Any Multi-Drug Resistant Organisms: None Reported Past Surgical History: Tonsillectomy Additional Past Surgical History / Comment(s): bone marrow bx 5, PICC line insertion R arm-discontinued and new picc in LFA. Past Anesthesia/Blood Transfusion Reactions: No Reported Reaction Additional Past Anesthesia/Blood Transfusion Reaction / Comment(s): Pt has received blood / platelets without reaction. Smoking Status: Never smoker - Past Family History Mother Family Medical History: Cancer Additional Family Medical History / Comment(s): Mother of lymphoma at the age of 49 yrs. Father Family Medical History: No Reported History Additional Family Medical History / Comment(s): Father is 74 yrs old and healthy. Medications and Allergies Home Medications Medication Instructions Recorded Confirmed Type Acetaminophen Tab [Tylenol] 325 mg PO Q4H PRN 12/30/16 01/07/17 History Losartan [Cozaar] 50 mg PO DAILY 12/30/16 01/07/17 History diphenhydrAMINE HCL [Benadryl] 25 mg PO QID PRN 12/30/16 01/07/17 History Allergies Allergy/AdvReac Type Severity Reaction Status Date / Time Penicillins Allergy Severe Rash/Hives Verified 01/07/17 09:52 amoxicillin Allergy Unknown Verified 01/07/17 09:52 fluconazole Allergy Rash/Hives Verified 01/07/17 09:52 micafungin [From Mycamine] Allergy Unknown Verified 01/07/17 09:52 Physical Exam Vitals: Vital Signs Temp Pulse Resp BP Pulse Ox 01/07/17 15:00 98.1 F 76 16 140/76 95 01/07/17 11:35 97.6 F 80 16 135/70 97 01/07/17 08:31 98.0 F 83 16 149/82 96 Intake and Output 01/07/17 01/07/17 01/07/17 06:59 14:59 22:59 Other: Weight 96 kg Patient Weight 01/08/17 06:59 Weight 96 kg - Constitutional General appearance: average body habitus, cooperative, no acute distress - EENT Eyes: anicteric sclerae, EOMI, PERRLA, normal appearance ENT: hearing grossly normal, normal oropharynx - Neck Neck: no lymphadenopathy - Respiratory Respiratory: bilateral: CTA - Cardiovascular Rhythm: regular Heart sounds: normal: S1, S2 Abnormal Heart Sounds: no systolic murmur, no diastolic murmur, no rub, no S3 Gallop, no S4 Gallop, no click, no other leg Peripheral Edema: bilateral: None - Gastrointestinal General gastrointestinal: no absent bowel sounds, no decreased bowel sounds, no distended, no hepatomegaly, no hyperactive bowel sounds, normal bowel sounds, no organomegaly, no rigid, no scaphoid, soft, no splenomegaly, no tenderness, no umbilical hernia, no ventral hernia - Integumentary LUE PICC dressing too tight causing blisters under the bandage, no other swelling, redness noted, no s/s infection at insertion site Integumentary: normal - Neurologic Neurologic: CNII-XII intact - Musculoskeletal Musculoskeletal: strength equal bilaterally - Psychiatric Psychiatric: A&O x's 3, appropriate affect, intact judgment & insight Results CBC & Chem 7: 01/07/17 09:29 01/07/17 09:29 Labs: Abnormal Lab Results - Last 24 Hours (Table) 01/07/17 01/07/17 Range/Units 09: 09:29 RBC 3.45 L (4.30-5.90) m/uL Hgb 12.1 L (13.0-17.5) gm/dL Hct 36.9 L (39.0-53.0) % MCV 106.9 H (80.0-100.0) fL MCH 35.1 H (25.0-35.0) pg RDW 18.1 H (11.5-15.5) % Plt Count 130 L (150-450) k/uL Glucose 104 H (74-99) mg/dL ALT 121 H (21-72) U/L Thrombosis Risk Factor Assmnt - DVT/VTE Prophylaxis DVT/VTE Prophylaxis: Pharmacologic Prophylaxis ordered - Choose All That Apply Any of the Below Risk Factors Present?: Yes Each Factor Represents 1 point: Age 41-60 years, Obesity (BMI >25) Other Risk Factors: Yes Each Risk Factor Represents 2 Points: Malignancy Other congenital or acquired thrombophilia - If yes, enter type in comment: No Thrombosis Risk Factor Assessment Total Risk Factor Score: 4 Thrombosis Risk Factor Assessment Level: Moderate Risk Assessment and Plan (1) 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 Chemo orders reviewed, labs daily, supportive meds. Status: Acute Plan: IM consulted for medical management GI/DVT prophylaxis
--- NOTE | 2017-01-07 18:22 | CONS ---
CONSULTATION DATE OF CONSULTATION: 01/07/17. REASON FOR CONSULTATION: Medical management requested by Dr. Garsia. CONSULTATION: This is a very pleasant, 51-year-old patient, who is admitted for chemotherapy. The patient follows with Dr. Garsia from Oncology and Dr. Maloney as PCP. The patient being treated for acute myeloid leukemia. Getting induction treatment. The patient was just in the hospital for PICC line that had to be changed from right upper extremity to the left side. It was felt by ID there was no underlying infection. Chemotherapy started today. REVIEW OF SYSTEMS: CONSTITUTIONAL: None. HEENT: None. RESPIRATORY: None. CARDIOVASCULAR: None. GASTROINTESTINAL: None. GENITOURINARY: None. MUSCULOSKELETAL: None. DERMATOLOGICAL: None HEMATOLOGIC: None. LYMPHATIC: None. PSYCHIATRY: None. NEUROLOGICAL. None. PAST MEDICAL HISTORY: Acute myeloid leukemia with relapse, hypertension. PAST SURGICAL HISTORY: Bone marrow biopsy. PICC line. SOCIAL HISTORY: , no smoking. Alcohol rarely. FAMILY HISTORY: Mother of lymphoma at age of 49. HOME MEDICATIONS: 1. Benadryl 25 mg q.i.d. p.r.n. 2. Cozaar 50 mg p.o. daily. 3. Tylenol 325 p.o. q.4 p.r.n. ALLERGIES: PENICILLIN, AMOXICILLIN, DIFLUCAN, MICAFUNGIN. PHYSICAL EXAMINATION: On examination temperature 97.6, pulse 86, respiratory rate 16, blood pressure 130/70, pulse ox 97% on room air. GENERAL APPEARANCE: Sitting up, comfortable. EYES: Pupils equal. Conjunctivae normal. HEENT: Oral cavity normal. NECK: JVD not raised. Mass not palpable. RESPIRATORY: Effort normal. Lungs are clear. CARDIOVASCULAR: First and second sounds. No edema. ABDOMEN: Soft, nontender. Liver and spleen not palpable. LYMPHATIC: No lymph node palpable in the neck or axillae. PSYCHIATRY: Alert and oriented x3. Mood and affect normal. EXTREMITIES: PICC line in the left arm. INVESTIGATION: White count 7, hemoglobin 12.1, platelets 130, potassium 4.5. ASSESSMENT: 1. Acute myeloid leukemia with relapse currently undergoing chemotherapy. 2. Essential hypertension. 3. Microcytic anemia, cause unknown. 4. Mild thrombocytopenia. PLAN: Continue with chemotherapy, keep a close eye on all cell lines. Follow up labs. Follow with Dr. Garsia. Patient's medications include IV Decadron and cytarabine. MMDEE / KIMN: [id number] /
[2017-01-08] MEDS: SODIUM CHLORIDE 0.9% 1,000 ML IV SCH ×4 (06:37→23:11)
[2017-01-08 06:47] LABS: Anisocytosis Slight; Basophils % (A) 0 %; CH 36.4; CHCM 34.1; Eosinophils % (A) 1 %; HCT 33.2 % (39.0-53.0); HDW 2.78; HGB 10.9 gm/dL (13.0-17.5); Luc # (Auto) 0.06; Luc % (Auto) 1; Lymphocytes # (A) 0.6 k/uL (1.0-4.8); Lymphocytes % (A) 7 %; MCH 35.2 pg (25.0-35.0); MCHC 32.8 g/dL (31.0-37.0); MCV 107.3 fL (80.0-100.0); Macrocytosis Marked; Monocytes # (A) 0.7 k/uL (0-1.0); Monocytes % (A) 7 %; Neutrophils # (A) 7.9 k/uL (1.3-7.7); Neutrophils % (A) 85 %; RBC 3.09 m/uL (4.30-5.90); RDW 18.2 % (11.5-15.5); WBC 9.3 k/uL (3.8-10.6); WBC (Perox) 9.84
[2017-01-08 07:00] LABS: ALT 100 U/L (21-72); AST 36 U/L (17-59); Alkaline Phosphatase 64 U/L (38-126); Anion Gap 7 mmol/L; Blood Urea Nitrogen 17 mg/dL (9-20); Calcium 8.9 mg/dL (8.4-10.2); Carbon Dioxide 23 mmol/L (22-30); Chloride 106 mmol/L (98-107); Glucose 105 mg/dL (74-99); Non-African American GFR(MDRD) >60 (>60 ml/min/1.73 sqM); Potassium 4.1 mmol/L (3.5-5.1); Sodium 136 mmol/L (137-145); Total Bilirubin 0.4 mg/dL (0.2-1.3); Total Protein 5.7 g/dL (6.3-8.2); Uric Acid 6.1 mg/dL (3.5-8.5)
[2017-01-08] MEDS: ENOXAPARIN 40 MG/0.4 ML SYRINGE SQ SCH (08:56)
[2017-01-08] MEDS: SALT AND SODA MOUTHWASH 1,000 ML PO SCH ×3 (08:56→18:15)
[2017-01-08] MEDS: prednisoLONE ACETATE 1% OPHTH DROPS 5 ML BTL BOTH EYES SCH ×4 (08:56→21:02)
[2017-01-08 10:13] LABS: Manual Review Performed
[2017-01-08] MEDS ORDERED: HYDROCORTISONE 1% CREAM 30 GM TUBE TOPICAL PRN (10:38)
--- NOTE | 2017-01-08 15:23 | P.PN ---
Progress Note - Text DATE OF SERVICE: 01/08/2017 PRESENTING COMPLAINT: Chemotherapy HISTORY OF PRESENT ILLNESS: This is a 51-year-old male admitted for chemotherapy, follows with Dr. Garsia of oncology has acute myeloid leukemia, getting induction treatment. INTERVAL HISTORY: 01/08/2017: Patient lying in bed appears comfortable. Receiving his chemotherapy treatment as ordered by oncology. Tolerating his diet eating 50-75% of each meal, ambulatory in the room. Last BM prior to admission. PICC line in the left upper arm did notice some blistering up underneath the dressing and around the external site, secondary to sweating due to physical activity prior to admission. hydrocortisone cream provided. REVIEW OF SYSTEMS: Done for constitutional ,cardiovascular, GI, pulmonary with relevant findings as above. CURRENT MEDICATIONS Xanax, cytarabine 4000 mg IV piggyback, dexamethasone, Lovenox, Pepcid, hydrocortisone cream, Imodium, Pred forte 1%, PHYSICAL EXAM VITAL SIGNS: Temperature 98.0, pulse 67, respiratory rate 18, blood pressure 130/60, oxygen saturation 97% on room air. GENERAL APPEARANCE: Lying in bed, not in distress. EYES: Pupils equal. Conjunctiva normal. NECK: JVD not raised. Mass not palpable. RESPIRATORY: Respiratory effort normal. Lungs clear to auscultation. CARDIOVASCULAR: First and second sounds normal. No edema. ABDOMEN: Soft. Liver and spleen not palpable. No tenderness. No mass palpable. PSYCHIATRY: Alert and oriented x3. Mood and affect normal. INTEGUMENT: Left upper arm PICC line with occlusive dressing redness and irritation noted to the surrounding skin very tiny blisters noted as well. INVESTIGATIONS: White blood cell count 9.3, hemoglobin 10.9, sodium 136, ALTs 100, ASSESSMENT: -Acute myeloid leukemia with relapse currently undergoing chemotherapy. -Essential hypertension. -Microcytic anemia cause unknown. -Mild thrombocytopenia, improving -Contact dermatitis secondary to occlusive dressing and perspiration, improving. PLAN: Continue current medication and treatment plan with the addition of hydrocortisone cream for the contact dermatitis. Plan of care discussed with the patient the bedside he is in agreement. We'll continue to follow closely. CLINICAL TECH statement: Patient was seen and examined by nurse practitioner Shelia Morgan and all elements of the case discussed with attending Dr. Burroughs
--- NOTE | 2017-01-08 15:24 | P.PN ---
Subjective Principal diagnosis: AML, CIVI chemotherapy Pt seen today in follow up. He is ok today, denies fever, oral irritation, nausea, indigestion, abd bloating, changes in bowel or bladder habits, he is ambulating, no cough, SOB, swelling, rash or pain. Appetite is ok, did not sleep well last night. PICC line site is better, blisters resolving spontaneously. Objective - Vital Signs Vital signs: Vital Signs Temp 98.0 F 01/08/17 07:00 Pulse 67 01/08/17 07:00 Resp 18 01/08/17 07:00 BP 130/80 01/08/17 07:00 Pulse Ox 97 01/08/17 07:00 Intake & Output 01/07/17 01/08/17 01/08/17 18:59 06:59 18:59 Intake Total 2029 2299 Balance 2029 2299 Weight 96 kg Intake: IV 2300 Cytarabine/Pf 4,000 mg 500 Cytarabine 500 mg In Sodium Chloride 0.9% 500 ml @ 188.333 mls/hr IV Q12H [facility] Rx#:[id number] Sodium Chloride 0.9% 1, 1800 000 ml @ 150 mls/hr IV . Q6H40M [facility] Rx#:[id number] Intake, IV Titration 1550 Amount Cytarabine/Pf 4,000 mg 500 Cytarabine 500 mg In Sodium Chloride 0.9% 500 ml @ 188.333 mls/hr IV Q12H [facility] Rx#:[id number] Ondansetron 16 mg In 50 Sodium Chloride 0.9% 50 ml @ 100 mls/hr IVPB Q48H [facility] Rx#:[id number] Sodium Chloride 0.9% 1, 1000 000 ml @ 150 mls/hr IV . Q6H40M [facility] Rx#:[id number] Oral 480 Other: Voiding Method Toilet # Voids 2 - Constitutional General appearance: Present: average body habitus, cooperative, no acute distress - EENT Eyes: Present: anicteric sclerae, EOMI, PERRLA ENT: Present: normal oropharynx - Neck Neck: Present: normal ROM. Absent: lymphadenopathy - Respiratory Respiratory: bilateral: CTA - Cardiovascular Rhythm: regular Heart sounds: normal: S1, S2 - Peripheral edema leg Peripheral Edema: bilateral: None - Gastrointestinal General gastrointestinal: Present: normal bowel sounds, soft. Absent: absent bowel sounds, decreased bowel sounds, distended, hepatomegaly, hyperactive bowel sounds, organomegaly, rigid, scaphoid, splenomegaly, tenderness, umbilical hernia, ventral hernia - Integumentary Integumentary: Present: normal - Neurologic Neurologic: Present: CNII-XII intact - Musculoskeletal Musculoskeletal: Present: strength equal bilaterally - Psychiatric Psychiatric: Present: A&O x's 3, appropriate affect, intact judgment & insight - Labs CBC & Chem 7: 01/08/17 06:25 01/08/17 06:25 Labs: Abnormal Lab Results - Last 24 Hours (Table) 01/08/17 01/08/17 Range/Units 06:25 06:25 RBC 3.09 L (4.30-5.90) m/uL Hgb 10.9 L (13.0-17.5) gm/dL Hct 33.2 L (39.0-53.0) % MCV 107.3 H (80.0-100.0) fL MCH 35.2 H (25.0-35.0) pg RDW 18.2 H (11.5-15.5) % Plt Count 107 L (150-450) k/uL Neutrophils # 7.9 H (1.3-7.7) k/uL Lymphocytes # 0.6 L (1.0-4.8) k/uL Sodium 136 L (137-145) mmol/L Glucose 105 H (74-99) mg/dL ALT 100 H (21-72) U/L Total Protein 5.7 L (6.3-8.2) g/dL Assessment and Plan (1) 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 Spoke with senior corporate accountant, pt tissue specimen is in process of being matched now. Chemo orders reviewed, labs daily, supportive meds continue as needed. Status: Acute Plan: IM consulted for medical management GI/DVT prophylaxis Pt encouraged to ambulate
--- NOTE | 2017-01-09 02:36 | PN ---
PROGRESS NOTE DATE OF SERVICE: January 08, 2017 ATTENDING NOTE: This patient seen and examined by me. I discussed with my nurse practitioner, Ms. Morgan. The patient getting chemotherapy for his AML Comfortable. EXAM: LUNGS: Clear. CARDIOVASCULAR: First and second sounds normal. Afebrile. White count 9.3, hemoglobin 10.9, platelets 107. ASSESSMENT: Patient getting chemotherapy for acute myelocytic anemia. Other medical conditions stable. Continue. MMODL / IJN: [id number] /
[2017-01-09] MEDS: SODIUM CHLORIDE 0.9% 1,000 ML IV SCH ×3 (03:38→19:40)
[2017-01-09 06:23] LABS: Anisocytosis Slight; Basophils % (A) 0 %; CH 35.9; CHCM 33.2; Eosinophils # (A) 0.3 k/uL (0-0.7); Eosinophils % (A) 9 %; HCT 31.5 % (39.0-53.0); HDW 2.78; HGB 10.5 gm/dL (13.0-17.5); Luc # (Auto) 0.05; Luc % (Auto) 2; Lymphocytes # (A) 0.4 k/uL (1.0-4.8); Lymphocytes % (A) 13 %; MCH 36.1 pg (25.0-35.0); MCHC 33.4 g/dL (31.0-37.0); MCV 108.2 fL (80.0-100.0); Macrocytosis Marked; Monocytes # (A) 0.3 k/uL (0-1.0); Monocytes % (A) 10 %; Neutrophils # (A) 1.9 k/uL (1.3-7.7); Neutrophils % (A) 67 %; RBC 2.91 m/uL (4.30-5.90); RDW 17.5 % (11.5-15.5); WBC 2.8 k/uL (3.8-10.6); WBC (Perox) 3.13
[2017-01-09 06:34] LABS: ALT 118 U/L (21-72); AST 56 U/L (17-59); Alkaline Phosphatase 53 U/L (38-126); Anion Gap 8 mmol/L; Blood Urea Nitrogen 14 mg/dL (9-20); Calcium 8.9 mg/dL (8.4-10.2); Carbon Dioxide 24 mmol/L (22-30); Chloride 108 mmol/L (98-107); Glucose 88 mg/dL (74-99); Non-African American GFR(MDRD) >60 (>60 ml/min/1.73 sqM); Potassium 4.2 mmol/L (3.5-5.1); Sodium 140 mmol/L (137-145); Total Bilirubin 0.6 mg/dL (0.2-1.3); Total Protein 5.7 g/dL (6.3-8.2); Uric Acid 5.4 mg/dL (3.5-8.5)
[2017-01-09 06:37] LABS: Manual Review Performed
[2017-01-09] MEDS: DEXAMETHASONE SOD PHOSPHATE 10 MG/ML 1 ML VIAL IV SCH (07:59)
[2017-01-09] MEDS: ONDANSETRON 16 MG in SODIUM CHLORIDE 0.9% 50 ML IVPB SCH (08:00)
[2017-01-09] MEDS: prednisoLONE ACETATE 1% OPHTH DROPS 5 ML BTL BOTH EYES SCH ×4 (08:00→22:52)
[2017-01-09] MEDS: FAMOTIDINE 20 MG/2 ML VIAL IV SCH (08:00)
[2017-01-09] MEDS: SALT AND SODA MOUTHWASH 1,000 ML PO SCH ×3 (08:00→17:32)
[2017-01-09] MEDS: ENOXAPARIN 40 MG/0.4 ML SYRINGE SQ SCH ×2 (08:12→08:13)
[2017-01-09] MEDS: SODIUM CHLORIDE 0.9% IV SCH ×2 (08:53→21:39)
[2017-01-09] MEDS: CYTARABINE IV SCH ×2 (08:53→21:39)
--- NOTE | 2017-01-09 15:39 | P.PN ---
Progress Note - Text DATE OF SERVICE: 01/09/2017 PRESENTING COMPLAINT: Chemotherapy HISTORY OF PRESENT ILLNESS: This is a 51-year-old male admitted for chemotherapy, follows with Dr. Garsia of oncology has acute myeloid leukemia, getting induction treatment. INTERVAL HISTORY: 01/09/2017: Patient lying in bed appears comfortable. Receiving his chemotherapy treatment as ordered by oncology. No nausea no diarrhea and no vomiting. Tolerating his diet eating just about 50% of each meal. Ambulatory in the room. Last BM 01/09. Left upper arm PICC line appears better particularly the skin around the dressing and under the dressing. 01/08/2017: Patient lying in bed appears comfortable. Receiving his chemotherapy treatment as ordered by oncology. Tolerating his diet eating 50-75% of each meal, ambulatory in the room. Last BM prior to admission. PICC line in the left upper arm did notice some blistering up underneath the dressing and around the external site, secondary to sweating due to physical activity prior to admission. hydrocortisone cream provided. REVIEW OF SYSTEMS: Done for constitutional ,cardiovascular, GI, pulmonary with relevant findings as above. CURRENT MEDICATIONS Xanax, cytarabine 4000 mg IV piggyback, dexamethasone, Lovenox, Pepcid, hydrocortisone cream, Imodium, Pred forte 1%, PHYSICAL EXAM VITAL SIGNS: Temp temperature 98.0, respirations 67, respirations 18, blood pressure 140/84, oxygen saturation 99% on room air. GENERAL APPEARANCE: Lying in bed, not in distress. EYES: Pupils equal. Conjunctiva normal. NECK: JVD not raised. Mass not palpable. RESPIRATORY: Respiratory effort normal. Lungs clear to auscultation. CARDIOVASCULAR: First and second sounds normal. No edema. ABDOMEN: Soft. Liver and spleen not palpable. No tenderness. No mass palpable. PSYCHIATRY: Alert and oriented x3. Mood and affect normal. INTEGUMENT: Left upper arm PICC line with occlusive dressing redness and irritation noted to the surrounding skin very tiny blisters noted as well although these are improving. INVESTIGATIONS: Labs: White blood cell count 2.8, hemoglobin 10.5, platelet count 97, ALTs 118 ASSESSMENT: -Acute myeloid leukemia with relapse currently undergoing chemotherapy. -Essential hypertension. -Microcytic anemia cause unknown. -Mild thrombocytopenia, improving -Contact dermatitis secondary to occlusive dressing and perspiration, improving. PLAN: Continue current medication and treatment plan with the addition of hydrocortisone cream for the contact dermatitis. Plan of care discussed with the patient the bedside he is in agreement. We'll continue to follow closely. AIRLINE MANAGERIAL SUPERVISOR statement: Patient was seen and examined by nurse practitioner Shelia Morgan and all elements of the case discussed with attending Dr. Burroughs
--- NOTE | 2017-01-09 19:45 | PN ---
PROGRESS NOTE DATE OF SERVICE: 01/09/2017 ATTENDING NOTE: This patient seen and examined by me. I discussed with my nurse practitioner, Ms. Morgan. The patient is here getting chemotherapy for acute myeloid leukemia. No nausea, no vomiting, no diarrhea. Tolerating a diet. No skin rash. No fever. EXAM: Afebrile, blood pressure 140/84, lungs are clear. CARDIOVASCULAR: First and second sounds normal. INVESTIGATIONS: White count 2.8, hemoglobin 10.5, platelets 97. ASSESSMENT: 1. The patient is getting chemotherapy for acute myeloid leukemia. 2. Pancytopenia from chemotherapy. Care was discussed. The patient doing better. Follow. MMODL / IJN: [id number] /
--- NOTE | 2017-01-09 23:49 | P.PN ---
Subjective The patient is on day 3 of high-dose cytarabine. He denies any new complaints Objective - Vital Signs Vital signs: Vital Signs Temp 98.3 F 01/09/17 22:33 Pulse 92 01/09/17 22:33 Resp 16 01/09/17 22:33 BP 112/75 01/09/17 22:33 Pulse Ox 95 01/09/17 22:33 Intake & Output 01/09/17 01/09/17 01/10/17 06:59 18:59 06:59 Intake Total 1790 590 Balance 1790 590 Weight 95.5 kg Intake: IV 1200 Sodium Chloride 0.9% 1, 1200 000 ml @ 150 mls/hr IV . Q6H40M [facility] Rx#:[id number] Oral 590 590 Other: Voiding Method Toilet # Voids 2 2 2 - Constitutional General appearance: Present: no acute distress - EENT Eyes: Present: EOMI, PERRLA ENT: Present: hearing grossly normal, normal oropharynx - Respiratory Respiratory: bilateral: CTA - Cardiovascular Rhythm: regular Heart sounds: normal: S1, S2 - Gastrointestinal General gastrointestinal: Present: normal bowel sounds, soft - Integumentary Integumentary: Present: normal - Neurologic Neurologic: Present: CNII-XII intact - Musculoskeletal Musculoskeletal: Present: strength equal bilaterally - Psychiatric Psychiatric: Present: A&O x's 3, appropriate affect - Labs CBC & Chem 7: 01/09/17 06:00 01/09/17 06:00 Labs: Abnormal Lab Results - Last 24 Hours (Table) 01/09/17 01/09/17 Range/Units 06:00 06:00 WBC 2.8 L (3.8-10.6) k/uL RBC 2.91 L (4.30-5.90) m/uL Hgb 10.5 L (13.0-17.5) gm/dL Hct 31.5 L (39.0-53.0) % MCV 108.2 H (80.0-100.0) fL MCH 36.1 H (25.0-35.0) pg RDW 17.5 H (11.5-15.5) % Plt Count 97 L (150-450) k/uL Lymphocytes # 0.4 L (1.0-4.8) k/uL Chloride 108 H (98-107) mmol/L ALT 118 H (21-72) U/L Total Protein 5.7 L (6.3-8.2) g/dL Albumin 3.3 L (3.5-5.0) g/dL Assessment and Plan (1) 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 He is currently on day 3. He is tolerating treatment well without any untoward side effects. Clinical exam and laboratory satisfactory. Continue treatment per protocol, with monitoring with clinical exams, and labs Status: Acute (2) Pancytopenia Narrative/Plan: This is due to chemotherapy. Drop in counts is occurring somewhat earlier than previous cycles, which is not unexpected. Counts are in a safe range. Continue to monitor and supplement as needed. Patient will start Neupogen on discharge Status: Acute
[2017-01-10] MEDS: SODIUM CHLORIDE 0.9% 1,000 ML IV SCH ×4 (03:00→23:04)
[2017-01-10 06:37] LABS: Anisocytosis Slight; Basophils % (A) 0 %; CH 35.9; CHCM 33.8; Eosinophils # (A) 0.1 k/uL (0-0.7); Eosinophils % (A) 2 %; HCT 28.9 % (39.0-53.0); HDW 2.83; HGB 9.7 gm/dL (13.0-17.5); Luc # (Auto) 0.02; Luc % (Auto) 0; Lymphocytes # (A) 0.2 k/uL (1.0-4.8); Lymphocytes % (A) 4 %; MCH 35.6 pg (25.0-35.0); MCHC 33.5 g/dL (31.0-37.0); MCV 106.3 fL (80.0-100.0); Mean Platelet Volume 7.3; Monocytes # (A) 0.3 k/uL (0-1.0); Monocytes % (A) 4 %; Neutrophils # (A) 5.1 k/uL (1.3-7.7); Neutrophils % (A) 89 %; RBC 2.72 m/uL (4.30-5.90); RDW 16.9 % (11.5-15.5); WBC 5.7 k/uL (3.8-10.6); WBC (Perox) 6.14
[2017-01-10 06:39] LABS: Macrocytosis Marked
[2017-01-10 06:46] LABS: ALT 106 U/L (21-72); AST 47 U/L (17-59); Alkaline Phosphatase 51 U/L (38-126); Anion Gap 8 mmol/L; Blood Urea Nitrogen 14 mg/dL (9-20); Carbon Dioxide 24 mmol/L (22-30); Chloride 107 mmol/L (98-107); Glucose 99 mg/dL (74-99); Non-African American GFR(MDRD) >60 (>60 ml/min/1.73 sqM); Potassium 3.9 mmol/L (3.5-5.1); Sodium 139 mmol/L (137-145); Total Bilirubin 0.9 mg/dL (0.2-1.3); Total Protein 5.4 g/dL (6.3-8.2); Uric Acid 4.8 mg/dL (3.5-8.5)
[2017-01-10] MEDS: ENOXAPARIN 40 MG/0.4 ML SYRINGE SQ SCH (09:27)
[2017-01-10] MEDS: SALT AND SODA MOUTHWASH 1,000 ML PO SCH ×3 (09:27→16:51)
[2017-01-10] MEDS: prednisoLONE ACETATE 1% OPHTH DROPS 5 ML BTL BOTH EYES SCH ×4 (09:27→22:06)
--- NOTE | 2017-01-10 15:49 | PN ---
PROGRESS NOTE DATE OF SERVICE: 01/10/2017 I am covering for Dr. Burroughs. This 51-year-old gentleman who was admitted for AML chemotherapy is being closely monitored. No chest pain. No palpitations. No fever. White count is 5.7 today. EXAM: On exam, alert and oriented x3. Pulse 62, blood pressure 130/82, respiration 18, temperature 97.7, pulse ox 97% on room air. HEENT: Conjunctivae normal. NECK: No jugular venous distention. CARDIOVASCULAR: S1, S2 muffled. RESPIRATORY: Breath sounds diminished at the bases. No rhonchi, no crackles. ABDOMEN: Soft, nontender. LEGS: No edema, no swelling. NERVOUS SYSTEM: No focal deficits. LABS: WBC 5.7, hemoglobin 9.7. ASSESSMENT: 1. Acute myeloid leukemia relapsed, on chemotherapy. 2. Essential hypertension. 3. Microcytic anemia. 4. Mild thrombocytopenia. 5. Contact dermatitis. RECOMMENDATIONS AND DISCUSSION: I recommend to continue current medications and continue symptomatic treatment. Repeat labs tomorrow. Continue the chemotherapy per Hematology/Oncology. Guarded prognosis because of multiple complex medical issues. Further recommendations to follow. MMODL / IJN: [id number] /
--- NOTE | 2017-01-10 16:44 | P.PN ---
Subjective Principal diagnosis: AML, CIVI chemotherapy Pt seen today in follow up. Patient denies fevers, chills, oral irritation, patient does have indigestion and mild nausea this a.m., he feels this is due to the entire medium pizza he ate last night, he does not feel like vomiting, has not vomited, no cough, dysuria, hematuria, no BM today but feels that he will later, no swelling in the extremities, rashes or pain. Patient is fully ambulatory without assistance. Objective - Vital Signs Vital signs: Vital Signs Temp 98 F 01/10/17 15:00 Pulse 63 01/10/17 15:00 Resp 20 01/10/17 15:00 BP 168/92 01/10/17 15:00 Pulse Ox 98 01/10/17 15:00 Intake & Output 01/09/17 01/10/17 01/10/17 18:59 06:59 18:59 Intake Total 2290 Balance 2290 Weight 95.5 kg Intake: IV 1200 Sodium Chloride 0.9% 1, 1200 000 ml @ 150 mls/hr IV . Q6H40M [facility] Rx#:[id number] Intake, IV Titration 500 Amount Cytarabine/Pf 4,000 mg 500 Cytarabine 500 mg In Sodium Chloride 0.9% 500 ml @ 188.333 mls/hr IV Q12H [facility] Rx#:[id number] Oral 590 Other: Voiding Method Toilet Toilet # Voids 2 3 2 - Constitutional General appearance: Present: average body habitus, cooperative, no acute distress - EENT Eyes: Present: anicteric sclerae, EOMI, normal appearance ENT: Present: normal oropharynx - Respiratory Respiratory: bilateral: CTA - Cardiovascular Rhythm: regular Heart sounds: normal: S1, S2 Abnormal Heart Sounds: Absent: systolic murmur, diastolic murmur, rub, S3 Gallop , S4 Gallop, click, other - Peripheral edema leg Peripheral Edema: bilateral: None - Gastrointestinal General gastrointestinal: Present: normal bowel sounds, soft - Integumentary Integumentary: Present: normal - Neurologic Neurologic: Present: CNII-XII intact - Musculoskeletal Musculoskeletal: Present: strength equal bilaterally - Psychiatric Psychiatric: Present: A&O x's 3, appropriate affect, intact judgment & insight - Labs CBC & Chem 7: 01/10/17 06:12 01/10/17 06:12 Labs: Abnormal Lab Results - Last 24 Hours (Table) 01/10/17 01/10/17 Range/Units 06:12 06:12 RBC 2.72 L (4.30-5.90) m/uL Hgb 9.7 L (13.0-17.5) gm/dL Hct 28.9 L (39.0-53.0) % MCV 106.3 H (80.0-100.0) fL MCH 35.6 H (25.0-35.0) pg RDW 16.9 H (11.5-15.5) % Plt Count 94 L (150-450) k/uL Lymphocytes # 0.2 L (1.0-4.8) k/uL ALT 106 H (21-72) U/L Total Protein 5.4 L (6.3-8.2) g/dL Albumin 3.2 L (3.5-5.0) g/dL Assessment and Plan (1) 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 Chemo orders reviewed, labs daily, supportive meds continue as needed. Status: Acute Plan: IM consulted for medical management GI/DVT prophylaxis
[2017-01-11] MEDS: SODIUM CHLORIDE 0.9% 1,000 ML IV SCH ×2 (05:10→18:06)
[2017-01-11 06:11] LABS: Anisocytosis Slight; Basophils % (A) 1 %; CH 36.9; Eosinophils # (A) 0.3 k/uL (0-0.7); Eosinophils % (A) 7 %; HCT 28.5 % (39.0-53.0); HDW 2.79; HGB 9.9 gm/dL (13.0-17.5); Luc # (Auto) 0.03; Luc % (Auto) 1; Lymphocytes # (A) 0.1 k/uL (1.0-4.8); Lymphocytes % (A) 3 %; MCH 36.8 pg (25.0-35.0); MCHC 34.9 g/dL (31.0-37.0); MCV 105.7 fL (80.0-100.0); Macrocytosis Moderate; Mean Platelet Volume 8.1; Monocytes # (A) 0.1 k/uL (0-1.0); Monocytes % (A) 3 %; Neutrophils % (A) 86 %; RDW 16.9 % (11.5-15.5); WBC 4.6 k/uL (3.8-10.6); WBC (Perox) 4.57
[2017-01-11 06:16] LABS: ALT 165 U/L (21-72); AST 89 U/L (17-59); Alkaline Phosphatase 54 U/L (38-126); Anion Gap 7 mmol/L; Blood Urea Nitrogen 12 mg/dL (9-20); Calcium 8.8 mg/dL (8.4-10.2); Carbon Dioxide 25 mmol/L (22-30); Chloride 107 mmol/L (98-107); Glucose 89 mg/dL (74-99); Non-African American GFR(MDRD) >60 (>60 ml/min/1.73 sqM); Potassium 3.9 mmol/L (3.5-5.1); Sodium 139 mmol/L (137-145); Total Bilirubin 0.5 mg/dL (0.2-1.3); Total Protein 5.4 g/dL (6.3-8.2)
[2017-01-11] MEDS: DEXAMETHASONE SOD PHOSPHATE 10 MG/ML 1 ML VIAL IV SCH (08:54)
[2017-01-11] MEDS: ENOXAPARIN 40 MG/0.4 ML SYRINGE SQ SCH (08:55)
[2017-01-11] MEDS: ONDANSETRON 16 MG in SODIUM CHLORIDE 0.9% 50 ML IVPB SCH (08:55)
[2017-01-11] MEDS: prednisoLONE ACETATE 1% OPHTH DROPS 5 ML BTL BOTH EYES SCH ×4 (08:55→21:48)
[2017-01-11] MEDS: FAMOTIDINE 20 MG/2 ML VIAL IV SCH (08:55)
[2017-01-11] MEDS: SALT AND SODA MOUTHWASH 1,000 ML PO SCH ×3 (08:55→18:05)
[2017-01-11] MEDS: CYTARABINE IV SCH ×2 (09:49→21:43)
[2017-01-11] MEDS: SODIUM CHLORIDE 0.9% IV SCH ×2 (09:49→21:43)
--- NOTE | 2017-01-11 14:52 | P.PN ---
Subjective Principal diagnosis: AML, CIVI chemotherapy Patient seen today in follow-up. Patient denies any acute physical complaints, denies fevers, oral irritation, vomiting, mild indigestion, no cough, dyspnea on exertion, dysuria, stool was soft this a.m., denies pain, swelling or rash, patient is fully ambulatory independently. Objective - Vital Signs Vital signs: Vital Signs Temp 98.4 F 01/11/17 07:00 Pulse 65 01/11/17 07:00 Resp 16 01/11/17 07:00 BP 154/80 01/11/17 07:00 Pulse Ox 97 01/11/17 07:00 Intake & Output 01/10/17 01/11/17 01/11/17 18:59 06:59 18:59 Intake Total 2870 Balance 2870 Weight 95.5 kg Intake: IV 1800 Sodium Chloride 0.9% 1, 1800 000 ml @ 150 mls/hr IV . Q6H40M [facility] Rx#:[id number] Oral 1070 Other: Voiding Method Toilet Toilet Toilet # Voids 2 2 - Constitutional General appearance: Present: average body habitus, cooperative, no acute distress - EENT Eyes: Present: anicteric sclerae, PERRLA ENT: Present: normal oropharynx - Respiratory Respiratory: bilateral: CTA - Cardiovascular Rhythm: regular Heart sounds: normal: S1, S2 Abnormal Heart Sounds: Absent: systolic murmur, diastolic murmur, rub, S3 Gallop , S4 Gallop, click, other - Peripheral edema leg Peripheral Edema: bilateral: None - Gastrointestinal General gastrointestinal: Present: normal bowel sounds, soft - Integumentary Integumentary: Present: normal - Neurologic Neurologic: Present: CNII-XII intact - Musculoskeletal Musculoskeletal: Present: strength equal bilaterally - Psychiatric Psychiatric: Present: A&O x's 3, appropriate affect, intact judgment & insight - Labs CBC & Chem 7: 01/11/17 05:15 01/11/17 05:15 Labs: Abnormal Lab Results - Last 24 Hours (Table) 01/11/17 01/11/17 Range/Units 05:15 05:15 RBC 2.70 L (4.30-5.90) m/uL Hgb 9.9 L (13.0-17.5) gm/dL Hct 28.5 L (39.0-53.0) % MCV 105.7 H (80.0-100.0) fL MCH 36.8 H (25.0-35.0) pg RDW 16.9 H (11.5-15.5) % Plt Count 94 L (150-450) k/uL Lymphocytes # 0.1 L (1.0-4.8) k/uL AST 89 H (17-59) U/L ALT 165 H (21-72) U/L Total Protein 5.4 L (6.3-8.2) g/dL Albumin 3.2 L (3.5-5.0) g/dL Assessment and Plan (1) 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 Chemo orders reviewed, labs daily, supportive meds continue as needed. Status: Acute Plan: Patient will be completing treatment later on today. He has tolerated treatment well. Plans are for discharge in the a.m. after labs and exam
--- NOTE | 2017-01-11 17:23 | PN ---
PROGRESS NOTE DATE OF SERVICE: 01/11/2017 I am covering for Dr. Manjeet COLLINS HISTORY: This 51-year-old gentleman was admitted with AML, is receiving chemotherapy. No chest pain. No palpitations. No fever. LFTs are slightly elevated. EXAM: On exam, alert, oriented x4. Pulse 70, blood pressure 158/93, respirations 16, temperature 98.2, pulse ox 98% room air. HEENT: Conjunctivae normal. NECK: No jugular venous distention. CARDIOVASCULAR: S1, S2 RESPIRATORY: Breath sounds diminished in the bases. No rhonchi, no crackles. ABDOMEN: Soft, nontender. LEGS: No edema. NERVOUS SYSTEM: No focal deficits. LABS: WBC 4.2, hemoglobin 9.9, MCV 105.7. ASSESSMENT: 1. Acute myeloid leukemia relapsed on chemotherapy. 2. History hypertension. 3. Microcytic anemia. 4. Thrombocytopenia. 5. Contact dermatitis history. 6. Increased LFTs, AST, ALT. RECOMMENDATIONS AND DISCUSSION: I recommend to continue the current medications and symptomatic treatment, otherwise at this time I recommend to monitor the LFTs closely. White count is still normal. Chemotherapy per Hematology-Oncology. Outpatient follow up with the primary physician. Further recommendations to follow. MMODL / IJN: [id number] /
[2017-01-11] MEDS ORDERED: diphenhydrAMINE 25 MG CAP PO STA (17:41)
[2017-01-12 04:31] VITALS: TEMP 97.9
[2017-01-12] MEDS: SODIUM CHLORIDE 0.9% 1,000 ML IV SCH ×2 (05:16→06:16)
[2017-01-12 06:20] LABS: Anisocytosis Slight; Basophils % (A) 0 %; CH 36.8; CHCM 35.4; Eosinophils # (A) 0.2 k/uL (0-0.7); Eosinophils % (A) 4 %; HCT 21.3 % (39.0-53.0); HDW 2.93; Luc # (Auto) 0; Luc % (Auto) 0; Lymphocytes # (A) 0.1 k/uL (1.0-4.8); Lymphocytes % (A) 3 %; MCH 36.2 pg (25.0-35.0); MCHC 34.9 g/dL (31.0-37.0); Macrocytosis Moderate; Mean Platelet Volume 7.1; Monocytes # (A) 0.1 k/uL (0-1.0); Monocytes % (A) 2 %; Neutrophils # (A) 3.8 k/uL (1.3-7.7); Neutrophils % (A) 90 %; RBC 2.05 m/uL (4.30-5.90); RDW 16.2 % (11.5-15.5); WBC 4.3 k/uL (3.8-10.6); WBC (Perox) 4.43
[2017-01-12 06:24] LABS: ALT 97 U/L (21-72); AST 33 U/L (17-59); Alkaline Phosphatase 41 U/L (38-126); Anion Gap 5 mmol/L; Blood Urea Nitrogen 9 mg/dL (9-20); Carbon Dioxide 18 mmol/L (22-30); Chloride 118 mmol/L (98-107); Glucose 77 mg/dL (74-99); Non-African American GFR(MDRD) >60 (>60 ml/min/1.73 sqM); Sodium 141 mmol/L (137-145); Total Bilirubin 0.7 mg/dL (0.2-1.3); Total Protein 4.2 g/dL (6.3-8.2); Uric Acid 3.5 mg/dL (3.5-8.5)
[2017-01-12 06:30] LABS: Calcium 6.6 mg/dL (8.4-10.2)
[2017-01-12 06:34] LABS: Potassium 2.7 mmol/L (3.5-5.1)
[2017-01-12 06:40] LABS: HGB 7.4 gm/dL (13.0-17.5)
[2017-01-12 08:50] VITALS: BP 171/99; PULSE 70; RESP 18
[2017-01-12 09:20] LABS: Basophils % (A) 0 %; CH 36.2; CHCM 34.7; Eosinophils # (A) 0.3 k/uL (0-0.7); Eosinophils % (A) 4 %; HCT 32.4 % (39.0-53.0); Luc # (Auto) 0.01; Luc % (Auto) 0; Lymphocytes # (A) 0.1 k/uL (1.0-4.8); Lymphocytes % (A) 2 %; MCH 35.9 pg (25.0-35.0); MCHC 34.4 g/dL (31.0-37.0); MCV 104.5 fL (80.0-100.0); Macrocytosis Moderate; Mean Platelet Volume 6.7; Monocytes # (A) 0.1 k/uL (0-1.0); Monocytes % (A) 2 %; Neutrophils # (A) 5.8 k/uL (1.3-7.7); Neutrophils % (A) 92 %; RDW 15.9 % (11.5-15.5); WBC 6.3 k/uL (3.8-10.6); WBC (Perox) 6.67
[2017-01-12] MEDS: SALT AND SODA MOUTHWASH 1,000 ML PO SCH (09:20)
[2017-01-12] MEDS: prednisoLONE ACETATE 1% OPHTH DROPS 5 ML BTL BOTH EYES SCH (09:20)
[2017-01-12] MEDS: ENOXAPARIN 40 MG/0.4 ML SYRINGE SQ SCH (09:20)
[2017-01-12 09:33] LABS: Anion Gap 11 mmol/L; Blood Urea Nitrogen 14 mg/dL (9-20); Carbon Dioxide 24 mmol/L (22-30); Chloride 105 mmol/L (98-107); Glucose 103 mg/dL (74-99); Non-African American GFR(MDRD) >60 (>60 ml/min/1.73 sqM); Potassium 3.8 mmol/L (3.5-5.1); Sodium 140 mmol/L (137-145)
[2017-01-12 09:34] LABS: HGB 11.1 gm/dL (13.0-17.5)
[2017-01-12 09:57] LABS: Manual Review Performed
--- NOTE | 2017-01-12 09:59 | P.DS ---
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 Pt did well with treatment, maintained appetite and energy levels, he remained active, no fevers, mild indigestion, no oral irritation, vomiting, changes in bladder habits, 1 diarrhea episode, no bleeding, swelling or pain. He did get rash on the flanks after shower, this is mild today, mildly puritic, benadryl helps. No other c/o, questions or concerns. He will administer neupogen at home starting tomorrow night, he has f/u in office in 2 days. He feels ready to go home. He received a call from BMT team and he has matches so , he will proceed to transplant in the next 3-4 weeks! Pertinent Studies: none Procedures: none Patient Condition at Discharge: Stable Plan - Discharge Summary New Discharge Prescriptions: New Filgrastim Sndz [Neupogen] 480 mcg IJ DAILY #10 ml Levofloxacin [Levaquin] 500 mg PO DAILY #14 tab No Action diphenhydrAMINE HCL [Benadryl] 25 mg PO QID PRN PRN Reason: Allergy Symptoms Losartan [Cozaar] 50 mg PO DAILY Acetaminophen Tab [Tylenol] 325 mg PO Q4H PRN PRN Reason: Fever And/ Or Pain Discharge Medication List Acetaminophen Tab [Tylenol] 325 mg PO Q4H PRN 12/30/16 [History] Losartan [Cozaar] 50 mg PO DAILY 12/30/16 [History] diphenhydrAMINE HCL [Benadryl] 25 mg PO QID PRN 12/30/16 [History] Filgrastim Sndz [Neupogen] 480 mcg IJ DAILY #10 ml 01/11/17 [Rx] Levofloxacin [Levaquin] 500 mg PO DAILY #14 tab 09/29/17 [Rx] Follow up Appointment(s)/Referral(s): Richard Garsia MD [STAFF PHYSICIAN] - 01/14/17 8:00 am Activity/Diet/Wound Care/Special Instructions: Activity as tolerated Diet as tolerated Oral care [place] fluids Discharge Disposition: HOME SELF-CARE Pending Studies Pending Results: none
== END 2017-01-12 10:15 | disposition home or self-care (01) | DRG 837 ==
LOC: 5ONC 08:06
PROVIDERS: ADMIT Internal Medicine Hematology & Oncology; ATTEND Internal Medicine Hematology & Oncology
DX: Z51.11 Encounter for antineoplastic chemotherapy (principal); D61.810 Antineoplastic chemotherapy induced pancytopenia; C92.02 Acute myeloblastic leukemia, in relapse; Z76.82 Awaiting organ transplant status; D50.9 Iron deficiency anemia, unspecified; I10 Essential (primary) hypertension; L25.9 Unspecified contact dermatitis, unspecified cause; T45.1X5A Adverse effect of antineoplastic and immunosuppressive drugs, initial encounter; Z79.899 Other long term (current) drug therapy; Z88.0 Allergy status to penicillin; Z88.8 Allergy status to other drugs, medicaments and biological substances; Z80.7 Family history of other malignant neoplasms of lymphoid, hematopoietic and related tissues
CPT/HCPCS: 80048; 80053; 84550; 85025

== ENCOUNTER 2017-01-17 20:46 | Observation (INO) | payer OTHER ==
--- NOTE | 2017-01-17 21:17 | ED ---
Recheck HPI - General Chief Complaint: Recheck/Abnormal Lab/Rx Stated Complaint: Pic Line Bleed/Low Platelets Time Seen by Provider: 01/17/17 21:06 Source: patient, RN notes reviewed, old records reviewed Mode of arrival: ambulatory Limitations: no limitations - History of Present Illness Initial Comments: His is a 51-year-old patient of Dr. Arriaga from oncology chief complaint of bleeding from his PICC line from his left upper arm.. Patient has a history of AML. Patient reports that he had his platelets checked yesterday and it was 30, 000. Patient reports that today he looked down his PICC line dressing and noticed it started bleeding. He reports that whenever his platelets coloanal started on take spontaneous bleed. He reports he's had no fever or chills. Denies any trauma to the arm that caused the bleeding. Denies any nausea, vomiting, chest pain, shortness of breath. reports his last set of chemo was on Saturday. - Related Data Home Medications Medication Instructions Recorded Confirmed methylPREDNISolone Dose Pack See Taper PO DIRECTED 01/17/17 01/17/17 [Medrol Dose Pack] Previous Rx's Medication Instructions Recorded Filgrastim Sndz [Neupogen] 480 mcg IJ DAILY #10 ml 01/11/17 Allergies Allergy/AdvReac Type Severity Reaction Status Date / Time Penicillins Allergy Severe Rash/Hives Verified 01/17/17 21:11 amoxicillin Allergy Unknown Verified 01/17/17 21:11 fluconazole Allergy Rash/Hives Verified 01/17/17 21:11 micafungin [From Mycamine] Allergy Unknown Verified 01/17/17 21:11 Review of Systems ROS Statement: Those systems with pertinent positive or pertinent negative responses have been documented in the HPI. ROS Other: All systems not noted in ROS Statement are negative. Past Medical History Past Medical History: Cancer, Hypertension Additional Past Medical History / Comment(s): 09/2015 Diagnosed with acute myeloid leukemia-has completed 5 rounds of chemotherapy in 2015 and was in remission, then relaps with chemo 10/2016 and here for another chemo session, picc line cellulitis, neutropenic sepsis unknown source, pancytopenia. History of Any Multi-Drug Resistant Organisms: None Reported Past Surgical History: Tonsillectomy Additional Past Surgical History / Comment(s): bone marrow bx 5, PICC line insertion R arm-discontinued and new picc in LFA. Past Anesthesia/Blood Transfusion Reactions: No Reported Reaction Additional Past Anesthesia/Blood Transfusion Reaction / Comment(s): Pt has received blood / platelets without reaction. Past Psychological History: No Psychological Hx Reported Smoking Status: Never smoker Past Alcohol Use History: None Reported Past Drug Use History: None Reported - Past Family History Mother Family Medical History: Cancer Additional Family Medical History / Comment(s): Mother of lymphoma at the age of 49 yrs. Father Family Medical History: No Reported History Additional Family Medical History / Comment(s): Father is 74 yrs old and healthy. General Exam - General Exam Comments Initial Comments: This is a 51-year-old male. No acute distress. Limitations: no limitations General appearance: alert, in no apparent distress Head exam: Present: atraumatic, normocephalic, normal inspection Eye exam: Present: normal appearance, PERRL, EOMI. Absent: scleral icterus, conjunctival injection, periorbital swelling ENT exam: Present: normal exam, mucous membranes moist Neck exam: Present: normal inspection. Absent: tenderness, meningismus, lymphadenopathy Respiratory exam: Present: normal lung sounds bilaterally. Absent: respiratory distress, wheezes, rales, rhonchi, stridor Cardiovascular Exam: Present: regular rate, normal rhythm, normal heart sounds. Absent: systolic murmur, diastolic murmur, rubs, gallop, clicks GI/Abdominal exam: Present: soft, normal bowel sounds. Absent: distended, tenderness, guarding, rebound, rigid Extremities exam: Present: normal inspection, full ROM, normal capillary refill , other (Patient has a PICC line in the left upper arm. There is some bleeding around the gauze underneath it.). Absent: tenderness, pedal edema, joint swelling, calf tenderness Back exam: Present: normal inspection Neurological exam: Present: alert, oriented X3, CN II-XII intact Psychiatric exam: Present: normal affect, normal mood Skin exam: Present: warm, dry, intact, normal color. Absent: rash Course Vital Signs 01/17/17 01/17/17 20:51 22:35 Temperature 99 F 97.9 F Pulse Rate 92 70 Respiratory 16 18 Rate Blood Pressure 151/77 138/77 O2 Sat by Pulse 100 100 Oximetry Medical Decision Making - Medical Decision Making This is a 51 -year-old male with history of AML chief complaint of bleeding from his PICC line. Patient has no other symptoms besides the bleeding. Denies any fever or chills. He reports that Was functionally he used earlier today. Patient is currently being managed by Dr. Garsia. Patient warts whenever he has been significant bleeding his platelets dropped to 74. Yesterday his platelets were 30,000. Today they are 11. Patient reports that he has to have irradiated platelets. At this time I did contact the blood bank and they will be sending him over. It will take a few hours for patient to be able to receive the platelets. We discussed this with Dr. Garsia. Patient will be admitted to observation in order to receive his platelet infusion. - Lab Data Result diagrams: 01/17/17 21:10 01/17/17 21:10 Lab Results 01/17/17 01/17/17 01/17/17 Range/Units 21:10 21:10 22:43 WBC 0.7 L* (3.8-10.6) k/uL RBC 2.52 L (4.30-5.90) m/uL Hgb 9.2 L D (13.0-17.5) gm/dL Hct 25.8 L (39.0-53.0) % MCV 102.2 H (80.0-100.0) fL MCH 36.5 H (25.0-35.0) pg MCHC 35.7 (31.0-37.0) g/dL RDW 14.6 (11.5-15.5) % Plt Count 11 L* D (150-450) k/uL Differential Comment Manual Slide Review Performed Macrocytosis Slight Spherocytes Present Sodium 137 (137-145) mmol/L Potassium 3.8 (3.5-5.1) mmol/L Chloride 105 (98-107) mmol/L Carbon Dioxide 22 (22-30) mmol/L Anion Gap 10 mmol/L BUN 24 H (9-20) mg/dL Creatinine 0.70 (0.66-1.25) mg/dL Est GFR (MDRD) Af Amer >60 (>60 ml/min/1.73 sqM) Est GFR (MDRD) Non-Af >60 (>60 ml/min/1.73 sqM) Glucose 114 H (74-99) mg/dL Calcium 9.0 (8.4-10.2) mg/dL Blood Type O Positive Blood Type Recheck No Antibody Screen NEGATIVE Transfuse Platelets 01/17/17 Spec Expiration Date 01/20/2017 - 3706 Disposition Clinical Impression: Leukemia, Pancytopenia, Bleeding from PICC line Disposition: ADMITTED IP TO THIS HOSP Condition: Good Referrals: Mena Maloney DO [Primary Care Provider] - 1-2 days Time of Disposition: 23:24
[2017-01-17 21:38] LABS: CH 37.1; CHCM 36.3; HCT 25.8 % (39.0-53.0); HDW 3.06; MCH 36.5 pg (25.0-35.0); MCHC 35.7 g/dL (31.0-37.0); MCV 102.2 fL (80.0-100.0); Macrocytosis Slight; Mean Platelet Volume 6.2; RBC 2.52 m/uL (4.30-5.90); RDW 14.6 % (11.5-15.5); WBC (Perox) 0.77
[2017-01-17 21:46] LABS: Anion Gap 10 mmol/L; Blood Urea Nitrogen 24 mg/dL (9-20); Carbon Dioxide 22 mmol/L (22-30); Chloride 105 mmol/L (98-107); Glucose 114 mg/dL (74-99); Non-African American GFR(MDRD) >60 (>60 ml/min/1.73 sqM); Potassium 3.8 mmol/L (3.5-5.1); Sodium 137 mmol/L (137-145)
[2017-01-17 21:48] LABS: WBC 0.7 k/uL (3.8-10.6)
[2017-01-17 21:49] LABS: HGB 9.2 gm/dL (13.0-17.5)
[2017-01-17 21:52] LABS: Add Differential Manual Differential; Manual Review Performed
[2017-01-17 21:53] LABS: Spherocytes Present
[2017-01-17] MEDS ORDERED: SODIUM CHLORIDE 0.9% 1,000 ML IV ONE (22:20)
[2017-01-17] MEDS ORDERED: ACETAMINOPHEN TAB 325 MG TAB PO PRN (23:25)
[2017-01-17] MEDS ORDERED: NALOXONE 0.4 MG/ML 1 ML VIAL IV PRN (23:25)
[2017-01-17] MEDS ORDERED: MORPHINE SULFATE 4 MG/ML SYRINGE IV PRN (23:25)
[2017-01-17] MEDS ORDERED: ONDANSETRON 4 MG/2 ML VIAL IVP PRN (23:25)
[2017-01-17] MEDS ORDERED: IBUPROFEN 400 MG TAB PO PRN (23:25)
[2017-01-18 00:16] VITALS: RESP 16
[2017-01-18 01:10] VITALS: BMI 27.5
[2017-01-18] MEDS: SODIUM CHLORIDE 0.9% 1,000 ML IV SCH ×2 (04:03→10:44)
[2017-01-18 05:40] VITALS: BP 134/70; PULSE 70; TEMP 97
[2017-01-18 08:07] LABS: CH 36.7; CHCM 34.7; HCT 22.7 % (39.0-53.0); HDW 3.14; HGB 7.9 gm/dL (13.0-17.5); MCHC 34.9 g/dL (31.0-37.0); MCV 105.8 fL (80.0-100.0); Macrocytosis Moderate; Mean Platelet Volume 7.4; RBC 2.14 m/uL (4.30-5.90); RDW 14.2 % (11.5-15.5); WBC (Perox) 0.32
[2017-01-18 08:13] LABS: WBC 0.3 k/uL (3.8-10.6)
[2017-01-18 08:36] LABS: Add Differential Manual Differential
[2017-01-18] MEDS ORDERED: FILGRASTIM-SNDZ 480 MCG/0.8 ML SYRINGE SQ SCH (09:00)
--- NOTE | 2017-01-18 18:02 | P.HPIM ---
History of Present Illness H&P Date: 01/18/17 (observation note) Chief Complaint: Bleeding from PICC line insertion site Mr. Shah is a very pleasant, well known patient of ours, currently receiving treatment for AML, awaiting bone marrow transplant. Patient just had cycle of treatment just over week ago, he has been doing his CBC follow-ups as appropriate. Last evening patient was at home when he noticed blood oozing from his PICC line insertion site. Patient came to the emergency room, his platelets were found to be 11,000, he was transfused with platelets, his platelets are 23,000 today, the bleeding has significantly slowed down. Patient 's white count is 0.3 he is administering growth factors at home, hemoglobin is stable at 7.9. Patient denies any complaints, no fevers, chills, he is tolerating oral intake well, no nausea or vomiting, shortness of breath or cough , abdominal pain, changes in bowel or bladder habits, no other bleeding to report, denies weakness, swelling or pain. Patient is anxious to be discharged to home. Review of Systems 14 point review of systems is negative Past Medical History Past Medical History: Cancer, Hypertension Additional Past Medical History / Comment(s): 09/2015 Diagnosed with acute myeloid leukemia-has completed 5 rounds of chemotherapy in 2015 and was in remission, then relaps with chemo 10/2016 and here for another chemo session, picc line cellulitis R arm, neutropenic sepsis unknown source, pancytopenia. History of Any Multi-Drug Resistant Organisms: None Reported Past Surgical History: Tonsillectomy Additional Past Surgical History / Comment(s): bone marrow bx 5, PICC line insertion R arm-discontinued and new picc in LFA. Past Anesthesia/Blood Transfusion Reactions: No Reported Reaction Additional Past Anesthesia/Blood Transfusion Reaction / Comment(s): Pt has received blood / platelets without reaction. Past Psychological History: No Psychological Hx Reported Additional Psychological History / Comment(s): Pt resides with his spouse. He is independent. Works in manufacturing. No experience. No international travel. 2 pet cats he does not take care of the boxes. No tobacco use. No significant alcohol use or recreational drug use Smoking Status: Never smoker Past Alcohol Use History: None Reported Past Drug Use History: None Reported - Past Family History Mother Family Medical History: Cancer Additional Family Medical History / Comment(s): Mother of lymphoma at the age of 49 yrs. Father Family Medical History: No Reported History Additional Family Medical History / Comment(s): Father is 75yrs old and healthy. Medications and Allergies Home Medications Medication Instructions Recorded Confirmed Type Filgrastim Sndz [Neupogen] 480 mcg IJ DAILY #10 ml 01/11/17 01/17/17 Rx methylPREDNISolone Dose Pack See Taper PO DIRECTED 01/17/17 01/17/17 History [Medrol Dose Pack] Allergies Allergy/AdvReac Type Severity Reaction Status Date / Time Penicillins Allergy Severe Rash/Hives Verified 01/17/17 21:11 amoxicillin Allergy Unknown Verified 01/17/17 21:11 fluconazole Allergy Rash/Hives Verified 01/17/17 21:11 micafungin [From Mycamine] Allergy Unknown Verified 01/17/17 21:11 Physical Exam Vitals: Vital Signs Temp Pulse Pulse Resp BP BP Pulse Ox 01/18/17 05:39 97.0 F L 70 16 134/70 99 01/18/17 02:20 97.1 F L 62 16 116/72 100 01/18/17 01:19 97.4 F L 67 16 126/79 99 01/18/17 00:49 97.8 F 70 16 120/72 01/18/17 00:39 98.2 F 78 16 152/89 100 01/18/17 00:30 98.2 F 78 16 152/89 100 01/18/17 00:15 98.5 F 78 16 124/70 99 01/17/17 23:49 98.2 F 78 16 152/89 01/17/17 22:35 97.9 F 70 18 138/77 100 01/17/17 20:51 99 F 92 16 151/77 100 Intake and Output 01/18/17 01/18/17 01/18/17 06:59 14:59 22:59 Intake Total 1126 Balance 1126 Intake: Intake, IV Titration 600 Amount Sodium Chloride 0.9% 1, 600 000 ml @ 100 mls/hr IV . Q10H [facility] Rx#:[id number] Oral 240 Blood Product 286 Platelet Irr Pheresis 2 286 Acda Unit [id number] Other: # Voids 1 Weight 92.3 kg - Constitutional General appearance: average body habitus, cooperative, no acute distress - EENT No wet purpura noted in the oral cavity Eyes: anicteric sclerae, EOMI ENT: normal oropharynx - Neck Neck: no lymphadenopathy - Respiratory Respiratory: bilateral: CTA - Cardiovascular Rhythm: regular Heart sounds: normal: S1, S2 leg Peripheral Edema: bilateral: None - Gastrointestinal General gastrointestinal: no absent bowel sounds, no decreased bowel sounds, no distended, no hepatomegaly, no hyperactive bowel sounds, normal bowel sounds, no organomegaly, no rigid, no scaphoid, soft, no splenomegaly, no tenderness, no umbilical hernia, no ventral hernia - Integumentary No petechiae or bruising noted - Neurologic Neurologic: CNII-XII intact - Musculoskeletal Musculoskeletal: strength equal bilaterally - Psychiatric Psychiatric: A&O x's 3, appropriate affect, intact judgment & insight Results CBC & Chem 7: 01/18/17 07:48 01/17/17 21:10 Labs: Abnormal Lab Results - Last 24 Hours (Table) 01/17/17 01/17/17 01/18/17 Range/Units 21:10 21:10 07:48 WBC 0.7 L* 0.3 L* (3.8-10.6) k/uL RBC 2.52 L 2.14 L (4.30-5.90) m/uL Hgb 9.2 L D 7.9 L (13.0-17.5) gm/dL Hct 25.8 L 22.7 L (39.0-53.0) % MCV 102.2 H 105.8 H (80.0-100.0) fL MCH 36.5 H 37.0 H (25.0-35.0) pg Plt Count 11 L* D 23 L* D (150-450) k/uL BUN 24 H (9-20) mg/dL Glucose 114 H (74-99) mg/dL Thrombosis Risk Factor Assmnt - DVT/VTE Prophylaxis DVT/VTE Prophylaxis: Contraindicated - See note (thrombocytopenia) - Choose All That Apply Each Factor Represents 1 point: Age 41-60 years, Obesity (BMI >25) Each Risk Factor Represents 2 Points: Central venous access Other congenital or acquired thrombophilia - If yes, enter type in comment: No Thrombosis Risk Factor Assessment Total Risk Factor Score: 4 Thrombosis Risk Factor Assessment Level: Moderate Risk Assessment and Plan (1) Hemorrhage Narrative/Plan: Hemorrhage secondary to thrombocytopenia from antineoplastic therapy. Patient has been transfused with platelets, no other bleeding to report, PICC line insertion site dressing is noted to have scant amount of blood on it. Patient' s hemoglobin is stable considering he is just one week out from treatment, do not suspect any other areas of hemorrhage. Status: Acute (2) Pancytopenia due to antineoplastic chemotherapy Narrative/Plan: Expected lab counts for patient's condition, patient is currently administering daily growth factors for white blood cells, hemoglobin is stable at 7.9, platelet count is 23,000 after transfusion with no other evidence of bleeding at this time, PICC line insertion site stable. No other interventions Status: Acute Plan: Patient admitted as observation, received platelets with improvement in platelet count as well as symptoms of PICC line bleeding. Patient will be discharged to home No aspirin, NSAIDs, ibuprofen, Motrin or Aleve. Patient is on bleeding precautions Patient will continue growth factors daily. Patient is on neutropenic precautions Lab encounter at Dr. Garsia's office Saturday at 8 AM, patient is aware of appointment date and time.
== END 2017-01-18 14:25 | disposition home or self-care (01) ==
LOC: EC 20:46 → 6SEL 23:12
PROVIDERS: ADMIT Internal Medicine Hematology & Oncology; ATTEND Internal Medicine Hematology & Oncology
DX: D61.810 Antineoplastic chemotherapy induced pancytopenia (principal); T45.1X5A Adverse effect of antineoplastic and immunosuppressive drugs, initial encounter; C92.00 Acute myeloblastic leukemia, not having achieved remission; I10 Essential (primary) hypertension; T82.838A Hemorrhage due to vascular prosthetic devices, implants and grafts, initial encounter; Y83.8 Other surgical procedures as the cause of abnormal reaction of the patient, or of later complication, without mention of misadventure at the time of the procedure; Z88.3 Allergy status to other anti-infective agents; Z88.0 Allergy status to penicillin; Z80.7 Family history of other malignant neoplasms of lymphoid, hematopoietic and related tissues
CPT/HCPCS: 36430; 96360; 96361; 99284; 36415; 86900; 86901; 80048; 85025 ×2; 86850; G0378 ×2; P9037

== ENCOUNTER 2017-01-27 10:13 | Emergency (ER) | payer OTHER ==
[2017-01-27 10:21] VITALS: RESP 16
[2017-01-27] MEDS ORDERED: SODIUM CHLORIDE 0.9% 1,000 ML IV STA (10:32)
--- NOTE | 2017-01-27 10:38 | ED ---
General Adult HPI - General Chief complaint: Weakness Stated complaint: poss low hemo Time Seen by Provider: 01/27/17 10:26 Source: patient, family, RN notes reviewed Mode of arrival: wheelchair Limitations: no limitations - History of Present Illness Initial comments: Patient is a pleasant 51-year-old male presenting to the emergency department with fatigue and weakness. Onset of symptoms was a past few days. Patient did have hemoglobin checked 3 days ago at 7.3. Patient has a recent history of AML. Patient has received several Neupogen injections. Patient is pending bone marrow transplant. No isolated area of weakness. No fever. No upper respiratory symptoms. - Related Data Home Medications Medication Instructions Recorded Confirmed Acetaminophen Tab [Tylenol Tab] 650 mg PO QID PRN 01/27/17 01/27/17 Filgrastim Sndz [Neupogen] 480 mcg SQ HS 01/27/17 01/27/17 Losartan [Cozaar] 50 mg PO DAILY 01/27/17 01/27/17 diphenhydrAMINE HCL [Benadryl] 25 mg PO DAILY PRN 01/27/17 01/27/17 Allergies Allergy/AdvReac Type Severity Reaction Status Date / Time Penicillins Allergy Severe Rash/Hives Verified 01/27/17 10:43 amoxicillin Allergy Rash/Hives Verified 01/27/17 10:43 fluconazole Allergy Rash/Hives Verified 01/27/17 10:43 micafungin [From Mycamine] Allergy Unknown Verified 01/27/17 10:43 Review of Systems ROS Statement: Those systems with pertinent positive or pertinent negative responses have been documented in the HPI. ROS Other: All systems not noted in ROS Statement are negative. Constitutional: Denies: fever Eyes: Denies: eye pain ENT: Denies: ear pain Respiratory: Denies: cough, dyspnea Cardiovascular: Denies: chest pain Endocrine: Reports: fatigue Gastrointestinal: Denies: abdominal pain Genitourinary: Denies: dysuria Musculoskeletal: Denies: back pain Skin: Denies: rash Neurological: Reports: weakness (Generalized) Past Medical History Past Medical History: Cancer, Hypertension Additional Past Medical History / Comment(s): 09/2015 Diagnosed with acute myeloid leukemia-has completed 5 rounds of chemotherapy in 2015 and was in remission, then relaps with chemo 10/2016 and here for another chemo session, picc line cellulitis R arm, neutropenic sepsis unknown source, pancytopenia. History of Any Multi-Drug Resistant Organisms: None Reported Past Surgical History: Tonsillectomy Additional Past Surgical History / Comment(s): bone marrow bx 5, PICC line insertion R arm-discontinued and new picc in LFA. Past Anesthesia/Blood Transfusion Reactions: No Reported Reaction Additional Past Anesthesia/Blood Transfusion Reaction / Comment(s): Pt has received blood / platelets without reaction. Past Psychological History: No Psychological Hx Reported Smoking Status: Never smoker Past Alcohol Use History: None Reported, Rare Past Drug Use History: None Reported - Past Family History Mother Family Medical History: Cancer Additional Family Medical History / Comment(s): Mother of lymphoma at the age of 49 yrs. Father Family Medical History: No Reported History Additional Family Medical History / Comment(s): Father is 75yrs old and healthy. General Exam Limitations: no limitations General appearance: alert, in no apparent distress Head exam: Present: atraumatic, normocephalic Eye exam: Present: PERRL, other (Scleral pallor) ENT exam: Present: normal oropharynx Neck exam: Present: normal inspection Respiratory exam: Present: normal lung sounds bilaterally Cardiovascular Exam: Present: regular rate, normal rhythm GI/Abdominal exam: Present: soft. Absent: tenderness Extremities exam: Present: normal inspection Neurological exam: Present: alert Psychiatric exam: Present: normal affect, normal mood Skin exam: Present: normal color Course Vital Signs 01/27/17 01/27/17 10:16 11:01 Temperature 97.4 F L Pulse Rate 96 86 Respiratory 16 16 Rate Blood Pressure 141/85 123/73 O2 Sat by Pulse 100 98 Oximetry EKG Findings - EKG Comments: EKG Findings:: Normal sinus rhythm 85. IL 162. QRS 90. QT 374. QTC 445. Left axis. Normal QRS. Nonspecific T waves. Medical Decision Making - Medical Decision Making Patient reexamined and resting comfortably in bed. Patient updated on results and plan. Patient is comfortable with discharge without transfusion. Case was discussed in detail with Dr. Gallardo who is familiar with this patient. He would prefer not to do blood transfusion because patient is pending bone marrow transfusion. He is okay with discharge home. - Lab Data Result diagrams: 01/27/17 10:55 01/27/17 10:55 Lab Results 01/27/17 01/27/17 01/27/17 Range/Units 10:55 10:55 10:55 WBC 1.5 L* (3.8-10.6) k/uL RBC 2.05 L (4.30-5.90) m/uL Hgb 7.2 L (13.0-17.5) gm/dL Hct 20.1 L (39.0-53.0) % MCV 98.1 D (80.0-100.0) fL MCH 35.1 H (25.0-35.0) pg MCHC 35.8 (31.0-37.0) g/dL RDW 14.1 (11.5-15.5) % Plt Count 14 L* (150-450) k/uL Neutrophils % 76 % Lymphocytes % 16 % Monocytes % 6 % Eosinophils % 0 % Basophils % 0 % Neutrophils # 1.1 L (1.3-7.7) k/uL Lymphocytes # 0.2 L (1.0-4.8) k/uL Monocytes # 0.1 (0-1.0) k/uL Eosinophils # 0.0 (0-0.7) k/uL Basophils # 0.0 (0-0.2) k/uL Manual Slide Review Performed Dohle Bodies Present Hyperchromasia Slight Poikilocytosis Slight PT (9.0-12.0) sec INR (<1.2) APTT (22.0-30.0) sec Sodium 139 (137-145) mmol/L Potassium 3.6 (3.5-5.1) mmol/L Chloride 104 (98-107) mmol/L Carbon Dioxide 22 (22-30) mmol/L Anion Gap 13 mmol/L BUN 16 (9-20) mg/dL Creatinine 0.70 (0.66-1.25) mg/dL Est GFR (MDRD) Af Amer >60 (>60 ml/min/1.73 sqM) Est GFR (MDRD) Non-Af >60 (>60 ml/min/1.73 sqM) Glucose 122 H (74-99) mg/dL Calcium 9.5 (8.4-10.2) mg/dL Phosphorus 3.2 (2.5-4.5) mg/dL Magnesium 1.5 L (1.6-2.3) mg/dL Total Bilirubin 0.5 (0.2-1.3) mg/dL AST 19 (17-59) U/L ALT 60 (21-72) U/L Alkaline Phosphatase 86 (38-126) U/L Total Creatine Kinase <20 L (55-170) U/L CK-MB (CK-2) <0.2 (0.0-2.4) ng/mL CK-MB (CK-2) Rel Index Troponin I <0.012 (0.000-0.034) ng/mL Total Protein 6.5 (6.3-8.2) g/dL Albumin 4.0 (3.5-5.0) g/dL TSH 2.260 (0.465-4.680) mIU/L Free T4 1.10 (0.78-2.19) ng/dL Free T3 pg/mL 3.1 (2.8-5.3) pg/ml Urine Color Urine Appearance (Clear) Urine pH (5.0-8.0) Ur Specific Witter (1.001-1.035) Urine Protein (Negative) Urine Glucose (UA) (Negative) Urine Ketones (Negative) Urine Blood (Negative) Urine Nitrite (Negative) Urine Bilirubin (Negative) Urine Urobilinogen (<2.0) mg/dL Ur Leukocyte Esterase (Negative) 01/27/17 01/27/17 Range/Units 10:55 10:55 WBC (3.8-10.6) k/uL RBC (4.30-5.90) m/uL Hgb (13.0-17.5) gm/dL Hct (39.0-53.0) % MCV (80.0-100.0) fL MCH (25.0-35.0) pg MCHC (31.0-37.0) g/dL RDW (11.5-15.5) % Plt Count (150-450) k/uL Neutrophils % % Lymphocytes % % Monocytes % % Eosinophils % % Basophils % % Neutrophils # (1.3-7.7) k/uL Lymphocytes # (1.0-4.8) k/uL Monocytes # (0-1.0) k/uL Eosinophils # (0-0.7) k/uL Basophils # (0-0.2) k/uL Manual Slide Review Dohle Bodies Hyperchromasia Poikilocytosis PT 10.4 (9.0-12.0) sec INR 1.0 (<1.2) APTT 22.5 (22.0-30.0) sec Sodium (137-145) mmol/L Potassium (3.5-5.1) mmol/L Chloride (98-107) mmol/L Carbon Dioxide (22-30) mmol/L Anion Gap mmol/L BUN (9-20) mg/dL Creatinine (0.66-1.25) mg/dL Est GFR (MDRD) Af Amer (>60 ml/min/1.73 sqM) Est GFR (MDRD) Non-Af (>60 ml/min/1.73 sqM) Glucose (74-99) mg/dL Calcium (8.4-10.2) mg/dL Phosphorus (2.5-4.5) mg/dL Magnesium (1.6-2.3) mg/dL Total Bilirubin (0.2-1.3) mg/dL AST (17-59) U/L ALT (21-72) U/L Alkaline Phosphatase (38-126) U/L Total Creatine Kinase (55-170) U/L CK-MB (CK-2) (0.0-2.4) ng/mL CK-MB (CK-2) Rel Index Troponin I (0.000-0.034) ng/mL Total Protein (6.3-8.2) g/dL Albumin (3.5-5.0) g/dL TSH (0.465-4.680) mIU/L Free T4 (0.78-2.19) ng/dL Free T3 pg/mL (2.8-5.3) pg/ml Urine Color Light Yellow Urine Appearance Clear (Clear) Urine pH 6.0 (5.0-8.0) Ur Specific Witter 1.004 (1.001-1.035) Urine Protein Negative (Negative) Urine Glucose (UA) Negative (Negative) Urine Ketones Negative (Negative) Urine Blood Negative (Negative) Urine Nitrite Negative (Negative) Urine Bilirubin Negative (Negative) Urine Urobilinogen <2.0 (<2.0) mg/dL Ur Leukocyte Esterase Negative (Negative) - Radiology Data Radiology results: image reviewed (Chest x-ray shows no acute process) Disposition Clinical Impression: Anemia Disposition: HOME SELF-CARE Condition: Stable Instructions: Anemia (ED) Additional Instructions: Please follow-up with oncology tomorrow as scheduled. Return for weakness, dizziness, chest pain, worsening symptoms, fevers or other concerns. Referrals: Mena Maloney DO [Primary Care Provider] - 1-2 days Time of Disposition: 12:17
[2017-01-27 11:04] VITALS: PULSE 86
[2017-01-27 11:18] LABS: Basophils % (A) 0 %; CH 36.6; CHCM 37.4; Eosinophils % (A) 0 %; HCT 20.1 % (39.0-53.0); HDW 3.43; HGB 7.2 gm/dL (13.0-17.5); Hyperchromasia Slight; Luc # (Auto) 0.02; Luc % (Auto) 2; Lymphocytes # (A) 0.2 k/uL (1.0-4.8); Lymphocytes % (A) 16 %; MCH 35.1 pg (25.0-35.0); MCHC 35.8 g/dL (31.0-37.0); MCV 98.1 fL (80.0-100.0); Mean Platelet Volume 9.5; Monocytes # (A) 0.1 k/uL (0-1.0); Monocytes % (A) 6 %; Neutrophils # (A) 1.1 k/uL (1.3-7.7); Neutrophils % (A) 76 %; Poikilocytosis Slight; RBC 2.05 m/uL (4.30-5.90); RDW 14.1 % (11.5-15.5); WBC (Perox) 1.74
[2017-01-27 11:19] LABS: Appearance,Urine Clear (Clear); Bilirubin,Urine Negative (Negative); Glucose,Urine (UA) Negative (Negative); Ketones,Urine Negative (Negative); Leukocyte Esterase,Urine Negative (Negative); Nitrite,Urine Negative (Negative); Protein,Urine Negative (Negative); Specific Gravity,Urine 1.004 (1.001-1.035); UA Billing (MACRO vs. MICRO) CHEM; Urobilinogen,Urine <2.0 mg/dL (<2.0)
[2017-01-27 11:26] LABS: WBC 1.5 k/uL (3.8-10.6)
[2017-01-27 11:31] LABS: Partial Thromboplastin Time 22.5 sec (22.0-30.0); Prothrombin Time 10.4 sec (9.0-12.0)
[2017-01-27 11:40] LABS: ALT 60 U/L (21-72); AST 19 U/L (17-59); Alkaline Phosphatase 86 U/L (38-126); Anion Gap 13 mmol/L; Blood Urea Nitrogen 16 mg/dL (9-20); Calcium 9.5 mg/dL (8.4-10.2); Carbon Dioxide 22 mmol/L (22-30); Chloride 104 mmol/L (98-107); Dohle Bodies Present; Glucose 122 mg/dL (74-99); Magnesium 1.5 mg/dL (1.6-2.3); Manual Review Performed; Non-African American GFR(MDRD) >60 (>60 ml/min/1.73 sqM); Phosphorous 3.2 mg/dL (2.5-4.5); Potassium 3.6 mmol/L (3.5-5.1); Sodium 139 mmol/L (137-145); Total Bilirubin 0.5 mg/dL (0.2-1.3); Total Protein 6.5 g/dL (6.3-8.2)
[2017-01-27 11:45] LABS: Creatine Kinase <20 U/L (55-170)
[2017-01-27 11:58] LABS: Creatine Kinase MB <0.2 ng/mL (0.0-2.4); Troponin I <0.012 ng/mL (0.000-0.034)
--- NOTE | 2017-01-27 12:04 | XR ---
EXAMINATION TYPE: XR chest 2V DATE OF EXAM: 01/27/2017 HISTORY: Weakness. REFERENCE: Previous study dated 11/22/2016. FINDINGS: The lungs are clear. Pleural space are clear. The heart is not enlarged. There is some hypertrophic spondylosis within the dorsal spine. IMPRESSION: NO ACUTE INTRATHORACIC ABNORMALITY.
[2017-01-27 12:39] VITALS: BP 119/71; TEMP 98.1
== END 2017-01-27 12:28 | disposition home or self-care (01) ==
LOC: EC 10:13
DX: D64.9 Anemia, unspecified (principal); C92.Z2 Other myeloid leukemia, in relapse; H15.89 Other disorders of sclera; I10 Essential (primary) hypertension; Z79.899 Other long term (current) drug therapy; Z88.0 Allergy status to penicillin; Z88.8 Allergy status to other drugs, medicaments and biological substances
CPT/HCPCS: 36415; 71020; 80053; 81003; 82550; 82553; 83735; 84100; 84439; 84443; 84481; 84484; 85025; 85610; 85730; 93005; 96360; 99285

== ENCOUNTER → 2017-11-25 | Outpatient (CLI) | payer OTHER ==
--- NOTE | 2017-11-25 16:53 | US ---
EXAMINATION TYPE: US abdomen complete DATE OF EXAM: 11/25/2017 COMPARISON: NONE CLINICAL HISTORY: R10.9 Abdominal pain. EXAM MEASUREMENTS: Liver Length: 16.4 cm Gallbladder Wall: 0.2 cm CBD: 0.3 cm Spleen: 10.7 cm Right Kidney: 11.0 x 5.0 x 5.3 cm Left Kidney: 10.7 x 5.0 x 5.2 cm Pancreas: Obscured by bowel gas Liver: upper limits of normal in size Gallbladder: wnl Evidence for sonographic Hall's sign: no CBD: wnl Spleen: wnl Right Kidney: wnl Left Kidney: parapelvic cyst noted measuring 0.8 x 1.0 x 1.0cm Upper IVC: wnl Abd Aorta: bifurcation obscured by overlying bowel gas Patient feels tightness and tingling from left upper quads to right. Technologist scanned entire are a, no evident mass or fluid seen. IMPRESSION: No gallstones or dilated ducts. 1 cm left renal parapelvic cyst. Negative exam.
== END | disposition home or self-care (01) ==
LOC: RADUSMAIN 15:36
PROVIDERS: ATTEND Internal Medicine Hematology & Oncology
DX: N28.1 Cyst of kidney, acquired (principal)
CPT/HCPCS: 76700

== ENCOUNTER 2018-01-29 09:25 | Day surgery (SDC) | payer OTHER ==
[2018-01-28 11:56] VITALS: BMI 24.4
[~2018-01-29 09:25] MED LIST changes: +LACTATED RINGERS 1,000 ML IV SCH; +LIDOCAINE 1% 20 ML VIAL (10MG/ML) FOR IV START INTRADERMA PRN; -ONDANSETRON 4 MG/2 ML VIAL IVP PRN; -SALT AND SODA MOUTHWASH 1,000 ML PO PRN
[2018-01-29 10:16] VITALS: RESP 16; TEMP 98.3
[2018-01-29] MEDS ORDERED: LIDOCAINE 1% INJ 10MG/ML (20 ML MDV) ONE (10:58)
[2018-01-29] MEDS ORDERED: PROPOFOL 10 MG/ML 20 ML VIAL IV ONE (10:58)
--- NOTE | 2018-01-29 11:20 | P.PCN ---
Date of Procedure: 01/29/18 Procedure(s) Performed: Brief history: Patient is a pleasant 52-year-old white male, scheduled for an elective upper endoscopy as well as colonoscopy as a part of evaluation of intermittent dysphagia to solids, abdominal pain and change in bowel habits. He status post bone marrow transplant for acute myeloid leukemia in February 2017 and in remission. Procedure performed: Esophagogastroduodenoscopy with biopsy Colonoscopy Preoperative diagnosis: Dysphagia/epigastric pain Change in bowel habits Anesthesia: MAC Procedure: After informed consent was obtained from the patient was brought into the endoscopy unit and IV sedation was administered by anesthesia under continuous monitoring. Initially upper endoscopy was done. The Olympus GF 160 video endoscope was inserted inserted into the mouth and esophagus intubated without any difficulty and was gradually advanced into the stomach and duodenum and carefully examined. The bulb and second part of the duodenum appeared normal. biopsies were done from the duodenum. The scope was then withdrawn into the stomach adequately insufflated with air and upon careful examination the antrum had mild gastritis and biopsies were done from this area. The body, cardia and fundus appeared normal. The scope was then withdrawn into the esophagus. The GE junction was located at 40 cm to the incisors. It appeared regular with no erythema erosions or ulcerations. Rest of the esophagus appeared normal. Biopsies were done from the distal esophagus. Patient tolerated the procedure well. At this time the patient continued to remain sedation. Initial digital rectal examination was normal. Olympus CF 160 video colonoscope was then inserted into the rectum and gradually advanced to the cecum without any difficulty. Careful examination was performed as the scope was gradually being withdrawn. The prep was excellent. The cecum, ascending colon, transverse colon, descending colon, sigmoid colon and rectum appeared normal. Retroflexion was performed in the rectum and and small internal hemorrhoidse noted. Patient tolerated the procedure well. Impression: 1. Upper endoscopy revealed mild gastritis but no evidence of esophagitis 2. Colonoscopy revealed small internal hemorrhoids but no evidence of colorectal neoplasia Recommendations: Findings of this examination were discussed with the patient as well as his family. He was advised to follow with the biopsy results. He was advised to have a repeat screening colonoscopy in
[2018-01-29 11:25] VITALS: BP 110/72; PULSE 72
== END 2018-01-29 12:12 | disposition home or self-care (01) ==
LOC: ORWHC2ENDO 09:25
PROVIDERS: ATTEND Internal Medicine Gastroenterology
DX: K29.50 Unspecified chronic gastritis without bleeding (principal); R19.4 Change in bowel habit; K64.8 Other hemorrhoids; R13.10 Dysphagia, unspecified; I10 Essential (primary) hypertension; C92.01 Acute myeloblastic leukemia, in remission; Z94.81 Bone marrow transplant status; Z88.0 Allergy status to penicillin; Z88.8 Allergy status to other drugs, medicaments and biological substances; Z79.899 Other long term (current) drug therapy
CPT/HCPCS: 88305; 45378; 43239; J2001; J2704

== ENCOUNTER → 2018-02-10 | Outpatient (CLI) | payer OTHER ==
--- NOTE | 2018-02-10 10:58 | US ---
EXAMINATION TYPE: US kidneys/renal and bladder DATE OF EXAM: 02/10/2018 COMPARISON: US 11/25/17 CLINICAL HISTORY: R31.9 hematuria. Patient complains of blood in his urine following a colonoscopy EXAM MEASUREMENTS: Right Kidney: 11.7 x 5.5 x 5.3 cm Left Kidney: 12.6 x 5.6 x 5.3 cm Post Void Residual Volume: 8.6 mL Right Kidney: Mildly dilated renal pelvis (1.6 cm) that was still visable post void. Left Kidney: Previously seen parapelvic cyst still seen = 1.0 x 1.1 x 0.8 cm Bladder: wnl Bilateral Jets seen: Yes Normal Post Void Residual: Yes There is no evidence for hydronephrosis at this point in time. No nephrolithiasis is seen. No shorty s are identified. The urinary bladder is anechoic. Bilateral ureteral jets are seen. IMPRESSION: 1. Mild right-sided hydronephrosis. 2. Left parapelvic cyst.
== END | disposition home or self-care (01) ==
LOC: RADUSWWP 10:21
PROVIDERS: ATTEND Internal Medicine Hematology & Oncology
DX: N28.1 Cyst of kidney, acquired (principal); N13.30 Unspecified hydronephrosis
CPT/HCPCS: 76770

== ENCOUNTER → 2018-05-21 | Outpatient (CLI) | payer OTHER ==
--- NOTE | 2018-05-21 10:27 | CT ---
EXAMINATION TYPE: CT abdomen wo con DATE OF EXAM: 05/21/2018 COMPARISON: INDICATION: Feeling of tightness, constriction across upper abd. History of leukemia with bone marrow transplant DLP: 261.6 mGycm, Automated exposure control for dose reduction was used. CONTRAST: mL of . Study performed without Oral Contrast TECHNIQUE: Axial images were obtained from above the diaphragm to the iliac crest in the axial plane at 5 mm thick sections. Reconstructed images are reviewed on the computer in the coronal plane. FINDINGS: Limited CT sections are obtained the lung bases. The lung bases are clear. CT ABDOMEN: Liver: Normal Spleen: Normal Pancreas: Normal Adrenal glands: The adrenal glands are normal. Gallbladder: Normal Kidneys: No masses are evident. No hydronephrosis is present. No cysts are present. Delayed images were obtained through the kidneys, which remain unremarkable. Aorta: Vascular calcification is within the aorta. Inferior vena cava: Normal. Facet hypertrophy is present within the upper lumbar spine. No suspicious osseous abnormality is evid ent. IMPRESSIONS: 1. No suspicious acute abdominal changes.
== END | disposition home or self-care (01) ==
LOC: RADCTMAIN 07:53
PROVIDERS: ATTEND Family Medicine
DX: R19.00 Intra-abdominal and pelvic swelling, mass and lump, unspecified site (principal)
CPT/HCPCS: 74150

== ENCOUNTER → 2018-06-18 | Outpatient (CLI) | payer OTHER ==
--- NOTE | 2018-06-18 14:49 | XR ---
EXAMINATION TYPE: XR chest 2V DATE OF EXAM: 06/18/2018 COMPARISON: Chest x-ray January 27, 2017 HISTORY: Cough and congestion. TECHNIQUE: Frontal and lateral views of the chest are obtained. FINDINGS: There is no focal air space opacity, pleural effusion, or pneumothorax seen. The cardiac silhouette size is within normal limits. Multilevel spurring in the thoracic spine is redemonstrated. . IMPRESSION: No suspicious acute infiltrate.
== END ==
LOC: RADXRMAIN 14:34
PROVIDERS: ATTEND Nurse Practitioner Adult Health
DX: C95.00 Acute leukemia of unspecified cell type not having achieved remission (principal); E83.111 Hemochromatosis due to repeated red blood cell transfusions
CPT/HCPCS: 71046

== ENCOUNTER → 2018-08-25 | Outpatient (CLI) | payer OTHER ==
--- NOTE | 2018-08-25 12:11 | FL ---
EXAMINATION: Cervical and Thoracic Esophagram DATE OF EXAM: 08/25/2018 CLINICAL INDICATION: 53-year-old male with abdominal pain, epigastric swelling. Reflux, difficulty sw allowing at the mid chest level. Patient reports a history of normal endoscopy in 2018 and prior bone marrow transplant in 2017 for leukemia. COMPARISON: Correlation CT 05/21/2018 Total Fluoroscopy Time: 1 minute 13 seconds. Total images: 33. FINDINGS: The swallowing mechanism is normal and hypopharyngeal anatomy is preserved. The cervical and thoracic portions have a normal course and caliber and normal motility. The mucosa is normal and no persistent filling defect is encountered. There is a small sliding hiatal hernia with moderate reflux demonstrated during Valsalva and turning maneuver. IMPRESSION: Small sliding hiatal hernia with moderate gastroesophageal reflux. No other specific abnormality seen .
== END | disposition home or self-care (01) ==
LOC: RADFLWHC 08:45
PROVIDERS: ATTEND Family Medicine
DX: K44.9 Diaphragmatic hernia without obstruction or gangrene (principal); K21.9 Gastro-esophageal reflux disease without esophagitis
CPT/HCPCS: 74220

== ENCOUNTER → 2018-12-16 | Outpatient (CLI) | payer OTHER ==
--- NOTE | 2018-12-16 10:53 | FL ---
EXAMINATION TYPE: FL UGI w small bowel DATE OF EXAM: 12/16/2018 COMPARISON: Barium swallow 08/25/2018 HISTORY: 53-year-old male with right-sided epigastric pain, tightness, bloating, belching, and pressu re. 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 TECHNIQUE: A double contrast UGI study is performed with small bowel follow through. Total fluoroscopy time: 2 minutes 54 seconds. Total images: FINDINGS: Vending Machine Attendant image of the abdomen shows no gross abnormality. Numerous pelvic phleboliths. The esophagus shows normal course and caliber and emptying into the stomach. Mild tertiary peristalt ic waves are noted with the patient is supine. No mucosal abnormality or fixed narrowing. There is a sliding hiatal hernia which distends up to a moderate size. Positional and Valsalva maneuv ers elicit severe gastroesophageal reflux nearly to the level of the thoracic inlet. The stomach shows normal distensibility, peristalsis, and mucosal folds. No evidence of any mass or ulcer disease. The duodenal bulb and sweep are unremarkable. The small bowel study shows transit to the colon in 30 minutes which is at the lower limits of the no rmal range. There is normal mucosal fold pattern throughout the small bowel. There is no evidence o f any stricture or filling defect noted. The terminal ileum is unremarkable. IMPRESSION: 1. Sliding hiatal hernia which distends up to a moderate size depending on breathing and position. 2. Now severe gastroesophageal reflux nearly to the level of the thoracic inlet. 3. Small bowel transit time of 30 minutes which is at the lower limits of the normal range. 4. Otherwise, unremarkable upper GI and small bowel follow-through.
== END | disposition home or self-care (01) ==
LOC: RADFLMAIN 08:41
PROVIDERS: ATTEND Internal Medicine Gastroenterology
DX: K21.9 Gastro-esophageal reflux disease without esophagitis (principal); K44.9 Diaphragmatic hernia without obstruction or gangrene
CPT/HCPCS: 74245

== ENCOUNTER → 2019-02-26 | Outpatient (CLI) | payer OTHER ==
--- NOTE | 2019-02-26 09:39 | US ---
EXAMINATION TYPE: US abdomen complete DATE OF EXAM: 02/26/2019 COMPARISON: CT 2019, US 2018 CLINICAL HISTORY: R10.9 unspecified abdominal pain. Intermittent abdomen pain x 2 years EXAM MEASUREMENTS: Liver Length: 16.2 cm Gallbladder Wall: 0.2 cm CBD: 0.4 cm Spleen: 11.6 cm Right Kidney: 11.8 x 5.2 x 4.8 cm Left Kidney: 11.6 x 5.8 x 6.0 cm Pancreas: visualized portions wnl, limited by overlying midline bowel gas Liver: wnl Gallbladder: wnl Evidence for sonographic Hall's sign: yes CBD: visualized portions wnl, limited by overlying bowel gas Spleen: wnl Right Kidney: wnl Left Kidney: wnl Upper IVC: wnl Abd Aorta: proximal portion mildly ectatic, mid and distal portion wnl The liver is homogenous. The intrahepatic portion of the IVC and proximal abdominal aorta are within normal limits. There is no evidence of cholelithiasis. Common bile duct is unremarkable. The visu alized portions of the pancreas are homogenous. The spleen is unremarkable. Kidneys are symmetric a nd free of hydronephrosis. No renal lesions are seen. IMPRESSION: No distinct abnormality appreciated.
== END | disposition home or self-care (01) ==
LOC: RADUSWWP 08:42
PROVIDERS: ATTEND Physician Assistant
DX: R10.9 Unspecified abdominal pain (principal)
CPT/HCPCS: 76700

== ENCOUNTER 2019-05-29 08:59 | Emergency (ER) | payer OTHER ==
[2019-05-29 09:05] VITALS: TEMP 97.8
[2019-05-29] MEDS ORDERED: ASPIRIN 81 MG PO STA (09:20)
[2019-05-29] MEDS ORDERED: NITROGLYCERIN OINT 1 INCH/GM PACKET TOPICAL STA (09:20)
[2019-05-29] MEDS ORDERED: SODIUM CHLORIDE 0.9% 500 ML 500 ML IV STA (09:20)
--- NOTE | 2019-05-29 09:23 | ED ---
General Adult HPI - General Chief complaint: Chest Pain Stated complaint: weakness,sob,tightness in chest Time Seen by Provider: 05/29/19 09:00 Source: patient, RN notes reviewed, old records reviewed Mode of arrival: ambulatory Limitations: no limitations - History of Present Illness Initial comments: This is a 54-year-old male who presents emergency Department with a past history significant for AML and patient had a bone marrow transplant 2 years ago. Patient presents emergency department today he states yesterday he felt fine but this morning he woke up and he had left arm heaviness some chest tightness and some shortness of breath. Patient states he also felt extremely fatigued and had the sensation he might pass out. Patient denies any fever chills or cough per patient denies any headache patient denies numbness weakness. Patient den ies any abdominal pain patient denies nausea vomiting or diarrhea. Patient denies any swelling to her legs or calf tenderness. - Related Data Home Medications Medication Instructions Recorded Confirmed Acetaminophen [Tylenol Arthritis] 1,300 mg PO BID PRN 05/29/19 05/29/19 Amitriptyline HCl [Elavil] 25 mg PO HS 05/29/19 05/29/19 L.acidoph,Paracasei, B.lactis 1 cap PO HS 05/29/19 05/29/19 [Probiotic] Allergies Allergy/AdvReac Type Severity Reaction Status Date / Time Penicillins Allergy Severe Rash/Hives Verified 05/29/19 10:06 amoxicillin Allergy Rash/Hives Verified 05/29/19 10:06 fluconazole Allergy Rash/Hives Verified 05/29/19 10:06 micafungin [From Mycamine] Allergy Unknown Verified 05/29/19 10:06 Review of Systems ROS Statement: Those systems with pertinent positive or pertinent negative responses have been documented in the HPI. ROS Other: All systems not noted in ROS Statement are negative. Past Medical History Past Medical History: Blood Disorder, Cancer, Hypertension Additional Past Medical History / Comment(s): Accute myeloid leukemia.picc line cellulitis R arm, neutropenic sepsis unknown source, pancytopenia. feb 2017 - bone marrow transplant. HEMOCHROMATOSIS- WITH THERAPEUTIC PHELBOTOMIES. History of Any Multi-Drug Resistant Organisms: None Reported Past Surgical History: Tonsillectomy Additional Past Surgical History / Comment(s): BONE MARROW TRANSPLANT 11/15/17,bone marrow bx 7, PICC line insertion R arm-discontinued and new picc in LFA. DISCONTINUED, PORT IN AND DISCONTINUED Past Anesthesia/Blood Transfusion Reactions: No Reported Reaction Additional Past Anesthesia/Blood Transfusion Reaction / Comment(s): Pt has received blood / platelets without reaction. Past Psychological History: No Psychological Hx Reported Smoking Status: Never smoker Past Alcohol Use History: Occasional Past Drug Use History: None Reported - Past Family History Mother Family Medical History: Cancer Additional Family Medical History / Comment(s): Mother of lymphoma at the age of 49 yrs. Father Family Medical History: No Reported History Additional Family Medical History / Comment(s): Father is 75yrs old and healthy. General Exam - General Exam Comments Initial Comments: GENERAL: Patient is well-developed and well-nourished. Patient is nontoxic and well- hydrated and is mild distress. ENT: Neck is soft and supple. No significant lymphadenopathy is noted. Oropharynx is clear. Moist mucous membranes. Neck has full range of motion without eliciting any pain. EYES: The sclera were anicteric and conjunctiva were pink and moist. Extraocular movements were intact and pupils were equal round and reactive to light. Eyelids were unremarkable. PULMONARY: Unlabored respirations. Good breath sounds bilaterally. No audible rales rhonchi or wheezing was noted. CARDIOVASCULAR: There is a regular rate and rhythm without any murmurs gallops or rubs. ABDOMEN: Soft and nontender with normal bowel sounds. SKIN: Skin is clear with no lesions or rashes and otherwise unremarkable. NEUROLOGIC: Patient is alert and oriented x3. Cranial nerves II through XII are grossly intact. Motor and sensory are also intact. Normal speech, volume and content. Symmetrical smile. MUSCULOSKELETAL: Normal extremities with adequate strength and full range of motion. No lower extremity swelling or edema. No calf tenderness. LYMPHATICS: No significant lymphadenopathy is noted PSYCHIATRIC: Normal psychiatric evaluation. Limitations: no limitations Course Vital Signs 05/29/19 05/29/19 05/29/19 09:03 09:40 10:00 Temperature 97.8 F Pulse Rate 78 65 69 Respiratory 18 18 15 Rate Blood Pressure 168/97 144/93 144/93 O2 Sat by Pulse 100 99 98 Oximetry 05/29/19 05/29/19 10:30 11:00 Temperature Pulse Rate 67 66 Respiratory 18 21 Rate Blood Pressure 141/89 135/87 O2 Sat by Pulse 98 98 Oximetry Medical Decision Making - Medical Decision Making EKG shows normal sinus rhythm at 73 bpm MD interval 172 QRS is 92 QT interval 382 QTC is 420 per patient's EKG shows no ST segment elevation or depression. Chest x-ray shows no acute abnormality. I will back into reevaluate the patient patient's symptoms are completely resolved he believed to be the saline and he received and not the nitro. I told the patient that he needed to stay because of the chest pain difficulty breathing and the odd feeling in his arm she did not want to stay I told him that it still could be a sign of coronary artery disease he refused to stay at that time he knew detriment possibly going home could be morbidity or mortality - Lab Data Result diagrams: 05/29/19 09:19 05/29/19 09:19 Lab Results 05/29/19 05/29/19 05/29/19 Range/Units 09:19 09:19 09:19 WBC 8.0 (3.8-10.6) k/uL RBC 4.68 (4.30-5.90) m/uL Hgb 14.9 (13.0-17.5) gm/dL Hct 44.5 (39.0-53.0) % MCV 95.0 (80.0-100.0) fL MCH 31.9 (25.0-35.0) pg MCHC 33.5 (31.0-37.0) g/dL RDW 12.8 (11.5-15.5) % Plt Count 303 (150-450) k/uL Neutrophils % 47 % Lymphocytes % 43 % Monocytes % 4 % Eosinophils % 2 % Basophils % 1 % Neutrophils # 3.8 (1.3-7.7) k/uL Lymphocytes # 3.4 (1.0-4.8) k/uL Monocytes # 0.3 (0-1.0) k/uL Eosinophils # 0.2 (0-0.7) k/uL Basophils # 0.1 (0-0.2) k/uL PT 9.6 (9.0-12.0) sec INR 0.9 (<1.2) APTT 23.9 (22.0-30.0) sec Sodium 135 L (137-145) mmol/L Potassium 4.5 (3.5-5.1) mmol/L Chloride 100 (98-107) mmol/L Carbon Dioxide 25 (22-30) mmol/L Anion Gap 10 mmol/L BUN 21 H (9-20) mg/dL Creatinine 0.96 (0.66-1.25) mg/dL Est GFR (CKD-EPI)AfAm >90 (>60 ml/min/1.73 sqM) Est GFR (CKD-EPI)NonAf 89 (>60 ml/min/1.73 sqM) Glucose 133 H (74-99) mg/dL Calcium 10.3 H (8.4-10.2) mg/dL Magnesium 2.0 (1.6-2.3) mg/dL Total Bilirubin 0.9 (0.2-1.3) mg/dL AST 53 (17-59) U/L ALT 49 (4-49) U/L Alkaline Phosphatase 217 H (38-126) U/L Troponin I (0.000-0.034) ng/mL Total Protein 7.8 (6.3-8.2) g/dL Albumin 4.6 (3.5-5.0) g/dL 05/29/19 Range/Units 09:19 WBC (3.8-10.6) k/uL RBC (4.30-5.90) m/uL Hgb (13.0-17.5) gm/dL Hct (39.0-53.0) % MCV (80.0-100.0) fL MCH (25.0-35.0) pg MCHC (31.0-37.0) g/dL RDW (11.5-15.5) % Plt Count (150-450) k/uL Neutrophils % % Lymphocytes % % Monocytes % % Eosinophils % % Basophils % % Neutrophils # (1.3-7.7) k/uL Lymphocytes # (1.0-4.8) k/uL Monocytes # (0-1.0) k/uL Eosinophils # (0-0.7) k/uL Basophils # (0-0.2) k/uL PT (9.0-12.0) sec INR (<1.2) APTT (22.0-30.0) sec Sodium (137-145) mmol/L Potassium (3.5-5.1) mmol/L Chloride (98-107) mmol/L Carbon Dioxide (22-30) mmol/L Anion Gap mmol/L BUN (9-20) mg/dL Creatinine (0.66-1.25) mg/dL Est GFR (CKD-EPI)AfAm (>60 ml/min/1.73 sqM) Est GFR (CKD-EPI)NonAf (>60 ml/min/1.73 sqM) Glucose (74-99) mg/dL Calcium (8.4-10.2) mg/dL Magnesium (1.6-2.3) mg/dL Total Bilirubin (0.2-1.3) mg/dL AST (17-59) U/L ALT (4-49) U/L Alkaline Phosphatase (38-126) U/L Troponin I <0.012 (0.000-0.034) ng/mL Total Protein (6.3-8.2) g/dL Albumin (3.5-5.0) g/dL Disposition Clinical Impression: Atypical angina Disposition: Left Against Medical Advice Instructions (If sedation given, give patient instructions): Chest Pain (ED) Is patient prescribed a controlled substance at d/c from ED?: No Referrals: Mena Maloney DO [Primary Care Provider] - 1-2 days Time of Disposition: 11:19
[2019-05-29 09:37] LABS: Basophils # (A) 0.1 k/uL (0-0.2); Basophils % (A) 1 %; Eosinophils # (A) 0.2 k/uL (0-0.7); Eosinophils % (A) 2 %; HCT 44.5 % (39.0-53.0); HGB 14.9 gm/dL (13.0-17.5); Lymphocytes # (A) 3.4 k/uL (1.0-4.8); Lymphocytes % (A) 43 %; MCH 31.9 pg (25.0-35.0); MCHC 33.5 g/dL (31.0-37.0); Mean Platelet Volume 6.6; Monocytes # (A) 0.3 k/uL (0-1.0); Monocytes % (A) 4 %; Neutrophils # (A) 3.8 k/uL (1.3-7.7); Neutrophils % (A) 47 %; Platelet Count 303 k/uL (150-450); RBC 4.68 m/uL (4.30-5.90); RDW 12.8 % (11.5-15.5)
--- NOTE | 2019-05-29 09:43 | XR ---
EXAMINATION TYPE: XR chest 2V DATE OF EXAM: 05/29/2019 COMPARISON: 06/18/2018 INDICATION: Fatigue TECHNIQUE: Frontal and lateral views of the chest are obtained. FINDINGS: The heart size is normal. The pulmonary vasculature is normal. The lungs are clear. IMPRESSION: 1. No acute pulmonary process.
[2019-05-29 09:45] LABS: INR 0.9 (<1.2); Partial Thromboplastin Time 23.9 sec (22.0-30.0); Prothrombin Time 9.6 sec (9.0-12.0)
[2019-05-29 09:46] LABS: ALT 49 U/L (4-49); AST 53 U/L (17-59); African American GFR (CKD) >90 (>60 ml/min/1.73 sqM); Albumin 4.6 g/dL (3.5-5.0); Alkaline Phosphatase 217 U/L (38-126); Anion Gap 10 mmol/L; Blood Urea Nitrogen 21 mg/dL (9-20); Calcium 10.3 mg/dL (8.4-10.2); Carbon Dioxide 25 mmol/L (22-30); Chloride 100 mmol/L (98-107); Glucose 133 mg/dL (74-99); Non-African American GFR(CKD) 89 (>60 ml/min/1.73 sqM); Potassium 4.5 mmol/L (3.5-5.1); Sodium 135 mmol/L (137-145); Total Bilirubin 0.9 mg/dL (0.2-1.3); Total Protein 7.8 g/dL (6.3-8.2)
[2019-05-29 11:17] VITALS: BP 135/87; PULSE 66; RESP 21
== END 2019-05-29 11:30 | disposition left against medical advice (07) ==
LOC: EC 08:59
DX: I20.9 Angina pectoris, unspecified (principal); R06.02 Shortness of breath; R53.83 Other fatigue; R29.898 Other symptoms and signs involving the musculoskeletal system; Z88.0 Allergy status to penicillin; Z88.8 Allergy status to other drugs, medicaments and biological substances; Z85.6 Personal history of leukemia; Z94.81 Bone marrow transplant status; Z80.7 Family history of other malignant neoplasms of lymphoid, hematopoietic and related tissues; Z53.20 Procedure and treatment not carried out because of patient's decision for unspecified reasons
CPT/HCPCS: 36415; 71046; 80053; 83735; 84484; 85025; 85610; 85730; 93005; 96360; 99285

== ENCOUNTER → 2019-10-20 | Outpatient (CLI) | payer OTHER | END | disposition home or self-care (01) | LOC: LABWHC1 13:17 | PROVIDERS: ATTEND Internal Medicine Hematology & Oncology | DX: U07.1 COVID-19 (principal) ==

== ENCOUNTER 2020-10-23 10:05 | Emergency (ER) | payer OTHER ==
[2020-10-23] MEDS ORDERED: SODIUM CHLORIDE 0.9% 1,000 ML IV STA (10:24)
[2020-10-23 10:50] LABS: Basophils % (A) 0 %; Eosinophils # (A) 0.1 k/uL (0-0.7); Eosinophils % (A) 1 %; HCT 42.7 % (39.0-53.0); Lymphocytes # (A) 2.2 k/uL (1.0-4.8); Lymphocytes % (A) 31 %; MCH 33.4 pg (25.0-35.0); MCHC 35.1 g/dL (31.0-37.0); MCV 95.1 fL (80.0-100.0); Mean Platelet Volume 6.5; Monocytes # (A) 0.5 k/uL (0-1.0); Monocytes % (A) 7 %; Neutrophils % (A) 58 %; Platelet Count 291 k/uL (150-450); RBC 4.49 m/uL (4.30-5.90); RDW 12.8 % (11.5-15.5); WBC 6.9 k/uL (3.8-10.6)
[2020-10-23 10:56] LABS: Appearance,Urine Clear (Clear); Bilirubin,Urine Negative (Negative); Blood,Urine Negative (Negative); Color,Urine Colorless; Glucose,Urine (UA) Negative (Negative); Ketones,Urine Negative (Negative); Leukocyte Esterase,Urine Negative (Negative); Nitrite,Urine Negative (Negative); Protein,Urine Negative (Negative); Specific Gravity,Urine 1.003 (1.001-1.035); Urobilinogen,Urine <2.0 mg/dL (<2.0)
--- NOTE | 2020-10-23 10:56 | ED ---
Weakness HPI - General Chief complaint: Weakness Stated complaint: Not feeling well Time Seen by Provider: 10/23/20 10:19 Source: patient Mode of arrival: ambulatory Limitations: no limitations - History of Present Illness Initial comments: 55-year-old male with history of AML, hypertension presents to the emergency department with a chief complaint of weakness. Patient reports feeling symptomatic for proximally 4 days. Report generalized weakness and having near syncopal episodes but never having any syncopal episodes per se. Patient states he had 2 similar episodes several years ago. States the first time this occurred in 2014, she was diagnosed with leukemia. States he was in remission then 2 years later he had another similar episode to this and the leukemia return. States he underwent another treatment and bone marrow transplant and has been in remission since. Patient reports He denies any associated dizziness headache blurry vision one-sided weakness or paresthesias. Denies any chest pain shortness of breath fevers or chills. - Related Data Home Medications Medication Instructions Recorded Confirmed Acetaminophen [Tylenol Arthritis] 1,300 mg PO BID PRN 05/29/19 05/29/19 Amitriptyline HCl [Elavil] 25 mg PO HS 05/29/19 05/29/19 L.acidoph,Paracasei, B.lactis 1 cap PO HS 05/29/19 05/29/19 [Probiotic] Allergies Allergy/AdvReac Type Severity Reaction Status Date / Time Penicillins Allergy Severe Rash/Hives Verified 10/23/20 10:16 amoxicillin Allergy Rash/Hives Verified 10/23/20 10:16 fluconazole Allergy Rash/Hives Verified 10/23/20 10:16 micafungin [From Mycamine] Allergy Unknown Verified 10/23/20 10:16 Review of Systems ROS Statement: Those systems with pertinent positive or pertinent negative responses have been documented in the HPI. ROS Other: All systems not noted in ROS Statement are negative. Past Medical History Past Medical History: Blood Disorder, Cancer, Hypertension Additional Past Medical History / Comment(s): Accute myeloid leukemia.picc line cellulitis R arm, neutropenic sepsis unknown source, pancytopenia. feb 2017 - bone marrow transplant. HEMOCHROMATOSIS- WITH THERAPEUTIC PHELBOTOMIES. History of Any Multi-Drug Resistant Organisms: None Reported Past Surgical History: Tonsillectomy Additional Past Surgical History / Comment(s): BONE MARROW TRANSPLANT 02/27/17,bone marrow bx 7, PICC line insertion R arm-discontinued and new picc in LFA. DISCONTINUED, PORT IN AND DISCONTINUED Past Anesthesia/Blood Transfusion Reactions: No Reported Reaction Additional Past Anesthesia/Blood Transfusion Reaction / Comment(s): Pt has received blood / platelets without reaction. Past Psychological History: No Psychological Hx Reported Smoking Status: Never smoker Past Alcohol Use History: Occasional Past Drug Use History: None Reported - Past Family History Mother Family Medical History: Cancer Additional Family Medical History / Comment(s): Mother of lymphoma at the age of 49 yrs. Father Family Medical History: No Reported History Additional Family Medical History / Comment(s): Father is 75yrs old and healthy. General Exam Limitations: no limitations General appearance: alert, in no apparent distress Head exam: Present: atraumatic, normocephalic, normal inspection Eye exam: Present: normal appearance, PERRL, EOMI Pupils: Present: normal accommodation ENT exam: Present: normal exam, normal oropharynx, mucous membranes moist Neck exam: Present: normal inspection, full ROM. Absent: tenderness, lymphadenopathy, thyromegaly Respiratory exam: Present: normal lung sounds bilaterally. Absent: respiratory distress, wheezes, rales, rhonchi, stridor Cardiovascular Exam: Present: regular rate, normal rhythm, normal heart sounds. Absent: systolic murmur Extremities exam: Present: normal inspection, full ROM, normal capillary refill. Absent: tenderness Back exam: Present: normal inspection, full ROM. Absent: tenderness, CVA tenderness (R), CVA tenderness (L) Neurological exam: Present: alert, oriented X3 Psychiatric exam: Present: normal affect, normal mood Skin exam: Present: warm, dry, intact, normal color Course Vital Signs 10/23/20 10/23/20 10:12 10:34 Temperature 97.6 F Pulse Rate 81 Respiratory 16 Rate Blood Pressure 185/102 156/92 O2 Sat by Pulse 97 Oximetry Medical Decision Making - Medical Decision Making 55-year-old male with history of AML, hypertension presents to the emergency department with a chief complaint of weakness. On physical examination, no acute findings. Patient is well-appearing resting comfortably. He is slightly hypertensive but he has not taken his medication. They see is also slightly anxious as well. Laboratory work is unremarkable. Chest x-ray shows no acute findings. EKG shows no acute ischemic changes. Covid negative. UA unremarkable. I advised the patient to follow with his primary care physician. Strict return parameters were thoroughly discussed the patient is understanding and agreeable. Case discussed with Dr. Stephens. - Lab Data Result diagrams: 10/23/20 10:38 10/23/20 10:38 Lab Results 10/23/20 10/23/20 10/23/20 Range/Units 10:38 10:38 10:38 WBC 6.9 (3.8-10.6) k/uL RBC 4.49 (4.30-5.90) m/uL Hgb 15.0 (13.0-17.5) gm/dL Hct 42.7 (39.0-53.0) % MCV 95.1 (80.0-100.0) fL MCH 33.4 (25.0-35.0) pg MCHC 35.1 (31.0-37.0) g/dL RDW 12.8 (11.5-15.5) % Plt Count 291 (150-450) k/uL MPV 6.5 Neutrophils % 58 % Lymphocytes % 31 % Monocytes % 7 % Eosinophils % 1 % Basophils % 0 % Neutrophils # 4.0 (1.3-7.7) k/uL Lymphocytes # 2.2 (1.0-4.8) k/uL Monocytes # 0.5 (0-1.0) k/uL Eosinophils # 0.1 (0-0.7) k/uL Basophils # 0.0 (0-0.2) k/uL PT 10.0 (9.0-12.0) sec INR 0.9 (<1.2) APTT 22.1 (22.0-30.0) sec Sodium (137-145) mmol/L Potassium (3.5-5.1) mmol/L Chloride (98-107) mmol/L Carbon Dioxide (22-30) mmol/L Anion Gap mmol/L BUN (9-20) mg/dL Creatinine (0.66-1.25) mg/dL Est GFR (CKD-EPI)AfAm (>60 ml/min/1.73 sqM) Est GFR (CKD-EPI)NonAf (>60 ml/min/1.73 sqM) Glucose (74-99) mg/dL Calcium (8.4-10.2) mg/dL Total Bilirubin (0.2-1.3) mg/dL AST (17-59) U/L ALT (4-49) U/L Alkaline Phosphatase (38-126) U/L Troponin I (0.000-0.034) ng/mL Total Protein (6.3-8.2) g/dL Albumin (3.5-5.0) g/dL Urine Color Colorless Urine Appearance Clear (Clear) Urine pH 5.0 (5.0-8.0) Ur Specific [place] 1.003 (1.001-1.035) Urine Protein Negative (Negative) Urine Glucose (UA) Negative (Negative) Urine Ketones Negative (Negative) Urine Blood Negative (Negative) Urine Nitrite Negative (Negative) Urine Bilirubin Negative (Negative) Urine Urobilinogen <2.0 (<2.0) mg/dL Ur Leukocyte Esterase Negative (Negative) Coronavirus (PCR) (Not Detectd) 10/23/20 10/23/20 10/23/20 Range/Units 10:38 10:38 11:48 WBC (3.8-10.6) k/uL RBC (4.30-5.90) m/uL Hgb (13.0-17.5) gm/dL Hct (39.0-53.0) % MCV (80.0-100.0) fL MCH (25.0-35.0) pg MCHC (31.0-37.0) g/dL RDW (11.5-15.5) % Plt Count (150-450) k/uL MPV Neutrophils % % Lymphocytes % % Monocytes % % Eosinophils % % Basophils % % Neutrophils # (1.3-7.7) k/uL Lymphocytes # (1.0-4.8) k/uL Monocytes # (0-1.0) k/uL Eosinophils # (0-0.7) k/uL Basophils # (0-0.2) k/uL PT (9.0-12.0) sec INR (<1.2) APTT (22.0-30.0) sec Sodium 134 L (137-145) mmol/L Potassium 4.3 (3.5-5.1) mmol/L Chloride 105 (98-107) mmol/L Carbon Dioxide 22 (22-30) mmol/L Anion Gap 7 mmol/L BUN 23 H (9-20) mg/dL Creatinine 0.97 (0.66-1.25) mg/dL Est GFR (CKD-EPI)AfAm >90 (>60 ml/min/1.73 sqM) Est GFR (CKD-EPI)NonAf 88 (>60 ml/min/1.73 sqM) Glucose 117 H (74-99) mg/dL Calcium 10.0 (8.4-10.2) mg/dL Total Bilirubin 0.6 (0.2-1.3) mg/dL AST 56 (17-59) U/L ALT 43 (4-49) U/L Alkaline Phosphatase 114 (38-126) U/L Troponin I <0.012 (0.000-0.034) ng/mL Total Protein 7.3 (6.3-8.2) g/dL Albumin 4.7 (3.5-5.0) g/dL Urine Color Urine Appearance (Clear) Urine pH (5.0-8.0) Ur Specific [place] (1.001-1.035) Urine Protein (Negative) Urine Glucose (UA) (Negative) Urine Ketones (Negative) Urine Blood (Negative) Urine Nitrite (Negative) Urine Bilirubin (Negative) Urine Urobilinogen (<2.0) mg/dL Ur Leukocyte Esterase (Negative) Coronavirus (PCR) Not Detected (Not Detectd) Disposition Clinical Impression: Weakness Disposition: HOME SELF-CARE Condition: Stable Instructions (If sedation given, give patient instructions): Weakness (ED) Additional Instructions: Please return to the Emergency Department if symptoms worsen or any other concerns. Is patient prescribed a controlled substance at d/c from ED?: No Referrals: Anup Hendricks III, MD [Primary Care Provider] - 1-2 days Time of Disposition: 12:49
[2020-10-23 10:59] LABS: INR 0.9 (<1.2); Partial Thromboplastin Time 22.1 sec (22.0-30.0)
--- NOTE | 2020-10-23 11:03 | XR ---
EXAMINATION TYPE: XR chest 2V DATE OF EXAM: 10/23/2020 COMPARISON: Chest x-ray 05/29/2019 HISTORY: Weakness TECHNIQUE: Frontal and lateral views of the chest are obtained. FINDINGS: There is no focal air space opacity, pleural effusion, or pneumothorax seen. The cardiac silhouette size is within normal limits. The aorta is dense. Patient is rotated. There are overlying leads. There is thoracic spondylosis. The osseous structures are intact. IMPRESSION: No acute cardiopulmonary process.
[2020-10-23 11:04] LABS: ALT 43 U/L (4-49); AST 56 U/L (17-59); African American GFR (CKD) >90 (>60 ml/min/1.73 sqM); Albumin 4.7 g/dL (3.5-5.0); Alkaline Phosphatase 114 U/L (38-126); Anion Gap 7 mmol/L; Blood Urea Nitrogen 23 mg/dL (9-20); Carbon Dioxide 22 mmol/L (22-30); Chloride 105 mmol/L (98-107); Glucose 117 mg/dL (74-99); Non-African American GFR(CKD) 88 (>60 ml/min/1.73 sqM); Potassium 4.3 mmol/L (3.5-5.1); Sodium 134 mmol/L (137-145); Total Bilirubin 0.6 mg/dL (0.2-1.3); Total Protein 7.3 g/dL (6.3-8.2)
[2020-10-23 13:12] VITALS: BP 152/105; PULSE 73; RESP 18; TEMP 97.9
== END 2020-10-23 13:04 | disposition home or self-care (01) ==
LOC: EC 10:05
DX: R53.1 Weakness (principal); I10 Essential (primary) hypertension
CPT/HCPCS: 36415; 71046; 80053; 81003; 84484; 85025; 85610; 85730; 87635; 93005; 96360; 99285